=== PATIENT | female | born 1975 | race Two or more races ===

== ENCOUNTER 2022-10-28 11:44 | Emergency (ER) | payer MEDICARE, MEDICAID ==
[~2022-10-28] VITALS: Ht 172.7 cm; Wt 127.0 kg
[2022-10-28 14:43] VITALS: BP 119/90; PULSE 99; RESP 18; TEMP 98.4; O2SAT 99
== END 2022-10-28 14:45 | disposition home or self-care (01) ==
LOC: ER 11:44 → EDBD 11:44 → ER 14:45
DX: S00.03XA Contusion of scalp, initial encounter (principal); I12.0 Hypertensive chronic kidney disease with stage 5 chronic kidney disease or end stage renal disease; E11.22 Type 2 diabetes mellitus with diabetic chronic kidney disease; N18.6 End stage renal disease; Z99.2 Dependence on renal dialysis; Z88.5 Allergy status to narcotic agent; Y04.2XXA Assault by strike against or bumped into by another person, initial encounter; Y93.89 Activity, other specified; Y92.89 Other specified places as the place of occurrence of the external cause; Y99.8 Other external cause status
CPT/HCPCS: 70450; 70486; 72125

== ENCOUNTER 2022-12-12 09:47 | Inpatient (IN) | payer MEDICARE, MEDICAID ==
[~2022-12-12] VITALS: Ht 172.7 cm; Wt 138.7 kg
[2022-12-12 10:26] LABS: Basophils # (auto) 0.1 10 ^3/uL (0-0.2); Basophils % (auto) 1.3 % (0.0-2.0); Eosinophils # (auto) 0.3 10 ^3/uL (0-0.8); Eosinophils % (auto) 4.8 % (0.0-7.0); Hematocrit 33.8 % (36.0-46.0); Hemoglobin 11.3 g/dL (12.2-16.2); Lymphocytes # (auto) 1.6 10 ^3/uL (0.4-5.4); Lymphocytes % (auto) 22.6 % (10.0-50.0); Mean Corpuscular Hemoglobin 31.5 pg (28.0-32.0); Mean Corpuscular Hgb Conc. 33.4 g/dL (32.0-36.0); Mean Corpuscular Volume 94.4 fL (80.0-100.0); Monocytes # (auto) 0.4 10 ^3/uL (0-1.3); Monocytes % (auto) 6.4 % (0.0-12.0); Neutrophils # (auto) 4.6 10 ^3/uL (1.6-8.6); Neutrophils % (auto) 64.9 % (37.0-80.0); Nucleated Red Blood Cells % 0.1 %; Red Blood Cells 3.58 10^6/uL (4.0-5.20); Red Cell Distribution Width 14.6 % (11.8-14.3); White Blood Cell 7.1 10^3/uL (4.4-10.8)
[2022-12-12] MEDS ORDERED: MORPHINE SULFATE 4 MG/ML SYR/VIAL IV ONE (10:45)
[2022-12-12] MEDS ORDERED: PANTOPRAZOLE 40 MG/10 ML VIAL INJ IV ONE (10:45)
[2022-12-12] MEDS ORDERED: SODIUM CHLORIDE 0.9% 1,000 ML IVB ONE (10:45)
[2022-12-12] MEDS ORDERED: PROCHLORPERAZINE EDISYLATE 5 MG/ML 2ML VIAL IV ONE (10:45)
[2022-12-12 11:16] LABS: Magnesium 2.3 mg/dL (1.6-2.6)
[2022-12-12 11:47] LABS: Alanine Aminotransferase 21 U/L (7-40); Albumin 4.3 g/dL (3.2-4.8); Alkaline Phosphatase 74 U/L (46-116); Anion Gap 8 (5-15); Aspartate Aminotransferase < 8 U/L (13-40); BUN/Creatinine Ratio 5.4 (10.0-20.0); Bilirubin, Total 0.3 mg/dL (0.2-1.0); Blood Urea Nitrogen 39 mg/dL (9-23); Calcium 9.5 mg/dL (8.5-10.1); Carbon Dioxide 33 mmol/L (20-30); Chloride 98 mmol/L (98-107); Glucose 179 mg/dL (74-106); Potassium 4.3 mmol/L (3.5-5.1); Sodium 139 mmol/L (136-145); Total Protein 7.7 g/dL (5.7-8.2)
[2022-12-12 12:38] VITALS: PULSE 66; RESP 16; O2SAT 94
[2022-12-12] MEDS ORDERED: ACETAMINOPHEN 325 MG TAB PO PRN (13:30)
[2022-12-12] MEDS ORDERED: DEXTROSE (50%) 50ML SYRG IV PRN (13:30)
[2022-12-12] MEDS ORDERED: DOCUSATE SOD 100 MG CAP PO PRN (13:30)
[2022-12-12] MEDS ORDERED: CALC667C PO (14:16)
[2022-12-12] MEDS ORDERED: FERR1TAB17 PO (14:16)
[2022-12-12] MEDS ORDERED: FURO40TA4 PO (14:16)
[2022-12-12] MEDS ORDERED: METO-159 PO (14:16)
[2022-12-12] MEDS ORDERED: GABA-1250 PO (14:16)
[2022-12-12] MEDS: SODIUM CHLORIDE 0.9% 1,000 ML IV SCH (14:25)
[2022-12-12] MEDS: InsuLIN REG 1unit/0.01ml Soln (100units/ml) SC SCH ×2 (17:00→23:19)
[2022-12-12] MEDS: ACCU-CHEK COMFORT CURVE STRIP VI SCH ×2 (17:06→23:10)
[2022-12-12] MEDS: hydrALAZINE HCL 20 MG/ML VL IV PRN (17:13)
[2022-12-12 20:25] VITALS: PULSE 69; RESP 20; O2SAT 99
[2022-12-12 22:00] VITALS: BP 196/105; PULSE 67; RESP 19; TEMP 97.8; O2SAT 100
[2022-12-12] MEDS: FERRIC CITRATE PO SCH (22:00)
[2022-12-12 22:56] VITALS: PULSE 61; RESP 19
[2022-12-12] MEDS: METOPROLOL TARTRATE 50 MG TAB PO SCH (23:08)
[2022-12-12] MEDS: CALCIUM ACETATE 667 MG CAP PO SCH (23:08)
[2022-12-12] MEDS: GABAPENTIN 300 MG CAP PO SCH (23:08)
[2022-12-12] MEDS ORDERED: LEVO150T10 PO (23:12)
[2022-12-12] MEDS ORDERED: CLON0.1T PO (23:12)
[2022-12-12] MEDS: MORPHINE SULFATE INJ 2 MG/ml SYRG IV PRN (23:53)
[2022-12-13 00:30] VITALS: BP 158/59; PULSE 58; RESP 17; O2SAT 99
[2022-12-13] MEDS: SODIUM CHLORIDE 0.9% 1,000 ML IV SCH (03:35)
[2022-12-13 05:00] VITALS: BP 141/64; PULSE 59; RESP 17; TEMP 97.6; O2SAT 94
[2022-12-13] MEDS: FERRIC CITRATE PO SCH ×3 (06:00→22:00)
[2022-12-13] MEDS: CALCIUM ACETATE 667 MG CAP PO SCH ×3 (06:25→22:28)
[2022-12-13] MEDS: InsuLIN REG 1unit/0.01ml Soln (100units/ml) SC SCH ×4 (06:30→22:30)
[2022-12-13] MEDS: ACCU-CHEK COMFORT CURVE STRIP VI SCH ×4 (06:31→22:28)
[2022-12-13] MEDS ORDERED: SODIUM CHL 0.9% 1000 ML BAG XX ONE (07:00)
[2022-12-13 07:09] LABS: Alanine Aminotransferase 13 U/L (7-40); Albumin 3.7 g/dL (3.2-4.8); Alkaline Phosphatase 73 U/L (46-116); Anion Gap 10 (5-15); Aspartate Aminotransferase 16 U/L (13-40); BUN/Creatinine Ratio 3.3 (10.0-20.0); Calcium 9.1 mg/dL (8.7-10.4); Carbon Dioxide 25 mmol/L (20-30); Chloride 99 mmol/L (98-107); Glucose 142 mg/dL (74-106); Potassium 4.8 mmol/L (3.5-5.1)
[2022-12-13 07:10] LABS: Bilirubin, Total 0.3 mg/dL (0.2-1.0); Blood Urea Nitrogen 28 mg/dL (9-23); Sodium 134 mmol/L (136-145); Total Protein 6.7 g/dL (5.7-8.2)
[2022-12-13 07:12] LABS: Basophils # (auto) 0.1 10 ^3/uL (0-0.2); Basophils % (auto) 1.5 % (0.0-2.0); Eosinophils # (auto) 0.5 10 ^3/uL (0-0.8); Eosinophils % (auto) 6.8 % (0.0-7.0); Hematocrit 35.7 % (36.0-46.0); Hemoglobin 11.5 g/dL (12.2-16.2); Lymphocytes # (auto) 1.6 10 ^3/uL (0.4-5.4); Lymphocytes % (auto) 23.1 % (10.0-50.0); Mean Corpuscular Hemoglobin 31.1 pg (28.0-32.0); Mean Corpuscular Hgb Conc. 32.1 g/dL (32.0-36.0); Mean Corpuscular Volume 96.9 fL (80.0-100.0); Monocytes # (auto) 0.6 10 ^3/uL (0-1.3); Monocytes % (auto) 8.7 % (0.0-12.0); Neutrophils # (auto) 4.1 10 ^3/uL (1.6-8.6); Neutrophils % (auto) 59.9 % (37.0-80.0); Red Blood Cells 3.68 10^6/uL (4.0-5.20); Red Cell Distribution Width 14.6 % (11.8-14.3); White Blood Cell 6.9 10^3/uL (4.4-10.8)
[2022-12-13 08:00] VITALS: RESP 18; O2SAT 99
[2022-12-13 09:00] VITALS: BP 160/54; PULSE 60; RESP 20; TEMP 98.4; O2SAT 99
[2022-12-13] MEDS: GABAPENTIN 300 MG CAP PO SCH ×2 (10:43→22:28)
[2022-12-13] MEDS: METOPROLOL TARTRATE 50 MG TAB PO SCH (10:43)
[2022-12-13] MEDS: FUROSEMIDE 40 MG TAB PO SCH (10:43)
[2022-12-13] MEDS: HYDROcodone-ACET 5/325MG TAB PO PRN (11:42)
[2022-12-13 15:03] LABS: INR 1.04 (0.9-1.15); Partial Thromboplastin Time 25.9 SEC (24.5-34.5); Prothrombin Time 10.9 sec (9.3-11.8)
[2022-12-13] MEDS: LACTULOSE 20Gm/30ML SOLN PO SCH ×2 (15:27→22:28)
[2022-12-13 16:59] VITALS: BP 209/79; PULSE 60; RESP 18; TEMP 98; O2SAT 96
[2022-12-13] MEDS: amLODIPine BESYLATE 5 MG TAB PO SCH (17:37)
[2022-12-13 22:00] VITALS: BP 174/78; PULSE 65; RESP 22; TEMP 98.1; O2SAT 100
[2022-12-13] MEDS: DOCUSATE SOD 100 MG CAP PO SCH (22:28)
[2022-12-13] MEDS: CARVEDILOL 12.5 MG TAB PO SCH (22:31)
[2022-12-13] MEDS: MORPHINE SULFATE INJ 2 MG/ml SYRG IV PRN (22:37)
[2022-12-14] MEDS: LACTULOSE 20Gm/30ML SOLN PO SCH ×3 (06:00→21:34)
[2022-12-14] MEDS: FERRIC CITRATE PO SCH ×2 (06:00→17:38)
[2022-12-14] MEDS: CALCIUM ACETATE 667 MG CAP PO SCH ×3 (06:00→21:16)
[2022-12-14] MEDS ORDERED: LIDOCAINE 2%HCL (LOCAL ANESTH.) INJ 10ml MDV ONE (06:47)
[2022-12-14] MEDS: ACCU-CHEK COMFORT CURVE STRIP VI SCH ×4 (07:00→21:15)
[2022-12-14] MEDS: InsuLIN REG 1unit/0.01ml Soln (100units/ml) SC SCH ×4 (07:00→21:18)
[2022-12-14 09:00] VITALS: BP 139/68; PULSE 80; RESP 20; TEMP 98; O2SAT 91
[2022-12-14] MEDS: CARVEDILOL 12.5 MG TAB PO SCH ×2 (10:00→13:06)
[2022-12-14] MEDS: amLODIPine BESYLATE 5 MG TAB PO SCH (10:00)
[2022-12-14] MEDS: FUROSEMIDE 40 MG TAB PO SCH (10:00)
[2022-12-14] MEDS: GABAPENTIN 300 MG CAP PO SCH ×3 (10:00→21:15)
[2022-12-14] MEDS: DOCUSATE SOD 100 MG CAP PO SCH ×2 (10:00→21:34)
[2022-12-14 13:00] VITALS: BP 133/65; PULSE 77; RESP 20; TEMP 97.8; O2SAT 90
[2022-12-14] MEDS: MORPHINE SULFATE INJ 2 MG/ml SYRG IV PRN ×2 (13:04→13:06)
[2022-12-14 17:00] VITALS: BP 141/63; PULSE 69; RESP 20; TEMP 98.1; O2SAT 92
[2022-12-14 20:00] VITALS: PULSE 84; RESP 22; O2SAT 97
[2022-12-14] MEDS: hydrALAZINE HCL 20 MG/ML VL IV PRN (21:42)
[2022-12-14 22:00] VITALS: BP 194/98; PULSE 84; RESP 22; TEMP 98.3; O2SAT 97
[2022-12-14 22:45] VITALS: BP 149/53
[2022-12-15] VITALS (8 sets, daily range): BP systolic 148–201; BP diastolic 53–91; PULSE 72–86; RESP 14–22; TEMP 97.7–98.9; O2SAT 89–99
[2022-12-15] MEDS: LACTULOSE 20Gm/30ML SOLN PO SCH ×3 (06:00→22:00)
[2022-12-15] MEDS: CALCIUM ACETATE 667 MG CAP PO SCH ×3 (06:00→17:37)
[2022-12-15 06:27] LABS: Basophils # (auto) 0.1 10 ^3/uL (0-0.2); Basophils % (auto) 1.2 % (0.0-2.0); Eosinophils # (auto) 0.4 10 ^3/uL (0-0.8); Eosinophils % (auto) 6.3 % (0.0-7.0); Hematocrit 31.4 % (36.0-46.0); Hemoglobin 10.3 g/dL (12.2-16.2); Lymphocytes # (auto) 1.6 10 ^3/uL (0.4-5.4); Lymphocytes % (auto) 24.9 % (10.0-50.0); Mean Corpuscular Hemoglobin 31.6 pg (28.0-32.0); Mean Corpuscular Hgb Conc. 32.7 g/dL (32.0-36.0); Mean Corpuscular Volume 96.4 fL (80.0-100.0); Monocytes # (auto) 0.6 10 ^3/uL (0-1.3); Monocytes % (auto) 9.1 % (0.0-12.0); Neutrophils # (auto) 3.6 10 ^3/uL (1.6-8.6); Neutrophils % (auto) 58.5 % (37.0-80.0); Nucleated Red Blood Cells % 0.1 %; Red Blood Cells 3.26 10^6/uL (4.0-5.20); Red Cell Distribution Width 14.7 % (11.8-14.3); White Blood Cell 6.2 10^3/uL (4.4-10.8)
[2022-12-15 06:39] LABS: Alanine Aminotransferase 13 U/L (7-40); Albumin 3.7 g/dL (3.2-4.8); Alkaline Phosphatase 67 U/L (46-116); Anion Gap 8 (5-15); Aspartate Aminotransferase < 8 U/L (13-40); BUN/Creatinine Ratio 4.2 (10.0-20.0); Bilirubin, Total 0.4 mg/dL (0.2-1.0); Blood Urea Nitrogen 35 mg/dL (9-23); Calcium 9.1 mg/dL (8.5-10.1); Carbon Dioxide 27 mmol/L (20-30); Chloride 103 mmol/L (98-107); Glucose 102 mg/dL (74-106); Potassium 5.2 mmol/L (3.5-5.1); Sodium 138 mmol/L (136-145); Total Protein 6.6 g/dL (5.7-8.2)
[2022-12-15 06:41] LABS: INR 1.01 (0.9-1.15); Partial Thromboplastin Time 26.4 SEC (24.5-34.5); Prothrombin Time 10.6 sec (9.3-11.8)
[2022-12-15] MEDS: InsuLIN REG 1unit/0.01ml Soln (100units/ml) SC SCH ×4 (06:41→22:39)
[2022-12-15] MEDS: ACCU-CHEK COMFORT CURVE STRIP VI SCH ×4 (06:41→22:35)
[2022-12-15] MEDS: hydrALAZINE HCL 20 MG/ML VL IV PRN ×2 (06:44→22:38)
[2022-12-15] MEDS ORDERED: SODIUM CHL 0.9% 1000 ML BAG XX ONE (07:00)
[2022-12-15] MEDS: FERRIC CITRATE PO SCH ×3 (08:00→17:38)
[2022-12-15] MEDS: FUROSEMIDE 40 MG TAB PO SCH (09:42)
[2022-12-15] MEDS: DOCUSATE SOD 100 MG CAP PO SCH ×2 (09:42→22:00)
[2022-12-15] MEDS: CARVEDILOL 12.5 MG TAB PO SCH ×2 (09:42→22:37)
[2022-12-15] MEDS: GABAPENTIN 300 MG CAP PO SCH ×2 (09:42→22:35)
[2022-12-15] MEDS: amLODIPine BESYLATE 5 MG TAB PO SCH (09:42)
[2022-12-15] MEDS ORDERED: METOPROLOL TARTRATE 50 MG TAB PO SCH (10:00)
[2022-12-15] MEDS ORDERED: ceFAZolin 1GM/50ML 0 ML IV ONE (10:49)
[2022-12-15] MEDS: HYDROcodone-ACET 5/325MG TAB PO PRN ×2 (14:02→22:50)
[2022-12-15] MEDS ORDERED: ceFAZolin 1GM/50ML 100 ML IV ONE (14:18)
[2022-12-16] VITALS (7 sets, daily range): BP systolic 103–177; BP diastolic 75–91; PULSE 78–82; RESP 14–22; TEMP 97.8–98.9; O2SAT 93–99
[2022-12-16] MEDS: InsuLIN REG 1unit/0.01ml Soln (100units/ml) SC SCH ×4 (05:35→21:31)
[2022-12-16] MEDS: LACTULOSE 20Gm/30ML SOLN PO SCH ×3 (05:35→21:20)
[2022-12-16] MEDS: ACCU-CHEK COMFORT CURVE STRIP VI SCH ×4 (05:35→21:31)
[2022-12-16 07:20] LABS: Basophils # (auto) 0.1 10 ^3/uL (0-0.2); Basophils % (auto) 1.7 % (0.0-2.0); Eosinophils # (auto) 0.3 10 ^3/uL (0-0.8); Eosinophils % (auto) 6.8 % (0.0-7.0); Hematocrit 32.3 % (36.0-46.0); Hemoglobin 10.6 g/dL (12.2-16.2); Lymphocytes # (auto) 1.5 10 ^3/uL (0.4-5.4); Lymphocytes % (auto) 30.6 % (10.0-50.0); Mean Corpuscular Hemoglobin 31.3 pg (28.0-32.0); Mean Corpuscular Hgb Conc. 32.8 g/dL (32.0-36.0); Mean Corpuscular Volume 95.4 fL (80.0-100.0); Monocytes # (auto) 0.5 10 ^3/uL (0-1.3); Monocytes % (auto) 10.2 % (0.0-12.0); Neutrophils # (auto) 2.5 10 ^3/uL (1.6-8.6); Neutrophils % (auto) 50.7 % (37.0-80.0); Red Blood Cells 3.38 10^6/uL (4.0-5.20); Red Cell Distribution Width 14.6 % (11.8-14.3); White Blood Cell 4.9 10^3/uL (4.4-10.8)
[2022-12-16 07:27] LABS: Chloride 104 mmol/L (98-107); Potassium 4.7 mmol/L (3.5-5.1); Sodium 139 mmol/L (136-145)
[2022-12-16 07:28] LABS: Anion Gap 8 (5-15); Carbon Dioxide 27 mmol/L (20-30)
[2022-12-16 07:29] LABS: Calcium 9.2 mg/dL (8.7-10.4)
[2022-12-16 07:33] LABS: BUN/Creatinine Ratio 3.9 (10.0-20.0); Blood Urea Nitrogen 27 mg/dL (9-23); Glucose 104 mg/dL (74-106)
[2022-12-16] MEDS: CALCIUM ACETATE 667 MG CAP PO SCH ×3 (08:29→17:32)
[2022-12-16] MEDS: FERRIC CITRATE PO SCH ×3 (08:30→17:32)
[2022-12-16] MEDS: DOCUSATE SOD 100 MG CAP PO SCH ×2 (09:43→21:21)
[2022-12-16] MEDS: amLODIPine BESYLATE 5 MG TAB PO SCH (09:45)
[2022-12-16] MEDS: FUROSEMIDE 40 MG TAB PO SCH (09:45)
[2022-12-16] MEDS: GABAPENTIN 300 MG CAP PO SCH ×2 (09:45→21:21)
[2022-12-16] MEDS: CARVEDILOL 12.5 MG TAB PO SCH ×2 (09:46→21:21)
[2022-12-16] MEDS: hydrALAZINE HCL 20 MG/ML VL IV PRN ×2 (17:17→21:19)
[2022-12-17] VITALS (7 sets, daily range): BP systolic 101–164; BP diastolic 61–76; PULSE 79–88; RESP 14–20; TEMP 98.2–98.6; O2SAT 95–99
[2022-12-17] MEDS: LACTULOSE 20Gm/30ML SOLN PO SCH ×3 (04:33→21:32)
[2022-12-17] MEDS: hydrALAZINE HCL 20 MG/ML VL IV PRN (04:34)
[2022-12-17] MEDS: HYDROcodone-ACET 5/325MG TAB PO PRN ×2 (04:35→22:05)
[2022-12-17] MEDS: ACCU-CHEK COMFORT CURVE STRIP VI SCH ×4 (05:51→21:22)
[2022-12-17] MEDS: InsuLIN REG 1unit/0.01ml Soln (100units/ml) SC SCH ×4 (05:54→21:28)
[2022-12-17 06:14] LABS: Basophils # (auto) 0.1 10 ^3/uL (0-0.2); Basophils % (auto) 1.6 % (0.0-2.0); Eosinophils # (auto) 0.4 10 ^3/uL (0-0.8); Eosinophils % (auto) 6.8 % (0.0-7.0); Hematocrit 32.4 % (36.0-46.0); Hemoglobin 10.7 g/dL (12.2-16.2); Lymphocytes # (auto) 1.7 10 ^3/uL (0.4-5.4); Mean Corpuscular Hemoglobin 31.7 pg (28.0-32.0); Mean Corpuscular Hgb Conc. 33.1 g/dL (32.0-36.0); Mean Corpuscular Volume 95.6 fL (80.0-100.0); Monocytes # (auto) 0.5 10 ^3/uL (0-1.3); Neutrophils # (auto) 3.7 10 ^3/uL (1.6-8.6); Neutrophils % (auto) 56.6 % (37.0-80.0); Red Blood Cells 3.39 10^6/uL (4.0-5.20); Red Cell Distribution Width 14.8 % (11.8-14.3); White Blood Cell 6.5 10^3/uL (4.4-10.8)
[2022-12-17] MEDS ORDERED: SODIUM CHL 0.9% 1000 ML BAG XX ONE (07:00)
[2022-12-17] MEDS: FERRIC CITRATE PO SCH ×3 (07:56→17:38)
[2022-12-17] MEDS: CALCIUM ACETATE 667 MG CAP PO SCH ×3 (07:56→17:37)
[2022-12-17] MEDS: GABAPENTIN 300 MG CAP PO SCH ×3 (09:36→21:28)
[2022-12-17] MEDS: FUROSEMIDE 40 MG TAB PO SCH (09:36)
[2022-12-17] MEDS: DOCUSATE SOD 100 MG CAP PO SCH ×2 (09:36→21:26)
[2022-12-17] MEDS: amLODIPine BESYLATE 5 MG TAB PO SCH (09:36)
[2022-12-17] MEDS: CARVEDILOL 12.5 MG TAB PO SCH ×2 (09:36→21:27)
[2022-12-18] VITALS (7 sets, daily range): BP systolic 151–176; BP diastolic 62–90; PULSE 70–82; RESP 12–22; TEMP 97.7–98.3; O2SAT 96–99
[2022-12-18] MEDS: hydrALAZINE HCL 20 MG/ML VL IV PRN ×2 (04:23→12:15)
[2022-12-18] MEDS: LACTULOSE 20Gm/30ML SOLN PO SCH ×3 (06:00→22:35)
[2022-12-18] MEDS: ACCU-CHEK COMFORT CURVE STRIP VI SCH ×4 (06:01→22:36)
[2022-12-18] MEDS: InsuLIN REG 1unit/0.01ml Soln (100units/ml) SC SCH ×4 (06:01→22:36)
[2022-12-18] MEDS ORDERED: LIDOCAINE 1%-Mpf/Epinephrine 1:200,000 30ml VIAL ONE (06:52)
[2022-12-18] MEDS ORDERED: BUPIVACAINE HCL 50 ML ONE (06:53)
[2022-12-18] MEDS ORDERED: SUCCINYLCHOLINE CHLORIDE 20 MG/ML 10ML VIAL IV ONE ×2 (06:53→07:09)
[2022-12-18 07:02] LABS: Anion Gap 7 (5-15); Carbon Dioxide 29 mmol/L (20-30); Chloride 101 mmol/L (98-107); Sodium 137 mmol/L (136-145)
[2022-12-18 07:03] LABS: Calcium 9.3 mg/dL (8.7-10.4)
[2022-12-18 07:08] LABS: BUN/Creatinine Ratio 4.6 (10.0-20.0); Blood Urea Nitrogen 35 mg/dL (9-23); Glucose 118 mg/dL (74-106)
[2022-12-18] MEDS ORDERED: SUGAMMADEX 200mg/2ml Vial (100MG/ML) IV ONE (07:09)
[2022-12-18] MEDS ORDERED: KETOROLAC TROMETH 30 MG/ML 1ML VIAL IV ONE (07:15)
[2022-12-18] MEDS ORDERED: ONDANSETRON HCL 4 MG/2 ML VIAL IV PRN (07:15)
[2022-12-18] MEDS ORDERED: fentaNYL CITRATE 100 MCG/2 ML VL ONE ×2 (07:16→08:28)
[2022-12-18] MEDS ORDERED: PROPOFOL 10 MG/ML 20 ML IV ONE (07:16)
[2022-12-18] MEDS ORDERED: ceFAZolin 1GM/50ML 100 ML IV ONE (07:24)
[2022-12-18] MEDS ORDERED: ROCURONIUM 10MG/ML 10ML VIAL IV ONE (07:37)
[2022-12-18] MEDS ORDERED: ONDANSETRON HCL 4 MG/2 ML VIAL ONE (07:38)
[2022-12-18] MEDS ORDERED: ePHEDrine SULFATE 50 MG/ML AMP ONE (07:45)
[2022-12-18] MEDS ORDERED: PHENYLEPHRINE HCL 10 MG/ML VL ONE (07:49)
[2022-12-18] MEDS: CALCIUM ACETATE 667 MG CAP PO SCH ×3 (07:56→17:43)
[2022-12-18] MEDS: FERRIC CITRATE PO SCH ×3 (07:56→17:43)
[2022-12-18] MEDS: HYDROmorphone HCL 2 MG/ML VL/or syr IV PRN ×3 (08:44→09:12)
[2022-12-18] MEDS: CARVEDILOL 12.5 MG TAB PO SCH ×2 (10:00→22:34)
[2022-12-18] MEDS: FUROSEMIDE 40 MG TAB PO SCH (10:00)
[2022-12-18] MEDS: DOCUSATE SOD 100 MG CAP PO SCH ×2 (10:00→22:35)
[2022-12-18] MEDS: GABAPENTIN 300 MG CAP PO SCH ×2 (10:00→22:35)
[2022-12-18] MEDS: amLODIPine BESYLATE 5 MG TAB PO SCH (10:00)
[2022-12-18 10:16] LABS: Hepatitis B Surface Antibody Negative (Negative)
[2022-12-18 10:29] LABS: Hepatitis B Surface Antigen Negative (Negative)
[2022-12-18] MEDS: ONDANSETRON HCL 4 MG/2 ML VIAL IV PRN ×2 (12:14→19:44)
[2022-12-18] MEDS: metroNIDAZOLE 500MG/100ML 100 ML IV SCH ×2 (13:27→22:35)
[2022-12-18] MEDS: ceFAZolin 1GM/50ML 50 ML IV SCH (13:27)
[2022-12-18] MEDS: MORPHINE SULFATE INJ 2 MG/ml SYRG IV PRN ×2 (15:02→19:39)
[2022-12-18] MEDS: HYDROcodone-ACET 5/325MG TAB PO PRN (22:35)
[2022-12-19] VITALS (7 sets, daily range): BP systolic 120–184; BP diastolic 46–82; PULSE 64–91; RESP 18–19; TEMP 98.1–98.7; O2SAT 94–99
[2022-12-19] MEDS: ceFAZolin 1GM/50ML 50 ML IV SCH ×2 (01:15→14:55)
[2022-12-19] MEDS: MORPHINE SULFATE INJ 2 MG/ml SYRG IV PRN ×4 (01:25→20:54)
[2022-12-19] MEDS: metroNIDAZOLE 500MG/100ML 100 ML IV SCH ×3 (05:45→21:08)
[2022-12-19] MEDS: ONDANSETRON HCL 4 MG/2 ML VIAL IV PRN ×2 (05:45→12:22)
[2022-12-19] MEDS: LACTULOSE 20Gm/30ML SOLN PO SCH ×3 (05:45→21:08)
[2022-12-19] MEDS: InsuLIN REG 1unit/0.01ml Soln (100units/ml) SC SCH ×4 (05:47→22:00)
[2022-12-19] MEDS: ACCU-CHEK COMFORT CURVE STRIP VI SCH ×4 (05:47→22:00)
[2022-12-19] MEDS ORDERED: SODIUM CHL 0.9% 1000 ML BAG XX ONE (07:00)
[2022-12-19 07:07] LABS: Chloride 104 mmol/L (98-107); Sodium 137 mmol/L (136-145)
[2022-12-19 07:08] LABS: Anion Gap 6 (5-15); Calcium 9.1 mg/dL (8.7-10.4); Carbon Dioxide 27 mmol/L (20-30)
[2022-12-19 07:09] LABS: Basophils # (auto) 0.1 10 ^3/uL (0-0.2); Basophils % (auto) 1.6 % (0.0-2.0); Eosinophils # (auto) 0.4 10 ^3/uL (0-0.8); Eosinophils % (auto) 5.5 % (0.0-7.0); Hematocrit 30.6 % (36.0-46.0); Hemoglobin 9.8 g/dL (12.2-16.2); Lymphocytes # (auto) 1.8 10 ^3/uL (0.4-5.4); Mean Corpuscular Hemoglobin 31.9 pg (28.0-32.0); Mean Corpuscular Hgb Conc. 32.1 g/dL (32.0-36.0); Mean Corpuscular Volume 99.5 fL (80.0-100.0); Monocytes # (auto) 0.6 10 ^3/uL (0-1.3); Monocytes % (auto) 9.6 % (0.0-12.0); Neutrophils # (auto) 3.5 10 ^3/uL (1.6-8.6); Neutrophils % (auto) 55.3 % (37.0-80.0); Red Blood Cells 3.07 10^6/uL (4.0-5.20); White Blood Cell 6.4 10^3/uL (4.4-10.8)
[2022-12-19 07:13] LABS: BUN/Creatinine Ratio 3.9 (10.0-20.0); Blood Urea Nitrogen 36 mg/dL (9-23); Glucose 104 mg/dL (74-106)
[2022-12-19 07:16] LABS: Bilirubin, Total 0.2 mg/dL (0.2-1.0)
[2022-12-19 07:19] LABS: Potassium 5.9 mmol/L (3.5-5.1)
[2022-12-19] MEDS: CALCIUM ACETATE 667 MG CAP PO SCH ×3 (08:16→17:43)
[2022-12-19] MEDS: FERRIC CITRATE PO SCH ×3 (08:18→17:43)
[2022-12-19] MEDS ORDERED: SODIUM ZIRCONIUM CYCL 10 GM PAK PO ONE (09:30)
[2022-12-19] MEDS: GABAPENTIN 300 MG CAP PO SCH ×2 (09:50→21:09)
[2022-12-19] MEDS: DOCUSATE SOD 100 MG CAP PO SCH ×2 (09:51→21:09)
[2022-12-19] MEDS: FUROSEMIDE 40 MG TAB PO SCH (10:00)
[2022-12-19] MEDS: CARVEDILOL 12.5 MG TAB PO SCH ×2 (10:00→21:09)
[2022-12-19] MEDS: amLODIPine BESYLATE 5 MG TAB PO SCH (10:00)
[2022-12-19] MEDS ORDERED: EPOETIN ALFA-EPBX 4,000 UNIT/ML VIAL SC ONE (21:00)
[2022-12-19] MEDS: hydrALAZINE HCL 20 MG/ML VL IV PRN (21:21)
[2022-12-20] VITALS (8 sets, daily range): BP systolic 125–162; BP diastolic 49–77; PULSE 78–93; RESP 18–20; TEMP 98.2–98.8; O2SAT 94–98
[2022-12-20] MEDS: ceFAZolin 1GM/50ML 50 ML IV SCH ×2 (02:00→16:29)
[2022-12-20] MEDS: LACTULOSE 20Gm/30ML SOLN PO SCH ×2 (06:00→16:28)
[2022-12-20] MEDS: metroNIDAZOLE 500MG/100ML 100 ML IV SCH ×2 (06:00→16:29)
[2022-12-20] MEDS: hydrALAZINE HCL 20 MG/ML VL IV PRN (06:04)
[2022-12-20] MEDS: ONDANSETRON HCL 4 MG/2 ML VIAL IV PRN ×2 (06:04→10:54)
[2022-12-20] MEDS: MORPHINE SULFATE INJ 2 MG/ml SYRG IV PRN ×3 (06:05→16:39)
[2022-12-20] MEDS: InsuLIN REG 1unit/0.01ml Soln (100units/ml) SC SCH ×3 (06:10→17:32)
[2022-12-20 06:57] LABS: Basophils # (auto) 0.1 10 ^3/uL (0-0.2); Basophils % (auto) 1.3 % (0.0-2.0); Eosinophils # (auto) 0.4 10 ^3/uL (0-0.8); Eosinophils % (auto) 5.8 % (0.0-7.0); Hematocrit 29.8 % (36.0-46.0); Hemoglobin 9.8 g/dL (12.2-16.2); Lymphocytes # (auto) 1.3 10 ^3/uL (0.4-5.4); Lymphocytes % (auto) 17.9 % (10.0-50.0); Mean Corpuscular Hemoglobin 31.3 pg (28.0-32.0); Mean Corpuscular Hgb Conc. 32.9 g/dL (32.0-36.0); Mean Corpuscular Volume 95.4 fL (80.0-100.0); Monocytes # (auto) 0.7 10 ^3/uL (0-1.3); Monocytes % (auto) 9.6 % (0.0-12.0); Neutrophils # (auto) 4.8 10 ^3/uL (1.6-8.6); Neutrophils % (auto) 65.4 % (37.0-80.0); Red Blood Cells 3.12 10^6/uL (4.0-5.20); Red Cell Distribution Width 14.2 % (11.8-14.3); White Blood Cell 7.3 10^3/uL (4.4-10.8)
[2022-12-20] MEDS ORDERED: SODIUM CHL 0.9% 1000 ML BAG XX ONE (07:00)
[2022-12-20 07:09] LABS: Anion Gap 7 (5-15); Carbon Dioxide 29 mmol/L (20-30); Chloride 98 mmol/L (98-107); Potassium 5.1 mmol/L (3.5-5.1); Sodium 134 mmol/L (136-145)
[2022-12-20 07:10] LABS: Calcium 9.1 mg/dL (8.5-10.1)
[2022-12-20 07:15] LABS: BUN/Creatinine Ratio 4.5 (10.0-20.0); Blood Urea Nitrogen 34 mg/dL (9-23); Glucose 137 mg/dL (74-106)
[2022-12-20] MEDS: ACCU-CHEK COMFORT CURVE STRIP VI SCH ×3 (07:21→17:30)
[2022-12-20] MEDS: GABAPENTIN 300 MG CAP PO SCH (10:48)
[2022-12-20] MEDS: FUROSEMIDE 40 MG TAB PO SCH (10:49)
[2022-12-20] MEDS: CALCIUM ACETATE 667 MG CAP PO SCH ×2 (10:50→16:39)
[2022-12-20] MEDS: DOCUSATE SOD 100 MG CAP PO SCH (10:53)
[2022-12-20] MEDS: CARVEDILOL 12.5 MG TAB PO SCH (10:53)
[2022-12-20] MEDS: amLODIPine BESYLATE 5 MG TAB PO SCH (10:53)
[2022-12-20] MEDS: FERRIC CITRATE PO SCH ×2 (10:57→16:39)
[2022-12-20] MEDS ORDERED: MET500T PO (11:49)
[2022-12-20] MEDS ORDERED: HYDR-4902 PO (11:49)
[2022-12-20] MEDS ORDERED: EPOETIN ALFA-EPBX 10,000 UNIT/1ML VIAL SC ONE (21:00)
== END 2022-12-20 18:55 | disposition home or self-care (01) | DRG 417 ==
LOC: ER 09:47 → OVERFLOW 13:30 → WEST WING 21:47
PROVIDERS: ADMIT Nurse Practitioner Family; ATTEND Nurse Practitioner Acute Care
PROC: 5A1D70Z Performance of Urinary Filtration, Intermittent, Less than 6 Hours Per Day (ICD-10-PCS; 2022-12-13)
PROC: 5A1D70Z Performance of Urinary Filtration, Intermittent, Less than 6 Hours Per Day (ICD-10-PCS; 2022-12-15)
PROC: 5A1D70Z Performance of Urinary Filtration, Intermittent, Less than 6 Hours Per Day (ICD-10-PCS; 2022-12-17)
PROC: 0FT44ZZ Resection of Gallbladder, Percutaneous Endoscopic Approach (ICD-10-PCS; principal; 2022-12-18 07:27)
PROC: 5A1D70Z Performance of Urinary Filtration, Intermittent, Less than 6 Hours Per Day (ICD-10-PCS; 2022-12-19)
PROC: 5A1D70Z Performance of Urinary Filtration, Intermittent, Less than 6 Hours Per Day (ICD-10-PCS; 2022-12-20)
DX: K80.64 Calculus of gallbladder and bile duct with chronic cholecystitis without obstruction (principal); N18.6 End stage renal disease; I12.0 Hypertensive chronic kidney disease with stage 5 chronic kidney disease or end stage renal disease; N17.9 Acute kidney failure, unspecified; Z68.42 Body mass index [BMI] 45.0-49.9, adult; K52.9 Noninfective gastroenteritis and colitis, unspecified; E66.01 Morbid (severe) obesity due to excess calories; E83.39 Other disorders of phosphorus metabolism; E78.5 Hyperlipidemia, unspecified; D63.1 Anemia in chronic kidney disease; K59.00 Constipation, unspecified; E11.22 Type 2 diabetes mellitus with diabetic chronic kidney disease; E87.5 Hyperkalemia; R16.0 Hepatomegaly, not elsewhere classified; Z99.2 Dependence on renal dialysis; Z88.5 Allergy status to narcotic agent; Z88.8 Allergy status to other drugs, medicaments and biological substances; Z79.899 Other long term (current) drug therapy
CPT/HCPCS: 36415; 71045; 74176; 76705; 80048; 80053; 82247; 82962; 83690; 83735; 84702; 85025; 85610; 85730; 86706; 86850; 86900; 86901; 87045; 87177; 87340; 87427; 90935; 96361; 96374; 96375; C9113; G0378; J0330; J0690; J1815; J2001; J2405; J2704; J3490

== ENCOUNTER 2023-01-15 23:06 | Inpatient (IN) | payer MEDICARE, MEDICAID ==
[~2023-01-15] VITALS: Ht 172.7 cm; Wt 136.6 kg
[~2023-01-15 23:06] MED LIST: CALC667C PO; CLON0.1T PO; FERR1TAB17 PO; FURO40TA4 PO; GABA-1250 PO; HYDR-4902 PO; LEVO150T10 PO; METO-159 PO; PANT40TA2 PO
[2023-01-15 23:27] LABS: Basophils # (auto) 0.1 10 ^3/uL (0-0.2); Basophils % (auto) 0.9 % (0.0-2.0); Eosinophils # (auto) 0.5 10 ^3/uL (0-0.8); Eosinophils % (auto) 4.8 % (0.0-7.0); Hematocrit 28.7 % (36.0-46.0); Hemoglobin 9.3 g/dL (12.2-16.2); Lymphocytes # (auto) 1.7 10 ^3/uL (0.4-5.4); Lymphocytes % (auto) 17.7 % (10.0-50.0); Mean Corpuscular Hemoglobin 31.6 pg (28.0-32.0); Mean Corpuscular Hgb Conc. 32.4 g/dL (32.0-36.0); Mean Corpuscular Volume 97.7 fL (80.0-100.0); Monocytes # (auto) 0.6 10 ^3/uL (0-1.3); Monocytes % (auto) 6.3 % (0.0-12.0); Neutrophils # (auto) 6.9 10 ^3/uL (1.6-8.6); Neutrophils % (auto) 70.3 % (37.0-80.0); Red Blood Cells 2.94 10^6/uL (4.0-5.20); Red Cell Distribution Width 15.3 % (11.8-14.3); White Blood Cell 9.8 10^3/uL (4.4-10.8)
[2023-01-15 23:40] VITALS: PULSE 59; RESP 15; O2SAT 97
[2023-01-15 23:44] LABS: Alanine Aminotransferase 26 U/L (7-40); Alkaline Phosphatase 81 U/L (46-116); Anion Gap 10 (5-15); Aspartate Aminotransferase 20 U/L (13-40); BUN/Creatinine Ratio 7.7 (10.0-20.0); Bilirubin, Total 0.2 mg/dL (0.2-1.0); Calcium 9.1 mg/dL (8.7-10.4); Carbon Dioxide 23 mmol/L (20-30); Chloride 106 mmol/L (98-107); Glucose 203 mg/dL (74-106); Magnesium 2.8 mg/dL (1.6-2.6); Potassium 5.5 mmol/L (3.5-5.1); Sodium 139 mmol/L (136-145); Total Protein 6.8 g/dL (5.7-8.2)
[2023-01-15 23:47] LABS: Blood Urea Nitrogen 82 mg/dL (9-23)
[2023-01-15 23:51] LABS: INR 1.04 (0.9-1.15); Prothrombin Time 10.9 sec (9.3-11.8)
[2023-01-16] VITALS (10 sets, daily range): BP systolic 101–173; BP diastolic 31–93; PULSE 65–80; RESP 12–20; TEMP 97.4–98.5; O2SAT 92–100
[2023-01-16] MEDS ORDERED: HYDROcodone-ACET 10/325MG TAB PO ONE (00:45)
[2023-01-16] MEDS ORDERED: ALBUTEROL MEDNEB 2.5 mg/3ml NEB NEB ONE (00:45)
[2023-01-16] MEDS ORDERED: IPRATROPIUM BROM 0.5 MG/2.5ML INH SOL NEB ONE (00:45)
[2023-01-16] MEDS ORDERED: CALCIUM GLUC 1,000mg/50ml-NS 50 ML IV ONE (02:30)
[2023-01-16] MEDS ORDERED: DEXTROSE (50%) 50ML SYRG IV ONE ×2 (02:30→03:45)
[2023-01-16] MEDS ORDERED: InsuLIN REG 1unit/0.01ml Soln (100units/ml) IV ONE (02:30)
[2023-01-16] MEDS ORDERED: diphenhdrAMINE HCL 50 MG/1 ML VL IV ONE (03:30)
[2023-01-16] MEDS ORDERED: DEXTROSE 10% 1,000 ML IV ONE (03:45)
[2023-01-16] MEDS ORDERED: cefTRIAXone 1GM/50ML D5W 50 ML IV ONE (03:45)
[2023-01-16] MEDS ORDERED: DEXTROSE (50%) 50ML SYRG IV PRN (06:15)
[2023-01-16] MEDS ORDERED: MORPHINE SULFATE INJ 2 MG/ml SYRG IV PRN (06:15)
[2023-01-16] MEDS ORDERED: ONDANSETRON HCL 4 MG/2 ML VIAL IV PRN (06:15)
[2023-01-16] MEDS ORDERED: ACETAMINOPHEN 325 MG TAB PO PRN (06:15)
[2023-01-16] MEDS ORDERED: NITROGLYCERIN 0.4 MG SL TAB SL PRN (06:15)
[2023-01-16] MEDS ORDERED: ALBUTEROL MEDNEB 2.5 mg/3ml NEB NEB PRN (06:15)
[2023-01-16] MEDS: LEVOTHYROXINE SODIUM 50 MCG TAB PO SCH (07:07)
[2023-01-16] MEDS: CALCIUM ACETATE 667 MG CAP PO SCH ×3 (08:42→17:17)
[2023-01-16] MEDS: ACCU-CHEK COMFORT CURVE STRIP VI SCH ×3 (12:30→22:08)
[2023-01-16] MEDS: InsuLIN REG 1unit/0.01ml Soln (100units/ml) SC SCH ×3 (12:40→22:28)
[2023-01-16] MEDS: GABAPENTIN 300 MG CAP PO SCH ×2 (14:19→22:03)
[2023-01-16] MEDS: cloNIDine HCL 0.1 MG TAB PO PRN (14:21)
[2023-01-16] MEDS: ASPirin 81 mg TAB PO SCH (18:07)
[2023-01-16] MEDS: ATORVASTATIN 20 MG TAB PO SCH (22:03)
[2023-01-17] VITALS (9 sets, daily range): BP systolic 127–180; BP diastolic 56–92; PULSE 63–79; RESP 17–20; TEMP 97.8–100.9; O2SAT 93–98
[2023-01-17] MEDS: InsuLIN REG 1unit/0.01ml Soln (100units/ml) SC SCH ×4 (06:00→22:02)
[2023-01-17] MEDS: GABAPENTIN 300 MG CAP PO SCH ×3 (06:15→21:27)
[2023-01-17] MEDS: LEVOTHYROXINE SODIUM 50 MCG TAB PO SCH (06:15)
[2023-01-17] MEDS: ACCU-CHEK COMFORT CURVE STRIP VI SCH ×4 (06:18→21:27)
[2023-01-17 06:44] LABS: Eosinophils # (auto) 0.4 10 ^3/uL (0-0.8); Lymphocytes # (auto) 0.7 10 ^3/uL (0.4-5.4); Monocytes # (auto) 0.5 10 ^3/uL (0-1.3); Neutrophils # (auto) 5.3 10 ^3/uL (1.6-8.6); White Blood Cell 7.1 10^3/uL (4.4-10.8)
[2023-01-17 06:48] LABS: Basophils # (auto) 0 10 ^3/uL (0-0.2); Basophils % (auto) 0.7 % (0.0-2.0); Eosinophils % (auto) 6.2 % (0.0-7.0); Hematocrit 24.3 % (36.0-46.0); Lymphocytes % (auto) 10.2 % (10.0-50.0); Mean Corpuscular Hemoglobin 32.5 pg (28.0-32.0); Mean Corpuscular Hgb Conc. 33.1 g/dL (32.0-36.0); Mean Corpuscular Volume 98.3 fL (80.0-100.0); Monocytes % (auto) 7.5 % (0.0-12.0); Neutrophils % (auto) 75.4 % (37.0-80.0); Red Blood Cells 2.47 10^6/uL (4.0-5.20); Red Cell Distribution Width 14.5 % (11.8-14.3)
[2023-01-17 06:53] LABS: Alanine Aminotransferase 19 U/L (7-40); Alkaline Phosphatase 70 U/L (46-116); Anion Gap 11 (5-15); BUN/Creatinine Ratio 9.1 (10.0-20.0); Calcium 8.7 mg/dL (8.5-10.1); Carbon Dioxide 22 mmol/L (20-30); Chloride 103 mmol/L (98-107); Glucose 121 mg/dL (74-106); Sodium 136 mmol/L (136-145)
[2023-01-17 06:54] LABS: Albumin 3.7 g/dL (3.2-4.8); Aspartate Aminotransferase 10 U/L (13-40); Bilirubin, Total 0.2 mg/dL (0.2-1.0); Total Protein 6.3 g/dL (5.7-8.2)
[2023-01-17] MEDS ORDERED: SODIUM CHL 0.9% 1000 ML BAG XX ONE (07:00)
[2023-01-17 07:07] LABS: Blood Urea Nitrogen 105 mg/dL (9-23); Potassium 6.4 mmol/L (3.5-5.1)
[2023-01-17] MEDS: CALCIUM ACETATE 667 MG CAP PO SCH ×3 (08:00→18:50)
[2023-01-17] MEDS: ASPirin 81 mg TAB PO SCH (11:37)
[2023-01-17] MEDS: diphenhdrAMINE HCL 50 MG/1 ML VL IV PRN (15:59)
[2023-01-17] MEDS ORDERED: EPOETIN ALFA-EPBX 10,000 UNIT/1ML VIAL SC ONE (21:00)
[2023-01-17] MEDS: ATORVASTATIN 20 MG TAB PO SCH (21:27)
[2023-01-18] MEDS: diphenhdrAMINE HCL 50 MG/1 ML VL IV PRN (01:08)
[2023-01-18 05:00] VITALS: BP 156/81; PULSE 69; RESP 18; TEMP 97.9; O2SAT 95
[2023-01-18] MEDS: GABAPENTIN 300 MG CAP PO SCH (05:44)
[2023-01-18] MEDS: LEVOTHYROXINE SODIUM 50 MCG TAB PO SCH (05:45)
[2023-01-18 06:31] VITALS: O2SAT 95
[2023-01-18] MEDS: ACCU-CHEK COMFORT CURVE STRIP VI SCH ×2 (06:40→12:13)
[2023-01-18] MEDS: InsuLIN REG 1unit/0.01ml Soln (100units/ml) SC SCH ×2 (06:40→12:16)
[2023-01-18 08:00] VITALS: BP 175/83; PULSE 66; RESP 19; TEMP 98.1; O2SAT 96
[2023-01-18] MEDS ORDERED: ASPI-463 PO (08:28)
[2023-01-18] MEDS: ASPirin 81 mg TAB PO SCH (08:37)
[2023-01-18] MEDS: CALCIUM ACETATE 667 MG CAP PO SCH ×2 (08:37→12:13)
[2023-01-18 09:00] VITALS: BP 175/83; PULSE 66; RESP 19; TEMP 98.1; O2SAT 96
[2023-01-18 10:22] VITALS: BP 175/83; PULSE 66; RESP 19; TEMP 98.1; O2SAT 96
[2023-01-18] MEDS: cloNIDine HCL 0.1 MG TAB PO PRN (10:33)
== END 2023-01-18 13:00 | disposition home or self-care (01) | DRG 640 ==
LOC: ER 23:06 → TELE 01-16 06:14 → TELE-CENTR 01-16 12:54
PROVIDERS: ADMIT Nurse Practitioner; ATTEND Family Medicine
PROC: 5A1D70Z Performance of Urinary Filtration, Intermittent, Less than 6 Hours Per Day (ICD-10-PCS; principal; 2023-01-17)
DX: E87.5 Hyperkalemia (principal); N18.6 End stage renal disease; I13.2 Hypertensive heart and chronic kidney disease with heart failure and with stage 5 chronic kidney disease, or end stage renal disease; E44.0 Moderate protein-calorie malnutrition; Z68.42 Body mass index [BMI] 45.0-49.9, adult; E87.70 Fluid overload, unspecified; D63.8 Anemia in other chronic diseases classified elsewhere; E03.9 Hypothyroidism, unspecified; E11.22 Type 2 diabetes mellitus with diabetic chronic kidney disease; E11.65 Type 2 diabetes mellitus with hyperglycemia; E66.01 Morbid (severe) obesity due to excess calories; E78.00 Pure hypercholesterolemia, unspecified; E83.41 Hypermagnesemia; I50.9 Heart failure, unspecified; I27.20 Pulmonary hypertension, unspecified; Z99.2 Dependence on renal dialysis; Z88.5 Allergy status to narcotic agent; Z82.3 Family history of stroke; Z82.49 Family history of ischemic heart disease and other diseases of the circulatory system; Z83.3 Family history of diabetes mellitus; Z91.199 Patient's noncompliance with other medical treatment and regimen due to unspecified reason; Z98.84 Bariatric surgery status
CPT/HCPCS: 36415; 71045; 80053; 82962; 83036; 83735; 83880; 84484; 85025; 85610; 85730; 87081; 90935; 93005; 93306; 94640; G0378; J1815

== ENCOUNTER 2023-04-04 14:46 | Emergency (ER) | payer MEDICARE, MEDICAID ==
[~2023-04-04] VITALS: Ht 172.7 cm; Wt 134.8 kg
[~2023-04-04 14:46] MED LIST changes: +ASPI-463 PO
[2023-04-04] MEDS ORDERED: METOCLOPRAMIDE HCL 5MG/ml INJ 2ml VIAL IM ONE (16:30)
[2023-04-04] MEDS ORDERED: KETOROLAC TROMETH 60MG/2ML VIAL IM ONE (16:30)
[2023-04-04] MEDS ORDERED: diphenhdrAMINE HCL 50 MG/1 ML VL IM ONE (16:30)
[2023-04-04 16:51] VITALS: BP 150/78; PULSE 68; RESP 17; TEMP 97.3; O2SAT 98
== END 2023-04-04 19:09 | disposition left against medical advice (07) ==
LOC: ER 14:46
DX: G43.909 Migraine, unspecified, not intractable, without status migrainosus (principal); E11.22 Type 2 diabetes mellitus with diabetic chronic kidney disease; I12.0 Hypertensive chronic kidney disease with stage 5 chronic kidney disease or end stage renal disease; N18.6 End stage renal disease; E78.5 Hyperlipidemia, unspecified; Z98.51 Tubal ligation status
CPT/HCPCS: 96372; 99284; J1200; J1885; J2765

== ENCOUNTER 2023-04-07 17:07 | Emergency (ER) | payer MEDICARE, MEDICAID ==
[~2023-04-07] VITALS: Ht 172.7 cm; Wt 133.0 kg
[2023-04-07 18:30] VITALS: BP 162/70; PULSE 86; RESP 18; TEMP 98.1; O2SAT 99
[2023-04-07] MEDS ORDERED: diphenhdrAMINE HCL 50 MG/1 ML VL IM ONE (19:00)
[2023-04-07] MEDS ORDERED: METOCLOPRAMIDE HCL 5MG/ml INJ 2ml VIAL IM ONE (19:00)
[2023-04-07] MEDS ORDERED: KETOROLAC TROMETH 60MG/2ML VIAL IM ONE (19:00)
[2023-04-07] MEDS ORDERED: IBUP-1455 PO (20:07)
== END 2023-04-07 20:08 | disposition home or self-care (01) ==
LOC: ER 17:07
DX: G43.909 Migraine, unspecified, not intractable, without status migrainosus (principal); E11.22 Type 2 diabetes mellitus with diabetic chronic kidney disease; E11.65 Type 2 diabetes mellitus with hyperglycemia; I12.0 Hypertensive chronic kidney disease with stage 5 chronic kidney disease or end stage renal disease; N18.6 End stage renal disease; E78.5 Hyperlipidemia, unspecified; Z98.51 Tubal ligation status
CPT/HCPCS: 70450; 96372; 99285; J1200; J1885; J2765

== ENCOUNTER 2023-09-06 14:34 | Emergency (ER) | payer MEDICARE, MEDICAID ==
[~2023-09-06] VITALS: Ht 172.7 cm; Wt 130.7 kg
[~2023-09-06 14:34] MED LIST changes: +IBUP-1455 PO
[2023-09-06 15:06] LABS: Basophils # (auto) 0.1 10 ^3/uL (0-0.2); Basophils % (auto) 1.3 % (0.0-2.0); Eosinophils # (auto) 0.3 10 ^3/uL (0-0.8); Eosinophils % (auto) 4.5 % (0.0-7.0); Hematocrit 36.3 % (36.0-46.0); Lymphocytes # (auto) 1.8 10 ^3/uL (0.4-5.4); Lymphocytes % (auto) 26.8 % (10.0-50.0); Mean Corpuscular Hemoglobin 31.9 pg (28.0-32.0); Mean Corpuscular Hgb Conc. 32.9 g/dL (32.0-36.0); Monocytes # (auto) 0.5 10 ^3/uL (0-1.3); Monocytes % (auto) 7.1 % (0.0-12.0); Neutrophils # (auto) 4.1 10 ^3/uL (1.6-8.6); Neutrophils % (auto) 60.3 % (37.0-80.0); Nucleated Red Blood Cells % 0.1 %; Red Blood Cells 3.75 10^6/uL (4.0-5.20); Red Cell Distribution Width 15.2 % (11.8-14.3); White Blood Cell 6.8 10^3/uL (4.4-10.8)
[2023-09-06 16:35] LABS: Alanine Aminotransferase 32 U/L (7-40); Albumin 4.1 g/dL (3.2-4.8); Alkaline Phosphatase 81 U/L (46-116); Anion Gap 8 (5-15); Aspartate Aminotransferase 21 U/L (13-40); BUN/Creatinine Ratio 4.1 (10.0-20.0); Bilirubin, Total 0.2 mg/dL (0.2-1.0); Blood Urea Nitrogen 27 mg/dL (9-23); Carbon Dioxide 29 mmol/L (20-30); Chloride 101 mmol/L (98-107); Glucose 164 mg/dL (74-106); Potassium 4.3 mmol/L (3.5-5.1); Sodium 138 mmol/L (136-145)
[2023-09-06] MEDS ORDERED: SODIUM CHLORIDE 0.9% 1,000 ML IV ONE (17:00)
[2023-09-06 17:03] VITALS: BP 104/68; TEMP 98.2
[2023-09-06 17:07] VITALS: PULSE 65; RESP 18; O2SAT 99
== END 2023-09-06 17:36 | disposition home or self-care (01) ==
LOC: ER 14:34
DX: I12.0 Hypertensive chronic kidney disease with stage 5 chronic kidney disease or end stage renal disease (principal); E11.22 Type 2 diabetes mellitus with diabetic chronic kidney disease; N18.6 End stage renal disease; E78.5 Hyperlipidemia, unspecified; E66.01 Morbid (severe) obesity due to excess calories; Z68.41 Body mass index [BMI] 40.0-44.9, adult; Z98.890 Other specified postprocedural states; Z88.5 Allergy status to narcotic agent; Z79.899 Other long term (current) drug therapy
CPT/HCPCS: 36415; 80053; 82962; 84484; 85025; 93005

== ENCOUNTER 2023-10-13 18:54 | Emergency (ER) | payer MEDICARE, MEDICAID ==
[~2023-10-13] VITALS: Ht 172.7 cm; Wt 130.0 kg
[2023-10-13 20:37] LABS: Alanine Aminotransferase 25 U/L (7-40); Albumin 4.3 g/dL (3.2-4.8); Alkaline Phosphatase 97 U/L (46-116); Anion Gap 7 (5-15); Aspartate Aminotransferase 19 U/L (13-40); BUN/Creatinine Ratio 2.8 (10.0-20.0); Bilirubin, Total 0.3 mg/dL (0.2-1.0); Blood Urea Nitrogen 20 mg/dL (9-23); Carbon Dioxide 29 mmol/L (20-30); Chloride 99 mmol/L (98-107); Glucose 118 mg/dL (74-106); Potassium 3.7 mmol/L (3.5-5.1); Sodium 135 mmol/L (136-145); Total Protein 7.5 g/dL (5.7-8.2)
[2023-10-13] MEDS ORDERED: MORPHINE SULFATE 4 MG/ML SYR/VIAL IV ONE (20:45)
[2023-10-13] MEDS ORDERED: ONDANSETRON HCL 4 MG/2 ML VIAL IV ONE (20:45)
[2023-10-13 20:47] LABS: Lipase 57 U/L (12-53)
[2023-10-13 21:14] LABS: Basophils # (auto) 0.1 10 ^3/uL (0-0.2); Basophils % (auto) 0.8 % (0.0-2.0); Eosinophils # (auto) 0.2 10 ^3/uL (0-0.8); Eosinophils % (auto) 2.4 % (0.0-7.0); Hematocrit 37.7 % (36.0-46.0); Hemoglobin 12.8 g/dL (12.2-16.2); Lymphocytes # (auto) 1.9 10 ^3/uL (0.4-5.4); Lymphocytes % (auto) 28.2 % (10.0-50.0); Mean Corpuscular Hemoglobin 33.2 pg (28.0-32.0); Mean Corpuscular Volume 97.7 fL (80.0-100.0); Monocytes # (auto) 0.6 10 ^3/uL (0-1.3); Monocytes % (auto) 9.4 % (0.0-12.0); Neutrophils # (auto) 4.1 10 ^3/uL (1.6-8.6); Neutrophils % (auto) 59.2 % (37.0-80.0); Nucleated Red Blood Cells % 0.3 %; Red Blood Cells 3.85 10^6/uL (4.0-5.20); Red Cell Distribution Width 16.1 % (11.8-14.3); White Blood Cell 6.9 10^3/uL (4.4-10.8)
[2023-10-13] MEDS: SODIUM CHLORIDE 0.9% 1,000 ML IV ONE (23:31)
[2023-10-14 00:15] VITALS: PULSE 81; RESP 18; TEMP 98.3; O2SAT 100
[2023-10-14] MEDS: MORPHINE SULFATE INJ 2 MG/ml SYRG IM ONE (00:18)
[2023-10-14] MEDS: ONDANSETRON HCL 4 MG/2 ML VIAL IM ONE (00:23)
[2023-10-14 00:50] VITALS: BP 121/75; PULSE 76; RESP 17; O2SAT 100
[2023-10-14] MEDS ORDERED: ZOFR4T PO (01:08)
[2023-10-14] MEDS ORDERED: HYDR-4798 PO (01:08)
== END 2023-10-14 01:25 | disposition home or self-care (01) ==
LOC: ER 18:54
DX: R10.9 Unspecified abdominal pain (principal); I12.0 Hypertensive chronic kidney disease with stage 5 chronic kidney disease or end stage renal disease; E11.22 Type 2 diabetes mellitus with diabetic chronic kidney disease; N18.6 End stage renal disease; E78.5 Hyperlipidemia, unspecified; Z98.890 Other specified postprocedural states; Z88.8 Allergy status to other drugs, medicaments and biological substances; Z79.899 Other long term (current) drug therapy
CPT/HCPCS: 36415; 74176; 80053; 82962; 83690; 84484; 85025; 96372; 99285; J2270; J2405

== ENCOUNTER 2024-01-26 19:04 | Emergency (ER) | payer MEDICARE, MEDICAID ==
[~2024-01-26] VITALS: Ht 165.1 cm; Wt 125.0 kg
[~2024-01-26 19:04] MED LIST changes: +HYDR-4798 PO; +ZOFR4T PO
--- NOTE | 2024-01-26 19:11 | ECG ---
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
[2024-01-26] MEDS ORDERED: ONDANSETRON HCL 4 MG/2 ML VIAL IV ONE (19:30)
[2024-01-26] MEDS ORDERED: MORPHINE SULFATE 4 MG/ML SYR/VIAL IV ONE (19:30)
--- NOTE | 2024-01-26 19:30 | ED.PDOC ---
GI ASSESSMENT HPI Comments 48-year-old female who came to ER via EMS for abdominal pain. Does have history of hypertension, diabetes, end-stage renal disease on dialysis every Sunday and Sunday. Patient states for the past 5 days she has been having intermittent episodes of aching, cramping, epigastric abdominal pain. States pain gets worse that she is unable to go to her scheduled dialysis sessions. Does have history of cholecystectomy and C-sections Chief Complaint: Abdominal pain Time Seen by MD: 19:29 Primary Care Provider: MADAI Arreguin Notes: Nurses Notes Allergies: Coded Allergies: Codeine (Unverified Allergy, Unknown, 10/03/14) Home Meds Active Scripts Azithromycin (Azithromycin) 500 Mg Tab, 1 TAB PO DAILY, #5 TAB Prov:PEDRO ASHER MD 01/26/24 Ondansetron Odt 4MG Tab (ZOFRAN PO) 4 Mg Tb, 4 MG PO Q6HPRN PRN, #20 TAB ODT TAB-DISSOLVE IN MOUTH, THEN SWALLOW Prov:LUIS LEMUS 10/14/23 Hydrocodone-Acetaminophen (Hydrocodone Bitartrate/AC 10-325 mg) 1 Tab Tab, 1 TAB PO Q6HPRN PRN, #10 TAB Prov:LUIS LEMUS 10/14/23 Ibuprofen Micronized (Ibuprofen) 800 Mg Tab, 800 MG PO Q8HPRN PRN, #30 TAB Prov:LUIS LEMUS [facility] 04/07/23 Aspirin (ASPIRIN/ENTERIC) 81 Mg Tab, 81 MG PO DAILY, #90 TAB Prov:PRANAY DUQUE MD 01/18/23 Pantoprazole Sodium Sesquihydr (Protonix) 40 Mg Tab, 40 MG PO DAILY for 30 Days, #30 TAB Prov:SUSI DAVEY NP 01/01/23 Hydrocodone-Acetaminophen (Hydrocodone Bitartrate/AC 5-325 mg) 1 Tab Tab, 1 TAB PO Q8HR for 5 Days, #15 TAB Prov:SUSI DAVEY NP 12/20/22 Reported Medications Gabapentin (Gabapentin) 300 Mg Cap, CAP PO TID 12/30/22 Clonidine Hydrochloride (Clonidine Hcl) 0.1 Mg Tab, 1 TAB PO QPM, #30 TAB 2 Refills 12/12/22 Levothyroxine Sodium (Levothyroxine Sodium) 150 Mcg Tab, 150 MCG PO, TAB 12/12/22 Furosemide (Furosemide) 40 Mg Tab, TAB PO 12/12/22 Metoprolol Tartrate (Metoprolol Tartrate) 100 Mg Tab, 1 TAB PO BID 12/12/22 Calcium Acetate (Phosphate Bin (Calcium Acetate) 667 Mg Cap, 2 CAP PO TID 12/12/22 Ferric Citrate (Auryxia) 210 Mg Tab, 3 TAB PO TID 12/12/22 Information Source: Patient Mode of Arrival: EMS Timing: Days Duration: Intermittent Prehospital treatment: None Quality: Aching, Cramping Vomitus: None Stool: Normal Severity: Moderate Recent: None Recent Hx of: Abdominal Surgery Pain Location: Epigastric Modifying Factors: Nothing Associated sign and symptoms: Abdominal Pain Past Medical History PAST MEDICAL HISTORY: CKF, DM, ESRD, High Lipids, HTN, Thyroid Surgical History: BTL, Cholecystectomy, 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: No Pertinent 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 Family History Family History: Family hx of DM, Family hx of heart leticia, Family hx of HTN Social History Smoker: Non-Smoker Alcohol: Denies ETOH Use Drugs: Denies Drug Use Lives In: Home Constitutional: reports: chills; denies: diaphoresis, fatigue, fever, malaise, sweats, weakness, others EENTM: denies: blurred vision, double vision, ear bleeding, ear discharge, ear drainage, ear pain, ear ringing, eye pain, eye redness, hearing loss, mouth pain, mouth swelling, nasal discharge, nose bleeding, nose congestion, nose pain, photophobia, tearing, throat pain, throat swelling, voice changes, others Respiratory: denies: cough, hemoptysis, orthopnea, SOB at rest, shortness of breath, SOB with excertion, stridor, wheezing, others Cardiovascular: denies: chest pain, dizzy spells, diaphoresis, Dyspnea on exertion, edema, irregular heart beat, left arm pain, lightheadedness, palpitations, PND, syncope, others Gastrointestinal: reports: abdominal pain; denies: abdomen distended, blood streaked bowels, constipated, diarrhea, dysphagia, difficulty swallowing, hematemesis, melena, nausea, poor appetite, poor fluid intake, rectal bleeding, rectal pain, vomiting, others Genitourinary: denies: abnormal vagina bleeding, burning, dyspareunia, dysuria, flank pain, frequency, hematuria, incontinence, pain, , vagina discharge, urgency, others Neurological: denies: dizziness, fainting, headache, left sided numbness, left sided weakness, numbness, paresthesia, pre-existing deficit, right sided numbness, right sided weakness, seizure, speech problems, tingling, tremors, weakness, others Musculoskeletal: denies: back pain, gout, joint pain, joint swelling, muscle pain, muscle stiffness, neck pain, others Integumetry: denies: bruises, change in color, change in hair/nails, dryness, laceration, lesions, lumps, rash, wounds, others Allergic/Immunocompromised: denies: Difficulty Healing, Frequent Infections, Hives, Itching, others Hematologic/Lymphatic: denies: anemia, blood clots, easy bleeding, easy bruising, swollen glands, others Endocrine: denies: excessive hunger, excessive sweating, excessive thirst, excessive urination, flushing, intolerance to cold, intolerance to heat, unexplained weight gain, unexplained weight loss, others Psychiatric: denies: anxiety, bipolar disorder, depression, hopeless, panic disorder, schizophrenia, sleepless, suicidal, others Physical Exam General Appearance: No Apparent Distress, Normal HEENT: Normal ENT Inspection, Pharynx Normal, TMs Normal Neck: Full Range of Motion, Non-Tender, Normal, Normal Inspection Respiratory: Chest Non-Tender, Lungs Clear, No Accessory Muscle Use, No Respiratory Distress, Normal Breath Sounds Cardiovascular: No Edema, No JVD, No Murmur, No Gallop, Normal Peripheral Pulses, Regular Rate/Rhythm Breast Exam: Deferred Gastrointestinal: No Organomegaly, Non Tender, No Pulsatile Mass, Normal Bowel Sounds, Soft Genitalia: Deferred Pelvic: Deferred Rectal: Deferred Extremities: No calf tenderness, Normal capillary refill, Normal inspection, Normal range of motion, Non-tender, No pedal edema Musculoskeletal : Apperance: Normal Neurologic: Alert, fire safety inspector II-XII nml as Tested, No Motor Deficits, Normal Affect, Normal Mood, No Sensory Deficits Cerebellar Function: Normal Reflexes: Normal Skin: Dry, Normal Color, Warm Lymphatic: No Adenopathy Was a procedure done? Was a procedure done?: No GI differential Dx Differential Diagnosis: Constipation, Diverticular disease, Gastritis/PUD, Gastroenteritis, Pancreatitis, UTI, Urolithiasis, Electrolyte Imbalance X-Ray, Labs, Meds, VS Vital Signs Date Time Temp Pulse Resp B/P (MAP) Pulse Ox O2 Delivery O2 Flow Rate FiO2 01/26/24 21:36 78 16 153/71 01/26/24 21:16 78 01/26/24 20:49 97.9 78 16 153/71 (98) 94 97.9 01/26/24 20:49 78 16 94 Room Air* 0 21 01/26/24 19:12 97.7 79 18 158/72 (100) 98 Lab Test 01/26/24 19:33 Range/Units White Blood Count 6.3 4.4-10.8 10^3/uL Red Blood Count 4.00 4.0-5.20 10^6/uL Hemoglobin 12.5 12.2-16.2 g/dL Hematocrit 37.3 36.0-46.0 % Mean Corpuscular Volume 93.2 80.0-100.0 fL Mean Corpuscular Hemoglobin 31.3 28.0-32.0 pg Mean Corpuscular Hemoglobin Concent 33.6 32.0-36.0 g/dL Red Cell Distribution Width 15.2 H 11.8-14.3 % Platelet Count 182 140-450 10^3/uL Mean Platelet Volume 8.4 6.9-10.8 fL Neutrophils (%) (Auto) 54.7 37.0-80.0 % Lymphocytes (%) (Auto) 30.5 10.0-50.0 % Monocytes (%) (Auto) 8.7 0.0-12.0 % Eosinophils (%) (Auto) 4.6 0.0-7.0 % Basophils (%) (Auto) 1.5 0.0-2.0 % Neutrophils # (Auto) 3.4 1.6-8.6 10 ^3/uL Lymphocytes # (Auto) 1.9 0.4-5.4 10 ^3/uL Monocytes # (Auto) 0.5 0-1.3 10 ^3/uL Eosinophils # (Auto) 0.3 0-0.8 10 ^3/uL Basophils # (Auto) 0.1 0-0.2 10 ^3/uL Nucleated Red Blood Cells 0.2 % Sodium Level 136 136-145 mmol/L Potassium Level 3.5 3.5-5.1 mmol/L Chloride Level 95 L 98-107 mmol/L Carbon Dioxide Level 32 H 20-31 mmol/L Anion Gap 9 5-15 Blood Urea Nitrogen 27 H 9-23 mg/dL Creatinine 6.76 H 0.550-1.02 mg/dL Glomerular Filtration Rate Calc 7 >90 mL/min BUN/Creatinine Ratio 4.0 L 10.0-20.0 Serum Glucose 93 74-106 mg/dL Calcium Level 9.8 8.7-10.4 mg/dL Total Bilirubin 0.4 0.2-1.0 mg/dL Aspartate Amino Transferase (AST) 20 13-40 U/L Alanine Aminotransferase (ALT) 32 7-40 U/L Alkaline Phosphatase 119 H 46-116 U/L Total Protein 7.2 5.7-8.2 g/dL Albumin 4.4 3.2-4.8 g/dL Lipase 100 H 12-53 U/L Current Medications Medications (Trade) Dose Ordered Sig/Kasia Route Start Time Stop Time Status Last Admin Ondansetron HCl (Zofran Po) 4 mg ONCE ONCE PO 01/26/24 21:30 01/26/24 21:31 DC 01/26/24 21:37 Morphine Sulfate 2 mg ONCE ONCE IM 01/26/24 21:30 01/26/24 21:31 DC 01/26/24 21:36 Time of 1ST Reevaluation: 19:26 Reevaluation 1ST: Unchanged Patient Education/Counseling: Diagnosis, Treatment Family Education/Counseling: No Family Present Departure 1 Departure Time of Disposition: 21:00 Impression: Primary Impression: Abdominal pain Additional Impression: Pulmonary infiltrate in left lung on CXR Disposition: HOME / SELF CARE / HOMELESS Condition: Stable e-Prescriptions Azithromycin (Azithromycin) 500 Mg Tab 1 TAB PO DAILY, #5 TAB Prov: PEDRO ASHER MD 01/26/24 Discharged With: Self Critical Care Note Critical Care Time?: No Stability Stability form required: No Heart Score Heart Score: Heart Score Response (Comments) Value History N/A 0 EKG N/A 0 Age N/A 0 Risk Factors N/A 0 Troponin N/A 0 Total 0 I personally scribed for PEDRO ASHER MD ([email or web address]) on 01/26/24 at 19:30. Electronically submitted by Miguelangel Barroso ([email or web address]). PEDRO ASHER MD Jan 26, 2024 19:30
[2024-01-26 19:48] LABS: Basophils # (auto) 0.1 10 ^3/uL (0-0.2); Basophils % (auto) 1.5 % (0.0-2.0); Eosinophils # (auto) 0.3 10 ^3/uL (0-0.8); Eosinophils % (auto) 4.6 % (0.0-7.0); Hematocrit 37.3 % (36.0-46.0); Hemoglobin 12.5 g/dL (12.2-16.2); Lymphocytes # (auto) 1.9 10 ^3/uL (0.4-5.4); Lymphocytes % (auto) 30.5 % (10.0-50.0); Mean Corpuscular Hemoglobin 31.3 pg (28.0-32.0); Mean Corpuscular Hgb Conc. 33.6 g/dL (32.0-36.0); Mean Corpuscular Volume 93.2 fL (80.0-100.0); Monocytes # (auto) 0.5 10 ^3/uL (0-1.3); Monocytes % (auto) 8.7 % (0.0-12.0); Neutrophils # (auto) 3.4 10 ^3/uL (1.6-8.6); Neutrophils % (auto) 54.7 % (37.0-80.0); Nucleated Red Blood Cells % 0.2 %; Platelet Count (auto) 182 10^3/uL (140-450); Red Cell Distribution Width 15.2 % (11.8-14.3); White Blood Cell 6.3 10^3/uL (4.4-10.8)
[2024-01-26 20:05] LABS: Alanine Aminotransferase 32 U/L (7-40); Albumin 4.4 g/dL (3.2-4.8); Alkaline Phosphatase 119 U/L (46-116); Anion Gap 9 (5-15); Aspartate Aminotransferase 20 U/L (13-40); Bilirubin, Total 0.4 mg/dL (0.2-1.0); Blood Urea Nitrogen 27 mg/dL (9-23); Calcium 9.8 mg/dL (8.7-10.4); Carbon Dioxide 32 mmol/L (20-31); Chloride 95 mmol/L (98-107); Glucose 93 mg/dL (74-106); Lipase 100 U/L (12-53); Potassium 3.5 mmol/L (3.5-5.1); Sodium 136 mmol/L (136-145); Total Protein 7.2 g/dL (5.7-8.2)
[2024-01-26 20:49] VITALS: PULSE 78; RESP 16; TEMP 97.9; O2SAT 94
--- NOTE | 2024-01-26 20:53 | DVH ---
Exam: CT CT AB PEL WO CON-NO ORAL OR IV History: upper abd pain, ESRD on dialysis Comparison Study: CT CT AB PEL WO CON-NO ORAL OR IV on DOS: 10/13/23, CT CT AB PEL WO CON-NO ORAL OR IV on DOS: 12/29/22, CT CT AB PEL WO CON-NO ORAL OR IV on DOS: 12/12/22 Technique: Multidetector spiral CT of the abdomen was performed from lung bases to pubic symphysis. Imaging was performed without IV contrast. Axial, coronal and sagittal multiplanar reformats were ob tained from the axial data set by the technologist. Radiation Dose : 1. Abdomen/Pelvis: CTDIvol 27 mGy, DLP 1585 mGy*cm. Findings: Evaluation of solid organs is limited due to lack of intravenous contrast use. Lung Bases: Ground-glass densities in the left lower lobe may reflect mild pneumonia. Liver: The liver is normal in size. No focal lesions. Gallbladder and Biliary Tree: Gallbladder is surgically absent. Spleen: Unremarkable Pancreas: The pancreas is grossly normal in appearance. Adrenal Glands: Unremarkable Kidneys: Atrophic bilateral kidneys. No hydronephrosis. Renal artery calcifications bilaterally. Bladder: Grossly unremarkable for degree of distention. Bowel: The stomach is grossly normal in appearance. Small bowel and colon are normal in caliber and d istribution. Normal appendix is visualized in the right lower quadrant without findings of appendici tis. Ascites: Absent Lymphadenopathy: No mesenteric, retroperitoneal or periportal lymphadenopathy. Abdominal Wall and Mesentery: Unremarkable. Vasculature: The visualized abdominal aorta is normal in size and caliber. Evaluation of abdominal a nd pelvic vessels is limited due to lack of intravenous contrast. Pelvic Organs: Unremarkable Musculoskeletal: No aggressive focal bony lesions, acute fractures or dislocation. IMPRESSION: 1. Ground-glass densities in the left lower lobe may reflect mild pneumonia. 2. Otherwise no acute findings identified. Radiation optimization: All CT scans at this facility use at least one of these dose optimization deepthi hniques: automated exposure control mA and/or kV adjustment per patient size (includes targeted exam s where dose is matched to clinical indication) or iterative reconstruction.
[2024-01-26] MEDS ORDERED: AZIT500T66 PO (21:33)
[2024-01-26 21:36] VITALS: BP 153/71; PULSE 78; RESP 16
[2024-01-26] MEDS: MORPHINE SULFATE INJ 2 MG/ml SYRG IM ONE (21:36)
[2024-01-26] MEDS: ONDANSETRON ODT 4 MG TAB PO ONE (21:37)
--- NOTE | 2024-01-27 00:22 | ECG ---
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
== END 2024-01-26 22:10 | disposition home or self-care (01) ==
LOC: EDBD 19:04 → ER 19:04
DX: R10.13 Epigastric pain (principal); R91.8 Other nonspecific abnormal finding of lung field; I12.0 Hypertensive chronic kidney disease with stage 5 chronic kidney disease or end stage renal disease; N18.6 End stage renal disease; E11.22 Type 2 diabetes mellitus with diabetic chronic kidney disease; E78.5 Hyperlipidemia, unspecified; Z90.49 Acquired absence of other specified parts of digestive tract; Z99.2 Dependence on renal dialysis; Z79.82 Long term (current) use of aspirin; Z79.899 Other long term (current) drug therapy; Z88.5 Allergy status to narcotic agent
CPT/HCPCS: 36415; 74176; 80053; 83690; 85025; 93005; 96372; 99285; J2270; Q0162

== ENCOUNTER 2024-03-19 04:29 | Inpatient (IN) | payer MEDICARE, MEDICAID ==
[~2024-03-19] VITALS: Ht 172.7 cm; Wt 129.0 kg
[~2024-03-19 04:29] MED LIST changes: +AZIT500T66 PO
[2024-03-19 05:02] VITALS: PULSE 42; RESP 19; O2SAT 98
[2024-03-19] MEDS: SODIUM CHLORIDE 0.9% 1,000 ML IV ONE (05:08)
[2024-03-19] MEDS: ATROPINE SULF 1 MG/10ml SYR IV ONE (05:09)
--- NOTE | 2024-03-19 05:35 | ED.PDOC ---
History of Present Illness HPI Comments 48 y/o F, with a history of DM, ESRD w/HD on M/W/, thyroid disease, and HTN, is BIBA for c/o shortness of breath, lightheadedness, dizziness, and generalized weakness, today. Per EMS report, patient endorses on her brother calling on her behalf after she began having difficulty breathing when she laid in her bed, this morning, with other aforementioned symptoms ensuing soon afterwards. She was noted to have been found on scene with a heart rate of 45 and a blood pressure of 90/54, with all remaining vitals within normal limits. En route, patient was given 1mg Atropine, with temporary improvement. At time of assessment, patient admits to use of her son's breathing treatment at home to no relief or improvement of breathing symptoms then in addition to missing her dialysis appointments for the past week, duet o being sick with the flu. She further comments on her heart rate being within the 70's range and taking Metoprolol for her blood pressure. She refutes any recent sick contact, travel, or additional relevant or pertinent information. She denies having any chest pain, cough, nausea, vomiting, fever, chills, or other associated symptoms or modifiers at this time. Chief Complaint: General Weakness Time Seen by MD: 04:40 Primary Care Provider: MADAI Arreguin Notes: Nurses Notes, Carburizer Notes, Medications, Allergies Allergies: Coded Allergies: Codeine (Unverified Allergy, Unknown, 10/03/14) Home Meds Active Scripts Azithromycin (Azithromycin) 500 Mg Tab, 1 TAB PO DAILY, #5 TAB Prov:PEDRO ASHER MD 01/26/24 Ondansetron Odt 4MG Tab (ZOFRAN PO) 4 Mg Tb, 4 MG PO Q6HPRN PRN, #20 TAB ODT TAB-DISSOLVE IN MOUTH, THEN SWALLOW Prov:LUIS LEMUS 10/14/23 Hydrocodone-Acetaminophen (Hydrocodone Bitartrate/AC 10-325 mg) 1 Tab Tab, 1 TAB PO Q6HPRN PRN, #10 TAB Prov:LUIS LEMUS 10/14/23 Ibuprofen Micronized (Ibuprofen) 800 Mg Tab, 800 MG PO Q8HPRN PRN, #30 TAB Prov:LUIS LEMUS 04/07/23 Aspirin (ASPIRIN/ENTERIC) 81 Mg Tab, 81 MG PO DAILY, #90 TAB Prov:PRANAY DUQUE MD 01/18/23 Pantoprazole Sodium Sesquihydr (Protonix) 40 Mg Tab, 40 MG PO DAILY for 30 Days, #30 TAB Prov:SUSI DAVEY NP 01/01/23 Hydrocodone-Acetaminophen (Hydrocodone Bitartrate/AC 5-325 mg) 1 Tab Tab, 1 TAB PO Q8HR for 5 Days, #15 TAB Prov:SUSI DAVEY NP 12/20/22 Reported Medications Gabapentin (Gabapentin) 300 Mg Cap, CAP PO TID 12/30/22 Clonidine Hydrochloride (Clonidine Hcl) 0.1 Mg Tab, 1 TAB PO QPM, #30 TAB 2 Refills 12/12/22 Levothyroxine Sodium (Levothyroxine Sodium) 150 Mcg Tab, 150 MCG PO, TAB 12/12/22 Furosemide (Furosemide) 40 Mg Tab, TAB PO 12/12/22 Metoprolol Tartrate (Metoprolol Tartrate) 100 Mg Tab, 1 TAB PO BID 12/12/22 Calcium Acetate (Phosphate Bin (Calcium Acetate) 667 Mg Cap, 2 CAP PO TID 12/12/22 Ferric Citrate (Auryxia) 210 Mg Tab, 3 TAB PO TID 12/12/22 Information Source: Patient, Emergency Med Personnel Mode of Arrival: EMS Severity: Moderate Timing: Hours Duration: Since onset Prehospital treatment: 12 Lead EKG, Mica Splitter, Other (1mg Atropine ) Review of Systems: REVIEW OF SYSTEMS: No fever, no chills, HEENT: No neck pain, no blurred vision Cardiac: Lightheadedness. No chest pain. No palpitations. Lungs: Shortness of breath GI: No abdominal pain, no vomiting Musculoskeletal: No joint pain , no back pain Skin: No rash, no wound Neuro: Dizziness, weakness. No headache, no syncope Vital Signs Vital Signs Date Time Temp Pulse Resp B/P (MAP) Pulse Ox O2 Delivery O2 Flow Rate FiO2 03/19/24 05:35 57 03/19/24 05:02 97.7 19 116/36 (62) 98 97.7 03/19/24 05:02 Nasal Cannula* 2 28 Physical Exam General: Awake, alert and oriented. No acute distress. Skin: Skin in warm, dry and intact without rashes or lesions. HEENT: The head is normocephalic and atraumatic. Conjunctivae are clear without exudates or hemorrhage. Sclera is non-icteric. Neck: Normal range of motion. No JVD. Cardiac: Bradycardic at a rate of 40. Respiratory: No signs of respiratory distress. No Stridor. Extremities: Upper and lower extremities are atraumatic in appearance without tenderness or deformity. Neurological: The patient is awake, alert and oriented to person, place, and time with normal speech. Speech is clear. There is no facial asymmetry. Psychiatric: Appropriate mood and affect. Good judgement and insight. No visual or auditory hallucinations. No suicidal or homicidal ideation. Past Medical History PAST MEDICAL HISTORY: CKF, DM, ESRD (w/HD M/W/F), High Lipids, HTN, Thyroid Surgical History: BTL, Cholecystectomy, STUDENT SUCCESS COUNSELOR History: No Pertinent STUDENT SUCCESS COUNSELOR History Family History Family History: Family hx of DM, Family hx of heart leticia, Family hx of HTN Social History Smoker: Non-Smoker Alcohol: Denies ETOH Use Drugs: Denies Drug Use Lives In: Home Was a procedure done? Was a procedure done?: No EKG EKG #1: Pulse Rate (adult): 42 [place]: Normal Cardiac Rhythm: SB Block: None Hypertrophy: None ST: Normal EKG #2: Pulse Rate (adult): 57 [place]: Normal Cardiac Rhythm: SB, PVC's Block: None Hypertrophy: None ST: Normal Differential Dx Considerations may include: bradycardia, arrhythmia, URI, viral syndrome, pleural effusions, vertigo, dehydration, electrolyte imbalance X-Ray, Labs, Meds, VS Vital Signs Date Time Temp Pulse Resp B/P (MAP) Pulse Ox O2 Delivery O2 Flow Rate FiO2 03/19/24 05:35 57 03/19/24 05:30 57 03/19/24 05:02 97.7 42 19 116/36 (62) 98 97.7 03/19/24 05:02 42 19 98 Nasal Cannula* 2 28 03/19/24 04:37 98.2 65 20 135/60 (85) 97 03/19/24 04:32 42 Current Medications Medications (Trade) Dose Ordered Sig/Kasia Route Start Time Stop Time Status Last Admin Sodium Chloride 1,000 ml @ 250 mls/hr Q4H ONCE IV 03/19/24 04:45 03/19/24 05:23 DC 03/19/24 05:08 Atropine Sulfate (Atropine Sulfate) 1 mg ONCE ONCE IV 03/19/24 04:45 03/19/24 04:46 DC 03/19/24 05:09 Time of 1ST Reevaluation: 05:10 Reevaluation 1ST: Unchanged Patient Education/Counseling: Diagnosis, Treatment Family Education/Counseling: No Family Present Departure 1 Departure Time of Disposition: 05:57 Impression: Primary Impression: Bradycardia Additional Impressions: End stage renal disease on dialysis Chest pain Shortness of breath Disposition: 30 STILL A PATIENT Condition: Stable Comments 48-year-old female with history of end-stage renal disease, missed dialysis for the past week. Patient presents with bradycardia, initially hypotensive however pressure improved after atropine. Sent to oncoming provider pending lab, imaging results and admission for further treatment. Critical Care Note Critical Care Time?: No Stability Stability form required: No Heart Score Heart Score: Heart Score Response (Comments) Value History N/A 0 EKG N/A 0 Age N/A 0 Risk Factors N/A 0 Troponin N/A 0 Total 0 I personally scribed for WILLIAM RAO MD ([email or web address]) on 03/19/24 at 05:35. Electronically submitted by Vahid Souza ([email or web address]). WILLIAM RAO MD Mar 19, 2024 05:35
--- NOTE | 2024-03-19 05:45 | ECG ---
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
--- NOTE | 2024-03-19 05:45 | ECG ---
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
--- NOTE | 2024-03-19 06:21 | DVH ---
CHEST RADIOGRAPH Indication: Chest pain, shortness of breath Technique: Single frontal view of the chest was obtained Comparison: XY CHEST PORTABLE on DOS: 01/15/23 FINDINGS: Lines and Tubes: None Lungs: Pulmonary vascular congestion. No focal consolidation. Pleura: No effusion. No pneumothorax. Cardiomediastinal contours: Cardiomegaly. Bones: No acute osseous abnormality. IMPRESSION: 1. Pulmonary vascular congestion. 2. Cardiomegaly.
[2024-03-19] MEDS: CALCIUM GLUC 1,000mg/50ml-NS 50 ML IV ONE ×2 (07:04→09:50)
--- NOTE | 2024-03-19 07:30 | ECG ---
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
[2024-03-19 07:50] VITALS: PULSE 100; RESP 12; O2SAT 99
[2024-03-19 08:56] LABS: Basophils # (auto) 0 10 ^3/uL (0-0.2); Basophils % (auto) 0.5 % (0.0-2.0); Eosinophils # (auto) 0.1 10 ^3/uL (0-0.8); Hemoglobin 10.6 g/dL (12.2-16.2); Lymphocytes # (auto) 2.1 10 ^3/uL (0.4-5.4); Lymphocytes % (auto) 25.3 % (10.0-50.0); Mean Corpuscular Hemoglobin 31.6 pg (28.0-32.0); Mean Corpuscular Volume 98.7 fL (80.0-100.0); Monocytes # (auto) 0.5 10 ^3/uL (0-1.3); Monocytes % (auto) 5.3 % (0.0-12.0); Neutrophils # (auto) 5.8 10 ^3/uL (1.6-8.6); Neutrophils % (auto) 67.9 % (37.0-80.0); Nucleated Red Blood Cells % 0.2 %; Platelet Count (auto) 213 10^3/uL (140-450); Red Blood Cells 3.35 10^6/uL (4.0-5.20); Red Cell Distribution Width 15.9 % (11.8-14.3); White Blood Cell 8.5 10^3/uL (4.4-10.8)
[2024-03-19 09:09] LABS: Albumin 4.3 g/dL (3.2-4.8); Alkaline Phosphatase 95 U/L (46-116); Anion Gap 14 (5-15); BUN/Creatinine Ratio 6.6 (10.0-20.0); Carbon Dioxide 21 mmol/L (20-31); Chloride 100 mmol/L (98-107)
[2024-03-19 09:10] LABS: Total Protein 7.5 g/dL (5.7-8.2)
[2024-03-19 09:23] LABS: Sodium 135 mmol/L (136-145)
[2024-03-19 09:24] LABS: Alanine Aminotransferase 90 U/L (7-40); Aspartate Aminotransferase 114 U/L (13-40); Bilirubin, Total 0.2 mg/dL (0.2-1.0); Blood Alcohol < 3.0 mg/dL (<10); Glucose 130 mg/dL (74-106); Magnesium 3.1 mg/dL (1.6-2.6)
[2024-03-19 09:29] LABS: Blood Urea Nitrogen 101 mg/dL (9-23); Potassium 7.8 mmol/L (3.5-5.1)
[2024-03-19] MEDS: ALBUTEROL SULF 2.5 MG/0.5ML(0.5%) NEB SOLN NEB ONE (09:45)
[2024-03-19] MEDS: DEXTROSE (50%) 50ML SYRG IV ONE (09:55)
[2024-03-19] MEDS: SODIUM ZIRCONIUM CYCL 10 GM PAK PO ONE (09:55)
[2024-03-19] MEDS: FUROSEMIDE 20 MG/2 ML VIAL IV ONE (09:55)
[2024-03-19] MEDS: SODIUM BICARB 8.4% 50Meq/50ml SYR INJ IV ONE (09:55)
[2024-03-19] MEDS: InsuLIN REG 1unit/0.01ml Soln (100units/ml) IV ONE (09:57)
[2024-03-19] MEDS ORDERED: cefTRIAXone 1GM/50ML D5W 50 ML IV ONE (11:00)
--- NOTE | 2024-03-19 11:23 | DVHHP2 ---
History of Present Illness Reason for Visit: General weakness, SOB, lightheadedness, dizziness & low HR History of Present Illness Carina Peter is a 48-year-old female with past medical history of hypertension, diabetes, CKD, CHF, thyroid disease, obesity, and end-stage renal disease on HD (M/W/F) who presents to the ED with general weakness, shortness of breath, low heart rate, lightheadedness, and dizziness x1 day. Patient reports that she was at home and felt the symptoms which prompted her to come to the ED. patient also reports that she was sick recently with the flu/cold. She also reports that she missed her dialysis because she was feeling ill. Patient reports that she is compliant with her medications also that she was taking metoprolol even with a low heart rate and when asked she stated that her doctor told her to do so. Patient denies any chest pain, abdominal pain, nausea, vomiting, diarrhea, fever, chills, and headaches. Cardiovascular: CHF, HTN Renal/: Chronic renal failure Endocrine: Diabetes, Hypothyroidism Past Surgical History: Cholecystectomy, , Other, Tubal Ligation Past Surgical History D&C in 2009 Family History: DM, Hypertension, Other (Both parents with diabetes, heart disease, and hypertension) Smoke: No (Patient reports that she vapes but not smoke cigarettes) Drugs: Marijuana, Other (Methamphetamine) Lives: with Family Domestic Violence: Neg Review of Systems Constitutional: Yes: Weakness; No: Fever, Chills, Sweats, Malaise, Other Eyes: No: Pain, Vision change, Conjunctivae inflammation, Eyelid inflammation, Other, Redness ENT: No: Ear pain, Ear discharge, Nose pain, Nose discharge, Nose congestion, Mouth pain, Mouth swelling, Throat pain, Throat swelling, Other Respiratory: Shortness of breath; No: Cough, Dry, SOB with excertion, Wheezing, Hemoptysis, Pleuritic Pain, Sputum, Wheezing, Other Cardiovascular: Lt Headedness; No: Chest Pain, Palpitations, Orthopnea, Paroxysmal Noc. Dyspnea, Edema, Other Gastrointestinal: No: Nausea, Vomiting, Abdominal Pain, Diarrhea, Constipation, Melena, Hematochezia, Other Genitourinary: No Dysuria, No Frequency, No Incontinence, No Hematuria, No Retention, No Other Musculoskeletal: No: other, neck pain, shoulder pain, arm pain, back pain, hand pain, leg pain, foot pain Skin: No: Rash, Lesions, Jaundice, Bruising, Other Neurological: No: Weakness, Numbness, Incoordination, Change in speech, Con fusion, Seizures, Other Other Dizziness Allergies: Coded Allergies: Codeine (Unverified Allergy, Unknown, 10/03/14) Medications Current Medications Medications Dose Ordered Sig/Kasia Route Start Time Stop Time Status Last Admin Dose Admin Diagnostic Test (Pha) 1 strip Q6HR 03/19/24 12:00 UNV Insulin Human Regular Q6HR SC 03/19/24 12:00 UNV Dextrose 50 ml UD PRN IV 03/19/24 11:00 UNV Furosemide 40 mg DAILY IV 03/20/24 10:00 UNV Ceftriaxone Sodium 50 ml @ 100 mls/hr DAILY@09 IV 03/20/24 09:00 UNV Patient Own Medication 3 tab TID PO 03/19/24 14:00 UNV Exam Vital Signs Vital Signs Date Time Temp Pulse Resp B/P (MAP) Pulse Ox O2 Delivery O2 Flow Rate FiO2 03/19/24 11:00 47 10 138/55 (82) 97 03/19/24 09:45 Nasal Cannula* 3 32 03/19/24 07:50 97.5 97.5 General Appearance: Alert, Oriented X3, Cooperative, No acute distress HEENT: Atraumatic, PERRLA, EOMI, Mucous membr. moist/pink Respiratory: Normal air movement Cardiovascular: Normal S1, Normal S2, No murmurs Abdominal: Normal bowel sounds, Soft, No tenderness, No hepatospenomegaly, No masses Extremities: No clubbing, No cyanosis, No edema, Normal pulses, No tendernes s/swelling Skin: No rashes, No breakdown, No significant lesion Neuro: Normal gait, Normal speech, Strength at 5/5 X4 ext, Normal tone, Sensation intact Psych/Mental Status: Mental status NL, Mood NL Labs/Xrays Labs Test 03/19/24 10:57 03/19/24 08:30 Range/Units White Blood Count 8.5 4.4-10.8 10^3/uL Red Blood Count 3.35 L 4.0-5.20 10^6/uL Hemoglobin 10.6 L 12.2-16.2 g/dL Hematocrit 33.0 L 36.0-46.0 % Mean Corpuscular Volume 98.7 80.0-100.0 fL Mean Corpuscular Hemoglobin 31.6 28.0-32.0 pg Mean Corpuscular Hemoglobin Concent 32.0 32.0-36.0 g/dL Red Cell Distribution Width 15.9 H 11.8-14.3 % Platelet Count 213 140-450 10^3/uL Mean Platelet Volume 8.9 6.9-10.8 fL Neutrophils (%) (Auto) 67.9 37.0-80.0 % Lymphocytes (%) (Auto) 25.3 10.0-50.0 % Monocytes (%) (Auto) 5.3 0.0-12.0 % Eosinophils (%) (Auto) 1.0 0.0-7.0 % Basophils (%) (Auto) 0.5 0.0-2.0 % Neutrophils # (Auto) 5.8 1.6-8.6 10 ^3/uL Lymphocytes # (Auto) 2.1 0.4-5.4 10 ^3/uL Monocytes # (Auto) 0.5 0-1.3 10 ^3/uL Eosinophils # (Auto) 0.1 0-0.8 10 ^3/uL Basophils # (Auto) 0 0-0.2 10 ^3/uL Nucleated Red Blood Cells 0.2 % Sodium Level 135 L 136-145 mmol/L Potassium Level 7.8 *H 3.5-5.1 mmol/L Chloride Level 100 98-107 mmol/L Carbon Dioxide Level 21 20-31 mmol/L Anion Gap 14 5-15 Blood Urea Nitrogen 101 *H 9-23 mg/dL Creatinine 15.29 *H 0.550-1.02 mg/dL Glomerular Filtration Rate Calc 3 >90 mL/min BUN/Creatinine Ratio 6.6 L 10.0-20.0 Serum Glucose 130 H 74-106 mg/dL Calcium Level 10.0 8.7-10.4 mg/dL Magnesium Level 3.1 H 1.6-2.6 mg/dL Total Bilirubin 0.2 0.2-1.0 mg/dL Aspartate Amino Transferase (AST) 114 H 13-40 U/L Alanine Aminotransferase (ALT) 90 H 7-40 U/L Alkaline Phosphatase 95 46-116 U/L Total Protein 7.5 5.7-8.2 g/dL Albumin 4.3 3.2-4.8 g/dL Thyroid Stimulating Hormone (TSH) 11.00 H 0.55-4.78 uIU/mL Plasma/Serum Blood Alcohol < 3.0 <10 mg/dL CHEST RADIOGRAPH Indication: Chest pain, shortness of breath Technique: Single frontal view of the chest was obtained Comparison: XY CHEST PORTABLE on DOS: 01/15/23 FINDINGS: Lines and Tubes: None Lungs: Pulmonary vascular congestion. No focal consolidation. Pleura: No effusion. No pneumothorax. Cardiomediastinal contours: Cardiomegaly. Bones: No acute osseous abnormality. IMPRESSION: 1. Pulmonary vascular congestion. 2. Cardiomegaly. Assessment/Plan Assessment/Plan Assessment/Plan: Bradycardia Anemia ESRD on HD (M/W/F) Hyperkalemia Elevated BUN Elevated creatinine Hypomagnesemia Elevated AST and ALT Labs A.m. labs Troponin TSH Blood alcohol Chest x-ray EKG noted Mag level Drug screen Hyperkalemia protocol in ED Atropine NS 1 L given in ED BNP Echo ordered Last echo done on 01/16/2023 EF 55% Cardiology consult Nephrology consult Chronic hypertension Continue home medication History of diabetes Hemoglobin A1c ISS and Accu-Cheks History of hypothyroidism Continue home medications History of CHF Continue home medications Obesity Counseled patient on lifestyle modifications, diet, and exercise FEN/PPX NPO Hep-Lock DVT ppx - not indicated patient ambulating PUD prophylaxis not indicated patient no history of GI bleed or GERD Discussed plan of care with patient and nurse Home medications reconciled Admit to ICU Plan discussed with: Patient My Orders Orders - JARROD THOMAS MAINTENANCE COORDINATOR Procedure Category Date Status Time * Cardiology Consult CONS 03/19/24 Transmitted 09:55 Admit ADMIT 03/19/24 Transmitted 10:47 Allergies JAKI 03/19/24 In Process 10:47 Code Status CODE 03/19/24 Transmitted 10:47 Complete Blood Count LAB 03/20/24 Verified 04:00 Comprehensive LAB 03/20/24 Verified Metabolic Panel 04:00 Npo (Nothing By DIET 03/19/24 Transmitted Mouth) Diet Lunch Echo 2d Mode Cardiac US 03/19/24 Logged DOP 10:47 B-Type Natriuretic LAB 03/19/24 In Process Peptide 10:47 Hemoglobin A1c LAB 03/19/24 Logged 10:58 Glucose Blood PHA 03/19/24 Logged (Accu-Chek Comfort 12:00 Insulin R (Human) PHA 03/19/24 Logged (Insulin R) 12:00 Dextrose 50% Syringe PHA 03/19/24 Logged 11:00 Furosemide Injection PHA 03/20/24 Logged (Lasix Injection) 10:00 Ceftriaxone 1gm/50ml PHA 03/20/24 Logged D5w (Rocephin) 09:00 Ceftriaxone 1gm/50ml PHA 03/19/24 Logged D5w (Rocephin) 11:00 (Nf) Ferric Citrate PHA 03/19/24 Logged (Auryxia) 14:00 Hemoglobin A1c LAB 03/19/24 Transmitted 11:13 Furosemide Injection PHA 03/20/24 Transmitted (Lasix Injection) 10:00 Ceftriaxone Ivpb PHA 03/19/24 Transmitted Rocephin 11:15 Ceftriaxone Ivpb PHA 03/20/24 Transmitted Rocephin 09:00 Date of Service: Mar 19, 2024 Billing Provider: JARROD THOMAS Common Visit Codes: 76150-[id number] INP/OBS CARE (HIGH) JARROD THOMAS Mar 19, 2024 11:23
[2024-03-19] MEDS: cefTRIAXone 1GM/50ML D5W 50 ML IV ONE (11:26)
[2024-03-19] MEDS: ACCU-CHEK COMFORT CURVE STRIP VI SCH ×2 (11:58→17:08)
[2024-03-19] MEDS: InsuLIN REG 1unit/0.01ml Soln (100units/ml) SC SCH ×2 (11:58→17:00)
[2024-03-19] MEDS: DEXTROSE (50%) 50ML SYRG IV PRN (11:59)
[2024-03-19 12:07] LABS: Free T4 (Free Thyroxine) 0.82 ng/dL (0.89-1.76)
[2024-03-19 12:08] LABS: Free T3 2.37 pg/mL (2.3-4.2)
[2024-03-19] MEDS: Ferric Citrate (Auryxia) PO SCH (14:00)
--- NOTE | 2024-03-19 14:16 | DVHINCON2 ---
Date Seen: Mar 19, 2024 Referring Physician JAIRO Jordan Reason for Consultation Bradycardia History of Present Illness This is a 48-year-old female patient who presents to the emergency room with chief complaint of shortness of breath since 3:00 a.m. The patient admits that she has not gone to dialysis for one week. She states that she was recently ill at home with flu-like symptoms and has not been able to get up to follow up with her dialysis sessions. Other symptoms reported include dizziness and generalized weakness. EMS was called and the patient was brought to the emergency room for further evaluation. Patient was found to be bradycardic upon EMS arrival and was provided with 1mg of Atropine. Upon emergency room arrival, a twelve lead electrocardiogram revealed a junctional rhythm with peaked T-waves and rate at 42 beats per minute. At the time of assessment, the patient remains in a junctional rhythm with heart rates in high 30s, low 40s. The patient also mentions that she takes metoprolol at home with last dose taken at approximately 1:00 a.m. this morning prior to arrival. Significant past medical history includes hypertension, type 2 diabetes mellitus, end-stage renal disease on hemodialysis, thyroid disease, and obesity. The patient also admits to recent methamphetamine use. Of note, the patient's potassium level is 7.8 on admission. Hyperkalemia protocol was initiated in the emergency room by attending provider. Past Medical History Past medical history reviewed. No other significant than mentioned above. Past Surgical History x3 Gastric sleeve in 2021 Family History: FH: HTN (hypertension) G8 MOTHER, G8 FATHER FH: diabetes mellitus G8 MOTHER, G8 FATHER FH: heart failure G8 MOTHER, Family History Family history reviewed. Social History Patient admits to recent methamphetamine use, less than one week ago Patient vapes daily Patient denies any alcohol use Allergies: Coded Allergies: Codeine (Unverified Allergy, Unknown, 10/03/14) Home Meds Active Scripts Azithromycin (Azithromycin) 500 Mg Tab, 1 TAB PO DAILY, #5 TAB Prov:PEDRO ASHER MD 01/26/24 Ondansetron Odt 4MG Tab (ZOFRAN PO) 4 Mg Tb, 4 MG PO Q6HPRN PRN, #20 TAB ODT TAB-DISSOLVE IN MOUTH, THEN SWALLOW Prov:LUIS LEMUS 10/14/23 Hydrocodone-Acetaminophen (Hydrocodone Bitartrate/AC 10-325 mg) 1 Tab Tab, 1 TAB PO Q6HPRN PRN, #10 TAB Prov:LUIS LEMUS PAC 10/14/23 Ibuprofen Micronized (Ibuprofen) 800 Mg Tab, 800 MG PO Q8HPRN PRN, #30 TAB Prov:LUIS LEMUS PAC 04/07/23 Aspirin (ASPIRIN/ENTERIC) 81 Mg Tab, 81 MG PO DAILY, #90 TAB Prov:PRANAY DUQUE MD 01/18/23 Pantoprazole Sodium Sesquihydr (Protonix) 40 Mg Tab, 40 MG PO DAILY for 30 Days, #30 TAB Prov:SUSI DAVEY [employer]KE OV[employer] PATCHER 01/01/23 Hydrocodone-Acetaminophen (Hydrocodone Bitartrate/AC 5-325 mg) 1 Tab Tab, 1 TAB PO Q8HR for 5 Days, #15 TAB Prov:SUSI DAVEY [employer] P[employer] 12/20/22 Reported Medications Gabapentin (Gabapentin) 300 Mg Cap, CAP PO TID 12/30/22 Clonidine Hydrochloride (Clonidine Hcl) 0.1 Mg Tab, 1 TAB PO QPM, #30 TAB 2 Refills 12/12/22 Levothyroxine Sodium (Levothyroxine Sodium) 150 Mcg Tab, 150 MCG PO, TAB 12/12/22 Furosemide (Furosemide) 40 Mg Tab, TAB PO 12/12/22 Metoprolol Tartrate (Metoprolol Tartrate) 100 Mg Tab, 1 TAB PO BID 12/12/22 Calcium Acetate (Phosphate Bin (Calcium Acetate) 667 Mg Cap, 2 CAP PO TID 12/12/22 Ferric Citrate (Auryxia) 210 Mg Tab, 3 TAB PO TID 12/12/22 Home Meds Home medications reviewed. Current Medications Current Medications Medications (Trade) Dose Ordered Sig/Kasia Route PRN Reason Start Time Stop Time Status Last Admin Diagnostic Test (Pha) (Accu-Chek Comfort Curve T) 1 strip Q6HR 03/19/24 12:00 03/19/24 11:58 Insulin Human Regular (InsuLIN R) Q6HR SC 03/19/24 12:00 Dextrose 50 ml UD PRN IV Blood Sugar LESS THAN 60 03/19/24 11:00 03/19/24 11:59 Furosemide (Lasix Injection) 40 mg DAILY IV 03/20/24 10:00 Ceftriaxone Sodium 50 ml @ 100 mls/hr DAILY@09 IV 03/20/24 09:00 UNV Patient Own Medication 3 tab TID PO 03/19/24 14:00 Furosemide (Lasix Injection) 40 mg DAILY IV 03/20/24 10:00 Ceftriaxone Sodium 50 ml @ 100 mls/hr DAILY@09 IV 03/20/24 09:00 Review of Systems Constitutional: Generalized weakness Ears, Nose, & Throat: No symptom reported Eyes: No symptom reported Neurological: Dizziness Pulmonary/Respiratory: Shortness of breath Cardiovascular: No symptom reported Gastrointestinal: No symptom reported Genitourinary: No symptom reported Musculoskeletal: No symptom reported Skin: No symptom reported Psychiatric: No symptom reported Endocrine: No symptom reported Hematologic/Lymphatic: No symptom reported Vital Signs Vital Signs Date Time Temp Pulse Resp B/P (MAP) Pulse Ox O2 Delivery O2 Flow Rate FiO2 03/19/24 13:08 49 15 140/41 (74) 99 03/19/24 12:01 98.1 98.1 03/19/24 09:45 Nasal Cannula* 3 32 Physical Exam General Appearance: Cooperative. Obese Pulmonary/Respiratory: Clear, bilateral breaths sounds. Cardiovascular/Chest: Regular rate and rhythm. Peripheral Pulses: 2+ Radial (R). 2+ Radial (L). 2+ Pedal (R). 2+ Pedal (L) Abdominal Exam: Normal bowel sounds. Ankle Exam: Negative ankle edema Lower extremities: Negative lower extremity edema Neuro/Mental Status: A/OX4, coherent. Thoughts/Psych: Normal thought pattern. Appropriate mood and affect. Good judgment and insight. Appearance: No acute distress. Skin Exam: Normal inspection. Normal color. Warm and dry. Labs/Diagnostic Data Labs Test 03/19/24 11:56 03/19/24 10:57 03/19/24 08:30 Range/Units POC Glucose 59 L 70-106 mg/dl Troponin I High Sensitivity 21 </=34 ng/L Free Thyroxine (T4) Calculated 0.82 L 0.89-1.76 ng/dL Free Triiodothyronine (T3) pg/mL 2.37 2.3-4.2 pg/mL White Blood Count 8.5 4.4-10.8 10^3/uL Red Blood Count 3.35 L 4.0-5.20 10^6/uL Hemoglobin 10.6 L 12.2-16.2 g/dL Hematocrit 33.0 L 36.0-46.0 % Mean Corpuscular Volume 98.7 80.0-100.0 fL Mean Corpuscular Hemoglobin 31.6 28.0-32.0 pg Mean Corpuscular Hemoglobin Concent 32.0 32.0-36.0 g/dL Red Cell Distribution Width 15.9 H 11.8-14.3 % Platelet Count 213 140-450 10^3/uL Mean Platelet Volume 8.9 6.9-10.8 fL Neutrophils (%) (Auto) 67.9 37.0-80.0 % Lymphocytes (%) (Auto) 25.3 10.0-50.0 % Monocytes (%) (Auto) 5.3 0.0-12.0 % Eosinophils (%) (Auto) 1.0 0.0-7.0 % Basophils (%) (Auto) 0.5 0.0-2.0 % Neutrophils # (Auto) 5.8 1.6-8.6 10 ^3/uL Lymphocytes # (Auto) 2.1 0.4-5.4 10 ^3/uL Monocytes # (Auto) 0.5 0-1.3 10 ^3/uL Eosinophils # (Auto) 0.1 0-0.8 10 ^3/uL Basophils # (Auto) 0 0-0.2 10 ^3/uL Nucleated Red Blood Cells 0.2 % Sodium Level 135 L 136-145 mmol/L Potassium Level 7.8 *H 3.5-5.1 mmol/L Chloride Level 100 98-107 mmol/L Carbon Dioxide Level 21 20-31 mmol/L Anion Gap 14 5-15 Blood Urea Nitrogen 101 *H 9-23 mg/dL Creatinine 15.29 *H 0.550-1.02 mg/dL Glomerular Filtration Rate Calc 3 >90 mL/min BUN/Creatinine Ratio 6.6 L 10.0-20.0 Serum Glucose 130 H 74-106 mg/dL Hemoglobin A1c 5.6 <5.7 % A1C Calcium Level 10.0 8.7-10.4 mg/dL Magnesium Level 3.1 H 1.6-2.6 mg/dL Total Bilirubin 0.2 0.2-1.0 mg/dL Aspartate Amino Transferase (AST) 114 H 13-40 U/L Alanine Aminotransferase (ALT) 90 H 7-40 U/L Alkaline Phosphatase 95 46-116 U/L B-Type Natriuretic Peptide 779.42 0-100 pg/mL Total Protein 7.5 5.7-8.2 g/dL Albumin 4.3 3.2-4.8 g/dL Thyroid Stimulating Hormone (TSH) 11.00 H 0.55-4.78 uIU/mL Plasma/Serum Blood Alcohol < 3.0 <10 mg/dL Assessment Junctional bradycardia likely secondary to hyperkalemia ?Beta-jean paul induced bradycardia Hypertension Rule out structural heart disease Type 2 diabetes mellitus End-stage renal disease on hemodialysis Thyroid disease Amphetamine use Medical noncompliance Obesity Plan/Recommendation We will continue with the following plan/recommendations (Dr. Barroso): * Transthoracic echocardiogram to evaluate cardiac function * Avoid all AV miriam blocking agents * Cardiac surveillance: Notify of any ECG changes * Nephrology consult STAT for dialysis Patient seen and examined at bedside with . Bradycardia likely secondary to elevated potassium level. Patient was pending emergency dialysis session. During this time, continue with close Cardiac surveillance and avoidance of all AV miriam blocking agents. Thank you for allowing us to care for this patient. Please call with any questions or concerns. Critical care time spent: 44 minutes This medical document was created using an electronic medical record system with voice recognition software and computerized dictation system. Although this document has been carefully reviewed, there might still be some phonetic and typographical errors. Occasional wrong-word or ``sound-alike substitutions may have occurred due to the inherent limitations of voice recognition software. These areas are purely typographical due to imperfections of the software programs and do not reflect any compromise in the patient's medical care. Please read the chart carefully and recognize, using context, where these subst itutions have occurred. Plan discussed with: Patient NYHA Physical activity limitations: NA Date of Service: Mar 19, 2024 Billing Provider: ANNABEL BARROSO MD Cardiology Common Codes: 21910-[id number] INP/OBS CARE (High) Cardiology Consultation Codes: 73745-BILOPOPET CONSULT <45MIN BRIGETTE REAL Mar 19, 2024 14:16
[2024-03-19] MEDS: SODIUM CHL 0.9% 1000 ML BAG XX ONE (15:36)
--- NOTE | 2024-03-19 16:04 | DVHINCON2 ---
Date of service: Mar 19, 2024 Referring Physician Sherin GILL Reason for Consultation End-stage renal disease management History of Present Illness 48-year-old patient with significant history of end-stage renal disease on hemodialysis Sunday with last dialysis about a week ago, she missed three sessions of dialysis, hypertension, diabetes type 2, obesity, CHF who presents to the hospital with worsening symptoms of generalized weakness associated with generalized aches and pains and shortness of breath, dizziness for one day. Patient states she could not go to the dialysis unit because she was feeling sick with the flu and called associated with generalized malaise and myalgias. The patient was found to be hyperkalemic with a potassium of 7.8 treated medically associated with acidemia. Past Medical History End-stage renal disease, diabetes type 2, hypertension, obesity, hypothyroidism. Past Surgical History Cholecystectomy Dialysis access creation. Allergies: Coded Allergies: Codeine (Unverified Allergy, Unknown, 10/03/14) Home Meds Active Scripts Azithromycin (Azithromycin) 500 Mg Tab, 1 TAB PO DAILY, #5 TAB Prov:PEDRO ASHER MD 01/26/24 Ondansetron Odt 4MG Tab (ZOFRAN PO) 4 Mg Tb, 4 MG PO Q6HPRN PRN, #20 TAB ODT TAB-DISSOLVE IN MOUTH, THEN SWALLOW Prov:LUIS LEMUS 10/14/23 Hydrocodone-Acetaminophen (Hydrocodone Bitartrate/AC 10-325 mg) 1 Tab Tab, 1 TAB PO Q6HPRN PRN, #10 TAB Prov:LUIS LEMUS 10/14/23 Ibuprofen Micronized (Ibuprofen) 800 Mg Tab, 800 MG PO Q8HPRN PRN, #30 TAB Prov:LUIS LEMUS 04/07/23 Aspirin (ASPIRIN/ENTERIC) 81 Mg Tab, 81 MG PO DAILY, #90 TAB Prov:PRANAY DUQUE MD 01/18/23 Pantoprazole Sodium Sesquihydr (Protonix) 40 Mg Tab, 40 MG PO DAILY for 30 Days, #30 TAB Prov:SUSI DAVEY NP 01/01/23 Hydrocodone-Acetaminophen (Hydrocodone Bitartrate/AC 5-325 mg) 1 Tab Tab, 1 TAB PO Q8HR for 5 Days, #15 TAB Prov:SUSI DAVEY NP 12/20/22 Reported Medications Gabapentin (Gabapentin) 300 Mg Cap, CAP PO TID 12/30/22 Clonidine Hydrochloride (Clonidine Hcl) 0.1 Mg Tab, 1 TAB PO QPM, #30 TAB 2 Refills 12/12/22 Levothyroxine Sodium (Levothyroxine Sodium) 150 Mcg Tab, 150 MCG PO, TAB 12/12/22 Furosemide (Furosemide) 40 Mg Tab, TAB PO 12/12/22 Metoprolol Tartrate (Metoprolol Tartrate) 100 Mg Tab, 1 TAB PO BID 12/12/22 Calcium Acetate (Phosphate Bin (Calcium Acetate) 667 Mg Cap, 2 CAP PO TID 12/12/22 Ferric Citrate (Auryxia) 210 Mg Tab, 3 TAB PO TID 12/12/22 Current Medications Current Medications Medications (Trade) Dose Ordered Sig/Kasia Route PRN Reason Start Time Stop Time Status Last Admin Diagnostic Test (Pha) (Accu-Chek Comfort Curve T) 1 strip Q6HR 03/19/24 12:00 03/19/24 11:58 Insulin Human Regular (InsuLIN R) Q6HR SC 03/19/24 12:00 Dextrose 50 ml UD PRN IV Blood Sugar LESS THAN 60 03/19/24 11:00 03/19/24 11:59 Furosemide (Lasix Injection) 40 mg DAILY IV 03/20/24 10:00 Ceftriaxone Sodium 50 ml @ 100 mls/hr DAILY@09 IV 03/20/24 09:00 UNV Patient Own Medication 3 tab TID PO 03/19/24 14:00 Furosemide (Lasix Injection) 40 mg DAILY IV 03/20/24 10:00 Ceftriaxone Sodium 50 ml @ 100 mls/hr DAILY@09 IV 03/20/24 09:00 Family History: FH: HTN (hypertension) G8 MOTHER, G8 FATHER FH: diabetes mellitus G8 MOTHER, G8 FATHER FH: heart failure G8 MOTHER, Social History Denies smoking alcohol or drug abuse Review of Systems HEENT: Oral mucosa dry Neck no JVD Cardiovascular: Denies for chest pain denies orthopnea or PND Respiratory: Positive for shortness of breath and cough Gastrointestinal: Denies for nausea vomiting Musculoskeletal: Positive for myalgias Neurological: Denies focal weakness Dermatological: Denies any rash Positive generalized fatigue and malaise The rest of the review of systems were reviewed pertinent positives and pertinent negatives are as per HPI up to 12 points review of systems H&P Exam Vital Signs/I&O Vital Sign Date Time Temp Pulse Resp B/P (MAP) Pulse Ox O2 Delivery O2 Flow Rate FiO2 03/19/24 15:00 76 19 117/97 (104) 97 03/19/24 12:01 98.1 98.1 03/19/24 09:45 Nasal Cannula* 3 32 Intake and Output 03/18/24 03/19/24 19:00 07:00 Intake Total 175 ml Balance 175 ml Intake IV Total 175 ml Physical Exam HEENT: Dry oral mucosa Pulmonary: Cracked on auscultation bilaterally Cardiovascular S1-S2, no S3 or S4 Abdomen: Bowel sounds positive, soft no rebound tenderness Skin: No rash Neurological: Alert, oriented, no focal weakness Inches Labs/Diagnostic Data Labs/Diagnostic Data Laboratory Tests Test 03/19/24 14:06 03/19/24 14:00 03/19/24 11:56 03/19/24 11:55 Range/Units POC Glucose 87 59 L 54 L 70-106 mg/dl Potassium Level 5.2 #H 3.5-5.1 mmol/L Troponin I High Sensitivity 21 </=34 ng/L Test 03/19/24 10:57 03/19/24 08:30 Range/Units Troponin I High Sensitivity 21 25 </=34 ng/L Free Thyroxine (T4) Calculated 0.82 L 0.89-1.76 ng/dL Free Triiodothyronine (T3) pg/mL 2.37 2.3-4.2 pg/mL White Blood Count 8.5 4.4-10.8 10^3/uL Red Blood Count 3.35 L 4.0-5.20 10^6/uL Hemoglobin 10.6 L 12.2-16.2 g/dL Hematocrit 33.0 L 36.0-46.0 % Mean Corpuscular Volume 98.7 80.0-100.0 fL Mean Corpuscular Hemoglobin 31.6 28.0-32.0 pg Mean Corpuscular Hemoglobin Concent 32.0 32.0-36.0 g/dL Red Cell Distribution Width 15.9 H 11.8-14.3 % Platelet Count 213 140-450 10^3/uL Mean Platelet Volume 8.9 6.9-10.8 fL Neutrophils (%) (Auto) 67.9 37.0-80.0 % Lymphocytes (%) (Auto) 25.3 10.0-50.0 % Monocytes (%) (Auto) 5.3 0.0-12.0 % Eosinophils (%) (Auto) 1.0 0.0-7.0 % Basophils (%) (Auto) 0.5 0.0-2.0 % Neutrophils # (Auto) 5.8 1.6-8.6 10 ^3/uL Lymphocytes # (Auto) 2.1 0.4-5.4 10 ^3/uL Monocytes # (Auto) 0.5 0-1.3 10 ^3/uL Eosinophils # (Auto) 0.1 0-0.8 10 ^3/uL Basophils # (Auto) 0 0-0.2 10 ^3/uL Nucleated Red Blood Cells 0.2 % Sodium Level 135 L 136-145 mmol/L Potassium Level 7.8 *H 3.5-5.1 mmol/L Chloride Level 100 98-107 mmol/L Carbon Dioxide Level 21 20-31 mmol/L Anion Gap 14 5-15 Blood Urea Nitrogen 101 *H 9-23 mg/dL Creatinine 15.29 *H 0.550-1.02 mg/dL Glomerular Filtration Rate Calc 3 >90 mL/min BUN/Creatinine Ratio 6.6 L 10.0-20.0 Serum Glucose 130 H 74-106 mg/dL Hemoglobin A1c 5.6 <5.7 % A1C Calcium Level 10.0 8.7-10.4 mg/dL Magnesium Level 3.1 H 1.6-2.6 mg/dL Total Bilirubin 0.2 0.2-1.0 mg/dL Aspartate Amino Transferase (AST) 114 H 13-40 U/L Alanine Aminotransferase (ALT) 90 H 7-40 U/L Alkaline Phosphatase 95 46-116 U/L B-Type Natriuretic Peptide 779.42 0-100 pg/mL Total Protein 7.5 5.7-8.2 g/dL Albumin 4.3 3.2-4.8 g/dL Thyroid Stimulating Hormone (TSH) 11.00 H 0.55-4.78 uIU/mL Plasma/Serum Blood Alcohol < 3.0 <10 mg/dL Chest x-ray with increased interstitial marking Assessment Assessment: End-stage renal disease on hemodialysis Sunday Hyperkalemia Fluid overload Uremia Hypertension Anemia Noncompliance with dialysis treatment Plan: Stat dialysis was called to the, 1K bath. Repeat dialysis tomorrow Fluid restriction Less than 1 L per day Antibiotics as per primary Renal diet Leonard for goal hemoglobin 10-11 g/dl Thank you very much for allowing us to participate in the care of this patient Plan discussed with: Patient ALEXIS ESPINOZA MD Mar 19, 2024 16:04
[2024-03-19 18:26] VITALS: BP 153/74; PULSE 82; RESP 20; TEMP 98.4; O2SAT 95
[2024-03-19 18:30] VITALS: PULSE 70
[2024-03-19 20:00] VITALS: PULSE 71; PULSE 79; RESP 94; O2SAT 94
[2024-03-19 21:00] VITALS: BP 151/68; PULSE 71; RESP 20; TEMP 98.4; O2SAT 94
[2024-03-19] MEDS: HYDROcodone-ACET 5/325MG TAB ONE (23:59)
[2024-03-20] VITALS (8 sets, daily range): BP systolic 142–176; BP diastolic 58–88; PULSE 67–83; RESP 16–20; TEMP 97.7–98.2; O2SAT 93–96
[2024-03-20] MEDS: HYDROcodone-ACET 5/325MG TAB PO PRN
[2024-03-20 06:46] LABS: Basophils # (auto) 0 10 ^3/uL (0-0.2); Basophils % (auto) 0.7 % (0.0-2.0); Eosinophils # (auto) 0.1 10 ^3/uL (0-0.8); Hematocrit 25.4 % (36.0-46.0); Hemoglobin 8.8 g/dL (12.2-16.2); Lymphocytes # (auto) 1.6 10 ^3/uL (0.4-5.4); Lymphocytes % (auto) 33.5 % (10.0-50.0); Mean Corpuscular Hemoglobin 33.3 pg (28.0-32.0); Mean Corpuscular Hgb Conc. 34.5 g/dL (32.0-36.0); Mean Corpuscular Volume 96.6 fL (80.0-100.0); Monocytes # (auto) 0.4 10 ^3/uL (0-1.3); Monocytes % (auto) 7.6 % (0.0-12.0); Neutrophils # (auto) 2.7 10 ^3/uL (1.6-8.6); Neutrophils % (auto) 55.2 % (37.0-80.0); Platelet Count (auto) 179 10^3/uL (140-450); Red Blood Cells 2.63 10^6/uL (4.0-5.20); Red Cell Distribution Width 15.7 % (11.8-14.3); White Blood Cell 4.9 10^3/uL (4.4-10.8)
[2024-03-20] MEDS ORDERED: SODIUM CHL 0.9% 1000 ML BAG XX ONE (07:00)
[2024-03-20 07:03] LABS: Albumin 3.6 g/dL (3.2-4.8); Alkaline Phosphatase 81 U/L (46-116); Anion Gap 11 (5-15); BUN/Creatinine Ratio 6.1 (10.0-20.0); Calcium 9.6 mg/dL (8.7-10.4); Carbon Dioxide 30 mmol/L (20-31); Chloride 99 mmol/L (98-107); Potassium 4.9 mmol/L (3.5-5.1); Sodium 140 mmol/L (136-145); Total Protein 6.2 g/dL (5.7-8.2)
[2024-03-20 07:04] LABS: Alanine Aminotransferase 127 U/L (7-40); Aspartate Aminotransferase 110 U/L (13-40); Bilirubin, Total 0.2 mg/dL (0.2-1.0); Blood Urea Nitrogen 73 mg/dL (9-23); Glucose 151 mg/dL (74-106)
[2024-03-20] MEDS ORDERED: cefTRIAXone 1GM/50ML D5W 50 ML IV SCH (09:00)
[2024-03-20] MEDS: FUROSEMIDE 40 MG/4 ML VIAL IV SCH (09:44)
[2024-03-20] MEDS: cefTRIAXone 1GM/50ML D5W 50 ML IV SCH (09:45)
[2024-03-20 09:49] LABS: Hepatitis A Ab IgM Negative; Hepatitis B Core IgM Negative (Negative); Hepatitis B Surface Antigen Negative (Negative); Hepatitis C Antibody Negative (Negative)
--- NOTE | 2024-03-20 09:49 | DVHSR ---
APPROVED REPORT EXAM: LIMITED Two-dimensional and M-mode echocardiogram with Doppler and color Doppler. Blood Pressure: 104/82 mmHg INDICATION SOB RISK FACTORS Obesity: Height: 5' 8", Weight: 260 DIMENSIONS LVDd5.1 (3.8-5.7cm)LA (2D)4.6 (1.9-4.0cm)Aortic Root3.1 (2.0-3.7cm) LVDs3.5 (2.5-4.0cm)LA (MM) (1.9-4.0cm)Aortic Cusp Exc2.0 (1.5-2.0cm) EF (%) 58.0 (55-70%)Rt. Atrium (1.9-4.0cm)Asc. Aorta cm IVSd1.4 (0.7-1.1cm)RV (D) (1.8-2.4cm) PWd1.5 (0.7-1.1cm) Mitral Valve MitralMitral Stenosis E wave1.40m/sMV Mean GR.mmHg A wave1.60m/sMV Peak GR.mmHg E/A ratio0.92D MVAcm2 Aortic Valve Aortic ValveAortic Stenosis V11.00m/Jacki Mean GR.7mmHg V21.70m/Jacki Peak GR.12mmHg LVOT Diameter2.4 (1.8-2.4cm)Doppler AVA2.66cm2 Pulmonic Valve V20.80m/s LEFT VENTRICLE The left ventricle is of normal size. Wall thickness is moderately increased. Ejection fraction is normal and is estimated at 60%. There is no regional wall motion abnormalities. There is grade II d iastolic dysfunction with evidence of elevated left-sided filling pressure. RIGHT VENTRICLE Not well visualized. Likely of normal size and systolic function. ATRIA The left atrium is moderately dilated in size. The right atrium is not well visualized. Not well visualized. MITRAL VALVE Normal structure and function. No significant mitral regurgitation. PULMONIC VALVE Not well visualized. TRICUSPID VALVE Not well visualized. AORTIC VALVE Normal structure and function. GREAT VESSELS The aortic root is of normal size. PERICARDIAL EFFUSION There is small pericardial effusion that is circumferential. PA systolic pressure isn't adequately e stimated. Other Information Quality : Technically LimitedRhythm : Technically limited study due to body habitus. Conclusion The study is technically limited. Normal left ventricular size and systolic function. Ejection fraction is estimated at 60%. Moderate concentric left ventricular hypertrophy. Grade 2 diastolic dysfunction with evidence of elevated left-sided filling pressure. Moderately dilated left atrial chamber size. The right ventricle is likely of normal size and systolic function. No hemodynamically significant valvular disease. Small circumferential pericardial effusion. PA systolic pressure isn't adequately estimated.
[2024-03-20] MEDS ORDERED: FUROSEMIDE 40 MG/4 ML VIAL IV SCH (10:00)
--- NOTE | 2024-03-20 12:07 | DVHPN2 ---
Reviewed: Care Plan Changes from previous H/P or p: No Changes Eyes: No Pain, No Vision change, No Conjunctivae inflammation, No Eyelid inflammation, No Other, No Redness ENT: No Ear pain, No Ear discharge, No Nose pain, No Nose discharge, No Nose congestion, No Mouth pain, No Mouth swelling, No Throat pain, No Throat swelling, No Other Cardiovascular: No Chest Pain, No Palpitations, No Orthopnea, No Paroxysmal Noc. Dyspnea, No Edema; Lt Headedness; No Other Respiratory: No Cough, No Dry; Shortness of breath; No SOB with excertion, No Wheezing, No Hemoptysis, No Pleuritic Pain, No Sputum, No Other Gastrointestinal: No Nausea, No Vomiting, No Abdominal Pain, No Diarrhea, No Constipation, No Melena, No Hematochezia, No Other Genitourinary: No Dysuria, No Frequency, No Incontinence, No Hematuria, No Retention, No Other Musculoskeletal: No other, No neck pain, No shoulder pain, No arm pain, No back pain, No hand pain, No leg pain, No foot pain Skin: No Rash, No Lesions, No Jaundice, No Bruising, No Other Objective Vitals Vital Signs Date Time Temp Pulse Resp B/P (MAP) Pulse Ox O2 Delivery O2 Flow Rate FiO2 03/20/24 11:55 97.8 81 16 148/83 (104) 96 97.8 03/19/24 20:00 Room Air* 0 21 Intake/Output Intake and Output 03/20/24 07:00 Intake Total 418 ml Balance 418 ml Intake Oral 318 ml IV Total 100 ml Medications Current Medications Medications Dose Ordered Sig/Kasia Route Start Time Stop Time Status Last Admin Dose Admin Dextrose 50 ml UD PRN IV 03/19/24 11:00 03/19/24 11:59 50 ML Furosemide 40 mg DAILY IV 03/20/24 10:00 03/20/24 09:44 40 MG Ceftriaxone Sodium 50 ml @ 100 mls/hr DAILY@ IV 03/20/24 09:00 UNV Patient Own Medication 3 tab TID PO 03/19/24 14:00 Ceftriaxone Sodium 50 ml @ 100 mls/hr DAILY@09 IV 03/20/24 09:00 03/20/24 09:45 100 MLS/HR Diagnostic Test (Pha) 1 strip ACHS 03/19/24 17:00 03/20/24 06:24 1 STRIP Insulin Human Regular ACHS SC 03/19/24 17:00 03/20/24 06:23 2 UNITS Acetaminophen/ Hydrocodone Bitart 1 tab Q6HPRN PRN PO 03/20/24 01:00 03/20/24 00:00 1 TAB Laboratory Results Laboratory Tests 03/20/24 05:15 Chemistry Test 03/20/24 05:15 Albumin 3.6 g/dL (3.2-4.8) Calcium Level 9.6 mg/dL (8.7-10.4) Total Protein 6.2 g/dL (5.7-8.2) LFT Test 03/20/24 05:15 Alanine Aminotransferase (ALT) 127 U/L (7-40) H Alkaline Phosphatase 81 U/L (46-116) Aspartate Amino Transferase (AST) 110 U/L (13-40) H Total Bilirubin 0.2 mg/dL (0.2-1.0) Labs and/or images reviewed: Labs reviewed by me, Image(s) reviewed by me Assessment/Plan Assessment/Plan Acute generalized weakness Acute hyperkalemia potassium 7.8: Treatment per potassium protocol Bradycardia with heart rate of 40 secondary to acute hyperkalemia: Cardiology consult appreciated ESRD on hemodialysis: Stat dialysis ordered by Dr. Lashell fry Diabetes: Insulin sliding scale Hypertension Hypothyroidism Obesity Chronic current meth abuse: Counseling Anemia of chronic disease History of gastric sleeve surgery 2021 Noncompliance Patient missed dialysis 3 times Time spent 65 minutes Advanced care planning time 20 minutes Patient is full code Flu test and Liz test ordered Plan discussed with: Patient My Orders Orders - PRANAY DUQUE MD Procedure Category Date Status Time Rapid Influenza A&B LAB 03/20/24 Transmitted 12:02 Covid19 Antigen [facility] 03/20/24 Transmitted Date of Service: Mar 20, 2024 Billing Provider: PRANAY DUQUE MD Common Visit Codes: [id number] CARE 30-74 MIN PRANAY DUQUE MD Mar 20, 2024 12:07
[2024-03-20 15:45] LABS: COVID19 ANTIGEN SOFIA FIA NEGATIVE (NEGATIVE); Rapid Influenza A Negative (Negative); Rapid Influenza B Negative (Negative)
--- NOTE | 2024-03-20 17:52 | DVHPN2 ---
Consult Progress Note Date Seen: Mar 20, 2024 Subjective Review of Systems: CVS:Normal, RESPIRATORY:Normal, NEURO:Normal Objective vital signs Vital Sign Date Time Temp Pulse Resp B/P (MAP) Pulse Ox O2 Delivery O2 Flow Rate FiO2 03/20/24 16:44 97.9 78 18 176/88 (117) 93 97.9 03/20/24 08:00 Room Air* 0 21 Total Intake and Output 03/19/24 03/19/24 03/20/24 15:00 23:00 07:00 Intake Total 100 ml 318 ml Balance 100 ml 318 ml medications Current Medications Medications Dose Ordered Sig/Kasia Route Start Time Stop Time Status Last Admin Dose Admin Dextrose 50 ml UD PRN IV 03/19/24 11:00 03/19/24 11:59 50 ML Furosemide 40 mg DAILY IV 03/20/24 10:00 03/20/24 09:44 40 MG Ceftriaxone Sodium 50 ml @ 100 mls/hr DAILY@09 IV 03/20/24 09:00 UNV Patient Own Medication 3 tab TID PO 03/19/24 14:00 Ceftriaxone Sodium 50 ml @ 100 mls/hr DAILY@ IV 03/20/24 09:00 03/20/24 09:45 100 MLS/HR Diagnostic Test (Pha) 1 strip ACHS 03/19/24 17:00 03/20/24 11:30 1 STRIP Insulin Human Regular ACHS SC 03/19/24 17:00 03/20/24 06:23 2 UNITS Acetaminophen/ Hydrocodone Bitart 1 tab Q6HPRN PRN PO 03/20/24 01:00 03/20/24 14:36 1 TAB Hydralazine HCl 10 mg Q6HP PRN IV 03/20/24 14:15 Examination: LUNGS:Normal, CVS:Normal, NEURO:Normal laboratory and microbiology Laboratory Tests 03/20/24 05:15 Test 03/20/24 05:15 Range/Units Serum Glucose 151 H 74-106 mg/dL Problem List/Assessment/Plan Problem List/Assessment/Plan Junctional bradycardia secondary to hyperkalemia Hypertension Rule out structural heart disease Type 2 diabetes mellitus End-stage renal disease on hemodialysis Thyroid disease Amphetamine use Medical noncompliance Obesity Plan/Recommendation (Dr. Barroso) * Transthoracic echocardiogram revealed EF 60%. There is grade 2 diastolic dysfunction * Okay to resume beta-jean paul. Strongly advised to continue HD sessions as scheduled * Nephrology recommendations There is no further cardiac workup indicated at this time. Kindly call if you need to continue follow-up. Thank you for allowing us to participate in this patient's care. Please call if you have any questions or concerns. This medical document was created using an electronic medical record system with voice recognition software and computerized dictation system. Although this document has been carefully reviewed, there might still be some phonetic and typographical errors. Occasional wrong-word or ``sound-alike substitutions may have occurred due to the inherent limitations of voice recognition software. These areas are purely typographical due to imperfections of the software programs and do not reflect any compromise in the patient's medical care. Please read the chart carefully and recognize, using context, where these substitutions have occurred. Plan discussed with: Patient, Other Date of Service: Mar 20, 2024 Billing Provider: ANNABEL BARROSO MD Cardiology Common Codes: [id number] INP/OBS CARE(Mod) BABATUNDE REEVES [facility] Mar 20, 2024 17:52
[2024-03-20] MEDS: diphenhdrAMINE HCL 50 MG/1 ML VL IV ONE (19:07)
[2024-03-20] MEDS: EPOETIN ALFA-EPBX 4,000 UNIT/ML VIAL SC ONE (21:59)
[2024-03-21] VITALS (7 sets, daily range): BP systolic 138–185; BP diastolic 59–82; PULSE 68–85; RESP 20–22; TEMP 97.6–98.5; O2SAT 91–98
--- NOTE | 2024-03-21 09:05 | DVHPN2 ---
Reviewed: Care Plan Changes from previous H/P or p: No Changes Eyes: No Pain, No Vision change, No Conjunctivae inflammation, No Eyelid inflammation, No Other, No Redness ENT: No Ear pain, No Ear discharge, No Nose pain, No Nose discharge, No Nose congestion, No Mouth pain, No Mouth swelling, No Throat pain, No Throat swelling, No Other Cardiovascular: No Chest Pain, No Palpitations, No Orthopnea, No Paroxysmal Noc. Dyspnea, No Edema; Lt Headedness; No Other Respiratory: No Cough, No Dry; Shortness of breath; No SOB with excertion, No Wheezing, No Hemoptysis, No Pleuritic Pain, No Sputum, No Other Gastrointestinal: No Nausea, No Vomiting, No Abdominal Pain, No Diarrhea, No Constipation, No Melena, No Hematochezia, No Other Genitourinary: No Dysuria, No Frequency, No Incontinence, No Hematuria, No Retention, No Other Musculoskeletal: No other, No neck pain, No shoulder pain, No arm pain, No back pain, No hand pain, No leg pain, No foot pain Skin: No Rash, No Lesions, No Jaundice, No Bruising, No Other Objective Vitals Vital Signs Date Time Temp Pulse Resp B/P (MAP) Pulse Ox O2 Delivery O2 Flow Rate FiO2 03/21/24 08:00 Room Air* 0 21 03/21/24 05:00 97.9 70 20 151/59 (89) 91 97.9 Intake/Output Intake and Output 03/21/24 07:00 Intake Total 950 ml Output Total 200 ml Balance 750 ml Intake Oral 900 ml IV Total 50 ml Output Urine Total 200 ml # Voids 1 # Bowel Movements 1 Medications Current Medications Medications Dose Ordered Sig/Kasia Route Start Time Stop Time Status Last Admin Dose Admin Dextrose 50 ml UD PRN IV 03/19/24 11:00 03/19/24 11:59 50 ML Furosemide 40 mg DAILY IV 03/20/24 10:00 03/20/24 09:44 40 MG Ceftriaxone Sodium 50 ml @ 100 mls/hr DAILY@ IV 03/20/24 09:00 UNV Patient Own Medication 3 tab TID PO 03/19/24 14:00 03/20/24 21:59 3 TAB Ceftriaxone Sodium 50 ml @ 100 mls/hr DAILY@ IV 03/20/24 09:00 03/20/24 09:45 100 MLS/HR Diagnostic Test (Pha) 1 strip ACHS 03/19/24 17:00 03/21/24 06:48 1 STRIP Insulin Human Regular ACHS SC 03/19/24 17:00 03/20/24 22:29 2 UNITS Acetaminophen/ Hydrocodone Bitart 1 tab Q6HPRN PRN PO 03/20/24 01:00 03/21/24 05:22 1 TAB Hydralazine HCl 10 mg Q6HP PRN IV 03/20/24 14:15 Laboratory Results Laboratory Tests 03/20/24 05:15 Labs and/or images reviewed: Labs reviewed by me, Image(s) reviewed by me Assessment/Plan Assessment/Plan Acute generalized weakness Acute hyperkalemia potassium 7.8: Treatment per potassium protocol Bradycardia with heart rate of 40 secondary to acute hyperkalemia: Cardiology consult appreciated, ejection fraction 60 percent, no further cardiac workup ESRD on hemodialysis: Stat dialysis ordered by Dr. Lashell fry Diabetes: Insulin sliding scale Hypertension Hypothyroidism Obesity Chronic current meth abuse: Counseling Anemia of chronic disease History of gastric sleeve surgery 2021 Noncompliance Patient missed dialysis 3 times History of flu treated in the ER [facility] three weeks ago, per patient she missed dialysis because of flu Time spent 65 minutes Advanced care planning time 20 minutes Patient is full code Flu test negative Liz test negative Brother Maty [phone] Morley Plan discussed with: Patient My Orders Orders - PRANAY DUQUE MD Procedure Category Date Status Time Hydralazine Injection PHA 03/20/24 In Process (Apresoline Inject 14:15 Drug Screen LAB 03/20/24 Logged 14:10 Date of Service: Mar 21, 2024 Billing Provider: PRANAY DUQUE MD Common Visit Codes: [id number] CARE 30-74 MIN PRANAY DUQUE MD Mar 21, 2024 09:05
--- NOTE | 2024-03-21 14:08 | DVHPN2 ---
Progress Note - Dictate Date Seen: Mar 20, 2024 Medical Necessity Reason Pt with a Central, PICC or Fol: Yes Subjective Feeling much better from the breathing perspective vital signs Vital Sign Date Time Temp Pulse Resp B/P (MAP) Pulse Ox O2 Delivery O2 Flow Rate FiO2 03/21/24 13:00 97.6 71 20 176/80 (112) 91 97.6 03/21/24 08:00 Room Air* 0 21 Total Intake and Output 03/20/24 03/20/24 03/21/24 15:00 23:00 07:00 Intake Total 50 ml 600 ml 300 ml Output Total 200 ml Balance 50 ml 400 ml 300 ml medications Current Medications Medications Dose Ordered Sig/Kasia Route Start Time Stop Time Status Last Admin Dose Admin Dextrose 50 ml UD PRN IV 03/19/24 11:00 03/19/24 11:59 50 ML Furosemide 40 mg DAILY IV 03/20/24 10:00 03/21/24 10:08 40 MG Ceftriaxone Sodium 50 ml @ 100 mls/hr DAILY@09 IV 03/20/24 09:00 UNV Patient Own Medication 3 tab TID PO 03/19/24 14:00 03/20/24 21:59 3 TAB Ceftriaxone Sodium 50 ml @ 100 mls/hr DAILY@09 IV 03/20/24 09:00 03/21/24 10:08 100 MLS/HR Diagnostic Test (Pha) 1 strip ACHS 03/19/24 17:00 03/21/24 11:32 1 STRIP Insulin Human Regular ACHS SC 03/19/24 17:00 03/21/24 11:44 2 UNITS Acetaminophen/ Hydrocodone Bitart 1 tab Q6HPRN PRN PO 03/20/24 01:00 03/21/24 11:43 1 TAB Hydralazine HCl 10 mg Q6HP PRN IV 03/20/24 14:15 objective HEENT: No evidence of JVD, no oral ulcers. Pulmonary: Lungs are clear on auscultation bilaterally Cardiovascular S1-S2, no S3 or S4 Abdomen: Bowel sounds positive, soft no rebound tenderness Skin: No rash Neurological: Alert, oriented, no focal weakness Extremities: Trace edema bilaterally laboratory and microbiology Laboratory Tests 03/20/24 05:15 Test 03/20/24 05:15 Range/Units Serum Glucose 151 H 74-106 mg/dL Assessment/Plan Assessment: End-stage renal disease on hemodialysis Sunday Hyperkalemia Fluid overload Uremia Hypertension Anemia Noncompliance with dialysis treatment Plan: Dialysis today then tomorrow is her regular day Fluid restriction Less than 1 L per day Antibiotics as per primary Renal diet Leonard for goal hemoglobin 10-11 g/dl Patient can be discharged home after dialysis today This is a late entry for date of service March 20, 2024 Thank you very much for allowing us to participate in the care of this patient Plan discussed with: Patient ALEXIS ESPINOZA MD Mar 21, 2024 14:08
--- NOTE | 2024-03-21 14:09 | DVHPN2 ---
Progress Note - Dictate Date Seen: Mar 21, 2024 Medical Necessity Reason Pt with a Central, PICC or Fol: Yes Subjective The patient wants to go home she feels well now vital signs Vital Sign Date Time Temp Pulse Resp B/P (MAP) Pulse Ox O2 Delivery O2 Flow Rate FiO2 03/21/24 13:00 97.6 71 20 176/80 (112) 91 97.6 03/21/24 08:00 Room Air* 0 21 Total Intake and Output 03/20/24 03/20/24 03/21/24 15:00 23:00 07:00 Intake Total 50 ml 600 ml 300 ml Output Total 200 ml Balance 50 ml 400 ml 300 ml medications Current Medications Medications Dose Ordered Sig/Kasia Route Start Time Stop Time Status Last Admin Dose Admin Dextrose 50 ml UD PRN IV 03/19/24 11:00 03/19/24 11:59 50 ML Furosemide 40 mg DAILY IV 03/20/24 10:00 03/21/24 10:08 40 MG Ceftriaxone Sodium 50 ml @ 100 mls/hr DAILY@09 IV 03/20/24 09:00 UNV Patient Own Medication 3 tab TID PO 03/19/24 14:00 03/20/24 21:59 3 TAB Ceftriaxone Sodium 50 ml @ 100 mls/hr DAILY@09 IV 03/20/24 09:00 03/21/24 10:08 100 MLS/HR Diagnostic Test (Pha) 1 strip ACHS 03/19/24 17:00 03/21/24 11:32 1 STRIP Insulin Human Regular ACHS SC 03/19/24 17:00 03/21/24 11:44 2 UNITS Acetaminophen/ Hydrocodone Bitart 1 tab Q6HPRN PRN PO 03/20/24 01:00 03/21/24 11:43 1 TAB Hydralazine HCl 10 mg Q6HP PRN IV 03/20/24 14:15 objective HEENT: No evidence of JVD, no oral ulcers. Pulmonary: Lungs are clear on auscultation bilaterally Cardiovascular S1-S2, no S3 or S4 Abdomen: Bowel sounds positive, soft no rebound tenderness Skin: No rash Neurological: Alert, oriented, no focal weakness Extremities: No edema of the lower extremities laboratory and microbiology Laboratory Tests 03/20/24 05:15 Test 03/20/24 05:15 Range/Units Serum Glucose 151 H 74-106 mg/dL Assessment/Plan Assessment: End-stage renal disease on hemodialysis Sunday Hyperkalemia Fluid overload Uremia Hypertension Anemia Noncompliance with dialysis treatment Plan: Continue dialysis Sunday. Fluid restriction Less than 1 L per day Antibiotics as per primary Renal diet Leonard for goal hemoglobin 10-11 g/dl Patient can be discharged home from Nephrology perspective post HD today Thank you very much for allowing us to participate in the care of this patient Plan discussed with: Patient ALEXIS ESPINOZA MD Mar 21, 2024 14:09
[2024-03-21] MEDS ORDERED: SODIUM CHL 0.9% 1000 ML BAG XX ONE (14:15)
[2024-03-21] MEDS ORDERED: ERGO1CAP23 PO (14:50)
[2024-03-21] MEDS ORDERED: B-CO-5 PO (14:50)
[2024-03-21] MEDS ORDERED: ATOR20TA PO (14:50)
[2024-03-21 16:56] LABS: Amphetamine Screen, Urine Neg (NEGATIVE)
[2024-03-21 16:57] LABS: Opiate Scree,Urine Neg (NEGATIVE); Phencyclidine Screen, Urine Neg (NEGATIVE)
[2024-03-21 17:00] LABS: Barbiturate Scree,Urine Neg (NEGATIVE); Benzodiazephine Screen, Urine Neg (NEGATIVE); Cannabinoid Screen, Urine Neg (NEGATIVE); Cocaine Screen, Urine Neg (NEGATIVE)
[2024-03-21] MEDS: EPOETIN ALFA-EPBX 10,000 UNIT/1ML VIAL SC ONE (21:30)
[2024-03-21] MEDS: hydrALAZINE HCL 20 MG/ML VL IV PRN (22:20)
[2024-03-21] MEDS: diphenhdrAMINE HCL 50 MG/1 ML VL IV ONE (23:47)
[2024-03-22 05:22] VITALS: BP 159/81; PULSE 90; RESP 20; TEMP 98.2; O2SAT 94
[2024-03-22 08:00] VITALS: PULSE 77
--- NOTE | 2024-03-22 08:27 | DVHPN2 ---
Reviewed: Care Plan Changes from previous H/P or p: No Changes Eyes: No Pain, No Vision change, No Conjunctivae inflammation, No Eyelid inflammation, No Other, No Redness ENT: No Ear pain, No Ear discharge, No Nose pain, No Nose discharge, No Nose congestion, No Mouth pain, No Mouth swelling, No Throat pain, No Throat swelling, No Other Cardiovascular: No Chest Pain, No Palpitations, No Orthopnea, No Paroxysmal Noc. Dyspnea, No Edema; Lt Headedness; No Other Respiratory: No Cough, No Dry; Shortness of breath; No SOB with excertion, No Wheezing, No Hemoptysis, No Pleuritic Pain, No Sputum, No Other Gastrointestinal: No Nausea, No Vomiting, No Abdominal Pain, No Diarrhea, No Constipation, No Melena, No Hematochezia, No Other Genitourinary: No Dysuria, No Frequency, No Incontinence, No Hematuria, No Retention, No Other Musculoskeletal: No other, No neck pain, No shoulder pain, No arm pain, No back pain, No hand pain, No leg pain, No foot pain Skin: No Rash, No Lesions, No Jaundice, No Bruising, No Other Objective Vitals Vital Signs Date Time Temp Pulse Resp B/P (MAP) Pulse Ox O2 Delivery O2 Flow Rate FiO2 03/22/24 05:22 98.2 90 20 159/81 (107) 94 98.2 03/21/24 20:00 Room Air* 0 21 Intake/Output Intake and Output 03/22/24 07:00 Intake Total 50 ml Balance 50 ml IV Total 50 ml Medications Current Medications Medications Dose Ordered Sig/Kasia Route Start Time Stop Time Status Last Admin Dose Admin Dextrose 50 ml UD PRN IV 03/19/24 11:00 03/19/24 11:59 50 ML Furosemide 40 mg DAILY IV 03/20/24 10:00 03/21/24 10:08 40 MG Ceftriaxone Sodium 50 ml @ 100 mls/hr DAILY@ IV 03/20/24 09:00 UNV Patient Own Medication 3 tab TID PO 03/19/24 14:00 03/20/24 21:59 3 TAB Ceftriaxone Sodium 50 ml @ 100 mls/hr DAILY@ IV 03/20/24 09:00 03/21/24 10:08 100 MLS/HR Diagnostic Test (Pha) 1 strip ACHS 03/19/24 17:00 03/22/24 06:43 1 STRIP Insulin Human Regular ACHS SC 03/19/24 17:00 03/21/24 22:18 3 UNITS Acetaminophen/ Hydrocodone Bitart 1 tab Q6HPRN PRN PO 03/20/24 01:00 03/21/24 19:58 1 TAB Hydralazine HCl 10 mg Q6HP PRN IV 03/20/24 14:15 03/21/24 22:20 10 MG Laboratory Results Laboratory Tests 03/20/24 05:15 Labs and/or images reviewed: Labs reviewed by me, Image(s) reviewed by me Assessment/Plan Assessment/Plan Acute generalized weakness Acute hyperkalemia potassium 7.8: Treatment per potassium protocol Bradycardia with heart rate of 40 secondary to acute hyperkalemia: Cardiology consult appreciated, ejection fraction 60 percent, no further cardiac workup ESRD on hemodialysis: Stat dialysis ordered by Dr. Lashell fry Diabetes: Insulin sliding scale Hypertension Hypothyroidism Possible community-acquired pneumonia: Rocephin Obesity Chronic current meth abuse: Counseling Anemia of chronic disease History of gastric sleeve surgery 2021 Noncompliance Patient missed dialysis 3 times History of flu treated in the ER [facility] three weeks ago, per patient she missed dialysis because of flu Time spent 65 minutes Advanced care planning time 20 minutes Patient is full code Flu test negative Liz test negative Brother Maty [phone] Peyman Biggs discussed with: Patient Date of Service: Mar 22, 2024 Billing Provider: PRANAY DUQUE MD Common Visit Codes: [id number] INP/OBS CARE(HIGH) PRANAY DUQUE MD Mar 22, 2024 08:27
[2024-03-22] MEDS ORDERED: AZIT500T66 PO (08:28)
--- NOTE | 2024-03-22 08:32 | DVHDS2 ---
Discharge Summary Date of Admission Mar 19, 2024 at 10:47 Date of Discharge: Mar 22, 2024 Admitting Diagnosis Generalized weakness Wounds: None Labs/Diagnostic Data: Laboratory Results Test 03/22/24 06:25 03/21/24 16:25 03/20/24 14:15 03/20/24 05:15 POC Glucose 108 mg/dl (70-106) Urine Opiates Screen Neg (NEGATIVE) Urine Fentanyl Screen Neg (NEGATIVE) Urine Barbiturates Screen Neg (NEGATIVE) Urine Phencyclidine Screen Neg (NEGATIVE) Urine Amphetamines Screen Neg (NEGATIVE) Urine Benzodiazepines Screen Neg (NEGATIVE) Urine Cocaine Screen Neg (NEGATIVE) Urine Cannabinoids Screen Neg (NEGATIVE) Influenza Type A Antigen Negative (Negative) Influenza Type B Antigen Negative (Negative) SARS-CoV-2 Antigen (Rapid) Negative (NEGATIVE) White Blood Count 4.9 10^3/uL (4.4-10.8) Red Blood Count 2.63 10^6/uL (4.0-5.20) Hemoglobin 8.8 g/dL (12.2-16.2) Hematocrit 25.4 % (36.0-46.0) Mean Corpuscular Volume 96.6 fL (80.0-100.0) Mean Corpuscular Hemoglobin 33.3 pg (28.0-32.0) Mean Corpuscular Hemoglobin Concent 34.5 g/dL (32.0-36.0) Red Cell Distribution Width 15.7 % (11.8-14.3) Platelet Count 179 10^3/uL (140-450) Mean Platelet Volume 8.8 fL (6.9-10.8) Neutrophils (%) (Auto) 55.2 % (37.0-80.0) Lymphocytes (%) (Auto) 33.5 % (10.0-50.0) Monocytes (%) (Auto) 7.6 % (0.0-12.0) Eosinophils (%) (Auto) 3.0 % (0.0-7.0) Basophils (%) (Auto) 0.7 % (0.0-2.0) Neutrophils # (Auto) 2.7 10 ^3/uL (1.6-8.6) Lymphocytes # (Auto) 1.6 10 ^3/uL (0.4-5.4) Monocytes # (Auto) 0.4 10 ^3/uL (0-1.3) Eosinophils # (Auto) 0.1 10 ^3/uL (0-0.8) Basophils # (Auto) 0 10 ^3/uL (0-0.2) Nucleated Red Blood Cells 0.0 % Sodium Level 140 mmol/L (136-145) Potassium Level 4.9 mmol/L (3.5-5.1) Chloride Level 99 mmol/L (98-107) Carbon Dioxide Level 30 mmol/L (20-31) Anion Gap 11 (5-15) Blood Urea Nitrogen 73 mg/dL (9-23) Creatinine 11.95 mg/dL (0.550-1.02) Glomerular Filtration Rate Calc 4 mL/min (>90) BUN/Creatinine Ratio 6.1 (10.0-20.0) Serum Glucose 151 mg/dL (74-106) Calcium Level 9.6 mg/dL (8.7-10.4) Total Bilirubin 0.2 mg/dL (0.2-1.0) Aspartate Amino Transferase (AST) 110 U/L (13-40) Alanine Aminotransferase (ALT) 127 U/L (7-40) Alkaline Phosphatase 81 U/L (46-116) Total Protein 6.2 g/dL (5.7-8.2) Albumin 3.6 g/dL (3.2-4.8) Test 03/19/24 14:00 03/19/24 10:57 03/19/24 08:30 Troponin I High Sensitivity 21 ng/L (</=34) Hepatitis A IgM Antibody Negative Hepatitis B Surface Antigen Negative (Negative) Hepatitis B Core IgM Antibody Negative (Negative) Hepatitis C Antibody Negative (Negative) Free Thyroxine (T4) Calculated 0.82 ng/dL (0.89-1.76) Free Triiodothyronine (T3) pg/mL 2.37 pg/mL (2.3-4.2) Hemoglobin A1c 5.6 % A1C (<5.7) Magnesium Level 3.1 mg/dL (1.6-2.6) B-Type Natriuretic Peptide 779.42 pg/mL (0-100) Thyroid Stimulating Hormone (TSH) 11.00 uIU/mL (0.55-4.78) Plasma/Serum Blood Alcohol < 3.0 mg/dL (<10) Other Laboratory Tests 03/20/24 05:15 Brief Hx & Hospital Course: 48-year-old female with multiple medical problems including hypertension diabetes hypothyroidism chronic current meth abuse anemia of chronic disease history of gastric sleeve surgery 2021 ESRD on hemodialysis had flu and went to [facility] three weeks ago and subsequently could not have dialysis for more than a week and was brought to the ER [facility] for generalized weakness potassium was 7.8 treated per hyperkalemia protocol received hemodialysis by Dr. Lashell fry and improved. Possible community- acquired pneumonia treated with Rocephin. At the time of discharge potassium is normal patient is alert awake stable vital signs. Flu test during this visit is negative Liz test is also negative. Patient being discharged home in stable but generally poor condition Prescription for azithromycin transmitted to the pharmacy Consults/Reason for consult Cardiology Nephrology Operations or Procedures Hemodialysis Condition at Discharge: Fair Final Diagnosis/Problems List Acute generalized weakness Acute hyperkalemia potassium 7.8: Treatment per potassium protocol Bradycardia with heart rate of 40 secondary to acute hyperkalemia: Cardiology consult appreciated, ejection fraction 60 percent, no further cardiac workup ESRD on hemodialysis: Stat dialysis ordered by Dr. Lashell fry Diabetes: Insulin sliding scale Hypertension Hypothyroidism Possible community-acquired pneumonia: Rocephin Obesity Chronic current meth abuse: Counseling Anemia of chronic disease History of gastric sleeve surgery 2021 Noncompliance Patient missed dialysis 3 times History of flu treated in the ER [facility] three weeks ago, per patient she missed dialysis because of flu Time spent 65 minutes Advanced care planning time 20 minutes Patient is full code Flu test negative Liz test negative Discharge Disposition: Home Discharge Instruct/Medications Diet: Renal Activity: Light activity Follow Up/Referral: Continue all previous home medications 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 Patient was counseled about treatment plan, medications, possible side effects, patientverbalized understanding. All questions were answered to the best of my ability. This discharge took greater then 30 minutes in planning, reviewing documentation, counseling the patient, and discussing with other team members." ASSESSMENT ASSESSMENT Hospital Course Improved Assessment Acute generalized weakness Acute hyperkalemia potassium 7.8: Treatment per potassium protocol Bradycardia with heart rate of 40 secondary to acute hyperkalemia: Cardiology consult appreciated, ejection fraction 60 percent, no further cardiac workup ESRD on hemodialysis: Stat dialysis ordered by Dr. Lashell fry Diabetes: Insulin sliding scale Hypertension Hypothyroidism Possible community-acquired pneumonia: Rocephin Obesity Chronic current meth abuse: Counseling Anemia of chronic disease History of gastric sleeve surgery 2021 Noncompliance Patient missed dialysis 3 times History of flu treated in the ER [facility] three weeks ago, per patient she missed dialysis because of flu Time spent 65 minutes Advanced care planning time 20 minutes Patient is full code Flu test negative Liz test negative Date of Service: Mar 22, 2024 Billing Provider: PRANAY DUQUE MD Common Visit Codes: [id number]/[id number] DISCH DAY >30min PRANAY DUQUE MD Mar 22, 2024 08:32
[2024-03-22 09:00] VITALS: BP 154/85; PULSE 77; RESP 18; TEMP 98.5; O2SAT 96
[2024-03-22 10:59] VITALS: BP 185/82; TEMP 36.9
== END 2024-03-22 12:10 | disposition home or self-care (01) | DRG 177 ==
LOC: EDBD 04:29 → ER 04:29 → OVERFLOW 10:47 → TELE-CENTR 18:19
PROVIDERS: ADMIT Family Medicine; ATTEND Family Medicine
PROC: 5A1D70Z Performance of Urinary Filtration, Intermittent, Less than 6 Hours Per Day (ICD-10-PCS; principal; 2024-03-19)
PROC: 5A1D70Z Performance of Urinary Filtration, Intermittent, Less than 6 Hours Per Day (ICD-10-PCS; 2024-03-21)
PROC: 5A1D70Z Performance of Urinary Filtration, Intermittent, Less than 6 Hours Per Day (ICD-10-PCS; 2024-03-21)
DX: J15.69 Pneumonia due to other Gram-negative bacteria (principal); N18.6 End stage renal disease; I13.2 Hypertensive heart and chronic kidney disease with heart failure and with stage 5 chronic kidney disease, or end stage renal disease; Z68.41 Body mass index [BMI] 40.0-44.9, adult; E87.20 Acidosis, unspecified; E87.5 Hyperkalemia; J18.9 Pneumonia, unspecified organism; J15.9 Unspecified bacterial pneumonia; Z20.822 Contact with and (suspected) exposure to COVID-19; E03.9 Hypothyroidism, unspecified; E11.22 Type 2 diabetes mellitus with diabetic chronic kidney disease; E66.9 Obesity, unspecified; D63.8 Anemia in other chronic diseases classified elsewhere; E83.42 Hypomagnesemia; F15.10 Other stimulant abuse, uncomplicated; I50.9 Heart failure, unspecified; Z98.84 Bariatric surgery status; Z99.2 Dependence on renal dialysis; Z90.49 Acquired absence of other specified parts of digestive tract; Z83.3 Family history of diabetes mellitus; Z82.49 Family history of ischemic heart disease and other diseases of the circulatory system; Z91.199 Patient's noncompliance with other medical treatment and regimen due to unspecified reason; Z91.158 Patient's noncompliance with renal dialysis for other reason; Z79.4 Long term (current) use of insulin; Z79.82 Long term (current) use of aspirin; Z79.899 Other long term (current) drug therapy; E87.70 Fluid overload, unspecified
CPT/HCPCS: 36415; 71045; 80053; 80074; 80307; 80320; 82962; 83036; 83735; 83880; 84132; 84439; 84443; 84481; 84484; 85025; 87426; 87804; 90935; 93005; 93306; 94640; 96365; 96375; G0378; J1642; J1815

== ENCOUNTER 2024-10-31 02:42 | Emergency (ER) | payer MEDICARE, MEDICAID ==
[~2024-10-31 02:42] MED LIST changes: +ATOR20TA PO; +B-CO-5 PO; -CALC667C PO; +ERGO1CAP23 PO; -FURO40TA4 PO; -GABA-1250 PO; -HYDR-4798 PO; -HYDR-4902 PO; -IBUP-1455 PO; -LEVO150T10 PO; -PANT40TA2 PO
--- NOTE | 2024-10-31 03:34 | ED.PDOC ---
History of Present Illness HPI Comments 49-year-old female who came to ER for back pains. Patient does have history of hypertension, diabetes, end-stage renal disease dialysis every Sunday and Sunday. States she has been having right upper to mid back pains for the past 3 days, worsens with movements and deep breathing. Denies any nausea or vomiting. Denies any fever. Chief Complaint: Back Pain Time Seen by MD: 03:34 Primary Care Provider: MADAI Arreguin Notes: Nurses Notes Allergies: Coded Allergies: Codeine (Unverified Allergy, Unknown, 10/03/14) Home Meds Active Scripts Gabapentin (Once-Daily) (Gabapentin) 300 Mg Tab, 300 MG PO Q6HP PRN, #30 TAB Prov:PEDRO ASHER MD 10/31/24 Azithromycin (Azithromycin) 500 Mg Tab, 1 TAB PO DAILY, #7 TAB Prov:PRANAY DUQUE MD 03/22/24 Ondansetron Odt 4MG Tab (ZOFRAN PO) 4 Mg Tb, 4 MG PO Q6HPRN PRN, #20 TAB ODT TAB-DISSOLVE IN MOUTH, THEN SWALLOW Prov:LUIS LEMUS PAC 10/14/23 Aspirin (ASPIRIN/ENTERIC) 81 Mg Tab, 81 MG PO DAILY, #90 TAB Prov:PRANAY DUQUE MD 01/18/23 Reported Medications Ergocalciferol (VITAMIN D 02094 UNIT) 50,000 [place], [address] UNIT PO QWEEKLY, CAP 03/21/24 B-Complex W/ C & Folic Acid (Damari-Sarbjit) Tab, 1 TAB PO DAILY, TAB 03/21/24 Atorvastatin Calcium (Lipitor) 20 Mg Tab, 20 MG PO DAILY, TAB 03/21/24 Clonidine Hydrochloride (Clonidine Hcl) 0.1 Mg Tab, 1 TAB PO BID, #30 TAB 2 Refills 12/12/22 Metoprolol Tartrate (Metoprolol Tartrate) 100 Mg Tab, 1 TAB PO BID 12/12/22 Ferric Citrate (Auryxia) 210 Mg Tab, 3 TAB PO TID 12/12/22 Information Source: Patient Mode of Arrival: Ambulatory Severity: Moderate Timing: Days Duration: Intermittent Past Medical History PAST MEDICAL HISTORY: DM, ESRD, High Lipids, HTN, Thyroid Surgical History: BTL, Cholecystectomy, Surgical History (Other): Dialysis Sunday BIOLOGY INTERN History: No Pertinent BIOLOGY INTERN History Family History Family History: Family hx of DM, Family hx of heart leticia, Family hx of HTN Social History Smoker: Non-Smoker Alcohol: Denies ETOH Use Drugs: Denies Drug Use Lives In: Home Constitutional: denies: chills, diaphoresis, fatigue, fever, malaise, sweats, weakness, others EENTM: denies: blurred vision, double vision, ear bleeding, ear discharge, ear drainage, ear pain, ear ringing, eye pain, eye redness, hearing loss, mouth pain, mouth swelling, nasal discharge, nose bleeding, nose congestion, nose pain, photophobia, tearing, throat pain, throat swelling, voice changes, others Respiratory: denies: cough, hemoptysis, orthopnea, SOB at rest, shortness of breath, SOB with excertion, stridor, wheezing, others Cardiovascular: denies: chest pain, dizzy spells, diaphoresis, Dyspnea on exertion, edema, irregular heart beat, left arm pain, lightheadedness, palpitations, PND, syncope, others Gastrointestinal: denies: abdomen distended, abdominal pain, blood streaked bowels, constipated, diarrhea, dysphagia, difficulty swallowing, hematemesis, melena, nausea, poor appetite, poor fluid intake, rectal bleeding, rectal pain, vomiting, others Genitourinary: denies: abnormal vagina bleeding, burning, dyspareunia, dysuria, flank pain, frequency, hematuria, incontinence, pain, , vagina discharge, urgency, others Neurological: denies: dizziness, fainting, headache, left sided numbness, left sided weakness, numbness, paresthesia, pre-existing deficit, right sided numbness, right sided weakness, seizure, speech problems, tingling, tremors, weakness, others Musculoskeletal: reports: back pain; denies: gout, joint pain, joint swelling, muscle pain, muscle stiffness, neck pain, others Integumetry: denies: bruises, change in color, change in hair/nails, dryness, laceration, lesions, lumps, rash, wounds, others Allergic/Immunocompromised: denies: Difficulty Healing, Frequent Infections, Hives, Itching, others Hematologic/Lymphatic: denies: anemia, blood clots, easy bleeding, easy bruising, swollen glands, others Endocrine: denies: excessive hunger, excessive sweating, excessive thirst, excessive urination, flushing, intolerance to cold, intolerance to heat, unexplained weight gain, unexplained weight loss, others Psychiatric: denies: anxiety, bipolar disorder, depression, hopeless, panic disorder, schizophrenia, sleepless, suicidal, others Physical Exam General Appearance: No Apparent Distress, Normal HEENT: Normal ENT Inspection, Pharynx Normal, TMs Normal Neck: Full Range of Motion, Non-Tender, Normal, Normal Inspection Respiratory: Chest Non-Tender, Lungs Clear, No Accessory Muscle Use, No Respiratory Distress, Normal Breath Sounds Cardiovascular: No Edema, No JVD, No Murmur, No Gallop, Normal Peripheral Pulses, Regular Rate/Rhythm Breast Exam: Deferred Gastrointestinal: No Organomegaly, Non Tender, No Pulsatile Mass, Normal Bowel Sounds, Soft Genitalia: Deferred Pelvic: Deferred Rectal: Deferred Extremities: No calf tenderness, Normal capillary refill, Normal inspection, Normal range of motion, Non-tender, No pedal edema Musculoskeletal : Apperance: Normal Neurologic: Alert, web site developer II-XII nml as Tested, No Motor Deficits, Normal Affect, Normal Mood, No Sensory Deficits Cerebellar Function: Normal Reflexes: Normal Skin: Dry, Normal Color, Warm Lymphatic: No Adenopathy Was a procedure done? Was a procedure done?: No Differential Dx Considerations may include: Anemia, electrolyte imbalance, musculoskeletal pain, end stage renal disease X-Ray, Labs, Meds, VS Vital Signs Date Time Temp Pulse Resp B/P (MAP) Pulse Ox O2 Delivery O2 Flow Rate FiO2 10/31/24 02:44 98.1 82 16 157/81 97 98.1 Lab Test 10/31/24 03:39 Range/Units White Blood Count 6.6 4.4-10.8 10^3/uL Red Blood Count 3.69 L 4.0-5.20 10^6/uL Hemoglobin 12.1 L 12.2-16.2 g/dL Hematocrit 36.3 36.0-46.0 % Mean Corpuscular Volume 98.6 80.0-100.0 fL Mean Corpuscular Hemoglobin 32.9 H 28.0-32.0 pg Mean Corpuscular Hemoglobin Concent 33.4 32.0-36.0 g/dL Red Cell Distribution Width 15.5 H 11.8-14.3 % Platelet Count 188 140-450 10^3/uL Mean Platelet Volume 8.7 6.9-10.8 fL Neutrophils (%) (Auto) 57.5 37.0-80.0 % Lymphocytes (%) (Auto) 27.7 10.0-50.0 % Monocytes (%) (Auto) 7.9 0.0-12.0 % Eosinophils (%) (Auto) 5.7 0.0-7.0 % Basophils (%) (Auto) 1.2 0.0-2.0 % Neutrophils # (Auto) 3.8 1.6-8.6 10 ^3/uL Lymphocytes # (Auto) 1.8 0.4-5.4 10 ^3/uL Monocytes # (Auto) 0.5 0-1.3 10 ^3/uL Eosinophils # (Auto) 0.4 0-0.8 10 ^3/uL Basophils # (Auto) 0.1 0-0.2 10 ^3/uL Nucleated Red Blood Cells 0.1 % Sodium Level 139 136-145 mmol/L Potassium Level 4.1 3.5-5.1 mmol/L Chloride Level 99 98-107 mmol/L Carbon Dioxide Level 27 20-31 mmol/L Anion Gap 13 5-15 Blood Urea Nitrogen 38 H 9-23 mg/dL Creatinine 11.34 *H 0.550-1.02 mg/dL Glomerular Filtration Rate Calc 4 >90 mL/min BUN/Creatinine Ratio 3.4 L 10.0-20.0 Serum Glucose 92 74-106 mg/dL Calcium Level 10.4 8.7-10.4 mg/dL Total Bilirubin 0.2 0.2-1.0 mg/dL Aspartate Amino Transferase (AST) 23 13-40 U/L Alanine Aminotransferase (ALT) 27 7-40 U/L Alkaline Phosphatase 84 46-116 U/L Total Protein 7.9 5.7-8.2 g/dL Albumin 4.5 3.2-4.8 g/dL Lipase 91 H 12-53 U/L Current Medications Medications (Trade) Dose Ordered Sig/Kasia Route Start Time Stop Time Status Last Admin Acetaminophen/ Hydrocodone Bitart ([place] 10/325MG Tab) 1 tab ONCE ONCE PO 10/31/24 03:30 10/31/24 03:31 DC 10/31/24 04:00 Exam: CT CT AB PEL WO CON-NO ORAL OR IV History: right flank pain Comparison Study: CT CT AB PEL WO CON-NO ORAL OR IV on DOS: 01/26/24, CT CT AB PEL WO CON-NO ORAL OR IV on DOS: 10/13/23, CT CT AB PEL WO CON-NO ORAL OR IV on DOS: 12/29/22, CT CT AB PEL WO CON-NO ORAL OR IV on DOS: 12/12/22 Technique: Multidetector spiral CT of the abdomen was performed from lung bases to pubic symphysis. Imaging was performed without IV contrast. Axial, coronal and sagittal multiplanar reformats were obtained from the axial data set by the technologist. Radiation Dose : 1. Abdomen/Pelvis: CTDIvol 9.12 mGy, DLP 3.92 mGy*cm. Findings: Evaluation of solid organs is limited due to lack of intravenous contrast use. Lower Chest: No acute findings. Liver: Unremarkable. Gallbladder and Biliary Tree: Cholecystectomy changes. Pancreas: Mild atrophy. Spleen: Unremarkable. Adrenal Glands: Unremarkable. Kidneys/Ureters: No urinary stone or obstruction. Symmetric renal atrophy and perinephric stranding. Bladder: Grossly unremarkable for degree of distention. Pelvic Organs: Unremarkable Bowel: No wall thickening or obstruction. Tico-en-Y gastric bypass postsurgical change. Normal appendix. Vasculature: Diffuse atherosclerosis. Lymphadenopathy: No obvious adenopathy. Peritoneum: No ascites, free air, or fluid collection. Abdominal Wall: No significant hernia. Musculoskeletal: No acute findings. Degenerative change of the spine and pelvis. IMPRESSION: 1. No acute abdominopelvic abnormality, evidence of urinary stone or obstruction. 2. Chronic and incidental findings above. Radiation optimization: All CT scans at this facility use at least one of these dose optimization techniques: automated exposure control mA and/or kV adjustment per patient size (includes targeted exams where dose is matched to clinical indication) or iterative reconstruction. Time of 1ST Reevaluation: 03:32 Reevaluation 1ST: Unchanged Patient Education/Counseling: Diagnosis, Treatment Family Education/Counseling: No Family Present SEPSIS Sepsis Screen Date sepsis recognized/suspect: Oct 31, 2024 Time Sepsis recognized/suspect: 025 Recent Procedure: No On Antibiotic Therapy: No Respiratory Rate >20: No Heart Rate >90: No Temp<36 C (96.8 F) or >38.3 C: No SBP <90 or MAP <65 mmHG: No New Acute Mental Status Change: No Is the patient on CPAP, BIPAP,: No Physician Orders Ct Ab Pel Wo Con-No Oral Or Iv (10/31/24 03:15) Vital Signs Date Time Temp Pulse Resp B/P (MAP) Pulse Ox O2 Delivery O2 Flow Rate FiO2 10/31/24 02:44 98.1 82 16 157/81 97 98.1 Laboratory Tests Test 10/31/24 03:39 White Blood Count 6.6 10^3/uL (4.4-10.8) Medications Medications Dose Ordered Sig/Kasia Route Start Time Stop Time Status Last Admin Dose Admin Acetaminophen/ Hydrocodone Bitart 1 tab ONCE ONCE PO 10/31/24 03:30 10/31/24 03:31 DC 10/31/24 04:00 Departure 1 Departure Time of Disposition: 05:00 Impression: Primary Impression: End stage renal disease on dialysis Additional Impression: Right flank pain Disposition: HOME / SELF CARE / HOMELESS Condition: Stable e-Prescriptions Gabapentin (Once-Daily) (Gabapentin) 300 Mg Tab 300 MG PO Q6HP PRN, #30 TAB Prov: PEDRO ASHER MD 10/31/24 Discharged With: Self Critical Care Note Critical Care Time?: No Stability Stability form required: No Heart Score Heart Score: Heart Score Response (Comments) Value History N/A 0 EKG N/A 0 Age N/A 0 Risk Factors N/A 0 Troponin N/A 0 Total 0 I personally scribed for PEDRO ASHER MD ([email or web address]) on 10/31/24 at 03:34. Electronically submitted by Miguelangel Barroso ([email or web address]). I personally scribed for PEDRO ASHER MD ([email or web address]) on 10/31/24 at 04:17. Electronically submitted by Miguelangel Barroso ([email or web address]). PEDRO ASHER MD Oct 31, 2024 03:34
--- NOTE | 2024-10-31 03:55 | DVH ---
Exam: CT CT AB PEL WO CON-NO ORAL OR IV History: right flank pain Comparison Study: CT CT AB PEL WO CON-NO ORAL OR IV on DOS: 01/26/24, CT CT AB PEL WO CON-NO ORAL OR IV on DOS: 10/13/23, CT CT AB PEL WO CON-NO ORAL OR IV on DOS: 12/29/22, CT CT AB PEL WO CON-NO ORAL O R IV on DOS: 12/12/22 Technique: Multidetector spiral CT of the abdomen was performed from lung bases to pubic symphysis. I maging was performed without IV contrast. Axial, coronal and sagittal multiplanar reformats were obta ined from the axial data set by the technologist. Radiation Dose : 1. Abdomen/Pelvis: CTDIvol 9.12 mGy, DLP 3.92 mGy*cm. Findings: Evaluation of solid organs is limited due to lack of intravenous contrast use. Lower Chest: No acute findings. Liver: Unremarkable. Gallbladder and Biliary Tree: Cholecystectomy changes. Pancreas: Mild atrophy. Spleen: Unremarkable. Adrenal Glands: Unremarkable. Kidneys/Ureters: No urinary stone or obstruction. Symmetric renal atrophy and perinephric stranding. Bladder: Grossly unremarkable for degree of distention. Pelvic Organs: Unremarkable Bowel: No wall thickening or obstruction. Tico-en-Y gastric bypass postsurgical change. Normal appe ndix. Vasculature: Diffuse atherosclerosis. Lymphadenopathy: No obvious adenopathy. Peritoneum: No ascites, free air, or fluid collection. Abdominal Wall: No significant hernia. Musculoskeletal: No acute findings. Degenerative change of the spine and pelvis. IMPRESSION: 1. No acute abdominopelvic abnormality, evidence of urinary stone or obstruction. 2. Chronic and incidental findings above. Radiation optimization: All CT scans at this facility use at least one of these dose optimization deepthi hniques: automated exposure control mA and/or kV adjustment per patient size (includes targeted exam s where dose is matched to clinical indication) or iterative reconstruction.
[2024-10-31] MEDS: HYDROcodone-ACET 10/325MG TAB PO ONE (04:00)
[2024-10-31 04:13] LABS: Hematocrit 36.3 % (36.0-46.0); Hemoglobin 12.1 g/dL (12.2-16.2); Mean Corpuscular Hemoglobin 32.9 pg (28.0-32.0); Mean Corpuscular Volume 98.6 fL (80.0-100.0); Nucleated Red Blood Cells % 0.1 %
[2024-10-31 04:27] LABS: Alanine Aminotransferase 27 U/L (7-40); Albumin 4.5 g/dL (3.2-4.8); Alkaline Phosphatase 84 U/L (46-116); Anion Gap 13 (5-15); BUN/Creatinine Ratio 3.4 (10.0-20.0); Carbon Dioxide 27 mmol/L (20-31); Chloride 99 mmol/L (98-107); Glucose 92 mg/dL (74-106); Potassium 4.1 mmol/L (3.5-5.1); Sodium 139 mmol/L (136-145); Total Protein 7.9 g/dL (5.7-8.2)
[2024-10-31 04:30] LABS: Bilirubin, Total 0.2 mg/dL (0.2-1.0); Blood Urea Nitrogen 38 mg/dL (9-23); Calcium 10.4 mg/dL (8.7-10.4); Lipase 91 U/L (12-53)
[2024-10-31] MEDS ORDERED: GABA300T4 PO (04:45)
[2024-10-31 05:49] VITALS: BP 116/57; TEMP 97.9
[2024-10-31 05:50] VITALS: PULSE 74; RESP 18; O2SAT 95
[2024-10-31] MEDS ORDERED: HYDR-4902 PO (06:04)
== END 2024-10-31 06:14 | disposition home or self-care (01) ==
LOC: ER 02:48
DX: I12.0 Hypertensive chronic kidney disease with stage 5 chronic kidney disease or end stage renal disease (principal); E11.22 Type 2 diabetes mellitus with diabetic chronic kidney disease; N18.6 End stage renal disease; E06.9 Thyroiditis, unspecified; E78.5 Hyperlipidemia, unspecified; Z79.82 Long term (current) use of aspirin; Z79.899 Other long term (current) drug therapy; Z90.49 Acquired absence of other specified parts of digestive tract; Z98.51 Tubal ligation status; Z98.890 Other specified postprocedural states; Z99.2 Dependence on renal dialysis; Z88.5 Allergy status to narcotic agent
CPT/HCPCS: 36415; 74176; 80053; 83690; 85025

== ENCOUNTER 2024-11-20 17:44 | Inpatient (IN) | payer MEDICARE, MEDICAID ==
[~2024-11-20] VITALS: Ht 172.7 cm; Wt 135.0 kg
[~2024-11-20 17:44] MED LIST changes: +GABA300T4 PO; +HYDR-4902 PO
--- NOTE | 2024-11-20 18:31 | ED.PDOC ---
History of Present Illness HPI Comments 49-year-old female who came to ER for wound check. Patient has a history of hypertension and end-stage renal disease. On dialysis every Sunday. Last dialysis session was Sunday. He was about to get his dialysis session yesterday, however noted that dialysis port on her left upper arm appea red to be red and swollen. Dialysis was never done yesterday. Currently complaining of chills and dizziness. REVIEW OF SYSTEMS: General: No fever, (+) chills, or fatigue HEENT: No sore throat, no earache, no congestion, no neck pain. Cardiac: No chest pain. No palpitations. Lungs: No shortness of breath, no cough. GI: No nausea, no vomiting, no diarrhea, no constipation, no abdominal pain : No dysuria, frequency, or urgency. No hematuria. Musculoskeletal: No joint pain , no joint swelling, no extremity edema. Skin: No rash, no itching. (+) swelling redness left upper arm Neuro: No headache, no dizziness, no weakness EXAM: General: Awake, alert and oriented. No acute distress. Skin: Skin in warm, dry and intact. Appropriate color for ethnicity. HEENT: The head is normocephalic and atraumatic. Conjunctivae are clear without exudates or hemorrhage. Sclera is non-icteric. EOM are intact. No signs of nystagmus. Eyelids are normal in appearance without swelling or lesions. Oral mucosa is pink and moist Neck: The neck is supple with normal range of motion. No JVD. Cardiac: Heart rate and rhythm are normal. No murmurs, gallops, or rubs are auscultated. Respiratory: No signs of respiratory distress. Lung sounds are clear in all lobes bilaterally without rales, rhonchi, or wheezes. Abdominal: Abdomen is soft, non-tender without distention. Bowel sounds are present and normoactive in all four quadrants. Extremities: Graft in left upper extremity with area of erythema with purulent center, positive bruit Neurological: The patient is awake, alert and oriented to person, place, and time with normal speech. Speech is clear. There is no facial asymmetry. Psychiatric: Appropriate mood and affect. Good judgement and insight Chief Complaint: Wound Check Time Seen by MD: 18:28 Primary Care Provider: MADAI Reviewed Notes: Nurses Notes Allergies: Coded Allergies: Codeine (Unverified Allergy, Unknown, 10/03/14) Home Meds Active Scripts Hydrocodone-Acetaminophen (Hydrocodone Bitartrate/AC 5-325 mg) 1 Tab Tab, 1 TAB PO Q6HP PRN, #20 TAB Prov:PEDRO ASHER MD 10/31/24 Gabapentin (Once-Daily) (Gabapentin) 300 Mg Tab, 300 MG PO Q6HP PRN, #30 TAB Prov:PEDRO ASHER MD 10/31/24 Azithromycin (Azithromycin) 500 Mg Tab, 1 TAB PO DAILY, #7 TAB Prov:PRANAY DUQUE MD 03/22/24 Ondansetron Odt 4MG Tab (ZOFRAN PO) 4 Mg Tb, 4 MG PO Q6HPRN PRN, #20 TAB ODT TAB-DISSOLVE IN MOUTH, THEN SWALLOW Prov:LUIS LEMUS PAC 10/14/23 Aspirin (ASPIRIN/ENTERIC) 81 Mg Tab, 81 MG PO DAILY, #90 TAB Prov:PRANAY DUQUE MD 01/18/23 Reported Medications Ergocalciferol (VITAMIN D 84272 UNIT) 50,000 [place], [address] UNIT PO QWEEKLY, CAP 03/21/24 B-Complex W/ C & Folic Acid (Damari-Sarbjit) Tab, 1 TAB PO DAILY, TAB 03/21/24 Atorvastatin Calcium (Lipitor) 20 Mg Tab, 20 MG PO DAILY, TAB 03/21/24 Clonidine Hydrochloride (Clonidine Hcl) 0.1 Mg Tab, 1 TAB PO BID, #30 TAB 2 Refills 12/12/22 Metoprolol Tartrate (Metoprolol Tartrate) 100 Mg Tab, 1 TAB PO BID 12/12/22 Ferric Citrate (Auryxia) 210 Mg Tab, 3 TAB PO TID 12/12/22 Information Source: Patient Mode of Arrival: Ambulatory Past Medical History PAST MEDICAL HISTORY: ESRD, High Lipids, HTN, Thyroid Surgical History: BTL, Cholecystectomy, Surgical History (Other): Dialysis every Sunday RECORDIST History: No Pertinent RECORDIST History Family History Family History: Family hx of DM, Family hx of heart leticia, Family hx of HTN Social History Smoker: Non-Smoker Alcohol: Denies ETOH Use Drugs: Denies Drug Use Lives In: Home Was a procedure done? Was a procedure done?: No Differential Dx Considerations may include: Cellulitis, abscess, malfunctioning dialysis graft, infected dialysis graft, sepsis, bacteremia, end-stage renal disease, other X-Ray, Labs, Meds, VS Vital Signs Date Time Temp Pulse Resp B/P (MAP) Pulse Ox O2 Delivery O2 Flow Rate FiO2 11/20/24 17:46 97.8 82 18 175/67 98 97.8 Lab Test 11/20/24 18:47 Range/Units White Blood Count 7.6 4.4-10.8 10^3/uL Red Blood Count 3.11 L 4.0-5.20 10^6/uL Hemoglobin 9.8 L 12.2-16.2 g/dL Hematocrit 29.9 L 36.0-46.0 % Mean Corpuscular Volume 96.0 80.0-100.0 fL Mean Corpuscular Hemoglobin 31.6 28.0-32.0 pg Mean Corpuscular Hemoglobin Concent 32.9 32.0-36.0 g/dL Red Cell Distribution Width 14.6 H 11.8-14.3 % Platelet Count 192 140-450 10^3/uL Mean Platelet Volume 9.1 6.9-10.8 fL Neutrophils (%) (Auto) 60.3 37.0-80.0 % Lymphocytes (%) (Auto) 23.7 10.0-50.0 % Monocytes (%) (Auto) 8.4 0.0-12.0 % Eosinophils (%) (Auto) 6.5 0.0-7.0 % Basophils (%) (Auto) 1.1 0.0-2.0 % Neutrophils # (Auto) 4.6 1.6-8.6 10 ^3/uL Lymphocytes # (Auto) 1.8 0.4-5.4 10 ^3/uL Monocytes # (Auto) 0.6 0-1.3 10 ^3/uL Eosinophils # (Auto) 0.5 0-0.8 10 ^3/uL Basophils # (Auto) 0.1 0-0.2 10 ^3/uL Nucleated Red Blood Cells 0.1 % Sodium Level 140 136-145 mmol/L Potassium Level 5.7 *H 3.5-5.1 mmol/L Chloride Level 100 98-107 mmol/L Carbon Dioxide Level 26 20-31 mmol/L Anion Gap 14 5-15 Blood Urea Nitrogen 71 H 9-23 mg/dL Creatinine 10.79 *H 0.550-1.02 mg/dL Glomerular Filtration Rate Calc 4 >90 mL/min BUN/Creatinine Ratio 6.6 L 10.0-20.0 Serum Glucose 134 H 74-106 mg/dL Lactic Acid Level 1.1 0.4-2.0 mmol/L Calcium Level 9.2 8.7-10.4 mg/dL Time of 1ST Reevaluation: 18:27 Reevaluation 1ST: Unchanged Patient Education/Counseling: Need For Follow Up Family Education/Counseling: No Family Present SEPSIS Sepsis Screen Date sepsis recognized/suspect: Nov 20, 2024 Time Sepsis recognized/suspect: 1748 Recent Procedure: No On Antibiotic Therapy: No Respiratory Rate >20: No Heart Rate >90: No Temp<36 C (96.8 F) or >38.3 C: No SBP <90 or MAP <65 mmHG: No New Acute Mental Status Change: No Is the patient on CPAP, BIPAP,: No Physician Orders Blood Culture (11/20/24 18:32) Saline Lock (11/20/24 18:32) Upper Extremity Wo Contrast (11/20/24 19:36) Vital Signs Date Time Temp Pulse Resp B/P (MAP) Pulse Ox O2 Delivery O2 Flow Rate FiO2 11/20/24 17:46 97.8 82 18 175/67 98 97.8 Laboratory Tests Test 11/20/24 18:47 Lactic Acid Level 1.1 mmol/L (0.4-2.0) White Blood Count 7.6 10^3/uL (4.4-10.8) Departure 1 Departure Time of Disposition: 21:43 Impression: Primary Impression: Infection of AV graft for dialysis Disposition: ADMITTED INPATIENT Condition: Stable Comments Antibiotics initiated in the ED Patient admitted to hospitalist service for further treatment, evaluation and monitoring. Extensive evaluation was performed in attempt to identify or rule out: (See differential diagnosis section) The following tests were ordered, and results were reviewed by me and discussed with patient: (See diagnostic results section) Addressed]an acute or chronic illness that poses a threat to life or bodily function: Infected dialysis graft Decision regarding hospitalization or escalation of hospital level of care: Risk and benefits of admission for further treatment of patient's condition was considered. Due to patient's current clinical condition, high risk of decline and poor outcome if discharged and need for further inpatient management and monitoring, patient will be admitted to the hospital. Discussed with patient. Critical Care Note Critical Care Time?: No Stability Stability form required: No I personally scribed for WILLIAM RAO MD ([email or web address]) on 11/20/24 at 18:31. Electronically submitted by Miguelangel Barroso ([employer]). I personally scribed for WILLIAM RAO MD ([email or web address]) on 11/20/24 at 19:57. Electronically submitted by Miguelangel Barroso ([employer]). WILLIAM RAO MD Nov 20, 2024 18:31
[2024-11-20 19:00] LABS: Hematocrit 29.9 % (36.0-46.0); Hemoglobin 9.8 g/dL (12.2-16.2); Mean Corpuscular Hemoglobin 31.6 pg (28.0-32.0); Mean Corpuscular Volume 96.0 fL (80.0-100.0); Nucleated Red Blood Cells % 0.1 %
[2024-11-20 19:10] LABS: Chloride 100 mmol/L (98-107); Sodium 140 mmol/L (136-145)
[2024-11-20 19:11] LABS: Anion Gap 14 (5-15); Carbon Dioxide 26 mmol/L (20-31)
[2024-11-20 19:12] LABS: Calcium 9.2 mg/dL (8.7-10.4)
[2024-11-20 19:16] LABS: BUN/Creatinine Ratio 6.6 (10.0-20.0)
[2024-11-20 19:23] LABS: Blood Urea Nitrogen 71 mg/dL (9-23); Glucose 134 mg/dL (74-106)
[2024-11-20 19:24] LABS: Potassium 5.7 mmol/L (3.5-5.1)
--- NOTE | 2024-11-20 21:10 | DVH ---
EXAM: CT UPPER EXTREMITY WO CONTRAST INDICATION: CT left upper extremity, graft infection, r/o abscess EXAM DATE: 11/20/2024 08:17 PM COMPARISON: None TECHNIQUE: Multiple axial CT images of the proximal left upper extremity were obtained using bone alg orithm. Axial and coronal reformatting was done. Bone and soft tissue windows were reviewed. Radiation Dose Information: CT Dose: CTDI volume is 31.81 mGy. Dose-length product is 2845.74 mGy*cm Findings/Impression: There is no evidence of an acute fracture, dislocation, blastic, or lytic lesions. No radiopaque foreign bodies. Left upper extremity AV graft with focal dilation at the level of the mid to distal humerus (axial im age 231). No adjacent fluid collections or subcutaneous emphysema. Cannot exclude an infectious proce ss given noncontrast. Consider ultrasound or a nuclear medicine WBC scan for further evaluation as c linically indicated Postsurgical changes of the stomach and bowel. Left renal atrophy.
[2024-11-20] MEDS: VANCOMYCIN 1GM/250ML KIT 250 ML IV ONE (21:45)
[2024-11-20] MEDS: ALBUTEROL SULF 2.5 MG/0.5ML(0.5%) NEB SOLN NEB ONE (23:12)
[2024-11-20] MEDS ORDERED: VANCOMYCIN PER PHARMACY 0 MG IV SCH (23:15)
[2024-11-20] MEDS ORDERED: DEXTROSE (50%) 50ML SYRG IV PRN (23:15)
[2024-11-20] MEDS: ALBUTEROL SULF 2.5 MG/0.5ML(0.5%) NEB SOLN ONE (23:17)
[2024-11-20] MEDS: SODIUM ZIRCONIUM CYCL 10 GM PAK PO ONE (23:27)
--- NOTE | 2024-11-20 23:32 | DVHHPRES ---
History of Present Illness Resident Creating Document: HELADIO CHOW RESIDENT History of Present Illness Carina Peter is a 49 year old female with Past medical history of Hypertension, hyperlipidemia, Diabetes mellitus, ESRD on HD, Hypothyroidism, came to the ED with Chief complaints of AV graft Infection and missed Dialysis on Sunday. Patient states that her last dialysis was on Sunday, she usaly gets dialysis on Sunday, Sunday, Sunday. She follows [facility]. Patient states that on Sunday morning there is pain and swelling of the AV fistula which is warm to touch. she also states the pain is 10/10 in intensity, burning sensation and is radiating to the surrounding area, she has chills, dizziness, generalized itching, slight headache. Patients makes minimal urine, also complains of chronic lower back pain for witch she takes [place]. Patient is admitted for further management. Past medical history : Hypertension, hyperlipidemia, Diabetes mellitus, ESRD on HD, Hypothyroidism, Surgical history: Gastric sleeve surgery, D&C, C-sections Family history: Reviewed, noncontributory Personal History: ex- Meth User, but denies smoking, drinking, drug use Lives with: Family PCP: Dr. Morley Review of Systems Constitutional: Yes: Chills, Weakness; No: Fever, Sweats, Malaise, Other Eyes: No: Pain, Vision change, Conjunctivae inflammation, Eyelid inflammation, Other, Redness ENT: No: Ear pain, Ear discharge, Nose pain, Nose discharge, Nose congestion, Mouth pain, Mouth swelling, Throat pain, Throat swelling, Other Respiratory: Shortness of breath; No: Cough, Dry, SOB with excertion, Wheezing, Hemoptysis, Pleuritic Pain, Sputum, Wheezing, Other Cardiovascular: No: Chest Pain, Palpitations, Orthopnea, Paroxysmal Noc. Dyspnea, Edema, Lt Headedness, Other Gastrointestinal: No: Nausea, Vomiting, Abdominal Pain, Diarrhea, Constipation, Melena, Hematochezia, Other Genitourinary: No Dysuria, No Frequency, No Incontinence, No Hematuria, No Retention, No Other Musculoskeletal: arm pain; No: other, neck pain, shoulder pain, back pain, hand pain, leg pain, foot pain Skin: No: Rash, Lesions, Jaundice, Bruising, Other Neurological: No: Weakness, Numbness, Incoordination, Change in speech, Confusion, Seizures, Other Allergies: Coded Allergies: Codeine (Unverified Allergy, Unknown, 10/03/14) Medications Current Medications Medications Dose Ordered Sig/Kasia Route Start Time Stop Time Status Last Admin Dose Admin Metoprolol Tartrate 100 mg BID PO 11/21/24 10:00 Nifedipine 30 mg DAILY PO 11/21/24 10:00 Zirconium Oxide 10 gm TID PO 11/21/24 06:00 11/22/24 22:01 Atorvastatin Calcium 20 mg DAILY PO 11/21/24 10:00 Ergocalciferol 50,000 unit QWEEKLY PO 11/20/24 23:00 UNV Acetaminophen/ Hydrocodone Bitart 1 tab Q6HP PRN PO 11/20/24 23:00 Multivit/Ca Carb/ B Cmplx/FA/Prenat 1 tab DAILY PO 11/21/24 10:00 Patient Own Medication 3 tab TID PO 11/21/24 06:00 UNV Patient Own Medication 300 mg Q6HP PRN PO 11/20/24 23:00 UNV Diagnostic Test (Pha) 1 strip Q6HR 11/21/24 00:00 Insulin Human Regular Q6HR SC 11/21/24 00:00 Dextrose 50 ml UD PRN IV 11/20/24 23:15 Vancomycin HCl 0 ml @ 0 mls/hr UD IV 11/20/24 23:15 UNV Piperacillin Sod/ Tazobactam Sod 50 ml @ 12.5 mls/hr Q12HR IV 11/21/24 10:00 Heparin Sodium (Porcine) 5,000 units Q12HR SC 11/21/24 10:00 Exam Vital Signs Vital Signs Date Time Temp Pulse Resp B/P (MAP) Pulse Ox O2 Delivery O2 Flow Rate FiO2 11/20/24 22:40 97.8 76 16 206/80 (122) 99 97.8 Exam General Appearance: Alert, Oriented X3, Cooperative, No acute distress HEENT: Atraumatic, PERRLA, EOMI, Mucous membrane moist/pink Respiratory: Crackles heard on auscultation Cardiovascular: Regular rate, Normal S1, Normal S2, No murmurs, no chest wall tenderness Abdominal: Normal bowel sounds, Soft, No tenderness, No hepatospenomegaly, No masses Extremities: Mild B/l Pitting edema, left upper arm showed pus containing Furuncle Skin: No rashes, No breakdown, No significant lesion Neuro: Normal gait, Normal speech, Strength at 5/5 X4 ext, Normal tone, Sensation intact, Cranial nerves 3-12 NL, Reflexes 2+ Psych/Mental Status: Mental status NL, Mood NL Labs/Xrays Labs Test 11/20/24 18:47 Range/Units White Blood Count 7.6 4.4-10.8 10^3/uL Red Blood Count 3.11 L 4.0-5.20 10^6/uL Hemoglobin 9.8 L 12.2-16.2 g/dL Hematocrit 29.9 L 36.0-46.0 % Mean Corpuscular Volume 96.0 80.0-100.0 fL Mean Corpuscular Hemoglobin 31.6 28.0-32.0 pg Mean Corpuscular Hemoglobin Concent 32.9 32.0-36.0 g/dL Red Cell Distribution Width 14.6 H 11.8-14.3 % Platelet Count 192 140-450 10^3/uL Mean Platelet Volume 9.1 6.9-10.8 fL Neutrophils (%) (Auto) 60.3 37.0-80.0 % Lymphocytes (%) (Auto) 23.7 10.0-50.0 % Monocytes (%) (Auto) 8.4 0.0-12.0 % Eosinophils (%) (Auto) 6.5 0.0-7.0 % Basophils (%) (Auto) 1.1 0.0-2.0 % Neutrophils # (Auto) 4.6 1.6-8.6 10 ^3/uL Lymphocytes # (Auto) 1.8 0.4-5.4 10 ^3/uL Monocytes # (Auto) 0.6 0-1.3 10 ^3/uL Eosinophils # (Auto) 0.5 0-0.8 10 ^3/uL Basophils # (Auto) 0.1 0-0.2 10 ^3/uL Nucleated Red Blood Cells 0.1 % Sodium Level 140 136-145 mmol/L Potassium Level 5.7 *H 3.5-5.1 mmol/L Chloride Level 100 98-107 mmol/L Carbon Dioxide Level 26 20-31 mmol/L Anion Gap 14 5-15 Blood Urea Nitrogen 71 H 9-23 mg/dL Creatinine 10.79 *H 0.550-1.02 mg/dL Glomerular Filtration Rate Calc 4 >90 mL/min BUN/Creatinine Ratio 6.6 L 10.0-20.0 Serum Glucose 134 H 74-106 mg/dL Lactic Acid Level 1.1 0.4-2.0 mmol/L Calcium Level 9.2 8.7-10.4 mg/dL SEPSIS Sepsis Screen Date sepsis recognized/suspect: Nov 20, 2024 Time Sepsis recognized/suspect: 1748 Recent Procedure: No On Antibiotic Therapy: No Respiratory Rate >20: No Heart Rate >90: No Temp<36 C (96.8 F) or >38.3 C: No SBP <90 or MAP <65 mmHG: No New Acute Mental Status Change: No Is the patient on CPAP, BIPAP,: No Physician Orders Blood Culture (11/20/24 18:32) Saline Lock (11/20/24 18:32) Upper Extremity Wo Contrast (11/20/24 19:36) Allergies (11/20/24:41) Code Status (11/20/24 22:41) Complete Blood Count (11/21/24 04:00) Comprehensive Metabolic Panel (11/21/24 04:00) Condition: Serious (11/20/24 22:41) Bedrest With Bathroom Privileg (11/20/24 22:41) Admit (11/20/24 22:41) Oxygen By Nasal Cannula (11/20/24 22:41) Stat Ekg For Chest Pain (11/20/24 22:41) Notify Md Of Changes From Base (11/20/24 22:41) Micro Paleontologist For 24 Hours (11/20/24 22:41) Emergency Dysrhythmia Protocol (11/20/24 22:41) Rhythm Strips Once Every Shift (11/20/24 22:41) Metoprolol Tartrate Tablet (Lopressor Ta (11/21/24 10:00) Nifedipine Er (Procardia Xl (Time-Releas (11/21/24 10:00) Potassium (11/21/24 02:58) Sodium Zirconium Cyclosilicate (Lokelma) (11/20/24 23:00) Sodium Zirconium Cyclosilicate (Lokelma) (11/21/24 06:00) *Dr. Lashell Barger -[facility] (11/20/24 22:58) Atorvastatin (Lipitor) (11/21/24 10:00) Ergocalciferol (Vitamin D 50,000 Unit) (11/20/24 23:00) Hydrocodone-Acet 5/325mg Tab ([place] 32 (11/20/24 23:00) B-Complex W/ C & Folic Tablet (Nephro-Vi (11/21/24 10:00) (Nf) Ferric Citrate (Auryxia) (11/21/24 06:00) (Nf) Gabapentin (Once-Daily) (Gabapentin (11/20/24 23:00) Npo (Nothing By Mouth) Diet (11/21/24 Breakfast) Glucose Blood (Accu-Chek Comfort Curve T (11/21/24 00:00) Insulin R (Human) (Insulin R) (11/21/24 00:00) Dextrose 50% Syringe (11/20/24 23:15) Drug Screen (11/20/24 23:01) Thyroid Stimulating Hormone (11/20/24 23:01) Left Upper Ext (11/20/24 23:01) Vancomycin Per Pharmacy (11/20/24 23:15) Piperacillin-Tazob 2.25gm (Zosyn 2.25gm) (11/21/24 10:00) Heparin Sodium (Porcine) (11/21/24 10:00) Urinalysis (11/20/24 23:06) * Surgical Consult (11/20/24 ) Chest Xray 1 View (11/20/24 23:26) Acetaminophen Tablet (Tylenol Tablet) (11/20/24 23:30) Electrocardigram (11/20/24 23:26) Vital Signs Date Time Temp Pulse Resp B/P (MAP) Pulse Ox O2 Delivery O2 Flow Rate FiO2 11/20/24 22:40 97.8 76 16 206/80 (122) 99 97.8 11/20/24 17:46 97.8 82 18 175/67 98 97.8 Laboratory Tests Test 11/20/24 18:47 Lactic Acid Level 1.1 mmol/L (0.4-2.0) White Blood Count 7.6 10^3/uL (4.4-10.8) Medications Medications Dose Ordered Sig/Kasia Route Start Time Stop Time Status Last Admin Dose Admin Albuterol 20 mg ONCE ONCE NEB 11/20/24 22:45 9/18/25 23:06 DC 11/20/24 23:12 20 MG Tramadol HCl 50 mg ONCE ONCE PO 11/20/24 23:00 11/20/24 23:01 DC 11/20/24 23:27 50 MG Zirconium Oxide 10 gm ONCE ONCE PO 11/20/24 23:00 11/20/24 23:06 DC 11/20/24 23:27 10 GM Assessment/Plan Assessment/Plan Assessment and Plan # AV graft Infection - CT arm showed Left upper extremity AV graft with focal dilation at the level of the mid to distal humerus (axial image 231). No adjacent fluid collections or subcutaneous emphysema. - IV Zosyn - IV Vancomycin - Upper arm US, pending - Consulted Vascular Surgery # Hyperkalemia - hyperkalemia protocol #ESRD on HD - Consulted Nephrology #Anemia of Chronic Disease - monitor labs #Diabetes Mellitus - Mild Insulin sliding scale # Hypertension - Metoprolol - nifedipine # Hypothyroidism - continue home meds # dyslipidemia - Continue home meds #Vit. D deficiency - continue home meds #? Meth user # History of gastric sleeve surgery 2021 # Noncompliance NPO Goals of care discussed with Patient for 31 minutes : Full code Case discussed with Dr. Cantu, Nurse Plan discussed with: Patient My Orders Orders - HELADIO CHOW RESIDENT Procedure Category Date Status Time Allergies [facility] 11/20/24 In Process 22:41 Code Status CODE 11/20/24 Transmitted 22:41 Complete Blood Count LAB 11/21/24 Verified 04:00 Comprehensive LAB 11/21/24 Verified Metabolic Panel 04:00 Condition: Serious JAKI 11/20/24 In Process 22:41 Bedrest With Bathroom JAKI 11/20/24 In Process Privileg 22:41 Admit ADMIT 11/20/24 Transmitted 22:41 Oxygen By Nasal RT 11/20/24 Transmitted Cannula 22:41 Stat Ekg For Chest JAKI 11/20/24 In Process Pain 22:41 Notify Of Changes [facility] 11/20/24 In Process From Base 22:41 Micro Paleontologist For [facility] 11/20/24 In Process 24 Hours 22:41 Emergency Dysrhythmia JAKI 11/20/24 In Process Protocol 22:41 Rhythm Strips Once JAKI 11/20/24 In Process Every Shift 22:41 Metoprolol Tartrate PHA 9/19/25 In Process Tablet (Lopressor Ta 10:00 Nifedipine Er PHA 11/21/24 In Process (Procardia Xl 10:00 Potassium LAB 11/21/24 Verified 02:58 Sodium Zirconium PHA 11/20/24 In Process Cyclosilicate 23:00 Sodium Zirconium PHA 11/21/24 In Process Cyclosilicate 06:00 *Dr. Lashell Brown CONS 11/20/24 Transmitted Tara 22:58 Atorvastatin (Lipitor) PHA 11/21/24 In Process 10:00 Ergocalciferol PHA 11/20/24 Pending (Vitamin D 50,000 23:00 Hydrocodone-Acet PHA 11/20/24 In Process 5/325mg Tab ([place] 23:00 B-Complex W/ C & PHA 11/21/24 In Process Folic Tablet 10:00 (Nf) Ferric Citrate PHA 11/21/24 Pending (Auryxia) 06:00 (Nf) Gabapentin PHA 11/20/24 Pending (Once-Daily) 23:00 Npo (Nothing By DIET 11/21/24 Transmitted Mouth) Diet Breakfast Glucose Blood PHA 11/21/24 In Process (Accu-Chek Comfort 00:00 Insulin R (Human) PHA 11/21/24 In Process (Insulin R) 00:00 Dextrose 50% Syringe PHA 11/20/24 In Process 23:15 Drug Screen LAB 11/20/24 Logged 23:01 Thyroid Stimulating LAB 11/20/24 In Process Hormone 23:01 Left Upper Ext US 11/20/24 Logged 23:01 Vancomycin Per PHA 11/20/24 Pending Pharmacy 23:15 Piperacillin-Tazob PHA 11/21/24 In Process 2.25gm (Zosyn 2.25gm) 10:00 Heparin Sodium PHA 11/21/24 In Process (Porcine) 10:00 Urinalysis LAB 11/20/24 Logged 23:06 * Surgical Consult CONS 11/20/24 Transmitted Chest Xray 1 View XY 11/20/24 Logged 23:26 Acetaminophen Tablet PHA 11/20/24 Transmitted (Tylenol Tablet) 23:30 Electrocardigram EKG 11/20/24 Logged 23:26 Date of Service: Nov 20, 2024 Billing Provider: KAREN CANTU MD Common Visit Codes: 46092-[id number] INP/OBS CARE (HIGH) Secondary Visit Codes: 91354-[id number] CARE PLAN 30 MINUTES HELADIO CHOW RESIDENT Nov 20, 2024 23:32
[2024-11-20] MEDS: LABETALOL HCL 20 MG/4 ML VL IV ONE (23:55)
[2024-11-20] MEDS: DEXTROSE (50%) 50ML SYRG IV ONE (23:56)
[2024-11-20] MEDS: SODIUM BICARB 8.4% 50Meq/50ml SYR INJ IV ONE (23:56)
[2024-11-20] MEDS: InsuLIN REG 1unit/0.01ml Soln (100units/ml) IV ONE (23:57)
[2024-11-21] VITALS (11 sets, daily range): BP systolic 119–179; BP diastolic 61–89; PULSE 70–91; RESP 14–18; TEMP 97.2–98.3; O2SAT 90–98
[2024-11-21] MEDS: InsuLIN REG 1unit/0.01ml Soln (100units/ml) SC SCH
--- NOTE | 2024-11-21 00:03 | DVH ---
CHEST RADIOGRAPH Indication: sob Technique: 1 view Comparison: XY CHEST XRAY 1 VIEW on DOS: 03/19/24, XY CHEST PORTABLE on DOS: 01/15/23, XY CHEST PORTAB LE on DOS: 01/01/23, XY CHEST PORTABLE on DOS: 12/15/22 FINDINGS: Lines and Tubes: External leads. Lungs/Pleura: Perihilar interstitial opacities. No focal consolidation or pleural abnormality. Cardiomediastinum: Mildly enlarged heart size. Central pulmonary vascular enlargement. Other: No acute osseous abnormality. IMPRESSION: 1. Heart failure pattern, similar or mildly improved from 03/19/2024.
[2024-11-21] MEDS: ACCU-CHEK COMFORT CURVE STRIP VI SCH (00:05)
[2024-11-21] MEDS: FUROSEMIDE 40 MG/4 ML VIAL IV ONE (00:08)
[2024-11-21] MEDS: PIPERACILLIN-TAZOB 3.375GM 100 ML IV ONE (00:08)
[2024-11-21] MEDS: HYDROcodone-ACET 5/325MG TAB PO PRN (01:46)
[2024-11-21] MEDS: VANCOMYCIN 1GM/250ML KIT 250 ML IV ONE (02:20)
[2024-11-21 04:45] LABS: Alanine Aminotransferase 24 U/L (7-40); Alkaline Phosphatase 58 U/L (46-116); Anion Gap 14 (5-15); BUN/Creatinine Ratio 6.1 (10.0-20.0); Calcium 9.0 mg/dL (8.7-10.4); Carbon Dioxide 28 mmol/L (20-31); Chloride 99 mmol/L (98-107); Nucleated Red Blood Cells % 0.0 %; Potassium 4.6 mmol/L (3.5-5.1); Sodium 141 mmol/L (136-145); Triglycerides 86 mg/dL (< 150)
[2024-11-21 04:46] LABS: Albumin 3.7 g/dL (3.2-4.8); Cholesterol 112 mg/dL (< 200); HDL Cholesterol 54 mg/dL (40-59)
[2024-11-21 04:48] LABS: Hematocrit 24.8 % (36.0-46.0); Hemoglobin 8.3 g/dL (12.2-16.2); Mean Corpuscular Hemoglobin 31.8 pg (28.0-32.0); Mean Corpuscular Volume 94.6 fL (80.0-100.0)
[2024-11-21 04:55] LABS: Blood Urea Nitrogen 70 mg/dL (9-23); Glucose 200 mg/dL (74-106)
[2024-11-21 04:56] LABS: Bilirubin, Direct < 0.1 mg/dL (<0.3); Bilirubin, Total < 0.2 mg/dL (0.2-1.0)
[2024-11-21 05:10] LABS: Total Protein 6.4 g/dL (5.7-8.2)
[2024-11-21 05:12] LABS: INR 0.98 (0.9-1.15); Partial Thromboplastin Time 25.9 SEC (24.5-34.5); Prothrombin Time 10.4 sec (9.3-11.8)
[2024-11-21] MEDS: SODIUM ZIRCONIUM CYCL 10 GM PAK PO SCH (05:50)
[2024-11-21] MEDS: FERRIC CITRATE PO SCH (06:00)
[2024-11-21] MEDS: GABAPENTIN 300 MG CAP PO ONE (09:00)
--- NOTE | 2024-11-21 10:35 | DVH ---
Left Upper Extremity Arterial Duplex Clinical History: AV FISTULA,SWELLING Comparison: None Technique: Duplex Doppler evaluation including color Doppler and spectral/pulsed waveform analysis of the upper extremity arteries was performed. Findings: LEFT: Peak systolic velocities are as follows: Subclavian 178 cm/s Axillary 279 cm/s Brachial 332 cm/s Radial 46 cm/s Ulnar 46 cm/s Av graft is present in the left upper extremity with proximal graft velocity of 421 cm/sec. Distal an astomosis velocity, 1018 cm/sec. The waveforms are multiphasic. IMPRESSION: Patent left upper extremity AV fistula with suggestion of elevated velocities and possible narrowing at the distal anastomosis. This could be further evaluated with nonemergent fistulogram if clinically indicated. REFERENCE VALUES, [facility]) vascular Imaging Lab Criteria: Peak systolic velocity rang es (in cm/sec) are as follows: <150 cm/s - <20 % stenosis 150-200 cm/s - 20-49% stenosis 200-300 cm/s - 50-75% stenosis >300 cm/s -> 75% stenosis
[2024-11-21] MEDS: PIPERACILLIN-TAZOB 2.25GM 50 ML IV SCH (11:09)
[2024-11-21] MEDS: ATORVASTATIN 20 MG TAB PO SCH (11:09)
[2024-11-21] MEDS: METOPROLOL TARTRATE 50 MG TAB PO SCH (11:10)
[2024-11-21] MEDS: B-COMPLEX W/ C & FOLIC ACID(NEPHROVITE TAB) PO SCH (11:10)
[2024-11-21] MEDS: HEPARIN SODIUM (PORCINE) 5000 UNITS/ML 1ML VIAL SC SCH (11:12)
--- NOTE | 2024-11-21 11:59 | DVHPN2 ---
Subjective Patient is seen and examined at bedside. Complain of arm pain. Reviewed: Care Plan, H&P, Labs, Medications, Previous Orders, Radiology Changes from previous H/P or p: No Changes Eyes: No Pain, No Vision change, No Conjunctivae inflammation, No Eyelid inflammation, No Other, No Redness ENT: No Ear pain, No Ear discharge, No Nose pain, No Nose discharge, No Nose congestion, No Mouth pain, No Mouth swelling, No Throat pain, No Throat swelling, No Other Cardiovascular: No Chest Pain, No Palpitations, No Orthopnea, No Paroxysmal Noc. Dyspnea, No Edema, No Lt Headedness, No Other Respiratory: No Cough, No Dry; Shortness of breath; No SOB with excertion, No Wheezing, No Hemoptysis, No Pleuritic Pain, No Sputum, No Other Gastrointestinal: No Nausea, No Vomiting, No Abdominal Pain, No Diarrhea, No Constipation, No Melena, No Hematochezia, No Other Genitourinary: No Dysuria, No Frequency, No Incontinence, No Hematuria, No Retention, No Other Musculoskeletal: No other, No neck pain, No shoulder pain; arm pain; No back pain, No hand pain, No leg pain, No foot pain Skin: No Rash, No Lesions, No Jaundice, No Bruising, No Other Objective Vitals Vital Signs Date Time Temp Pulse Resp B/P (MAP) Pulse Ox O2 Delivery O2 Flow Rate FiO2 11/21/24 11:10 76 149/61 11/21/24 09:33 97.9 15 98 97.9 11/20/24 23:40 Room Air* 0 21 Intake/Output Intake and Output 11/21/24 07:00 Intake Total 250 ml Balance 250 ml Intake IV Total 250 ml General Appearance: Alert, Cooperative, No acute distress HEENT: Atraumatic, PERRLA, EOMI, Mucous membr. moist/pink Neck: Supple Lungs: Clear to auscultation, Normal air movement Cardiovascular: Regular rate, Normal S1, Normal S2, No murmurs, Gallops, Rubs Abdomen: Normal bowel sounds, Soft, No tenderness Neuro: Cranial nerves 3-12 NL Psych/Mental Status: Mental status NL Medications Current Medications Medications Dose Ordered Sig/Kasia Route Start Time Stop Time Status Last Admin Dose Admin Metoprolol Tartrate 100 mg BID PO 11/21/24 10:00 11/21/24 11:10 100 MG Nifedipine 30 mg DAILY PO 11/21/24 10:00 Zirconium Oxide 10 gm TID PO 11/21/24 06:00 11/22/24 22:01 Atorvastatin Calcium 20 mg DAILY PO 11/21/24 10:00 11/21/24 11:09 20 MG Ergocalciferol 50,000 unit QWEEKLY PO 11/23/24 23:00 Acetaminophen/ Hydrocodone Bitart 1 tab Q6HP PRN PO 11/20/24 23:00 11/21/24 08:27 1 TAB Multivit/Ca Carb/ B Cmplx/FA/Prenat 1 tab DAILY PO 11/21/24 10:00 11/21/24 11:10 1 TAB Patient Own Medication 3 tab TID PO 11/21/24 06:00 Diagnostic Test (Pha) 1 strip Q6HR 11/21/24 00:00 11/21/24 05:50 1 STRIP Insulin Human Regular Q6HR SC 11/21/24 00:00 Dextrose 50 ml UD PRN IV 11/20/24 23:15 Vancomycin HCl 0 ml @ 0 mls/hr UD IV 11/20/24 23:15 Piperacillin Sod/ Tazobactam Sod 50 ml @ 12.5 mls/hr Q12HR IV 11/21/24 10:00 11/21/24 11:09 12.5 MLS/HR Heparin Sodium (Porcine) 5,000 units Q12HR SC 11/21/24 10:00 11/21/24 11:12 5,000 UNITS Acetaminophen 650 mg Q4HP PRN PO 11/20/24 23:30 Laboratory Results Laboratory Tests 11/21/24 03:44 Chemistry Test 11/20/24 18:47 11/21/24 03:44 Calcium Level 9.2 mg/dL (8.7-10.4) 9.0 mg/dL (8.7-10.4) Albumin 3.7 g/dL (3.2-4.8) Total Protein 6.4 g/dL (5.7-8.2) Coagulation Test 11/21/24 03:44 Prothrombin Time 10.4 sec (9.3-11.8) Prothrombin Time INR 0.98 (0.9-1.15) Activated Partial Thromboplast Time 25.9 SEC (24.5-34.5) Lipid panel Test 11/21/24 03:44 Cholesterol Level 112 mg/dL (< 200) HDL Cholesterol 54 mg/dL (40-59) Triglycerides Level 86 mg/dL (< 150) LFT Test 11/21/24 03:44 Alanine Aminotransferase (ALT) 24 U/L (7-40) Alkaline Phosphatase 58 U/L (46-116) Aspartate Amino Transferase (AST) 16 U/L (13-40) Direct Bilirubin < 0.1 mg/dL (<0.3) Total Bilirubin < 0.2 mg/dL (0.2-1.0) L HgA1c, TSH Test 11/20/24 18:47 11/21/24 03:44 Thyroid Stimulating Hormone (TSH) 1.36 uIU/mL (0.55-4.78) Hemoglobin A1c 5.4 % A1C (<5.7) Labs and/or images reviewed: Labs reviewed by me Assessment/Plan Assessment/Plan # AV graft Infection - CT arm showed Left upper extremity AV graft with focal dilation at the level of the mid to distal humerus (axial image 231). No adjacent fluid collections or subcutaneous emphysema. - IV Zosyn - IV Vancomycin - Upper arm US, pending - Consulted Vascular Surgery # Hyperkalemia - hyperkalemia protocol #ESRD on HD - Consulted Nephrology #Anemia of Chronic Disease - monitor labs #Diabetes Mellitus - Mild Insulin sliding scale # Hypertension - Metoprolol - nifedipine # Hypothyroidism - continue home meds # dyslipidemia - Continue home meds #Vit. D deficiency - continue home meds #? Meth user # History of gastric sleeve surgery 2021 # Noncompliance Continuing current management. We will monitor blood culture. This medical document was created using an electronic medical record system with [employer] direct computerized dictation system. Although this document has been carefully reviewed, there may still be some phonetic and typographical errors. These areas are purely typographical due to imperfections of the software programs, and do not reflect any compromise in the patient's medical care. Plan discussed with: Patient Date of Service: Nov 21, 2024 Billing Provider: SUZANNE BARNARD MD Common Visit Codes: [id number] INP/OBS CARE(HIGH) SUZANNE BARNARD MD Nov 21, 2024 11:59
[2024-11-21] MEDS ORDERED: SODI10PA PO (14:59)
[2024-11-21] MEDS ORDERED: DULO1CAP4 PO (14:59)
[2024-11-21] MEDS ORDERED: SEMA1INJ2 (14:59)
[2024-11-21] MEDS ORDERED: FURO40TA4 PO (14:59)
[2024-11-21] MEDS ORDERED: ERGO1CAP12 PO (14:59)
[2024-11-21] MEDS ORDERED: METO1TAB9 (14:59)
[2024-11-21] MEDS ORDERED: B-CO-6 PO (14:59)
[2024-11-21] MEDS ORDERED: AMLO1TAB23 PO (15:01)
[2024-11-21] MEDS ORDERED: LEVO150T10 PO (15:01)
[2024-11-21] MEDS ORDERED: HYDR100T10 PO (15:01)
[2024-11-21] MEDS ORDERED: ATOR20TA50 PO (15:01)
[2024-11-22] VITALS (9 sets, daily range): BP systolic 125–156; BP diastolic 58–81; PULSE 72–87; RESP 12–18; TEMP 97.2–99.1; O2SAT 89–98
[2024-11-22] MEDS: ONDANSETRON HCL 4 MG/2 ML VIAL IV PRN (04:41)
[2024-11-22] MEDS: diphenhdrAMINE HCL 50 MG/1 ML VL IV PRN (04:42)
[2024-11-22] MEDS: ACETAMINOPHEN 325 MG TAB PO PRN (04:47)
[2024-11-22 07:13] LABS: Hematocrit 30.6 % (36.0-46.0); Hemoglobin 9.5 g/dL (12.2-16.2); Mean Corpuscular Hemoglobin 31.4 pg (28.0-32.0); Mean Corpuscular Volume 101.0 fL (80.0-100.0); Nucleated Red Blood Cells % 0.1 %
[2024-11-22 07:30] LABS: Chloride 100 mmol/L (98-107); Sodium 138 mmol/L (136-145)
[2024-11-22 07:31] LABS: Anion Gap 19 (5-15); Calcium 9.0 mg/dL (8.7-10.4)
[2024-11-22 07:36] LABS: BUN/Creatinine Ratio 6.8 (10.0-20.0); Glucose 104 mg/dL (74-106)
[2024-11-22 07:52] LABS: Carbon Dioxide 19 mmol/L (20-31)
[2024-11-22 08:02] LABS: Blood Urea Nitrogen 87 mg/dL (9-23); Potassium 6.7 mmol/L (3.5-5.1)
[2024-11-22] MEDS: SODIUM ZIRCONIUM CYCL 10 GM PAK PO ONE (11:30)
--- NOTE | 2024-11-22 14:51 | DVHPN2 ---
Subjective Patient is seen and examined at bedside. Complain of arm pain. Reviewed: Care Plan, H&P, Labs, Medications, Previous Orders, Radiology Changes from previous H/P or p: No Changes Eyes: No Pain, No Vision change, No Conjunctivae inflammation, No Eyelid inflammation, No Other, No Redness ENT: No Ear pain, No Ear discharge, No Nose pain, No Nose discharge, No Nose congestion, No Mouth pain, No Mouth swelling, No Throat pain, No Throat swelling, No Other Cardiovascular: No Chest Pain, No Palpitations, No Orthopnea, No Paroxysmal Noc. Dyspnea, No Edema, No Lt Headedness, No Other Respiratory: No Cough, No Dry; Shortness of breath; No SOB with excertion, No Wheezing, No Hemoptysis, No Pleuritic Pain, No Sputum, No Other Gastrointestinal: No Nausea, No Vomiting, No Abdominal Pain, No Diarrhea, No Constipation, No Melena, No Hematochezia, No Other Genitourinary: No Dysuria, No Frequency, No Incontinence, No Hematuria, No Retention, No Other Musculoskeletal: No other, No neck pain, No shoulder pain; arm pain; No back pain, No hand pain, No leg pain, No foot pain Skin: No Rash, No Lesions, No Jaundice, No Bruising, No Other Objective Vitals Vital Signs Date Time Temp Pulse Resp B/P (MAP) Pulse Ox O2 Delivery O2 Flow Rate FiO2 11/22/24 12:34 98.7 73 18 125/67 (86) 92 98.7 11/22/24 08:00 Oxymizer 10 N/A Intake/Output Intake and Output 11/22/24 07:00 Intake Total 450 ml Balance 450 ml Intake Oral 450 ml General Appearance: Alert, Cooperative, No acute distress HEENT: Atraumatic, PERRLA, EOMI, Mucous membr. moist/pink Neck: Supple Lungs: Clear to auscultation, Normal air movement Cardiovascular: Regular rate, Normal S1, Normal S2, No murmurs, Gallops, Rubs Abdomen: Normal bowel sounds, Soft, No tenderness Neuro: Cranial nerves 3-12 NL Psych/Mental Status: Mental status NL Medications Current Medications Medications Dose Ordered Sig/Kasia Route Start Time Stop Time Status Last Admin Dose Admin Metoprolol Tartrate 100 mg BID PO 11/21/24 10:00 11/22/24 10:06 100 MG Nifedipine 30 mg DAILY PO 11/21/24 10:00 11/22/24 10:07 30 MG Zirconium Oxide 10 gm TID PO 11/21/24 06:00 11/22/24 22:01 11/22/24 13:38 10 GM Atorvastatin Calcium 20 mg DAILY PO 11/21/24 10:00 11/22/24 10:06 20 MG Ergocalciferol 50,000 unit QWEEKLY PO 11/23/24 23:00 Acetaminophen/ Hydrocodone Bitart 1 tab Q6HP PRN PO 11/20/24 23:00 11/22/24 10:08 1 TAB Multivit/Ca Carb/ B Cmplx/FA/Prenat 1 tab DAILY PO 11/21/24 10:00 11/22/24 10:05 1 TAB Patient Own Medication 3 tab TID PO 11/21/24 06:00 Diagnostic Test (Pha) 1 strip Q6HR 11/21/24 00:00 11/22/24 12:17 1 STRIP Insulin Human Regular Q6HR SC 11/21/24 00:00 11/22/24 12:23 2 UNITS Dextrose 50 ml UD PRN IV 11/20/24 23:15 Vancomycin HCl 0 ml @ 0 mls/hr UD IV 11/20/24 23:15 Piperacillin Sod/ Tazobactam Sod 50 ml @ 12.5 mls/hr Q12HR IV 11/21/24 10:00 11/22/24 10:04 12.5 MLS/HR Heparin Sodium (Porcine) 5,000 units Q12HR SC 11/21/24 10:00 11/22/24 10:09 5,000 UNITS Acetaminophen 650 mg Q4HP PRN PO 11/20/24 23:30 11/22/24 04:47 650 MG Hydralazine HCl 50 mg Q8HR PO 11/21/24 14:00 11/22/24 06:10 50 MG Hydralazine HCl 10 mg Q6HP PRN IV 11/21/24 20:45 Diphenhydramine HCl 25 mg Q4HP PRN IV 11/22/24 04:30 11/22/24 10:09 25 MG Ondansetron HCl 4 mg Q4HPRN PRN IV 11/22/24 04:30 11/22/24 04:41 4 MG Laboratory Results Laboratory Tests 11/22/24 06:10 Chemistry Test 11/22/24 06:10 Calcium Level 9.0 mg/dL (8.7-10.4) Microbiology Microbiology Date/Time Source Procedure Growth Status 11/22/24 04:28 Nose MRSA Screen - Final Complete 11/20/24 18:47 Blood Blood Culture - Preliminary NO GROWTH AFTER 24 HOURS OF INCUBATION. Resulted Labs and/or images reviewed: Labs reviewed by me Assessment/Plan Assessment/Plan # AV graft Infection - CT arm showed Left upper extremity AV graft with focal dilation at the level of the mid to distal humerus (axial image 231). No adjacent fluid collections or subcutaneous emphysema. - IV Zosyn - IV Vancomycin - Upper arm US, pending - Consulted Vascular Surgery # Hyperkalemia - hyperkalemia protocol #ESRD on HD - Consulted Nephrology #Anemia of Chronic Disease - monitor labs #Diabetes Mellitus - Mild Insulin sliding scale # Hypertension - Metoprolol - nifedipine # Hypothyroidism - continue home meds # dyslipidemia - Continue home meds #Vit. D deficiency - continue home meds #? Meth user # History of gastric sleeve surgery 2021 # Noncompliance Continuing current management. We will monitor blood culture. Consulted Dr. Lacy for Davonte cath placed. HD when davonte inplace. This medical document was created using an electronic medical record system with [employer] computerized dictation system. Although this document has been carefully reviewed, there may still be some phonetic and typographical errors. These areas are purely typographical due to imperfections of the software programs, and do not reflect any compromise in the patient's medical care. Plan discussed with: Patient, Other (RN) My Orders Orders - SUZANNE BARNARD MD Procedure Category Date Status Time Complete Blood Count LAB 11/23/24 Verified 05:00 Complete Blood Count LAB 11/24/24 Verified 05:00 Complete Blood Count LAB 11/25/24 Verified 05:00 Complete Blood Count LAB 11/26/24 Verified 05:00 Basic Metabolic Panel LAB 11/23/24 Verified 05:00 Basic Metabolic Panel LAB 11/24/24 Verified 05:00 Basic Metabolic Panel LAB 11/25/24 Verified 05:00 Basic Metabolic Panel LAB 11/26/24 Verified 05:00 Date of Service: Nov 22, 2024 Billing Provider: SUZANNE BARNARD MD Common Visit Codes: [id number] INP/OBS CARE(HIGH) SUZANNE BARNARD MD Nov 22, 2024 14:51
--- NOTE | 2024-11-22 19:33 | DVHNC2 ---
Procedure - ULTRASOUND-GUIDED LEFT SUBCLAVIAN CENTRAL VENOUS CANNULATION for Pj (Large Bore) Catheter placement CPT Codes: 40667 (ultrasound guidance) 91682 (insertion of non-tunneled centrally inserted central venous catheter) 40608 (CXR interpretation) DATE: November 22, 2024 Time: 1844 Library Specialist: Allegra Flannery RN [facility] [place] PHYSICIAN: Raj Lacy PREOPERATIVE DIAGNOSIS: Acute renal failure, requiring hemodialysis POSTOPERATIVE DIAGNOSIS: Acute renal failure, requiring hemodialysis PROCEDURE PERFORMED: Limited Ultrasound-guided LEFT SUBCLAVIAN large-bore central line (Pj) placement. ANESTHESIA: 2 mL of 1% lidocaine plain. ESTIMATED BLOOD LOSS: less than 5 mL. SPECIMENS: None. COMPLICATIONS: None. INDICATIONS FOR PROCEDURE: The patient is in need of large bore IV access for hemodialysis due to acute renal failure DESCRIPTION OF PROCEDURE IN DETAIL: The patient was lying in the Trendelenburg position with head turned 30 degrees away from the insertion site. The skin was thoroughly sponged with chlorhexidine and allowed to dry. All persons involved were shielded with hair nets, face masks and sterile gowns. With sterile-gloved hands the LEFT CHEST area above and below the clavicle were draped with the large disposable sterile field provided in the pre-manufactured kit. The skin and subcutaneous tissues superficial to the LEFT SUBCLAVIAN vein were anesthetized with 2 mL of 1% lidocaine. The LEFT SUBCLAVIAN Vein was identified on ultrasound from the angle of the mandible down into the supraclavicular fossa using the linear ultrasound probe in the transverse orientation. The carotid artery was identified and avoided utilizing color-flow. The SUBCLAVIAN vein was then placed in the center of the ultrasound field and compressed for patency. A movement artifact was identified as the needle was advanced through the skin and advanced toward the vessel. A real time hyperechoic signal revealed visualization of vascular needle entry into the lumen as blood was noted to flashback in the syringe. The needle was then held in place while the guide wire was advanced. The needle was then removed. Direct visualization of guide wire location within the vein was noted on ultrasound indicating proper placement and was documented in the electronic medical record chart. A skin dilator was advanced over the guidewire and removed. A larger bore skin dilator was advanced over the guidewire and removed. The double-lumen Pj catheter was then advanced over the guide wire into proper position. The guide wire was removed and discarded. The ports were aspirated which showed good blood return and then carefully flushed with normal saline. Heparin 1.2 mL were placed into each port. The catheter was stabilized and sutured to the skin with 2-0 Prolene at 2 anchor points. A sterile bio-patch and dressing was placed over the catheter, including the insertion site. The patient tolerated the procedure well. A chest x-ray was ordered for position confirmation. I reviewed the image immediately after it was taken at bedside. Post-procedure chest x-ray demonstrates the Pj catheter line in the superior vena and no evidence of any pneumothorax. An image print out of the guidewire within the lumen of the LEFT SUBCLAVIAN vein accompanies the chart. RAJ LACY MD Nov 22, 2024 19:33
--- NOTE | 2024-11-22 19:41 | DVHINCON2 ---
Date Seen: Nov 22, [address] Barnard Reason for Consultation Acute hypoxic respiratory failure, central line access for hemodialysis History of Present Illness 49-year-old woman history of hypertension, hyperlipidemia, diabetes mellitus type 2, end-stage renal disease on hemodialysis, hypothyroidism who presented with a chief complaint of AV graft infection and a missed dialysis session on Sunday. Her last dialysis session was on Sunday. She is in need of hemodialysis access. She is currently requiring supplemental oxygen. Pulmonary consultation is called due to acute hypoxic respiratory failure and central venous access. Review of systems: 14 point review of systems is negative unless otherwise noted above. Past medical history: Hypertension, hyperlipidemia, diabetes mellitus type 2, end-stage renal disease on hemodialysis, hypothyroidism, morbid obesity Past surgical history: Gastric sleeve surgery, dilatation and curettage, C- section Medications: Reviewed Allergies: Codeine Family history: No family history of premature CAD. No family history of lung disease Social history: Ex-smoker user, denies smoking, alcohol or illicit drug use currently. Family History: FH: HTN (hypertension) G8 MOTHER, G8 FATHER FH: diabetes mellitus G8 MOTHER, G8 FATHER FH: heart failure G8 MOTHER, Allergies: Coded Allergies: Codeine (Unverified Allergy, Unknown, 10/03/14) Home Meds Active Scripts Hydrocodone-Acetaminophen (Hydrocodone Bitartrate/AC 5-325 mg) 1 Tab Tab, 1 TAB PO Q6HP PRN, #20 TAB Prov:PEDRO ASHER MD 10/31/24 Gabapentin (Once-Daily) (Gabapentin) 300 Mg Tab, 300 MG PO Q6HP PRN, #30 TAB Prov:PEDRO ASHER MD 10/31/24 Azithromycin (Azithromycin) 500 Mg Tab, 1 TAB PO DAILY, #7 TAB Prov:PRANAY DUQUE MD 03/22/24 Aspirin (ASPIRIN/ENTERIC) 81 Mg Tab, 81 MG PO DAILY, #90 TAB Prov:PRANAY DUQUE MD 01/18/23 Reported Medications Atorvastatin Calcium (ATORVASTATIN CALCIUM) 20 Mg Tab, 1 TAB PO DAILY 11/21/24 Levothyroxine Sodium (Levothyroxine Sodium) 150 Mcg Tab, 1 TAB PO DAILY 11/21/24 Hydralazine Hcl (Hydralazine Hcl) 100 Mg Tab, 1 TAB PO TID 11/21/24 Amlodipine Besylate (Amlodipine Besylate) 10 Mg Tab, 1 TAB PO DAILY 11/21/24 Sodium Zirconium Cyclosilicate (Lokelma) 10 Gm Quintin, PO 11/21/24 B-Complex W/ C & Folic Acid (Damari-Sarbjit Rx) Tab, 1 TAB PO DAILY 11/21/24 Duloxetine HCl (Duloxetine HCl) 20 Mg Cap, 1 CAP PO DAILY 11/21/24 Furosemide (Furosemide) 40 Mg Tab, 1 TAB PO BID 11/21/24 Metoprolol Succinate (Metoprolol Succinate Er) 100 Mg Tab 11/21/24 Ergocalciferol (Vitamin D) 50,000 Unit Cap, PO 11/21/24 Semaglutide (Ozempic) 8 Mg/3 Ml Inj 11/21/24 Ergocalciferol (VITAMIN D 29381 UNIT) 50,000 [place], [address] UNIT PO QWEEKLY, CAP 03/21/24 B-Complex W/ C & Folic Acid (Damari-Sarbjit) Tab, 1 TAB PO DAILY, TAB 03/21/24 Atorvastatin Calcium (Lipitor) 20 Mg Tab, 20 MG PO DAILY, TAB 03/21/24 Clonidine Hydrochloride (Clonidine Hcl) 0.1 Mg Tab, 1 TAB PO BID, #30 TAB 2 Refills 12/12/22 Ferric Citrate (Auryxia) 210 Mg Tab, 3 TAB PO TID 12/12/22 Current Medications Current Medications Medications (Trade) Dose Ordered Sig/Kasia Route PRN Reason Start Time Stop Time Status Last Admin Ergocalciferol (Vitamin D 50,000 Unit) 50,000 unit QWEEKLY PO 11/23/24 23:00 Hydralazine HCl (Apresoline Injection) 10 mg Q6HP PRN IV SBP>150 11/21/24 20:45 Diphenhydramine HCl (Benadryl Injection) 25 mg Q4HP PRN IV FOR ITCHING 11/22/24 04:30 11/22/24 10:09 Ondansetron HCl (Zofran) 4 mg Q4HPRN PRN IV NAUSEA / VOMITING 11/22/24 04:30 11/22/24 04:41 Vital Signs Vital Signs Date Time Temp Pulse Resp B/P (MAP) Pulse Ox O2 Delivery O2 Flow Rate FiO2 11/22/24 16:43 99.1 77 12 153/81 (105) 89 99.1 11/22/24 08:00 Oxymizer 10 N/A Physical Exam Gen.: Patient lying in bed in no apparent distress. On supplemental oxygen. Head: Normocephalic, atraumatic Eyes: EOMI/PERRLA. Ears: Normal hearing. Normal anatomy. Neck/trachea: Trachea midline, supple. Nose: Normal external anatomy. Mouth: Moist mucous membranes. Chest: Decreased air entry bilaterally. No wheezing or rhonchi. Cardio vascular: Positive S1, positive S2. Regular rate and rhythm. Abdomen: Positive bowel sounds in all 4 quadrants. Soft, non-tender, non- distended. : Deferred. Rectal: Deferred Skin: Warm, dry. Extremities: 2+ radial pulses bilaterally. No lower extremity edema. Neuro: Awake, alert, oriented x3. No gross motor or sensory deficits. Cranial nerves II through XII intact. Gait not assessed. Labs/Diagnostic Data Labs Test 11/22/24 12:16 11/22/24 06:10 11/21/24 03:44 11/20/24 18:47 Range/Units POC Glucose 153 H 70-106 mg/dl White Blood Count 10.1 # 4.4-10.8 10^3/uL Red Blood Count 3.03 L 4.0-5.20 10^6/uL Hemoglobin 9.5 L 12.2-16.2 g/dL Hematocrit 30.6 #L 36.0-46.0 % Mean Corpuscular Volume 101.0 #H 80.0-100.0 fL Mean Corpuscular Hemoglobin 31.4 28.0-32.0 pg Mean Corpuscular Hemoglobin Concent 31.0 L 32.0-36.0 g/dL Red Cell Distribution Width 15.0 H 11.8-14.3 % Platelet Count 196 140-450 10^3/uL Mean Platelet Volume 8.9 6.9-10.8 fL Neutrophils (%) (Auto) 79.9 37.0-80.0 % Lymphocytes (%) (Auto) 8.4 L 10.0-50.0 % Monocytes (%) (Auto) 6.1 0.0-12.0 % Eosinophils (%) (Auto) 4.7 0.0-7.0 % Basophils (%) (Auto) 0.9 0.0-2.0 % Neutrophils # (Auto) 8.1 1.6-8.6 10 ^3/uL Lymphocytes # (Auto) 0.9 0.4-5.4 10 ^3/uL Monocytes # (Auto) 0.6 0-1.3 10 ^3/uL Eosinophils # (Auto) 0.5 0-0.8 10 ^3/uL Basophils # (Auto) 0.1 0-0.2 10 ^3/uL Nucleated Red Blood Cells 0.1 % Sodium Level 138 136-145 mmol/L Potassium Level 6.7 #*H 3.5-5.1 mmol/L Chloride Level 100 98-107 mmol/L Carbon Dioxide Level 19 L 20-31 mmol/L Anion Gap 19 H 5-15 Blood Urea Nitrogen 87 #*H 9-23 mg/dL Creatinine 12.80 *H 0.550-1.02 mg/dL Glomerular Filtration Rate Calc 3 >90 mL/min BUN/Creatinine Ratio 6.8 L 10.0-20.0 Serum Glucose 104 74-106 mg/dL Calcium Level 9.0 8.7-10.4 mg/dL Random Vancomycin Level 11.0 H 5-10 ug/mL Prothrombin Time 10.4 9.3-11.8 sec Prothrombin Time INR 0.98 0.9-1.15 Activated Partial Thromboplast Time 25.9 24.5-34.5 SEC Hemoglobin A1c 5.4 <5.7 % A1C Total Bilirubin < 0.2 L 0.2-1.0 mg/dL Direct Bilirubin < 0.1 <0.3 mg/dL Aspartate Amino Transferase (AST) 16 13-40 U/L Alanine Aminotransferase (ALT) 24 7-40 U/L Alkaline Phosphatase 58 46-116 U/L Total Protein 6.4 5.7-8.2 g/dL Albumin 3.7 3.2-4.8 g/dL Triglycerides Level 86 < 150 mg/dL Cholesterol Level 112 < 200 mg/dL LDL Cholesterol 42 < 100 mg/dL HDL Cholesterol 54 40-59 mg/dL Lactic Acid Level 1.1 0.4-2.0 mmol/L Thyroid Stimulating Hormone (TSH) 1.36 0.55-4.78 uIU/mL Microbiology Date/Time Source Procedure Growth Status 11/22/24 04:28 Nose MRSA Screen - Final Complete 9/18/25 18:47 Blood Blood Culture - Preliminary NO GROWTH AFTER 48 HOURS OF INCUBATION. Resulted Assessment Impression: Acute hypoxic respiratory failure AV graft infection Hyperkalemia End-stage renal disease on hemodialysis Anemia of chronic disease Diabetes mellitus type 2 Hypertension Hypothyroidism Dyslipidemia Vitamin-D deficiency Methamphetamine abuse history Gastric sleeve surgery status post 2021 Nonadherence Obesity with a BMI of 30.5 Snoring, rule out obstructive sleep apnea as outpatient Anemia , macrocytic Plan: Chest x-ray imaging report reviewed. Perihilar interstitial opacities. Ca rdiomegaly. Supplemental oxygen On 10 L/min via via Oxymizer Keep O2 saturation above 92% Continue antibiotics Blood cultures no growth after 48 hours. Monitor hemoglobin Currently 9.5 grams/deciliter RN supplementation Obesity complicates all care Diet and lifestyle modifications for weight reduction given morbid obesity Accu-Cheks, insulin sliding scale Hemodialysis per nephrology Left subclavian Pj catheter placed for hemodialysis access. See separate procedure note for full details. DVT prophylaxis Prognosis: Poor given multiple comorbidities. Rest of plan per hospitalist and other consultants. Thank you Dr. BARNARD for allowing me to participate in this patient's care. Further recommendations will depend on patient's clinical course. Please do not hesitate to contact me if you have any questions or concerns. This medical document was created using an electronic medical record system with [employer] dictation system. Although this document has been carefully reviewed, there may still be some phonetic and typographical errors. These areas are purely typographical due to imperfections of the software programs, and do not reflect any compromise in the patient's medical care. Plan discussed with: Patient, Other (DEBORA Dinh MD) Date of Service: Nov 22, 2024 Billing Provider: RAJ MERIDA MD Common Visit Codes: [id number] INP/OBS CARE (HIGH) Procedure Codes: [id number] NON-TUNNEL CV CATH (56966 US Add On) RAJ MERIDA MD Nov 22, 2024 19:41
[2024-11-22] MEDS: VANCOMYCIN 500mg/100mL 100 ML IV ONE (20:11)
--- NOTE | 2024-11-22 20:17 | DVH ---
CHEST RADIOGRAPH Indication: LARGE BORE CENTRAL LINE PLACEMENT CONFIRMATION Technique: Single frontal view of the chest was obtained COMPARISON: XY CHEST XRAY 1 VIEW on DOS: 11/20/24, XY CHEST XRAY 1 VIEW on DOS: 03/19/24, XY CHEST PORT ABLE on DOS: 01/15/23, XY CHEST PORTABLE on DOS: 01/01/23, XY CHEST PORTABLE on DOS: 12/15/22 FINDINGS: Cardiac silhouette is enlarged. Diffuse prominence of the pulmonary vasculature and interstitium. Mix ed interstitial and ground glass opacity throughout both lungs. No large pleural effusion or significant pneumothorax. IMPRESSION: Grossly stable pulmonary edema.
[2024-11-23] VITALS (8 sets, daily range): BP systolic 133–188; BP diastolic 66–83; PULSE 60–92; RESP 16–18; TEMP 97.5–101; O2SAT 85–93
[2024-11-23] MEDS ORDERED: InsuLIN REG 1unit/0.01ml Soln (100units/ml) SC ONE (05:30)
[2024-11-23 06:11] LABS: Hemoglobin 7.7 g/dL (12.2-16.2); Nucleated Red Blood Cells % 0.1 %
[2024-11-23 06:13] LABS: Hematocrit 22.8 % (36.0-46.0); Mean Corpuscular Hemoglobin 32.1 pg (28.0-32.0); Mean Corpuscular Volume 95.1 fL (80.0-100.0)
[2024-11-23 06:19] LABS: Sodium 137 mmol/L (136-145)
[2024-11-23 06:20] LABS: Anion Gap 17 (5-15); Calcium 8.8 mg/dL (8.7-10.4); Carbon Dioxide 23 mmol/L (20-31)
[2024-11-23 06:25] LABS: BUN/Creatinine Ratio 7.2 (10.0-20.0); Glucose 103 mg/dL (74-106)
[2024-11-23 06:30] LABS: Chloride 97 mmol/L (98-107)
[2024-11-23 06:32] LABS: Blood Urea Nitrogen 102 mg/dL (9-23); Potassium 6.5 mmol/L (3.5-5.1)
[2024-11-23] MEDS: CALCIUM GLUC 1,000mg/50ml-NS 50 ML IV ONE (06:40)
[2024-11-23] MEDS: DEXTROSE (50%) 50ML SYRG IV ONE ×3 (06:40→10:30)
[2024-11-23] MEDS: InsuLIN REG 1unit/0.01ml Soln (100units/ml) IV ONE (07:38)
[2024-11-23] MEDS ORDERED: DEXTROSE (50%) 50ML SYRG IV PRN (10:30)
--- NOTE | 2024-11-23 12:25 | DVHPN2 ---
Subjective Patient is seen and examined at bedside. Complain of arm pain. Fever 100.4- 100.5 today. Reviewed: Care Plan, H&P, Labs, Medications, Previous Orders, Radiology Changes from previous H/P or p: No Changes Eyes: No Pain, No Vision change, No Conjunctivae inflammation, No Eyelid inflammation, No Other, No Redness ENT: No Ear pain, No Ear discharge, No Nose pain, No Nose discharge, No Nose congestion, No Mouth pain, No Mouth swelling, No Throat pain, No Throat swelling, No Other Cardiovascular: No Chest Pain, No Palpitations, No Orthopnea, No Paroxysmal Noc. Dyspnea, No Edema, No Lt Headedness, No Other Respiratory: No Cough, No Dry; Shortness of breath; No SOB with excertion, No Wheezing, No Hemoptysis, No Pleuritic Pain, No Sputum, No Other Gastrointestinal: No Nausea, No Vomiting, No Abdominal Pain, No Diarrhea, No Constipation, No Melena, No Hematochezia, No Other Genitourinary: No Dysuria, No Frequency, No Incontinence, No Hematuria, No Retention, No Other Musculoskeletal: No other, No neck pain, No shoulder pain; arm pain; No back pain, No hand pain, No leg pain, No foot pain Skin: No Rash, No Lesions, No Jaundice, No Bruising, No Other Objective Vitals Vital Signs Date Time Temp Pulse Resp B/P (MAP) Pulse Ox O2 Delivery O2 Flow Rate FiO2 11/23/24 09:00 98.8 77 16 148/66 (93) 91 98.8 11/23/24 08:00 Oxymizer 6 N/A Intake/Output Intake and Output 11/23/24 07:00 Intake Total 1480 ml Balance 1480 ml Intake Oral 1280 ml IV Total 200 ml General Appearance: Alert, Cooperative, No acute distress HEENT: Atraumatic, PERRLA, EOMI, Mucous membr. moist/pink Neck: Supple Lungs: Clear to auscultation, Normal air movement Cardiovascular: Regular rate, Normal S1, Normal S2, No murmurs, Gallops, Rubs Abdomen: Normal bowel sounds, Soft, No tenderness Neuro: Cranial nerves 3-12 NL Psych/Mental Status: Mental status NL Medications Current Medications Medications Dose Ordered Sig/Kasia Route Start Time Stop Time Status Last Admin Dose Admin Metoprolol Tartrate 100 mg BID PO 11/21/24 10:00 11/22/24 21:52 100 MG Nifedipine 30 mg DAILY PO 11/21/24 10:00 11/22/24 10:07 30 MG Atorvastatin Calcium 20 mg DAILY PO 11/21/24 10:00 11/23/24 09:33 20 MG Ergocalciferol 50,000 unit QWEEKLY PO 11/23/24 23:00 Acetaminophen/ Hydrocodone Bitart 1 tab Q6HP PRN PO 11/20/24 23:00 11/23/24 11:37 1 TAB Multivit/Ca Carb/ B Cmplx/FA/Prenat 1 tab DAILY PO 11/21/24 10:00 11/23/24 09:33 1 TAB Patient Own Medication 3 tab TID PO 11/21/24 06:00 Diagnostic Test (Pha) 1 strip Q6HR 11/21/24 00:00 11/23/24 11:36 1 STRIP Insulin Human Regular Q6HR SC 11/21/24 00:00 11/22/24 12:23 2 UNITS Vancomycin HCl 0 ml @ 0 mls/hr UD IV 11/20/24 23:15 Piperacillin Sod/ Tazobactam Sod 50 ml @ 12.5 mls/hr Q12HR IV 11/21/24 10:00 11/22/24 21:50 12.5 MLS/HR Heparin Sodium (Porcine) 5,000 units Q12HR SC 11/21/24 10:00 11/23/24 09:33 5,000 UNITS Acetaminophen 650 mg Q4HP PRN PO 11/20/24 23:30 11/22/24 04:47 650 MG Hydralazine HCl 50 mg Q8HR PO 11/21/24 14:00 11/23/24 05:38 50 MG Hydralazine HCl 10 mg Q6HP PRN IV 11/21/24 20:45 Diphenhydramine HCl 25 mg Q4HP PRN IV 11/22/24 04:30 11/22/24 10:09 25 MG Ondansetron HCl 4 mg Q4HPRN PRN IV 11/22/24 04:30 11/22/24 04:41 4 MG Dextrose 50 ml UD PRN IV 11/23/24 10:30 Laboratory Results Laboratory Tests 11/23/24 05:10 Chemistry Test 11/23/24 05:10 Calcium Level 8.8 mg/dL (8.7-10.4) Microbiology Microbiology Date/Time Source Procedure Growth Status 11/22/24 04:28 Nose MRSA Screen - Final Complete 11/20/24 18:47 Blood Blood Culture - Preliminary NO GROWTH AFTER 48 HOURS OF INCUBATION. Resulted Labs and/or images reviewed: Labs reviewed by me Assessment/Plan Assessment/Plan # AV graft Infection - CT arm showed Left upper extremity AV graft with focal dilation at the level of the mid to distal humerus (axial image 231). No adjacent fluid collections or subcutaneous emphysema. - IV Zosyn - IV Vancomycin - Upper arm US, pending - Consulted Vascular Surgery # Hyperkalemia - hyperkalemia protocol #ESRD on HD - Consulted Nephrology #Anemia of Chronic Disease - monitor labs #Diabetes Mellitus - Mild Insulin sliding scale # Hypertension - Metoprolol - nifedipine # Hypothyroidism - continue home meds # dyslipidemia - Continue home meds #Vit. D deficiency - continue home meds #? Meth user # History of gastric sleeve surgery 2021 # Noncompliance Continuing current management. We will monitor blood culture. Consulted Dr. Lacy for Davonte cath placed. HD when davonte inplace. 11/23: status post HD today. Fever 100.4-100.5 today. Will order BC . Will give tylenol 650mg PO q6hPRN for fever > 100.5. This medical document was created using an electronic medical record system with [employer] direct computerized dictation system. Although this document has been carefully reviewed, there may still be some phonetic and typographical errors. These areas are purely typographical due to imperfections of the software programs, and do not reflect any compromise in the patient's medical care. Plan discussed with: Patient, Other (RN) Date of Service: Nov 23, 2024 Billing Provider: SUZANNE BARNARD MD Common Visit Codes: [id number] INP/OBS CARE(HIGH) SUZANNE BARNARD MD Nov 23, 2024 12:25
--- NOTE | 2024-11-23 14:19 | DVHINCON2 ---
Date of service: Nov 23, [address] Le. Reason for Consultation End-stage renal disease, hyperkalemia management History of Present Illness 49-year-old patient with significant history of end-stage renal disease with hemodialysis Sunday last dialysis was last week on the, hypertension, diabetes type 2, history of gastric sleeve, hypothyroidism who presented with left upper arm pain, increased temperature and swelling associated underlying infection. The pain was 10/10 best described as a burning sensation radiated to the surrounding area denies fever but had chills. Nephrology was called overnight for severe hyperkalemia and stat dialysis was recommended which he has completed today. She still has dyspnea than feelings of generalized weakness. Initial labs revealed potassium of 6.5 Past Medical History Diabetes type 2, end-stage renal disease, hypertension, status post gastric sleeve, neuropathy Past Surgical History Gastric sleeve Allergies: Coded Allergies: Codeine (Unverified Allergy, Unknown, 10/03/14) Home Meds Active Scripts Hydrocodone-Acetaminophen (Hydrocodone Bitartrate/AC 5-325 mg) 1 Tab Tab, 1 TAB PO Q6HP PRN, #20 TAB Prov:PEDRO ASHER MD 10/31/24 Gabapentin (Once-Daily) (Gabapentin) 300 Mg Tab, 300 MG PO Q6HP PRN, #30 TAB Prov:PEDRO ASHER MD 10/31/24 Azithromycin (Azithromycin) 500 Mg Tab, 1 TAB PO DAILY, #7 TAB Prov:PRANAY DUQUE MD 03/22/24 Aspirin (ASPIRIN/ENTERIC) 81 Mg Tab, 81 MG PO DAILY, #90 TAB Prov:PRANAY DUQUE MD 01/18/23 Reported Medications Atorvastatin Calcium (ATORVASTATIN CALCIUM) 20 Mg Tab, 1 TAB PO DAILY 11/21/24 Levothyroxine Sodium (Levothyroxine Sodium) 150 Mcg Tab, 1 TAB PO DAILY 11/21/24 Hydralazine Hcl (Hydralazine Hcl) 100 Mg Tab, 1 TAB PO TID 11/21/24 Amlodipine Besylate (Amlodipine Besylate) 10 Mg Tab, 1 TAB PO DAILY 11/21/24 Sodium Zirconium Cyclosilicate (Lokelma) 10 Gm Quintin, PO 11/21/24 B-Complex W/ C & Folic Acid (Damari-Sarbjit Rx) Tab, 1 TAB PO DAILY 11/21/24 Duloxetine HCl (Duloxetine HCl) 20 Mg Cap, 1 CAP PO DAILY 11/21/24 Furosemide (Furosemide) 40 Mg Tab, 1 TAB PO BID 11/21/24 Metoprolol Succinate (Metoprolol Succinate Er) 100 Mg Tab 11/21/24 Ergocalciferol (Vitamin D) 50,000 Unit Cap, PO 11/21/24 Semaglutide (Ozempic) 8 Mg/3 Ml Inj 11/21/24 Ergocalciferol (VITAMIN D 54917 UNIT) 50,000 [place], [address] UNIT PO QWEEKLY, CAP 03/21/24 B-Complex W/ C & Folic Acid (Damari-Sarbjit) Tab, 1 TAB PO DAILY, TAB 03/21/24 Atorvastatin Calcium (Lipitor) 20 Mg Tab, 20 MG PO DAILY, TAB 03/21/24 Clonidine Hydrochloride (Clonidine Hcl) 0.1 Mg Tab, 1 TAB PO BID, #30 TAB 2 Refills 12/12/22 Ferric Citrate (Auryxia) 210 Mg Tab, 3 TAB PO TID 12/12/22 Current Medications Current Medications Medications (Trade) Dose Ordered Sig/Kasia Route PRN Reason Start Time Stop Time Status Last Admin Ergocalciferol (Vitamin D 50,000 Unit) 50,000 unit QWEEKLY PO 11/23/24 23:00 Dextrose 50 ml UD PRN IV Blood Sugar LESS THAN 60 11/23/24 10:30 Family History: FH: HTN (hypertension) G8 MOTHER, G8 FATHER FH: diabetes mellitus G8 MOTHER, G8 FATHER FH: heart failure G8 MOTHER, Family History Diabetes and hypertension in the family Social History Denies smoking alcohol or drug abuse Review of Systems HEENT: Oral mucosa dry Neck no JVD Cardiovascular: Denies for chest pain denies orthopnea or PND Respiratory: Denies cough or shortness of breath Gastrointestinal: Denies for nausea vomiting Musculoskeletal: Denies myalgias Neurological: Denies focal weakness Dermatological: Denies any rash Access left upper arm pain and tenderness The rest of the review of systems were reviewed pertinent positives and pertinent negatives are as per HPI up to 12 points review of systems H&P Exam Vital Signs/I&O Vital Sign Date Time Temp Pulse Resp B/P (MAP) Pulse Ox O2 Delivery O2 Flow Rate FiO2 11/23/24 13:59 179/55 11/23/24 13:59 100.4 11/23/24 12:55 88 16 86 11/23/24 08:00 Oxymizer 6 N/A Intake and Output 11/22/24 11/23/24 19:00 07:00 Intake Total 530 ml 950 ml Balance 530 ml 950 ml Intake Oral 480 ml 800 ml IV Total 50 ml 150 ml Physical Exam HEENT: No evidence of JVD, no oral ulcers. Pulmonary: Lungs are clear on auscultation bilaterally Cardiovascular S1-S2, no S3 or S4 Abdomen: Bowel sounds positive, soft no rebound tenderness Skin: No rash Neurological: Alert, oriented, no focal weakness Left upper arm AV graft positive bruit and thrill, with tenderness to touch with eschar over the AV graft skin , increased temperature near the mild erythema Labs/Diagnostic Data Labs/Diagnostic Data Laboratory Tests Test 11/23/24 10:23 11/23/24 06:47 11/23/24 05:10 11/23/24 05:07 Range/Units POC Glucose 130 H 175 H 102 70-106 mg/dl White Blood Count 8.6 4.4-10.8 10^3/uL Red Blood Count 2.39 L 4.0-5.20 10^6/uL Hemoglobin 7.7 #L 12.2-16.2 g/dL Hematocrit 22.8 #L 36.0-46.0 % Mean Corpuscular Volume 95.1 # 80.0-100.0 fL Mean Corpuscular Hemoglobin 32.1 H 28.0-32.0 pg Mean Corpuscular Hemoglobin Concent 33.8 32.0-36.0 g/dL Red Cell Distribution Width 14.3 11.8-14.3 % Platelet Count 178 140-450 10^3/uL Mean Platelet Volume 9.3 6.9-10.8 fL Neutrophils (%) (Auto) 71.9 37.0-80.0 % Lymphocytes (%) (Auto) 17.3 10.0-50.0 % Monocytes (%) (Auto) 6.9 0.0-12.0 % Eosinophils (%) (Auto) 2.9 0.0-7.0 % Basophils (%) (Auto) 1.0 0.0-2.0 % Neutrophils # (Auto) 6.2 1.6-8.6 10 ^3/uL Lymphocytes # (Auto) 1.5 0.4-5.4 10 ^3/uL Monocytes # (Auto) 0.6 0-1.3 10 ^3/uL Eosinophils # (Auto) 0.3 0-0.8 10 ^3/uL Basophils # (Auto) 0.1 0-0.2 10 ^3/uL Nucleated Red Blood Cells 0.1 % Sodium Level 137 136-145 mmol/L Potassium Level 6.5 *H 3.5-5.1 mmol/L Chloride Level 97 L 98-107 mmol/L Carbon Dioxide Level 23 20-31 mmol/L Anion Gap 17 H 5-15 Blood Urea Nitrogen 102 #*H 9-23 mg/dL Creatinine 14.19 *H 0.550-1.02 mg/dL Glomerular Filtration Rate Calc 3 >90 mL/min BUN/Creatinine Ratio 7.2 L 10.0-20.0 Serum Glucose 103 74-106 mg/dL Calcium Level 8.8 8.7-10.4 mg/dL Random Vancomycin Level 15.6 H 5-10 ug/mL Test 11/22/24 23:20 11/22/24 17:32 11/22/24 12:16 11/22/24 06:10 Range/Units POC Glucose 99 121 H 153 H 70-106 mg/dl White Blood Count 10.1 # 4.4-10.8 10^3/uL Red Blood Count 3.03 L 4.0-5.20 10^6/uL Hemoglobin 9.5 L 12.2-16.2 g/dL Hematocrit 30.6 #L 36.0-46.0 % Mean Corpuscular Volume 101.0 #H 80.0-100.0 fL Mean Corpuscular Hemoglobin 31.4 28.0-32.0 pg Mean Corpuscular Hemoglobin Concent 31.0 L 32.0-36.0 g/dL Red Cell Distribution Width 15.0 H 11.8-14.3 % Platelet Count 196 140-450 10^3/uL Mean Platelet Volume 8.9 6.9-10.8 fL Neutrophils (%) (Auto) 79.9 37.0-80.0 % Lymphocytes (%) (Auto) 8.4 L 10.0-50.0 % Monocytes (%) (Auto) 6.1 0.0-12.0 % Eosinophils (%) (Auto) 4.7 0.0-7.0 % Basophils (%) (Auto) 0.9 0.0-2.0 % Neutrophils # (Auto) 8.1 1.6-8.6 10 ^3/uL Lymphocytes # (Auto) 0.9 0.4-5.4 10 ^3/uL Monocytes # (Auto) 0.6 0-1.3 10 ^3/uL Eosinophils # (Auto) 0.5 0-0.8 10 ^3/uL Basophils # (Auto) 0.1 0-0.2 10 ^3/uL Nucleated Red Blood Cells 0.1 % Sodium Level 138 136-145 mmol/L Potassium Level 6.7 #*H 3.5-5.1 mmol/L Chloride Level 100 98-107 mmol/L Carbon Dioxide Level 19 L 20-31 mmol/L Anion Gap 19 H 5-15 Blood Urea Nitrogen 87 #*H 9-23 mg/dL Creatinine 12.80 *H 0.550-1.02 mg/dL Glomerular Filtration Rate Calc 3 >90 mL/min BUN/Creatinine Ratio 6.8 L 10.0-20.0 Serum Glucose 104 74-106 mg/dL Calcium Level 9.0 8.7-10.4 mg/dL Random Vancomycin Level 11.0 H 5-10 ug/mL Test 11/22/24 05:48 11/21/24 23:04 11/21/24 20:45 11/21/24 17:44 Range/Units POC Glucose 108 H 152 H 167 H 78 70-106 mg/dl Test 11/21/24 12:43 11/21/24 05:47 11/21/24 03:44 11/20/24 23:27 Range/Units POC Glucose 78 114 H 96 70-106 mg/dl White Blood Count 8.0 4.4-10.8 10^3/uL Red Blood Count 2.63 L 4.0-5.20 10^6/uL Hemoglobin 8.3 #L 12.2-16.2 g/dL Hematocrit 24.8 #L 36.0-46.0 % Mean Corpuscular Volume 94.6 80.0-100.0 fL Mean Corpuscular Hemoglobin 31.8 28.0-32.0 pg Mean Corpuscular Hemoglobin Concent 33.6 32.0-36.0 g/dL Red Cell Distribution Width 14.5 H 11.8-14.3 % Platelet Count 175 140-450 10^3/uL Mean Platelet Volume 9.2 6.9-10.8 fL Neutrophils (%) (Auto) 76.4 37.0-80.0 % Lymphocytes (%) (Auto) 10.5 10.0-50.0 % Monocytes (%) (Auto) 8.4 0.0-12.0 % Eosinophils (%) (Auto) 3.6 0.0-7.0 % Basophils (%) (Auto) 1.1 0.0-2.0 % Neutrophils # (Auto) 6.1 1.6-8.6 10 ^3/uL Lymphocytes # (Auto) 0.8 0.4-5.4 10 ^3/uL Monocytes # (Auto) 0.7 0-1.3 10 ^3/uL Eosinophils # (Auto) 0.3 0-0.8 10 ^3/uL Basophils # (Auto) 0.1 0-0.2 10 ^3/uL Nucleated Red Blood Cells 0.0 % Prothrombin Time 10.4 9.3-11.8 sec Prothrombin Time INR 0.98 0.9-1.15 Activated Partial Thromboplast Time 25.9 24.5-34.5 SEC Sodium Level 141 136-145 mmol/L Potassium Level 4.6 3.5-5.1 mmol/L Chloride Level 99 98-107 mmol/L Carbon Dioxide Level 28 20-31 mmol/L Anion Gap 14 5-15 Blood Urea Nitrogen 70 H 9-23 mg/dL Creatinine 11.43 *H 0.550-1.02 mg/dL Glomerular Filtration Rate Calc 4 >90 mL/min BUN/Creatinine Ratio 6.1 L 10.0-20.0 Serum Glucose 200 H 74-106 mg/dL Hemoglobin A1c 5.4 <5.7 % A1C Calcium Level 9.0 8.7-10.4 mg/dL Total Bilirubin < 0.2 L 0.2-1.0 mg/dL Direct Bilirubin < 0.1 <0.3 mg/dL Aspartate Amino Transferase (AST) 16 13-40 U/L Alanine Aminotransferase (ALT) 24 7-40 U/L Alkaline Phosphatase 58 46-116 U/L Total Protein 6.4 5.7-8.2 g/dL Albumin 3.7 3.2-4.8 g/dL Triglycerides Level 86 < 150 mg/dL Cholesterol Level 112 < 200 mg/dL LDL Cholesterol 42 < 100 mg/dL HDL Cholesterol 54 40-59 mg/dL Test 11/20/24 18:47 Range/Units White Blood Count 7.6 4.4-10.8 10^3/uL Red Blood Count 3.11 L 4.0-5.20 10^6/uL Hemoglobin 9.8 L 12.2-16.2 g/dL Hematocrit 29.9 L 36.0-46.0 % Mean Corpuscular Volume 96.0 80.0-100.0 fL Mean Corpuscular Hemoglobin 31.6 28.0-32.0 pg Mean Corpuscular Hemoglobin Concent 32.9 32.0-36.0 g/dL Red Cell Distribution Width 14.6 H 11.8-14.3 % Platelet Count 192 140-450 10^3/uL Mean Platelet Volume 9.1 6.9-10.8 fL Neutrophils (%) (Auto) 60.3 37.0-80.0 % Lymphocytes (%) (Auto) 23.7 10.0-50.0 % Monocytes (%) (Auto) 8.4 0.0-12.0 % Eosinophils (%) (Auto) 6.5 0.0-7.0 % Basophils (%) (Auto) 1.1 0.0-2.0 % Neutrophils # (Auto) 4.6 1.6-8.6 10 ^3/uL Lymphocytes # (Auto) 1.8 0.4-5.4 10 ^3/uL Monocytes # (Auto) 0.6 0-1.3 10 ^3/uL Eosinophils # (Auto) 0.5 0-0.8 10 ^3/uL Basophils # (Auto) 0.1 0-0.2 10 ^3/uL Nucleated Red Blood Cells 0.1 % Sodium Level 140 136-145 mmol/L Potassium Level 5.7 *H 3.5-5.1 mmol/L Chloride Level 100 98-107 mmol/L Carbon Dioxide Level 26 20-31 mmol/L Anion Gap 14 5-15 Blood Urea Nitrogen 71 H 9-23 mg/dL Creatinine 10.79 *H 0.550-1.02 mg/dL Glomerular Filtration Rate Calc 4 >90 mL/min BUN/Creatinine Ratio 6.6 L 10.0-20.0 Serum Glucose 134 H 74-106 mg/dL Lactic Acid Level 1.1 0.4-2.0 mmol/L Calcium Level 9.2 8.7-10.4 mg/dL Thyroid Stimulating Hormone (TSH) 1.36 0.55-4.78 uIU/mL Microbiology Date/Time Source Procedure Growth Status 11/22/24 04:28 Nose MRSA Screen - Final Complete Ultrasound Doppler of the vein graft Patent left upper extremity AV fistula with suggestion of elevated velocities and possible narrowing at the distal anastomosis. This could be further evaluated with nonemergent fistulogram if clinically indicated. Chest x-ray shows pulmonary edema Assessment Assessment: 1. End-stage renal disease on hemodialysis Sunday 2. Hyperkalemia 3. Uremia 4. Fluid overload 5. Malfunction of the left upper arm AV graft secondary to infection 6. Infected left upper arm AV graft 7. Diabetes type 2 8. Hyperlipidemia Plan: Stat dialysis was completed today, 1K bath via left subclavian Pj catheter. Await vascular surgery evaluation treatment We will plan for HD tomorrow Fluid restriction less than 1 L per day IV antibiotic Continue metoprolol, nifedipine, hydralazine Thank you very much Plan discussed with: Patient ALEXIS ESPINOZA MD Nov 23, 2024 14:19
[2024-11-23] MEDS: LORazepam 2MG/ML-1ML VIAL IV PRN (16:24)
[2024-11-23] MEDS ORDERED: ERGOCALCIFEROL 50,000 UNIT(1.25MG) CAP PO SCH (23:00)
[2024-11-24] VITALS (9 sets, daily range): BP systolic 147–169; BP diastolic 67–86; PULSE 68–85; RESP 12–19; TEMP 93.8–98.4; O2SAT 82–98
[2024-11-24 07:09] LABS: Hematocrit 22.1 % (36.0-46.0); Hemoglobin 7.6 g/dL (12.2-16.2); Mean Corpuscular Hemoglobin 32.6 pg (28.0-32.0); Mean Corpuscular Volume 94.3 fL (80.0-100.0); Nucleated Red Blood Cells % 0.0 %
[2024-11-24 07:37] LABS: Chloride 99 mmol/L (98-107); Potassium 4.7 mmol/L (3.5-5.1); Sodium 139 mmol/L (136-145)
[2024-11-24 07:38] LABS: Anion Gap 13 (5-15); Carbon Dioxide 27 mmol/L (20-31)
[2024-11-24 07:39] LABS: Calcium 8.8 mg/dL (8.7-10.4)
[2024-11-24 07:44] LABS: BUN/Creatinine Ratio 5.7 (10.0-20.0); Glucose 101 mg/dL (74-106)
[2024-11-24 07:54] LABS: Blood Urea Nitrogen 61 mg/dL (9-23)
--- NOTE | 2024-11-24 08:18 | DVHPN2 ---
[facility] DOS: 11/23/2024 Patient seen and examined at bedside. Remains on supplemental oxygen Overnight events reviewed. Reviewed: Care Plan, H&P, Labs, Medications, Previous Orders, Radiology Changes from previous H/P or p: No Changes Eyes: No Pain, No Vision change, No Conjunctivae inflammation, No Eyelid inflammation, No Other, No Redness ENT: No Ear pain, No Ear discharge, No Nose pain, No Nose discharge, No Nose congestion, No Mouth pain, No Mouth swelling, No Throat pain, No Throat swelling, No Other Cardiovascular: No Chest Pain, No Palpitations, No Orthopnea, No Paroxysmal Noc. Dyspnea, No Edema, No Lt Headedness, No Other Respiratory: No Cough, No Dry; Shortness of breath; No SOB with excertion, No Wheezing, No Hemoptysis, No Pleuritic Pain, No Sputum, No Other Gastrointestinal: No Nausea, No Vomiting, No Abdominal Pain, No Diarrhea, No Constipation, No Melena, No Hematochezia, No Other Genitourinary: No Dysuria, No Frequency, No Incontinence, No Hematuria, No Retention, No Other Musculoskeletal: No other, No neck pain, No shoulder pain; arm pain; No back pain, No hand pain, No leg pain, No foot pain Skin: No Rash, No Lesions, No Jaundice, No Bruising, No Other Objective Vitals Vital Signs Date Time Temp Pulse Resp B/P (MAP) Pulse Ox O2 Delivery O2 Flow Rate FiO2 11/24/24 07:58 18 Oxymizer 6 N/A 11/24/24 06:00 151/74 11/24/24 05:00 97.1 68 98 97.1 Intake/Output Intake and Output 11/24/24 07:00 Intake Total 340 ml Balance 340 ml Intake Oral 340 ml # Voids 1 General Appearance: Alert, Cooperative, No acute distress HEENT: Atraumatic, PERRLA, EOMI, Mucous membr. moist/pink Neck: Supple Lungs: Clear to auscultation, Other (Decreased air entry bilaterally) Cardiovascular: Regular rate, Normal S1, Normal S2, No murmurs, Gallops, Rubs Abdomen: Normal bowel sounds, Soft, No tenderness Neuro: Cranial nerves 3-12 NL Psych/Mental Status: Mental status NL Medications Current Medications Medications Dose Ordered Sig/Kasia Route Start Time Stop Time Status Last Admin Dose Admin Metoprolol Tartrate 100 mg BID PO 11/21/24 10:00 11/23/24 21:54 100 MG Nifedipine 30 mg DAILY PO 11/21/24 10:00 11/22/24 10:07 30 MG Atorvastatin Calcium 20 mg DAILY PO 11/21/24 10:00 11/23/24 09:33 20 MG Ergocalciferol 50,000 unit QWEEKLY PO 11/23/24 23:00 Acetaminophen/ Hydrocodone Bitart 1 tab Q6HP PRN PO 11/20/24 23:00 11/24/24 05:00 1 TAB Multivit/Ca Carb/ B Cmplx/FA/Prenat 1 tab DAILY PO 11/21/24 10:00 11/23/24 09:33 1 TAB Patient Own Medication 3 tab TID PO 11/21/24 06:00 11/24/24 06:00 3 TAB Diagnostic Test (Pha) 1 strip Q6HR 11/21/24 00:00 11/24/24 06:00 1 STRIP Insulin Human Regular Q6HR SC 11/21/24 00:00 11/22/24 12:23 2 UNITS Vancomycin HCl 0 ml @ 0 mls/hr UD IV 11/20/24 23:15 Piperacillin Sod/ Tazobactam Sod 50 ml @ 12.5 mls/hr Q12HR IV 11/21/24 10:00 11/23/24 22:01 12.5 MLS/HR Heparin Sodium (Porcine) 5,000 units Q12HR SC 11/21/24 10:00 11/23/24 21:56 5,000 UNITS Acetaminophen 650 mg Q4HP PRN PO 11/20/24 23:30 11/23/24 13:59 650 MG Hydralazine HCl 50 mg Q8HR PO 11/21/24 14:00 11/24/24 06:00 50 MG Hydralazine HCl 10 mg Q6HP PRN IV 11/21/24 20:45 Diphenhydramine HCl 25 mg Q4HP PRN IV 11/22/24 04:30 11/23/24 20:17 25 MG Ondansetron HCl 4 mg Q4HPRN PRN IV 11/22/24 04:30 11/22/24 04:41 4 MG Dextrose 50 ml UD PRN IV 11/23/24 10:30 Lorazepam 0.5 mg Q6HP PRN IV 11/23/24 15:45 11/23/24 16:24 0.5 MG Laboratory Results Laboratory Tests 11/24/24 06:33 Chemistry Test 11/24/24 06:33 Calcium Level 8.8 mg/dL (8.7-10.4) Microbiology Microbiology Date/Time Source Procedure Growth Status 11/22/24 04:28 Nose MRSA Screen - Final Complete 11/20/24 18:47 Blood Blood Culture - Preliminary NO GROWTH AFTER 72 HOURS OF INCUBATION. Resulted Assessment/Plan Assessment/Plan Impression: Acute hypoxic respiratory failure AV graft infection Hyperkalemia End-stage renal disease on hemodialysis Anemia of chronic disease Diabetes mellitus type 2 Hypertension Hypothyroidism Dyslipidemia Vitamin-D deficiency Methamphetamine abuse history Gastric sleeve surgery status post 2021 Nonadherence Obesity with a BMI of 30.5 Snoring, rule out obstructive sleep apnea as outpatient Anemia, macrocytic Events: Remains on supplemental oxygen On 10 L/min via via Oxymizer Taper O2 as tolerated Continue bronchodilators Continue antibiotics Incentive spirometry Blood pressure control Anxiolytic PRN. Monitor hemoglobin - trended down to 7.7 grams/deciliter Continue iron supplementation Transfuse if less than 7.0 g/dL. Accu-Cheks, ISS Hemodialysis per nephrology Monitor renal function Monitor electrolytes. Supplement as necessary. Monitor ins and outs. Recommend outpatient followup for evaluation of LIBERTY. Labs and imaging reviewed. Rest of plan as noted below Plan: Chest x-ray imaging report reviewed. Perihilar interstitial opacities. Cardiomegaly. Supplemental oxygen Keep O2 saturation above 92% Continue antibiotics Blood cultures no growth after 72 hours. Monitor hemoglobin Transfuse if less than 7.0 g/dL. Iron supplementation Obesity complicates all care Diet and lifestyle modifications for weight reduction given morbid obesity Accu-Cheks, insulin sliding scale Hemodialysis per nephrology Left subclavian Pj catheter placed for hemodialysis access. See separate procedure note for full details. Wound care. DVT prophylaxis Prognosis: Poor given multiple comorbidities. Rest of plan per hospitalist and other consultants. Thank you Dr. BARNARD for allowing me to participate in this patient's care. Further recommendations will depend on patient's clinical course. Please do not hesitate to contact me if you have any questions or concerns. This medical document was created using an electronic medical record system with [employer] system. Although this document has been carefully reviewed, there may still be some phonetic and typographical errors. These areas are purely typographical due to imperfections of the software programs, and do not reflect any compromise in the patient's medical care. Plan discussed with: Patient, Other (RN) Date of Service: Nov 23, 2024 Billing Provider: RAJ MERIDA MD Common Visit Codes: [id number] INP/OBS CARE(HIGH) RAJ MERIDA MD Nov 24, 2024 08:18
[2024-11-24 08:38] LABS: Iron 56.0 ug/dL (50-170)
[2024-11-24 08:41] LABS: Total Iron Binding Capacity 180.0 ug/dL (250-425)
--- NOTE | 2024-11-24 12:18 | ECG ---
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
--- NOTE | 2024-11-24 13:12 | DVHPN2 ---
Progress Note - Dictate Date Seen: Nov 24, 2024 Medical Necessity Reason Pt with a Central, PICC or Fol: Yes Subjective Breathing is improving vital signs Vital Sign Date Time Temp Pulse Resp B/P (MAP) Pulse Ox O2 Delivery O2 Flow Rate FiO2 11/24/24 12:32 98.0 77 18 160/86 (110) 94 98.0 11/24/24 07:58 Oxymizer 6 N/A Total Intake and Output 11/23/24 11/23/24 11/24/24 15:00 23:00 07:00 Intake Total 240 ml 100 ml Balance 240 ml 100 ml medications Current Medications Medications Dose Ordered Sig/Kasia Route Start Time Stop Time Status Last Admin Dose Admin Metoprolol Tartrate 100 mg BID PO 11/21/24 10:00 11/23/24 21:54 100 MG Nifedipine 30 mg DAILY PO 11/21/24 10:00 11/22/24 10:07 30 MG Atorvastatin Calcium 20 mg DAILY PO 11/21/24 10:00 11/24/24 08:51 20 MG Ergocalciferol 50,000 unit QWEEKLY PO 11/23/24 23:00 Acetaminophen/ Hydrocodone Bitart 1 tab Q6HP PRN PO 11/20/24 23:00 11/24/24 05:00 1 TAB Multivit/Ca Carb/ B Cmplx/FA/Prenat 1 tab DAILY PO 11/21/24 10:00 11/24/24 08:51 1 TAB Patient Own Medication 3 tab TID PO 11/21/24 06:00 11/24/24 06:00 3 TAB Diagnostic Test (Pha) 1 strip Q6HR 11/21/24 00:00 11/24/24 11:54 1 STRIP Insulin Human Regular Q6HR SC 11/21/24 00:00 11/22/24 12:23 2 UNITS Vancomycin HCl 0 ml @ 0 mls/hr UD IV 11/20/24 23:15 Piperacillin Sod/ Tazobactam Sod 50 ml @ 12.5 mls/hr Q12HR IV 11/21/24 10:00 11/23/24 22:01 12.5 MLS/HR Heparin Sodium (Porcine) 5,000 units Q12HR SC 11/21/24 10:00 11/24/24 08:52 5,000 UNITS Acetaminophen 650 mg Q4HP PRN PO 11/20/24 23:30 11/23/24 13:59 650 MG Hydralazine HCl 50 mg Q8HR PO 11/21/24 14:00 11/24/24 06:00 50 MG Hydralazine HCl 10 mg Q6HP PRN IV 11/21/24 20:45 Diphenhydramine HCl 25 mg Q4HP PRN IV 11/22/24 04:30 11/23/24 20:17 25 MG Ondansetron HCl 4 mg Q4HPRN PRN IV 11/22/24 04:30 11/22/24 04:41 4 MG Dextrose 50 ml UD PRN IV 11/23/24 10:30 Lorazepam 0.5 mg Q6HP PRN IV 11/23/24 15:45 11/24/24 11:07 0.5 MG objective HEENT: No evidence of JVD, no oral ulcers. Pulmonary: Lungs are clear on auscultation bilaterally Left subclavian Pj catheter in place Cardiovascular S1-S2, no S3 or S4 Abdomen: Bowel sounds positive, soft no rebound tenderness Skin: No rash Neurological: Alert, oriented, no focal weakness Left upper arm AV graft with skin erosion no active bleeding or purulent discharge laboratory and microbiology Laboratory Tests 11/24/24 06:33 Test 11/24/24 06:33 Range/Units Serum Glucose 101 74-106 mg/dL Assessment/Plan Assessment: 1. End-stage renal disease on hemodialysis Sunday 2. Hyperkalemia, improve with dialysis 3. Uremia, improving with dialysis 4. Fluid overload, improving with dialysis 5. Malfunction of the left upper arm AV graft secondary to infection 6. Infected left upper arm AV graft 7. Diabetes type 2 8. Hyperlipidemia Plan: Dialysis today and Sunday Awaiting vascular surgery consultation to determine permanent access placement and next steps. Low-potassium diet Fluid restriction less than 1 L per day IV antibiotic Continue metoprolol, nifedipine, hydralazine Thank you very much Dietary Evaluation Review Recommendations by RD: Dietary education by RD Comments: 1) Add cardiac renal restriction to 60g CCHO diet 2) Encourage optimal PO intake 3) Refer to outpatient RD/CDCES for weight management 4) Follow-up with cardiology and nephrology 5) Continue to monitor I&O, labs, and skin integrity Expected Outcomes/Goals: 1) appetite and labs to improve 2) gradual wt loss 3) f/u in 3-5 days Plan discussed with: Patient ALEXIS ESPINOZA MD Nov 24, 2024 13:12
[2024-11-24] MEDS: SODIUM CHL 0.9% 1000 ML BAG XX ONE (14:25)
--- NOTE | 2024-11-24 14:28 | DVHPN2 ---
Subjective Patient is seen at bedside today, doing well. Reviewed: Care Plan, H&P, Labs, Medications, Previous Orders, Radiology Changes from previous H/P or p: No Changes General: Per HPI Eyes: No Pain, No Vision change, No Conjunctivae inflammation, No Eyelid inflammation, No Other, No Redness ENT: No Ear pain, No Ear discharge, No Nose pain, No Nose discharge, No Nose congestion, No Mouth pain, No Mouth swelling, No Throat pain, No Throat swelling, No Other Cardiovascular: No Chest Pain, No Palpitations, No Orthopnea, No Paroxysmal Noc. Dyspnea, No Edema, No Lt Headedness, No Other Respiratory: No Cough, No Dry; Shortness of breath; No SOB with excertion, No Wheezing, No Hemoptysis, No Pleuritic Pain, No Sputum, No Other Gastrointestinal: No Nausea, No Vomiting, No Abdominal Pain, No Diarrhea, No Constipation, No Melena, No Hematochezia, No Other Genitourinary: No Dysuria, No Frequency, No Incontinence, No Hematuria, No Retention, No Other Musculoskeletal: No other, No neck pain, No shoulder pain; arm pain; No back pain, No hand pain, No leg pain, No foot pain Skin: No Rash, No Lesions, No Jaundice, No Bruising, No Other Objective Vitals Vital Signs Date Time Temp Pulse Resp B/P (MAP) Pulse Ox O2 Delivery O2 Flow Rate FiO2 11/24/24 12:32 98.0 77 18 160/86 (110) 94 98.0 11/24/24 07:58 Oxymizer 6 N/A Intake/Output Intake and Output 11/24/24 07:00 Intake Total 340 ml Balance 340 ml Intake Oral 340 ml # Voids 1 Exam General Appearance: Alert, Oriented X3, Cooperative, No acute distress HEENT: Atraumatic, PERRLA, EOMI, Mucous membrane moist/pink Respiratory: Crackles heard on auscultation Cardiovascular: Regular rate, Normal S1, Normal S2, No murmurs, no chest wall tenderness Abdominal: Normal bowel sounds, Soft, No tenderness, No hepatospenomegaly, No masses Extremities: Mild B/l Pitting edema, left upper arm showed pus containing Furuncle Skin: No rashes, No breakdown, No significant lesion Neuro: Normal gait, Normal speech, Strength at 5/5 X4 ext, Normal tone, Sensation intact, Cranial nerves 3-12 NL, Reflexes 2+ Psych/Mental Status: Mental status NL, Mood NL General Appearance: Alert, Cooperative, No acute distress HEENT: Atraumatic, PERRLA, EOMI, Mucous membr. moist/pink Neck: Supple Lungs: Clear to auscultation, Normal air movement Cardiovascular: Regular rate, Normal S1, Normal S2, No murmurs, Gallops, Rubs Abdomen: Normal bowel sounds, Soft, No tenderness Neuro: Cranial nerves 3-12 NL Psych/Mental Status: Mental status NL Medications Current Medications Medications Dose Ordered Sig/Kasia Route Start Time Stop Time Status Last Admin Dose Admin Metoprolol Tartrate 100 mg BID PO 11/21/24 10:00 11/23/24 21:54 100 MG Nifedipine 30 mg DAILY PO 11/21/24 10:00 11/22/24 10:07 30 MG Atorvastatin Calcium 20 mg DAILY PO 11/21/24 10:00 11/24/24 08:51 20 MG Ergocalciferol 50,000 unit QWEEKLY PO 11/23/24 23:00 Acetaminophen/ Hydrocodone Bitart 1 tab Q6HP PRN PO 11/20/24 23:00 11/24/24 05:00 1 TAB Multivit/Ca Carb/ B Cmplx/FA/Prenat 1 tab DAILY PO 11/21/24 10:00 11/24/24 08:51 1 TAB Patient Own Medication 3 tab TID PO 11/21/24 06:00 11/24/24 06:00 3 TAB Diagnostic Test (Pha) 1 strip Q6HR 11/21/24 00:00 11/24/24 11:54 1 STRIP Insulin Human Regular Q6HR SC 11/21/24 00:00 11/22/24 12:23 2 UNITS Vancomycin HCl 0 ml @ 0 mls/hr UD IV 11/20/24 23:15 Piperacillin Sod/ Tazobactam Sod 50 ml @ 12.5 mls/hr Q12HR IV 11/21/24 10:00 11/23/24 22:01 12.5 MLS/HR Heparin Sodium (Porcine) 5,000 units Q12HR SC 11/21/24 10:00 11/24/24 08:52 5,000 UNITS Acetaminophen 650 mg Q4HP PRN PO 11/20/24 23:30 11/23/24 13:59 650 MG Hydralazine HCl 50 mg Q8HR PO 11/21/24 14:00 11/24/24 06:00 50 MG Hydralazine HCl 10 mg Q6HP PRN IV 11/21/24 20:45 Diphenhydramine HCl 25 mg Q4HP PRN IV 11/22/24 04:30 11/23/24 20:17 25 MG Ondansetron HCl 4 mg Q4HPRN PRN IV 11/22/24 04:30 11/22/24 04:41 4 MG Dextrose 50 ml UD PRN IV 11/23/24 10:30 Lorazepam 0.5 mg Q6HP PRN IV 11/23/24 15:45 11/24/24 11:07 0.5 MG Laboratory Results Laboratory Tests 11/24/24 06:33 Chemistry Test 11/24/24 06:33 Calcium Level 8.8 mg/dL (8.7-10.4) Microbiology Microbiology Date/Time Source Procedure Growth Status 11/22/24 04:28 Nose MRSA Screen - Final Complete 11/20/24 18:47 Blood Blood Culture - Preliminary NO GROWTH AFTER 72 HOURS OF INCUBATION. Resulted Labs and/or images reviewed: Labs reviewed by me, Image(s) reviewed by me Assessment/Plan Assessment/Plan 49 year old female with Past medical history of Hypertension, hyperlipidemia, Diabetes mellitus, ESRD on HD, Hypothyroidism, came to the ED with Chief complaints of AV graft Infection and missed Dialysis on Sunday. Patient states that her last dialysis was on Sunday, she usaly gets dialysis on Sunday, Sunday, Sunday. She follows [facility]. Patient states that on Sunday morning there is pain and swelling of the AV fistula which is warm to touch. she also states the pain is 10/10 in intensity, burning sensation and is radiating to the surrounding area, she has chills, dizziness, generalized itching, slight headache. Patients makes minimal urine, also complains of chronic lower back pain for witch she takes [place]. Patient is admitted for further management. 11/24: resolved abscess possible, erythema resolving, no induration palpable, LUE fistula still with good thrill. bcx neg. no leukocytosis. L shoulder with left subclav davonte/hd cath for ongoing HD sessions. patient remains afebrile. nephrology following. vascular dr goddard consulted. continuing iv abx. vanc/zosyn - vascular has evaluated the patient and recommend continue 3 total cycles of dialysis evaluating graft, 1 more cycle of using screening cath, to remove buttocks and thereafter, thereafter use graft outpatient. Continue IV antibiotics. # AV graft fistula site, concern for infection ESRD on HD Hypokalemia Anemia chronic disease Diabetes , type 2, with renal failure Hypertension nebs 9 hypothyroid Dyslipidemia Vitamin-D deficiency History of gastric sleeve 2021 Noncompliance Plan Vascular to eval today Continuing IV antibiotics Prn analgesia Prn antiemetics Nephrology to follow up, appreciate recommendations Vascular to follow, patient recommendations Continue home medications Tele Full code Plan discussed with: Patient My Orders Orders - JOSÉ MIGUEL MCKINNON MD Procedure Category Date Status Time Consult CONS 11/24/24 Transmitted Vascular/Endovascular 11:28 Date of Service: Nov 24, 2024 Billing Provider: JOSÉ MIGUEL MCKINNON MD Common Visit Codes: [id number] INP/OBS CARE(HIGH) JOSÉ MIGUEL MCKINNON MD Nov 24, 2024 14:28
--- NOTE | 2024-11-24 17:03 | DVHCONRES ---
Date Seen: Nov 24, 2024 Resident Creating Document: MINH FERRELL Jr., MD Referring Physician er Reason for Consultation Left arm cellulitis with AV fistula present. History of Present Illness 49 year old female with Past medical history of Hypertension, hyperlipidemia, Diabetes mellitus, ESRD on HD, Hypothyroidism, came to the ED with Chief complaints of AV graft Infection and missed Dialysis on Sunday. Patient states that her last dialysis was on Sunday, patient had a left subclavian temporary catheter placed. Patient is currently on dialysis during exam. The left AV fistula she states did have some drainage several days ago and after dipika t fluid was removed there has been no further drainage. No fevers or chills. Patient is currently on IV antibiotics. Past Medical History Hypertension diabetes end-stage renal disease on dialysis via left AV graft. Bovine Past Surgical History Left AV graft upper arm bovine, multiple PermCath. Family History: FH: HTN (hypertension) G8 MOTHER, G8 FATHER FH: diabetes mellitus G8 MOTHER, G8 FATHER FH: heart failure G8 MOTHER, Social History Nonsmoker nondrinker Allergies: Coded Allergies: Codeine (Unverified Allergy, Unknown, 10/03/14) Home Meds Active Scripts Hydrocodone-Acetaminophen (Hydrocodone Bitartrate/AC 5-325 mg) 1 Tab Tab, 1 TAB PO Q6HP PRN, #20 TAB Prov:PEDRO ASHER MD 10/31/24 Gabapentin (Once-Daily) (Gabapentin) 300 Mg Tab, 300 MG PO Q6HP PRN, #30 TAB Prov:PEDRO ASHER MD 10/31/24 Azithromycin (Azithromycin) 500 Mg Tab, 1 TAB PO DAILY, #7 TAB Prov:PRANAY DUQUE MD 03/22/24 Aspirin (ASPIRIN/ENTERIC) 81 Mg Tab, 81 MG PO DAILY, #90 TAB Prov:PRANAY DUQUE MD 01/18/23 Reported Medications Atorvastatin Calcium (ATORVASTATIN CALCIUM) 20 Mg Tab, 1 TAB PO DAILY 11/21/24 Levothyroxine Sodium (Levothyroxine Sodium) 150 Mcg Tab, 1 TAB PO DAILY 11/21/24 Hydralazine Hcl (Hydralazine Hcl) 100 Mg Tab, 1 TAB PO TID 11/21/24 Amlodipine Besylate (Amlodipine Besylate) 10 Mg Tab, 1 TAB PO DAILY 11/21/24 Sodium Zirconium Cyclosilicate (Lokelma) 10 Gm Quintin, PO 11/21/24 B-Complex W/ C & Folic Acid (Damari-Sarbjit Rx) Tab, 1 TAB PO DAILY 11/21/24 Duloxetine HCl (Duloxetine HCl) 20 Mg Cap, 1 CAP PO DAILY 11/21/24 Furosemide (Furosemide) 40 Mg Tab, 1 TAB PO BID 11/21/24 Metoprolol Succinate (Metoprolol Succinate Er) 100 Mg Tab 11/21/24 Ergocalciferol (Vitamin D) 50,000 Unit Cap, PO 11/21/24 Semaglutide (Ozempic) 8 Mg/3 Ml Inj 11/21/24 Ergocalciferol (VITAMIN D 65210 UNIT) 50,000 [place], [address] UNIT PO QWEEKLY, CAP 03/21/24 B-Complex W/ C & Folic Acid (Damari-Sarbjit) Tab, 1 TAB PO DAILY, TAB 03/21/24 Atorvastatin Calcium (Lipitor) 20 Mg Tab, 20 MG PO DAILY, TAB 03/21/24 Clonidine Hydrochloride (Clonidine Hcl) 0.1 Mg Tab, 1 TAB PO BID, #30 TAB 2 Refills 12/12/22 Ferric Citrate (Auryxia) 210 Mg Tab, 3 TAB PO TID 12/12/22 Current Medications Current Medications Medications (Trade) Dose Ordered Sig/Kasia Route PRN Reason Start Time Stop Time Status Last Admin Ergocalciferol (Vitamin D 50,000 Unit) 50,000 unit QWEEKLY PO 11/23/24 23:00 Review of Systems All systems reviewed otherwise negative other than what is in HPI. Vital Signs Vital Signs Date Time Temp Pulse Resp B/P (MAP) Pulse Ox O2 Delivery O2 Flow Rate FiO2 11/24/24 12:32 98.0 77 18 160/86 (110) 94 98.0 11/24/24 07:58 Oxymizer 6 N/A Physical Exam Left arm AV graft is a bovine graft with two areas of small pseudoaneurysms. The upper aneurysm had some prior drainage which shows now dry. There is no signs of cellulitis no open wound. There is no evidence of graft exposure. The skin is intact and strong. Labs/Diagnostic Data Labs Test 11/24/24 06:33 11/21/24 03:44 11/20/24 18:47 Range/Units White Blood Count 7.3 4.4-10.8 10^3/uL Red Blood Count 2.34 L 4.0-5.20 10^6/uL Hemoglobin 7.6 L 12.2-16.2 g/dL Hematocrit 22.1 L 36.0-46.0 % Mean Corpuscular Volume 94.3 80.0-100.0 fL Mean Corpuscular Hemoglobin 32.6 H 28.0-32.0 pg Mean Corpuscular Hemoglobin Concent 34.6 32.0-36.0 g/dL Red Cell Distribution Width 14.3 11.8-14.3 % Platelet Count 166 140-450 10^3/uL Mean Platelet Volume 9.2 6.9-10.8 fL Neutrophils (%) (Auto) 69.5 37.0-80.0 % Lymphocytes (%) (Auto) 19.8 10.0-50.0 % Monocytes (%) (Auto) 6.5 0.0-12.0 % Eosinophils (%) (Auto) 3.3 0.0-7.0 % Basophils (%) (Auto) 0.9 0.0-2.0 % Neutrophils # (Auto) 5.1 1.6-8.6 10 ^3/uL Lymphocytes # (Auto) 1.5 0.4-5.4 10 ^3/uL Monocytes # (Auto) 0.5 0-1.3 10 ^3/uL Eosinophils # (Auto) 0.2 0-0.8 10 ^3/uL Basophils # (Auto) 0.1 0-0.2 10 ^3/uL Nucleated Red Blood Cells 0.0 % Sodium Level 139 136-145 mmol/L Potassium Level 4.7 3.5-5.1 mmol/L Chloride Level 99 98-107 mmol/L Carbon Dioxide Level 27 20-31 mmol/L Anion Gap 13 5-15 Blood Urea Nitrogen 61 #H 9-23 mg/dL Creatinine 10.68 *H 0.550-1.02 mg/dL Glomerular Filtration Rate Calc 4 >90 mL/min BUN/Creatinine Ratio 5.7 L 10.0-20.0 Serum Glucose 101 74-106 mg/dL POC Glucose 108 H 70-106 mg/dl Calcium Level 8.8 8.7-10.4 mg/dL Iron Level 56 50-170 ug/dL Total Iron Binding Capacity 180 L 250-425 ug/dL Percent Iron Saturation 31.1 15-50 % Ferritin 1182.2 H 10-291 ng/mL Random Vancomycin Level 11.4 H 5-10 ug/mL Prothrombin Time 10.4 9.3-11.8 sec Prothrombin Time INR 0.98 0.9-1.15 Activated Partial Thromboplast Time 25.9 24.5-34.5 SEC Hemoglobin A1c 5.4 <5.7 % A1C Total Bilirubin < 0.2 L 0.2-1.0 mg/dL Direct Bilirubin < 0.1 <0.3 mg/dL Aspartate Amino Transferase (AST) 16 13-40 U/L Alanine Aminotransferase (ALT) 24 7-40 U/L Alkaline Phosphatase 58 46-116 U/L Total Protein 6.4 5.7-8.2 g/dL Albumin 3.7 3.2-4.8 g/dL Triglycerides Level 86 < 150 mg/dL Cholesterol Level 112 < 200 mg/dL LDL Cholesterol 42 < 100 mg/dL HDL Cholesterol 54 40-59 mg/dL Lactic Acid Level 1.1 0.4-2.0 mmol/L Thyroid Stimulating Hormone (TSH) 1.36 0.55-4.78 uIU/mL Microbiology Date/Time Source Procedure Growth Status 11/23/24 16:29 Blood Blood Culture - Preliminary NO GROWTH AFTER 24 HOURS OF INCUBATION. Resulted 11/22/24 04:28 Nose MRSA Screen - Final Complete Assessment Superficial left upper arm AV graft soft tissue cellulitis resolving with antibiotics. Recommend resting left arm AV graft for several treatments using the temporary subclavian tunneled dialysis catheter. Continue IV antibiotics Discussed with patient as well as the ski technician alternative cannulation sites to prevent irritation to the area that is currently healing. Plan/Recommendation Superficial left upper arm AV graft soft tissue cellulitis resolving with antibiotics. Recommend resting left arm AV graft for several treatments using the temporary subclavian tunneled dialysis catheter. Continue IV antibiotics Discussed with patient as well as the ski technician alternative cannulation sites to prevent irritation to the area that is currently healing. Plan discussed with: Patient MINH FERRELL Jr., MD Nov 24, 2024 17:03
[2024-11-24] MEDS: VANCOMYCIN 500mg/100mL 100 ML IV ONE (17:39)
[2024-11-24] MEDS: hydrALAZINE HCL 20 MG/ML VL IV PRN (18:09)
[2024-11-24] MEDS: EPOETIN ALFA-EPBX 10,000 UNIT/1ML VIAL SC ONE (21:55)
[2024-11-25] VITALS (8 sets, daily range): BP systolic 138–164; BP diastolic 58–85; PULSE 18–79; RESP 18–19; TEMP 97.8–98.8; O2SAT 94–100
[2024-11-25 08:10] LABS: Hematocrit 23.7 % (36.0-46.0); Hemoglobin 8.0 g/dL (12.2-16.2); Mean Corpuscular Hemoglobin 31.8 pg (28.0-32.0); Mean Corpuscular Volume 94.1 fL (80.0-100.0); Nucleated Red Blood Cells % 0.1 %
[2024-11-25 09:42] LABS: Anion Gap 13 (5-15); Carbon Dioxide 28 mmol/L (20-31); Potassium 4.6 mmol/L (3.5-5.1); Sodium 138 mmol/L (136-145)
[2024-11-25 09:44] LABS: Calcium 9.3 mg/dL (8.7-10.4)
[2024-11-25 09:48] LABS: BUN/Creatinine Ratio 5.5 (10.0-20.0)
[2024-11-25 09:49] LABS: Blood Urea Nitrogen 45 mg/dL (9-23); Chloride 97 mmol/L (98-107); Glucose 106 mg/dL (74-106)
--- NOTE | 2024-11-25 12:58 | DVHPN2 ---
Progress Note - Dictate Date Seen: Nov 25, 2024 Medical Necessity Reason Pt with a Central, PICC or Fol: Yes Subjective Patient's breathing is improving And the throbbing pain in her left upper arm is disappeared vital signs Vital Sign Date Time Temp Pulse Resp B/P (MAP) Pulse Ox O2 Delivery O2 Flow Rate FiO2 11/25/24 09:30 77 139/86 11/25/24 08:41 97.8 18 99 97.8 11/25/24 08:00 Oxymizer 6 N/A Total Intake and Output 11/24/24 11/24/24 11/25/24 15:00 23:00 07:00 Intake Total 700 ml 400 ml Balance 700 ml 400 ml medications Current Medications Medications Dose Ordered Sig/Kasia Route Start Time Stop Time Status Last Admin Dose Admin Metoprolol Tartrate 100 mg BID PO 11/21/24 10:00 11/25/24 08:30 100 MG Nifedipine 30 mg DAILY PO 11/21/24 10:00 11/25/24 08:29 30 MG Atorvastatin Calcium 20 mg DAILY PO 11/21/24 10:00 11/25/24 08:30 20 MG Ergocalciferol 50,000 unit QWEEKLY PO 11/23/24 23:00 Acetaminophen/ Hydrocodone Bitart 1 tab Q6HP PRN PO 11/20/24 23:00 11/25/24 08:29 1 TAB Multivit/Ca Carb/ B Cmplx/FA/Prenat 1 tab DAILY PO 11/21/24 10:00 11/25/24 08:30 1 TAB Patient Own Medication 3 tab TID PO 11/21/24 06:00 11/25/24 06:15 3 TAB Diagnostic Test (Pha) 1 strip Q6HR 11/21/24 00:00 11/25/24 11:48 1 STRIP Insulin Human Regular Q6HR SC 11/21/24 00:00 11/22/24 12:23 2 UNITS Vancomycin HCl 0 ml @ 0 mls/hr UD IV 11/20/24 23:15 Piperacillin Sod/ Tazobactam Sod 50 ml @ 12.5 mls/hr Q12HR IV 11/21/24 10:00 11/25/24 08:30 12.5 MLS/HR Heparin Sodium (Porcine) 5,000 units Q12HR SC 11/21/24 10:00 11/25/24 08:34 5,000 UNITS Acetaminophen 650 mg Q4HP PRN PO 11/20/24 23:30 11/23/24 13:59 650 MG Hydralazine HCl 50 mg Q8HR PO 11/21/24 14:00 11/25/24 06:15 50 MG Hydralazine HCl 10 mg Q6HP PRN IV 11/21/24 20:45 11/25/24 00:52 10 MG Diphenhydramine HCl 25 mg Q4HP PRN IV 11/22/24 04:30 11/25/24 06:10 25 MG Ondansetron HCl 4 mg Q4HPRN PRN IV 11/22/24 04:30 11/22/24 04:41 4 MG Dextrose 50 ml UD PRN IV 11/23/24 10:30 Lorazepam 0.5 mg Q6HP PRN IV 11/23/24 15:45 11/24/24 20:58 0.5 MG objective HEENT: No evidence of JVD, no oral ulcers. Pulmonary: Lungs are clear on auscultation bilaterally Left subclavian Pj catheter in place Cardiovascular S1-S2, no S3 or S4 Abdomen: Bowel sounds positive, soft no rebound tenderness Skin: No rash Neurological: Alert, oriented, no focal weakness Improving Left upper arm AV graft with skin erosion no active bleeding or purulent discharge laboratory and microbiology Laboratory Tests 11/25/24 07:19 Test 11/25/24 07:19 Range/Units Serum Glucose 106 74-106 mg/dL Assessment/Plan Assessment: 1. End-stage renal disease on hemodialysis Sunday 2. Hyperkalemia, improve with dialysis 3. Uremia, improving with dialysis 4. Fluid overload, improving with dialysis 5. Cellulitis of the left upper arm over the AV graft 7. Diabetes type 2 8. Hyperlipidemia Plan: We will use AV fistula tomorrow if no issues then we will discontinue subclavian by vascular surgery and possible discharge home unless otherwise specified by vascular surgery who has input is appreciated Continue vancomycin and Zosyn plan is to continue vancomycin with HD for at least one week Dialysis today and Sunday Low-potassium diet Fluid restriction less than 1 L per day IV antibiotic Continue metoprolol, nifedipine, hydralazine Plan discussed with the patient in detail Thank you very much Dietary Evaluation Review Recommendations by RD: Dietary education by RD Comments: 1) Add cardiac renal restriction to 60g CCHO diet 2) Encourage optimal PO intake 3) Refer to outpatient RD/CDCES for weight management 4) Follow-up with cardiology and nephrology 5) Continue to monitor I&O, labs, and skin integrity Expected Outcomes/Goals: 1) appetite and labs to improve 2) gradual wt loss 3) f/u in 3-5 days Plan discussed with: Patient ALEXIS ESPINOZA MD Nov 25, 2024 12:58
[2024-11-25] MEDS ORDERED: SODIUM CHL 0.9% 1000 ML BAG XX ONE (13:00)
[2024-11-25] MEDS: diphenhdrAMINE HCL 50 MG/1 ML VL IV PRN (16:11)
--- NOTE | 2024-11-25 16:16 | DVHPN2 ---
Subjective Patient is seen at bedside today, doing well. Reviewed: Care Plan, H&P, Labs, Medications, Previous Orders, Radiology Changes from previous H/P or p: No Changes General: Per HPI Eyes: No Pain, No Vision change, No Conjunctivae inflammation, No Eyelid inflammation, No Other, No Redness ENT: No Ear pain, No Ear discharge, No Nose pain, No Nose discharge, No Nose congestion, No Mouth pain, No Mouth swelling, No Throat pain, No Throat swelling, No Other Cardiovascular: No Chest Pain, No Palpitations, No Orthopnea, No Paroxysmal Noc. Dyspnea, No Edema, No Lt Headedness, No Other Respiratory: No Cough, No Dry; Shortness of breath; No SOB with excertion, No Wheezing, No Hemoptysis, No Pleuritic Pain, No Sputum, No Other Gastrointestinal: No Nausea, No Vomiting, No Abdominal Pain, No Diarrhea, No Constipation, No Melena, No Hematochezia, No Other Genitourinary: No Dysuria, No Frequency, No Incontinence, No Hematuria, No Retention, No Other Musculoskeletal: No other, No neck pain, No shoulder pain; arm pain; No back pain, No hand pain, No leg pain, No foot pain Skin: No Rash, No Lesions, No Jaundice, No Bruising, No Other Objective Vitals Vital Signs Date Time Temp Pulse Resp B/P (MAP) Pulse Ox O2 Delivery O2 Flow Rate FiO2 11/25/24 14:33 169/82 11/25/24 09:30 77 11/25/24 08:41 97.8 18 99 97.8 11/25/24 08:00 Oxymizer 6 N/A Intake/Output Intake and Output 11/25/24 07:00 Intake Total 1100 ml Balance 1100 ml Intake Oral 1000 ml IV Total 100 ml # Voids 1 # Bowel Movements 1 Exam General Appearance: Alert, Oriented X3, Cooperative, No acute distress HEENT: Atraumatic, PERRLA, EOMI, Mucous membrane moist/pink Respiratory: Crackles heard on auscultation Cardiovascular: Regular rate, Normal S1, Normal S2, No murmurs, no chest wall tenderness Abdominal: Normal bowel sounds, Soft, No tenderness, No hepatospenomegaly, No masses Extremities: Mild B/l Pitting edema, left upper arm showed pus containing Furuncle Skin: No rashes, No breakdown, No significant lesion Neuro: Normal gait, Normal speech, Strength at 5/5 X4 ext, Normal tone, Sensation intact, Cranial nerves 3-12 NL, Reflexes 2+ Psych/Mental Status: Mental status NL, Mood NL General Appearance: Alert, Cooperative, No acute distress HEENT: Atraumatic, PERRLA, EOMI, Mucous membr. moist/pink Neck: Supple Lungs: Clear to auscultation, Other (Decreased air entry bilaterally) Cardiovascular: Regular rate, Normal S1, Normal S2, No murmurs, Gallops, Rubs Abdomen: Normal bowel sounds, Soft, No tenderness Neuro: Cranial nerves 3-12 NL Psych/Mental Status: Mental status NL Medications Current Medications Medications Dose Ordered Sig/Kasia Route Start Time Stop Time Status Last Admin Dose Admin Metoprolol Tartrate 100 mg BID PO 11/21/24 10:00 11/25/24 08:30 100 MG Nifedipine 30 mg DAILY PO 11/21/24 10:00 11/25/24 08:29 30 MG Atorvastatin Calcium 20 mg DAILY PO 11/21/24 10:00 11/25/24 08:30 20 MG Ergocalciferol 50,000 unit QWEEKLY PO 11/23/24 23:00 Acetaminophen/ Hydrocodone Bitart 1 tab Q6HP PRN PO 11/20/24 23:00 11/25/24 08:29 1 TAB Multivit/Ca Carb/ B Cmplx/FA/Prenat 1 tab DAILY PO 11/21/24 10:00 11/25/24 08:30 1 TAB Patient Own Medication 3 tab TID PO 11/21/24 06:00 11/25/24 06:15 3 TAB Diagnostic Test (Pha) 1 strip Q6HR 11/21/24 00:00 11/25/24 11:48 1 STRIP Insulin Human Regular Q6HR SC 11/21/24 00:00 11/22/24 12:23 2 UNITS Vancomycin HCl 0 ml @ 0 mls/hr UD IV 11/20/24 23:15 Piperacillin Sod/ Tazobactam Sod 50 ml @ 12.5 mls/hr Q12HR IV 11/21/24 10:00 11/25/24 08:30 12.5 MLS/HR Heparin Sodium (Porcine) 5,000 units Q12HR SC 11/21/24 10:00 11/25/24 08:34 5,000 UNITS Acetaminophen 650 mg Q4HP PRN PO 11/20/24 23:30 11/23/24 13:59 650 MG Hydralazine HCl 50 mg Q8HR PO 11/21/24 14:00 11/25/24 14:33 50 MG Hydralazine HCl 10 mg Q6HP PRN IV 11/21/24 20:45 11/25/24 00:52 10 MG Ondansetron HCl 4 mg Q4HPRN PRN IV 11/22/24 04:30 11/22/24 04:41 4 MG Dextrose 50 ml UD PRN IV 11/23/24 10:30 Lorazepam 0.5 mg Q6HP PRN IV 11/23/24 15:45 11/25/24 12:57 0.5 MG Diphenhydramine HCl 50 mg Q4HP PRN IV 11/25/24 14:45 Laboratory Results Laboratory Tests 11/25/24 07:19 Chemistry Test 11/25/24 07:19 Calcium Level 9.3 mg/dL (8.7-10.4) Microbiology Microbiology Date/Time Source Procedure Growth Status 11/23/24 16:29 Blood Blood Culture - Preliminary NO GROWTH AFTER 24 HOURS OF INCUBATION. Resulted 11/22/24 04:28 Nose MRSA Screen - Final Complete Labs and/or images reviewed: Labs reviewed by me, Image(s) reviewed by me Assessment/Plan Assessment/Plan 49 year old female with Past medical history of Hypertension, hyperlipidemia, Diabetes mellitus, ESRD on HD, Hypothyroidism, came to the ED with Chief complaints of AV graft Infection and missed Dialysis on Sunday. Patient states that her last dialysis was on Sunday, she usaly gets dialysis on Sunday, Sunday, Sunday. She follows [facility]. Patient states that on Sunday morning there is pain and swelling of the AV fistula which is warm to touch. she also states the pain is 10/10 in intensity, burning sensation and is radiating to the surrounding area, she has chills, dizziness, generalized itching, slight headache. Patients makes minimal urine, also complains of chronic lower back pain for witch she takes [place]. Patient is admitted for further management. 11/24: resolved abscess possible, erythema resolving, no induration palpable, LUE fistula still with good thrill. bcx neg. no leukocytosis. L shoulder with left subclav davonte/hd cath for ongoing HD sessions. patient remains afebrile. nephrology following. vascular dr goddard consulted. continuing iv abx. vanc/zosyn - vascular has evaluated the patient and recommend continue 3 total cycles of dialysis evaluating graft, 1 more cycle of using screening cath, to remove buttocks and thereafter, thereafter use graft outpatient. Continue IV antibiotics. 11/25: Patient wants to increase Benadryl as the nasal cannula is causing her sinusitis, we will replace nasal cannula with non-rebreather, humidify. We will try CPAP 5 cm H2O, we need 1 more day of HD cath session tomorrow, > next session on Sunday we will be through the graft AV fistula all and if tolerates that well we will remove the Davonte cath and discharge back to outpatient dialysis schedule. # AV graft fistula site, concern for infection ESRD on HD Hypokalemia Anemia chronic disease Diabetes , type 2, with renal failure Hypertension nebs 9 hypothyroid Dyslipidemia Vitamin-D deficiency History of gastric sleeve 2021 Noncompliance Plan Vascular to eval today Continuing IV antibiotics Prn analgesia Prn antiemetics Nephrology to follow up, appreciate recommendations Vascular to follow, patient recommendations Continue home medications Tele Full code Plan discussed with: Patient My Orders Orders - JOSÉ MIGUEL MCKINNON MD Procedure Category Date Status Time Diphenhdramine PHA 11/25/24 In Process Injection (Benadryl 14:45 Date of Service: Nov 25, 2024 Billing Provider: JOSÉ MIGUEL MCKINNON MD Common Visit Codes: [id number] INP/OBS CARE(HIGH) JOSÉ MIGUEL MCKINNON MD Nov 25, 2024 16:16
[2024-11-25] MEDS ORDERED: EPOETIN ALFA-EPBX 10,000 UNIT/1ML VIAL SC ONE (21:00)
--- NOTE | 2024-11-25 23:10 | DVHPN2 ---
[facility] DOS: 11/25/2024 Patient seen and examined at bedside. Remains on supplemental oxygen Overnight events reviewed. Reviewed: Care Plan, H&P, Labs, Medications, Previous Orders, Radiology Changes from previous H/P or p: No Changes General: Per HPI Eyes: No Pain, No Vision change, No Conjunctivae inflammation, No Eyelid inflammation, No Other, No Redness ENT: No Ear pain, No Ear discharge, No Nose pain, No Nose discharge, No Nose congestion, No Mouth pain, No Mouth swelling, No Throat pain, No Throat swelling, No Other Cardiovascular: No Chest Pain, No Palpitations, No Orthopnea, No Paroxysmal Noc. Dyspnea, No Edema, No Lt Headedness, No Other Respiratory: No Cough, No Dry; Shortness of breath; No SOB with excertion, No Wheezing, No Hemoptysis, No Pleuritic Pain, No Sputum, No Other Gastrointestinal: No Nausea, No Vomiting, No Abdominal Pain, No Diarrhea, No Constipation, No Melena, No Hematochezia, No Other Genitourinary: No Dysuria, No Frequency, No Incontinence, No Hematuria, No Retention, No Other Musculoskeletal: No other, No neck pain, No shoulder pain; arm pain; No back pain, No hand pain, No leg pain, No foot pain Skin: No Rash, No Lesions, No Jaundice, No Bruising, No Other Objective Vitals Vital Signs Date Time Temp Pulse Resp B/P (MAP) Pulse Ox O2 Delivery O2 Flow Rate FiO2 11/25/24 21:43 74 154/70 11/25/24 21:09 98.2 99 98.2 11/25/24 20:00 18 Oxymizer 6 N/A Intake/Output Intake and Output 11/25/24 07:00 Intake Total 1100 ml Balance 1100 ml Intake Oral 1000 ml IV Total 100 ml # Voids 1 # Bowel Movements 1 General Appearance: Alert, Cooperative, No acute distress HEENT: Atraumatic, PERRLA, EOMI, Mucous membr. moist/pink Neck: Supple Lungs: Clear to auscultation, Other (Decreased air entry bilaterally) Cardiovascular: Regular rate, Normal S1, Normal S2, No murmurs, Gallops, Rubs Abdomen: Normal bowel sounds, Soft, No tenderness Neuro: Cranial nerves 3-12 NL Psych/Mental Status: Mental status NL Medications Current Medications Medications Dose Ordered Sig/Kasia Route Start Time Stop Time Status Last Admin Dose Admin Metoprolol Tartrate 100 mg BID PO 11/21/24 10:00 11/25/24 21:43 100 MG Nifedipine 30 mg DAILY PO 11/21/24 10:00 11/25/24 08:29 30 MG Atorvastatin Calcium 20 mg DAILY PO 11/21/24 10:00 11/25/24 08:30 20 MG Ergocalciferol 50,000 unit QWEEKLY PO 11/23/24 23:00 Acetaminophen/ Hydrocodone Bitart 1 tab Q6HP PRN PO 11/20/24 23:00 11/25/24 16:17 1 TAB Multivit/Ca Carb/ B Cmplx/FA/Prenat 1 tab DAILY PO 11/21/24 10:00 11/25/24 08:30 1 TAB Patient Own Medication 3 tab TID PO 11/21/24 06:00 11/25/24 21:49 3 TAB Diagnostic Test (Pha) 1 strip Q6HR 11/21/24 00:00 11/25/24 17:23 1 STRIP Insulin Human Regular Q6HR SC 11/21/24 00:00 11/22/24 12:23 2 UNITS Vancomycin HCl 0 ml @ 0 mls/hr UD IV 11/20/24 23:15 Piperacillin Sod/ Tazobactam Sod 50 ml @ 12.5 mls/hr Q12HR IV 11/21/24 10:00 11/25/24 21:35 12.5 MLS/HR Heparin Sodium (Porcine) 5,000 units Q12HR SC 11/21/24 10:00 11/25/24 21:49 5,000 UNITS Acetaminophen 650 mg Q4HP PRN PO 11/20/24 23:30 11/23/24 13:59 650 MG Hydralazine HCl 50 mg Q8HR PO 11/21/24 14:00 11/25/24 21:42 50 MG Hydralazine HCl 10 mg Q6HP PRN IV 11/21/24 20:45 11/25/24 00:52 10 MG Ondansetron HCl 4 mg Q4HPRN PRN IV 11/22/24 04:30 11/22/24 04:41 4 MG Dextrose 50 ml UD PRN IV 11/23/24 10:30 Lorazepam 0.5 mg Q6HP PRN IV 11/23/24 15:45 11/25/24 12:57 0.5 MG Diphenhydramine HCl 50 mg Q4HP PRN IV 11/25/24 14:45 11/25/24 21:49 50 MG Laboratory Results Laboratory Tests 11/25/24 07:19 Chemistry Test 11/25/24 07:19 Calcium Level 9.3 mg/dL (8.7-10.4) Microbiology Microbiology Date/Time Source Procedure Growth Status 11/23/24 16:29 Blood Blood Culture - Preliminary NO GROWTH AFTER 48 HOURS OF INCUBATION. Resulted 11/22/24 04:28 Nose MRSA Screen - Final Complete Assessment/Plan Assessment/Plan Impression: Acute hypoxic respiratory failure AV graft infection Hyperkalemia End-stage renal disease on hemodialysis Anemia of chronic disease Diabetes mellitus type 2 Hypertension Hypothyroidism Dyslipidemia Vitamin-D deficiency Methamphetamine abuse history Gastric sleeve surgery status post 2021 Nonadherence Obesity with a BMI of 30.5 Snoring, rule out obstructive sleep apnea as outpatient Anemia, macrocytic Events: Remains on supplemental oxygen Currently on 4 LPM NC - improved O2 requirements (down from 6 L/min via Oxymizer) Continue to taper as tolerated Continue bronchodilators Continue antibiotics F/u cultures - blood cx show no growth after 48 hours Prior blood cx, no growth after 5 days. Incentive spirometry Blood pressure control Anxiolytic PRN. Monitor hemoglobin - trended up to 8.0 grams/deciliter Continue iron supplementation Transfuse if less than 7.0 g/dL. Accu-Cheks, ISS Hemodialysis per nephrology Monitor renal function Monitor electrolytes. Supplement as necessary. Monitor ins and outs. Continue heparin SC for DVT ppx Recommend outpatient followup for evaluation of [place]. Labs and imaging reviewed. Rest of plan as noted below Plan: Chest x-ray imaging report reviewed. Perihilar interstitial opacities. Cardiomegaly. Supplemental oxygen Keep O2 saturation above 92% Continue antibiotics F/u cultures Monitor hemoglobin Transfuse if less than 7.0 g/dL. Iron supplementation Accu-Cheks, insulin sliding scale Hemodialysis per nephrology Left subclavian Pj catheter placed for hemodialysis access. See separate procedure note for full details. Wound care. Obesity complicates all care Diet and lifestyle modifications for weight reduction given morbid obesity DVT prophylaxis Prognosis: Poor given multiple comorbidities. Rest of plan per hospitalist and other consultants. Thank you Dr. BARNARD for allowing me to participate in this patient's care. Further recommendations will depend on patient's clinical course. Please do not hesitate to contact me if you have any questions or concerns. This medical document was created using an electronic medical record system with [employer] dictation system. Although this document has been carefully reviewed, there may still be some phonetic and typographical errors. These areas are purely typographical due to imperfections of the software programs, and do not reflect any compromise in the patient's medical care. Plan discussed with: Patient, Other (RN Matt) Date of Service: Nov 25, 2024 Billing Provider: RAJ MERIDA MD Common Visit Codes: [id number] INP/OBS CARE(HIGH) RAJ MERIDA MD Nov 25, 2024 23:10
[2024-11-26] VITALS (9 sets, daily range): BP systolic 135–176; BP diastolic 69–89; PULSE 67–103; RESP 16–19; TEMP 97.1–98; O2SAT 93–99
[2024-11-26 06:26] LABS: Sodium 138 mmol/L (136-145)
[2024-11-26 06:27] LABS: Anion Gap 14 (5-15); Calcium 9.5 mg/dL (8.7-10.4); Carbon Dioxide 27 mmol/L (20-31); Hemoglobin 7.7 g/dL (12.2-16.2); Nucleated Red Blood Cells % 0.0 %
[2024-11-26 06:28] LABS: Chloride 97 mmol/L (98-107)
[2024-11-26 06:31] LABS: Hematocrit 22.8 % (36.0-46.0); Mean Corpuscular Hemoglobin 31.8 pg (28.0-32.0); Mean Corpuscular Volume 94.3 fL (80.0-100.0); Potassium 5.8 mmol/L (3.5-5.1)
[2024-11-26 06:32] LABS: BUN/Creatinine Ratio 5.9 (10.0-20.0); Glucose 104 mg/dL (74-106)
[2024-11-26 06:33] LABS: Blood Urea Nitrogen 59 mg/dL (9-23)
--- NOTE | 2024-11-26 12:04 | DVHPN2 ---
Subjective Patient is seen at bedside today, doing well. Reviewed: Care Plan, H&P, Labs, Medications, Previous Orders, Radiology Changes from previous H/P or p: No Changes General: Per HPI Eyes: No Pain, No Vision change, No Conjunctivae inflammation, No Eyelid inflammation, No Other, No Redness ENT: No Ear pain, No Ear discharge, No Nose pain, No Nose discharge, No Nose congestion, No Mouth pain, No Mouth swelling, No Throat pain, No Throat swelling, No Other Cardiovascular: No Chest Pain, No Palpitations, No Orthopnea, No Paroxysmal Noc. Dyspnea, No Edema, No Lt Headedness, No Other Respiratory: No Cough, No Dry; Shortness of breath; No SOB with excertion, No Wheezing, No Hemoptysis, No Pleuritic Pain, No Sputum, No Other Gastrointestinal: No Nausea, No Vomiting, No Abdominal Pain, No Diarrhea, No Constipation, No Melena, No Hematochezia, No Other Genitourinary: No Dysuria, No Frequency, No Incontinence, No Hematuria, No Retention, No Other Musculoskeletal: No other, No neck pain, No shoulder pain; arm pain; No back pain, No hand pain, No leg pain, No foot pain Skin: No Rash, No Lesions, No Jaundice, No Bruising, No Other Objective Vitals Vital Signs Date Time Temp Pulse Resp B/P (MAP) Pulse Ox O2 Delivery O2 Flow Rate FiO2 11/26/24 10:18 75 148/71 11/26/24 08:39 97.7 18 98 97.7 11/26/24 08:00 Simple Mask* 6 50 Intake/Output Intake and Output 11/26/24 07:00 Intake Total 1125 ml Balance 1125 ml Intake Oral 1075 ml IV Total 50 ml # Voids 2 Exam General Appearance: Alert, Oriented X3, Cooperative, No acute distress HEENT: Atraumatic, PERRLA, EOMI, Mucous membrane moist/pink Respiratory: Crackles heard on auscultation Cardiovascular: Regular rate, Normal S1, Normal S2, No murmurs, no chest wall tenderness Abdominal: Normal bowel sounds, Soft, No tenderness, No hepatospenomegaly, No masses Extremities: Mild B/l Pitting edema, left upper arm showed pus containing Furuncle Skin: No rashes, No breakdown, No significant lesion Neuro: Normal gait, Normal speech, Strength at 5/5 X4 ext, Normal tone, Sensation intact, Cranial nerves 3-12 NL, Reflexes 2+ Psych/Mental Status: Mental status NL, Mood NL General Appearance: Alert, Cooperative, No acute distress HEENT: Atraumatic, PERRLA, EOMI, Mucous membr. moist/pink Neck: Supple Lungs: Clear to auscultation, Other (Decreased air entry bilaterally) Cardiovascular: Regular rate, Normal S1, Normal S2, No murmurs, Gallops, Rubs Abdomen: Normal bowel sounds, Soft, No tenderness Neuro: Cranial nerves 3-12 NL Psych/Mental Status: Mental status NL Medications Current Medications Medications Dose Ordered Sig/Kasia Route Start Time Stop Time Status Last Admin Dose Admin Metoprolol Tartrate 100 mg BID PO 11/21/24 10:00 11/26/24 09:18 100 MG Nifedipine 30 mg DAILY PO 11/21/24 10:00 11/26/24 09:16 30 MG Atorvastatin Calcium 20 mg DAILY PO 11/21/24 10:00 11/26/24 09:18 20 MG Ergocalciferol 50,000 unit QWEEKLY PO 11/23/24 23:00 Acetaminophen/ Hydrocodone Bitart 1 tab Q6HP PRN PO 11/20/24 23:00 11/26/24 09:13 1 TAB Multivit/Ca Carb/ B Cmplx/FA/Prenat 1 tab DAILY PO 11/21/24 10:00 11/26/24 09:13 1 TAB Patient Own Medication 3 tab TID PO 11/21/24 06:00 11/26/24 06:14 3 TAB Diagnostic Test (Pha) 1 strip Q6HR 11/21/24 00:00 11/26/24 11:29 1 STRIP Insulin Human Regular Q6HR SC 11/21/24 00:00 11/22/24 12:23 2 UNITS Vancomycin HCl 0 ml @ 0 mls/hr UD IV 11/20/24 23:15 Piperacillin Sod/ Tazobactam Sod 50 ml @ 12.5 mls/hr Q12HR IV 11/21/24 10:00 11/26/24 09:19 12.5 MLS/HR Heparin Sodium (Porcine) 5,000 units Q12HR SC 11/21/24 10:00 11/26/24 09:29 5,000 UNITS Acetaminophen 650 mg Q4HP PRN PO 11/20/24 23:30 11/23/24 13:59 650 MG Hydralazine HCl 50 mg Q8HR PO 11/21/24 14:00 11/26/24 06:13 50 MG Hydralazine HCl 10 mg Q6HP PRN IV 11/21/24 20:45 11/26/24 00:44 10 MG Ondansetron HCl 4 mg Q4HPRN PRN IV 11/22/24 04:30 11/22/24 04:41 4 MG Dextrose 50 ml UD PRN IV 11/23/24 10:30 Lorazepam 0.5 mg Q6HP PRN IV 11/23/24 15:45 11/26/24 10:46 0.5 MG Diphenhydramine HCl 50 mg Q4HP PRN IV 11/25/24 14:45 11/26/24 06:13 50 MG Laboratory Results Laboratory Tests 11/26/24 05:50 Chemistry Test 11/26/24 05:50 Calcium Level 9.5 mg/dL (8.7-10.4) Microbiology Microbiology Date/Time Source Procedure Growth Status 11/25/24 05:00 Voided Urine Urine Culture - Preliminary Resulted 11/23/24 16:29 Blood Blood Culture - Preliminary NO GROWTH AFTER 48 HOURS OF INCUBATION. Resulted 11/22/24 04:28 Nose MRSA Screen - Final Complete Labs and/or images reviewed: Labs reviewed by me, Image(s) reviewed by me Assessment/Plan Assessment/Plan 49 year old female with Past medical history of Hypertension, hyperlipidemia, Diabetes mellitus, ESRD on HD, Hypothyroidism, came to the ED with Chief complaints of AV graft Infection and missed Dialysis on Sunday. Patient states that her last dialysis was on Sunday, she usaly gets dialysis on Sunday, Sunday, Sunday. She follows [facility]. Patient states that on Sunday morning there is pain and swelling of the AV fistula which is warm to touch. she also states the pain is 10/10 in intensity, burning sensation and is radiating to the surrounding area, she has chills, dizziness, generalized itching, slight headache. Patients makes minimal urine, also complains of chronic lower back pain for witch she takes [place]. Patient is admitted for further management. 11/24: resolved abscess possible, erythema resolving, no induration palpable, LUE fistula still with good thrill. bcx neg. no leukocytosis. L shoulder with left subclav davonte/hd cath for ongoing HD sessions. patient remains afebrile. nephrology following. vascular dr goddard consulted. continuing iv abx. vanc/zosyn - vascular has evaluated the patient and recommend continue 3 total cycles of dialysis evaluating graft, 1 more cycle of using screening cath, to remove buttocks and thereafter, thereafter use graft outpatient. Continue IV antibiotics. 11/25: Patient wants to increase Benadryl as the nasal cannula is causing her sinusitis, we will replace nasal cannula with non-rebreather, humidify. We will try CPAP 5 cm H2O, we need 1 more day of HD cath session tomorrow, > next session on Sunday we will be through the graft AV fistula all and if tolerates that well we will remove the Davonte cath and discharge back to outpatient dialysis schedule. 11/26: Dialysis by HD cath again today, next dialysis we will be by AV fistula graft, if that Sunday session goes well likely discharge on Sunday. # AV graft fistula site, concern for infection ESRD on HD Hypokalemia Anemia chronic disease Diabetes , type 2, with renal failure Hypertension nebs 9 hypothyroid Dyslipidemia Vitamin-D deficiency History of gastric sleeve 2021 Noncompliance Plan Vascular to eval today Continuing IV antibiotics Prn analgesia Prn antiemetics Nephrology to follow up, appreciate recommendations Vascular to follow, patient recommendations Continue home medications Tele Full code Plan discussed with: Patient My Orders Orders - JOSÉ MIGUEL MCKINNON MD Procedure Category Date Status Time Diphenhdramine PHA 11/25/24 In Process Injection (Benadryl 14:45 Date of Service: Nov 26, 2024 Billing Provider: JOSÉ MIGUEL MCKINNON MD Common Visit Codes: [id number] INP/OBS CARE(HIGH) JOSÉ MIGUEL MCKINNON MD Nov 26, 2024 12:04
[2024-11-26] MEDS: SODIUM ZIRCONIUM CYCL 10 GM PAK PO ONE (12:57)
[2024-11-26] MEDS: VANCOMYCIN 500mg/100mL 100 ML IV ONE (16:00)
--- NOTE | 2024-11-26 17:11 | DVHPN2 ---
Progress Note - Dictate Date Seen: Nov 26, 2024 Medical Necessity Reason Pt with a Central, PICC or Fol: Yes Subjective Breathing is improving, left upper arm AV graft area no more throbbing pain. vital signs Vital Sign Date Time Temp Pulse Resp B/P (MAP) Pulse Ox O2 Delivery O2 Flow Rate FiO2 11/26/24 16:33 97.1 73 18 176/89 (118) 94 97.1 11/26/24 08:00 Simple Mask* 6 50 Total Intake and Output 11/25/24 11/25/24 11/26/24 15:00 23:00 07:00 Intake Total 775 ml 350 ml Balance 775 ml 350 ml medications Current Medications Medications Dose Ordered Sig/Kasia Route Start Time Stop Time Status Last Admin Dose Admin Metoprolol Tartrate 100 mg BID PO 11/21/24 10:00 11/26/24 09:18 100 MG Nifedipine 30 mg DAILY PO 11/21/24 10:00 11/26/24 09:16 30 MG Atorvastatin Calcium 20 mg DAILY PO 11/21/24 10:00 11/26/24 09:18 20 MG Ergocalciferol 50,000 unit QWEEKLY PO 11/23/24 23:00 Acetaminophen/ Hydrocodone Bitart 1 tab Q6HP PRN PO 11/20/24 23:00 11/26/24 09:13 1 TAB Multivit/Ca Carb/ B Cmplx/FA/Prenat 1 tab DAILY PO 11/21/24 10:00 11/26/24 09:13 1 TAB Patient Own Medication 3 tab TID PO 11/21/24 06:00 11/26/24 06:14 3 TAB Diagnostic Test (Pha) 1 strip Q6HR 11/21/24 00:00 11/26/24 11:29 1 STRIP Insulin Human Regular Q6HR SC 11/21/24 00:00 11/22/24 12:23 2 UNITS Vancomycin HCl 0 ml @ 0 mls/hr UD IV 11/20/24 23:15 Piperacillin Sod/ Tazobactam Sod 50 ml @ 12.5 mls/hr Q12HR IV 11/21/24 10:00 11/26/24 09:19 12.5 MLS/HR Heparin Sodium (Porcine) 5,000 units Q12HR SC 11/21/24 10:00 11/26/24 09:29 5,000 UNITS Acetaminophen 650 mg Q4HP PRN PO 11/20/24 23:30 11/23/24 13:59 650 MG Hydralazine HCl 50 mg Q8HR PO 11/21/24 14:00 11/26/24 13:52 50 MG Hydralazine HCl 10 mg Q6HP PRN IV 11/21/24 20:45 11/26/24 00:44 10 MG Ondansetron HCl 4 mg Q4HPRN PRN IV 11/22/24 04:30 11/22/24 04:41 4 MG Dextrose 50 ml UD PRN IV 11/23/24 10:30 Lorazepam 0.5 mg Q6HP PRN IV 11/23/24 15:45 11/26/24 10:46 0.5 MG Diphenhydramine HCl 50 mg Q4HP PRN IV 11/25/24 14:45 11/26/24 06:13 50 MG objective HEENT: No evidence of JVD, no oral ulcers. Pulmonary: Lungs are clear on auscultation bilaterally Left subclavian Pj catheter in place Cardiovascular S1-S2, no S3 or S4 Abdomen: Bowel sounds positive, soft no rebound tenderness Skin: No rash Neurological: Alert, oriented, no focal weakness Improving Left upper arm AV graft with skin erosion no active bleeding or purulent discharge laboratory and microbiology Laboratory Tests 11/26/24 05:50 Test 11/26/24 05:50 Range/Units Serum Glucose 104 74-106 mg/dL Assessment/Plan Assessment: 1. End-stage renal disease on hemodialysis Sunday 2. Hyperkalemia, improve with dialysis 3. Uremia, improving with dialysis 4. Fluid overload, improving with dialysis 5. Cellulitis of the left upper arm over the AV graft 7. Diabetes type 2 8. Hyperlipidemia Plan: Hemodialysis today via AV graft if successful with no events remove subclavian and possible discharge tomorrow. We will continue vancomycin at the dialysis unit Infectious disease consultation pending Continue vancomycin and Zosyn plan is to continue vancomycin with HD Dialysis today and Sunday Low-potassium diet Fluid restriction less than 1 L per day Continue metoprolol, nifedipine, hydralazine Appreciate vascular surgery consultation and for removal of the subclavian line Plan discussed with the patient in detail Thank you very much Dietary Evaluation Review Recommendations by RD: Dietary education by RD Comments: 1) Add cardiac renal restriction to 60g CCHO diet 2) Encourage optimal PO intake 3) Refer to outpatient RD/CDCES for weight management 4) Follow-up with cardiology and nephrology 5) Continue to monitor I&O, labs, and skin integrity Expected Outcomes/Goals: 1) appetite and labs to improve 2) gradual wt loss 3) f/u in 3-5 days Plan discussed with: Patient ALEXIS ESPINOZA MD Nov 26, 2024 17:11
[2024-11-26] MEDS: EPOETIN ALFA-EPBX 10,000 UNIT/1ML VIAL SC ONE (21:59)
--- NOTE | 2024-11-26 23:53 | DVHPN2 ---
[place] [facility] DOS: 11/26/2024 Patient seen and examined at bedside. Remains on supplemental oxygen Overnight events reviewed. Reviewed: Care Plan, H&P, Labs, Medications, Previous Orders, Radiology Changes from previous H/P or p: No Changes General: Per HPI Eyes: No Pain, No Vision change, No Conjunctivae inflammation, No Eyelid inflammation, No Other, No Redness ENT: No Ear pain, No Ear discharge, No Nose pain, No Nose discharge, No Nose congestion, No Mouth pain, No Mouth swelling, No Throat pain, No Throat swelling, No Other Cardiovascular: No Chest Pain, No Palpitations, No Orthopnea, No Paroxysmal Noc. Dyspnea, No Edema, No Lt Headedness, No Other Respiratory: No Cough, No Dry; Shortness of breath; No SOB with excertion, No Wheezing, No Hemoptysis, No Pleuritic Pain, No Sputum, No Other Gastrointestinal: No Nausea, No Vomiting, No Abdominal Pain, No Diarrhea, No Constipation, No Melena, No Hematochezia, No Other Genitourinary: No Dysuria, No Frequency, No Incontinence, No Hematuria, No Retention, No Other Musculoskeletal: No other, No neck pain, No shoulder pain; arm pain; No back pain, No hand pain, No leg pain, No foot pain Skin: No Rash, No Lesions, No Jaundice, No Bruising, No Other Objective Vitals Vital Signs Date Time Temp Pulse Resp B/P (MAP) Pulse Ox O2 Delivery O2 Flow Rate FiO2 11/26/24 21:19 170/87 11/26/24 21:19 82 11/26/24 21:00 97.8 19 93 97.8 11/26/24 18:56 Nasal Cannula 2.0 11/26/24 08:00 50 Intake/Output Intake and Output 11/26/24 07:00 Intake Total 1125 ml Balance 1125 ml Intake Oral 1075 ml IV Total 50 ml # Voids 2 General Appearance: Alert, Cooperative, No acute distress HEENT: Atraumatic, PERRLA, EOMI, Mucous membr. moist/pink Neck: Supple Lungs: Clear to auscultation, Other (Decreased air entry bilaterally) Cardiovascular: Regular rate, Normal S1, Normal S2, No murmurs, Gallops, Rubs Abdomen: Normal bowel sounds, Soft, No tenderness Neuro: Cranial nerves 3-12 NL Psych/Mental Status: Mental status NL Medications Current Medications Medications Dose Ordered Sig/Kasia Route Start Time Stop Time Status Last Admin Dose Admin Metoprolol Tartrate 100 mg BID PO 11/21/24 10:00 11/26/24 21:19 100 MG Nifedipine 30 mg DAILY PO 11/21/24 10:00 11/26/24 09:16 30 MG Atorvastatin Calcium 20 mg DAILY PO 11/21/24 10:00 11/26/24 09:18 20 MG Ergocalciferol 50,000 unit QWEEKLY PO 11/23/24 23:00 Acetaminophen/ Hydrocodone Bitart 1 tab Q6HP PRN PO 11/20/24 23:00 11/26/24 09:13 1 TAB Multivit/Ca Carb/ B Cmplx/FA/Prenat 1 tab DAILY PO 11/21/24 10:00 11/26/24 09:13 1 TAB Patient Own Medication 3 tab TID PO 11/21/24 06:00 11/26/24 06:14 3 TAB Diagnostic Test (Pha) 1 strip Q6HR 11/21/24 00:00 11/26/24 23:15 1 STRIP Insulin Human Regular Q6HR SC 11/21/24 00:00 11/26/24 23:19 4 UNITS Vancomycin HCl 0 ml @ 0 mls/hr UD IV 11/20/24 23:15 Piperacillin Sod/ Tazobactam Sod 50 ml @ 12.5 mls/hr Q12HR IV 11/21/24 10:00 11/26/24 21:15 12.5 MLS/HR Heparin Sodium (Porcine) 5,000 units Q12HR SC 11/21/24 10:00 11/26/24 21:21 5,000 UNITS Acetaminophen 650 mg Q4HP PRN PO 11/20/24 23:30 11/23/24 13:59 650 MG Hydralazine HCl 50 mg Q8HR PO 11/21/24 14:00 11/26/24 21:19 50 MG Hydralazine HCl 10 mg Q6HP PRN IV 11/21/24 20:45 11/26/24 18:59 10 MG Ondansetron HCl 4 mg Q4HPRN PRN IV 11/22/24 04:30 11/22/24 04:41 4 MG Dextrose 50 ml UD PRN IV 11/23/24 10:30 Lorazepam 0.5 mg Q6HP PRN IV 11/23/24 15:45 11/26/24 21:23 0.5 MG Diphenhydramine HCl 50 mg Q4HP PRN IV 11/25/24 14:45 11/26/24 21:22 50 MG Laboratory Results Laboratory Tests 11/26/24 05:50 Chemistry Test 11/26/24 05:50 Calcium Level 9.5 mg/dL (8.7-10.4) Microbiology Microbiology Date/Time Source Procedure Growth Status 11/25/24 05:00 Voided Urine Urine Culture - Preliminary Resulted 11/23/24 16:29 Blood Blood Culture - Preliminary NO GROWTH AFTER 72 HOURS OF INCUBATION. Resulted 11/22/24 04:28 Nose MRSA Screen - Final Complete Assessment/Plan Assessment/Plan Impression: Acute hypoxic respiratory failure AV graft infection Hyperkalemia End-stage renal disease on hemodialysis Anemia of chronic disease Diabetes mellitus type 2 Hypertension Hypothyroidism Dyslipidemia Vitamin-D deficiency Methamphetamine abuse history Gastric sleeve surgery status post 2021 Nonadherence Obesity with a BMI of 30.5 Snoring, rule out obstructive sleep apnea as outpatient Anemia, macrocytic Events: Remains on supplemental oxygen Currently on 4 LPM NC - improved O2 requirements (down from 6 L/min via [employer]) Continue to taper as tolerated Continue bronchodilators Continue antibiotics F/u cultures - blood cx show no growth after 72 hours Prior blood cx, no growth after 5 days. Incentive spirometry Blood pressure control Anxiolytic PRN. Monitor hemoglobin - trended down to 7.7 grams/deciliter Continue iron supplementation Transfuse if less than 7.0 g/dL. Accu-Cheks, ISS Hemodialysis per nephrology Monitor renal function Monitor electrolytes. Supplement as necessary. Monitor ins and outs. Continue heparin SC for DVT ppx Recommend outpatient followup for evaluation of LIB[place]. Labs and imaging reviewed. Rest of plan as noted below Plan: Chest x-ray imaging report reviewed. Perihilar interstitial opacities. Cardiomegaly. Supplemental oxygen Keep O2 saturation above 92% Continue antibiotics F/u cultures Monitor hemoglobin Transfuse if less than 7.0 g/dL. Iron supplementation Accu-Cheks, insulin sliding scale Hemodialysis per nephrology Left subclavian Pj catheter placed for hemodialysis access. See separate procedure note for full details. Wound care. Obesity complicates all care Diet and lifestyle modifications for weight reduction given morbid obesity DVT prophylaxis Prognosis: Poor given multiple comorbidities. Rest of plan per hospitalist and other consultants. Thank you Dr. BARNARD for allowing me to participate in this patient's care. Further recommendations will depend on patient's clinical course. Please do not hesitate to contact me if you have any questions or concerns. This medical document was created using an electronic medical record system with [employer] dictation system. Although this document has been carefully reviewed, there may still be some phonetic and typographical errors. These areas are purely typographical due to imperfections of the software programs, and do not reflect any compromise in the patient's medical care. Plan discussed with: Patient, Other (DEBORA Hernandez) Date of Service: Nov 26, 2024 Billing Provider: RAJ MERIDA MD Common Visit Codes: [id number] INP/OBS CARE(HIGH) RAJ MERIDA MD Nov 26, 2024 23:53
[2024-11-27] VITALS (14 sets, daily range): BP systolic 140–165; BP diastolic 73–91; PULSE 64–79; RESP 17–20; TEMP 97.4–98.5; O2SAT 93–99
[2024-11-27 05:37] LABS: Hematocrit 22.5 % (36.0-46.0); Hemoglobin 7.6 g/dL (12.2-16.2); Mean Corpuscular Hemoglobin 31.8 pg (28.0-32.0); Mean Corpuscular Volume 94.2 fL (80.0-100.0); Nucleated Red Blood Cells % 0.0 %
[2024-11-27 05:58] LABS: Alanine Aminotransferase 30 U/L (7-40); Albumin 3.4 g/dL (3.2-4.8); Alkaline Phosphatase 63 U/L (46-116); Anion Gap 12 (5-15); BUN/Creatinine Ratio 6.6 (10.0-20.0); Calcium 8.9 mg/dL (8.7-10.4); Carbon Dioxide 28 mmol/L (20-31); Glucose 83 mg/dL (74-106); Sodium 138 mmol/L (136-145); Total Protein 6.0 g/dL (5.7-8.2)
[2024-11-27 06:00] LABS: Bilirubin, Total 0.2 mg/dL (0.2-1.0); Blood Urea Nitrogen 52 mg/dL (9-23); Chloride 98 mmol/L (98-107); Potassium 5.1 mmol/L (3.5-5.1)
[2024-11-27] MEDS: VANCOMYCIN 500mg/100mL 100 ML IV ONE (14:00)
--- NOTE | 2024-11-27 14:55 | DVH ---
Procedure: CT CHEST WITHOUT CONTRAST Reason for study/Clinical History: hypoxia, eval lung Comparison Study: XY CHEST XRAY 1 VIEW on DOS: 11/22/24, XY CHEST XRAY 1 VIEW on DOS: 11/20/24, XY CHES T XRAY 1 VIEW on DOS: 03/19/24, XY CHEST PORTABLE on DOS: 01/15/23, XY CHEST PORTABLE on DOS: 01/01/23 Exam Date: 11/27/2024 01:23 PM TECHNIQUE: Multidetector CT of the chest was performed from the lung apices to the upper abdomen with out the use of intravenous contract. Axial, coronal and sagittal multiplanar reformats were performed . Radiation Dose Information: CT Dose: CTDI volume is 18.54 mGy. Dose-length product is 730.19 mGy*cm The dose indicators for CT are the volume Computed Tomography (CT) Dose Index (CTDIvol) and the Dose Length Product (DLP), and are measured in units of mGy and mGy-cm, respectively. These indicators are not patient dose, but values generated from the CT scanner acquisition factors. The report includes radiation exposure data for exposures received during this examination. FINDINGS: Lower neck: Normal thyroid. Lungs: TREE-IN-BUD NODULAR OPACITIES SEEN THROUGHOUT THE LUNGS, WHICH COULD REPRESENT ATYPICAL VIRAL INFECTION. Heart/Vascular Structures: Normal heart size. No pericardial effusion. Lymph Nodes: No adenopathy Pleura: No pleural effusion or significant pneumothorax. Musculoskeletal: No acute osseous abnormality. Soft tissues: Normal. Upper abdomen: Limited portions of the upper abdomen are unremarkable. IMPRESSION: TREE-IN-BUD NODULAR OPACITIES SEEN THROUGHOUT THE LUNGS, WHICH COULD REPRESENT ATYPICAL VIRAL INFECTI ON. Radiation optimization: All CT scans at this facility use at least one of these dose optimization deepthi hniques: automated exposure control mA and/or kV adjustment per patient size (includes targeted exam s where dose is matched to clinical indication) or iterative reconstruction.
--- NOTE | 2024-11-27 15:24 | DVHPN2 ---
Progress Note - Dictate Date Seen: Nov 27, 2024 Medical Necessity Reason Pt with a Central, PICC or Fol: Yes Subjective Patient has being hypoxic during her sleep requiring BiPAP at night. Nasal cannula daytime but overall feeling better from the breathing perspective with dialysis vital signs Vital Sign Date Time Temp Pulse Resp B/P (MAP) Pulse Ox O2 Delivery O2 Flow Rate FiO2 11/27/24 12:57 98.2 69 19 152/85 (107) 96 98.2 11/27/24 09:10 Nasal Cannula 2.0 11/27/24 08:00 N/A Total Intake and Output 11/26/24 11/26/24 11/27/24 15:00 23:00 07:00 Intake Total 700 ml 300 ml Balance 700 ml 300 ml medications Current Medications Medications Dose Ordered Sig/Kasia Route Start Time Stop Time Status Last Admin Dose Admin Metoprolol Tartrate 100 mg BID PO 11/21/24 10:00 11/27/24 09:53 100 MG Nifedipine 30 mg DAILY PO 11/21/24 10:00 11/27/24 09:53 30 MG Atorvastatin Calcium 20 mg DAILY PO 11/21/24 10:00 11/27/24 09:54 20 MG Ergocalciferol 50,000 unit QWEEKLY PO 11/23/24 23:00 Acetaminophen/ Hydrocodone Bitart 1 tab Q6HP PRN PO 11/20/24 23:00 11/26/24 23:56 1 TAB Multivit/Ca Carb/ B Cmplx/FA/Prenat 1 tab DAILY PO 11/21/24 10:00 11/27/24 09:53 1 TAB Patient Own Medication 3 tab TID PO 11/21/24 06:00 11/26/24 06:14 3 TAB Diagnostic Test (Pha) 1 strip Q6HR 11/21/24 00:00 11/27/24 12:00 1 STRIP Insulin Human Regular Q6HR SC 11/21/24 00:00 11/26/24 23:19 4 UNITS Vancomycin HCl 0 ml @ 0 mls/hr UD IV 11/20/24 23:15 Piperacillin Sod/ Tazobactam Sod 50 ml @ 12.5 mls/hr Q12HR IV 11/21/24 10:00 11/27/24 09:54 12.5 MLS/HR Heparin Sodium (Porcine) 5,000 units Q12HR SC 11/21/24 10:00 11/26/24 21:21 5,000 UNITS Acetaminophen 650 mg Q4HP PRN PO 11/20/24 23:30 11/23/24 13:59 650 MG Hydralazine HCl 50 mg Q8HR PO 11/21/24 14:00 11/27/24 05:01 50 MG Hydralazine HCl 10 mg Q6HP PRN IV 11/21/24 20:45 11/26/24 18:59 10 MG Ondansetron HCl 4 mg Q4HPRN PRN IV 11/22/24 04:30 11/22/24 04:41 4 MG Dextrose 50 ml UD PRN IV 11/23/24 10:30 Lorazepam 0.5 mg Q6HP PRN IV 11/23/24 15:45 11/26/24 21:23 0.5 MG Diphenhydramine HCl 50 mg Q4HP PRN IV 11/25/24 14:45 11/27/24 10:04 50 MG objective HEENT: No evidence of JVD, no oral ulcers. Pulmonary: Diminished on auscultation bilaterally Left subclavian Pj catheter in place Cardiovascular S1-S2, no S3 or S4 Abdomen: Bowel sounds positive, soft no rebound tenderness Skin: No rash Neurological: Alert, oriented, no focal weakness Improving Left upper arm AV graft with skin erosion no active bleeding or purulent discharge laboratory and microbiology Laboratory Tests 11/27/24 05:20 Test 11/27/24 05:20 Range/Units Serum Glucose 83 74-106 mg/dL Assessment/Plan Assessment: 1. End-stage renal disease on hemodialysis Sunday 2. Hyperkalemia, improve with dialysis 3. Uremia, improving with dialysis Acute hypoxic respiratory failure 4. Fluid overload, improving with dialysis 5. Cellulitis of the left upper arm over the AV graft 7. Diabetes type 2 8. Hyperlipidemia Plan: We will do extra session dialysis today for extra fluid removal via subclavian temporary HD line We will continue vancomycin at the dialysis unit Continue vancomycin and Zosyn plan is to continue vancomycin with HD Low-potassium diet Fluid restriction less than 1 L per day Continue metoprolol, nifedipine, hydralazine Remove subclavian line prior to discharge Plan discussed with the patient in detail CT chest reviewed mild increase atelectasis lower lobes versus edema. Okay to discharge home today after dialysis if patient is stable. She is going to go to her usual dialysis session tomorrow. She is advised to follow with Pulmonary to evaluate sleep apnea versus COPD. Thank you very much Dietary Evaluation Review Recommendations by RD: Dietary education by RD Comments: 1) Add cardiac renal restriction to 60g CCHO diet 2) Encourage optimal PO intake 3) Refer to outpatient RD/CD[facility] for weight management 4) Follow-up with cardiology and nephrology 5) Continue to monitor I&O, labs, and skin integrity Expected Outcomes/Goals: 1) appetite and labs to improve 2) gradual wt loss 3) f/u in 3-5 days Plan discussed with: Patient ALEXIS ESPINOZA MD Nov 27, 2024 15:24
--- NOTE | 2024-11-27 17:50 | DVHPN2 ---
Subjective Patient is seen at bedside today, doing well. Reviewed: Care Plan, H&P, Labs, Medications, Previous Orders, Radiology Changes from previous H/P or p: No Changes General: Per HPI Eyes: No Pain, No Vision change, No Conjunctivae inflammation, No Eyelid inflammation, No Other, No Redness ENT: No Ear pain, No Ear discharge, No Nose pain, No Nose discharge, No Nose congestion, No Mouth pain, No Mouth swelling, No Throat pain, No Throat swelling, No Other Cardiovascular: No Chest Pain, No Palpitations, No Orthopnea, No Paroxysmal Noc. Dyspnea, No Edema, No Lt Headedness, No Other Respiratory: No Cough, No Dry; Shortness of breath; No SOB with excertion, No Wheezing, No Hemoptysis, No Pleuritic Pain, No Sputum, No Other Gastrointestinal: No Nausea, No Vomiting, No Abdominal Pain, No Diarrhea, No Constipation, No Melena, No Hematochezia, No Other Genitourinary: No Dysuria, No Frequency, No Incontinence, No Hematuria, No Retention, No Other Musculoskeletal: No other, No neck pain, No shoulder pain; arm pain; No back pain, No hand pain, No leg pain, No foot pain Skin: No Rash, No Lesions, No Jaundice, No Bruising, No Other Objective Vitals Vital Signs Date Time Temp Pulse Resp B/P (MAP) Pulse Ox O2 Delivery O2 Flow Rate FiO2 11/27/24 17:07 97.4 64 20 163/75 (104) 95 97.4 11/27/24 09:10 Nasal Cannula 2.0 11/27/24 08:00 N/A Intake/Output Intake and Output 11/27/24 07:00 Intake Total 1000 ml Balance 1000 ml Intake Oral 1000 ml # Voids 1 # Bowel Movements 1 Exam General Appearance: Alert, Oriented X3, Cooperative, No acute distress HEENT: Atraumatic, PERRLA, EOMI, Mucous membrane moist/pink Respiratory: Crackles heard on auscultation Cardiovascular: Regular rate, Normal S1, Normal S2, No murmurs, no chest wall tenderness Abdominal: Normal bowel sounds, Soft, No tenderness, No hepatospenomegaly, No masses Extremities: Mild B/l Pitting edema, left upper arm showed pus containing Furuncle Skin: No rashes, No breakdown, No significant lesion Neuro: Normal gait, Normal speech, Strength at 5/5 X4 ext, Normal tone, Sensation intact, Cranial nerves 3-12 NL, Reflexes 2+ Psych/Mental Status: Mental status NL, Mood NL General Appearance: Alert, Cooperative, No acute distress HEENT: Atraumatic, PERRLA, EOMI, Mucous membr. moist/pink Neck: Supple Lungs: Clear to auscultation, Other (Decreased air entry bilaterally) Cardiovascular: Regular rate, Normal S1, Normal S2, No murmurs, Gallops, Rubs Abdomen: Normal bowel sounds, Soft, No tenderness Neuro: Cranial nerves 3-12 NL Psych/Mental Status: Mental status NL Medications Current Medications Medications Dose Ordered Sig/Kasia Route Start Time Stop Time Status Last Admin Dose Admin Metoprolol Tartrate 100 mg BID PO 11/21/24 10:00 11/27/24 09:53 100 MG Nifedipine 30 mg DAILY PO 11/21/24 10:00 11/27/24 09:53 30 MG Atorvastatin Calcium 20 mg DAILY PO 11/21/24 10:00 11/27/24 09:54 20 MG Ergocalciferol 50,000 unit QWEEKLY PO 11/23/24 23:00 Acetaminophen/ Hydrocodone Bitart 1 tab Q6HP PRN PO 11/20/24 23:00 11/26/24 23:56 1 TAB Multivit/Ca Carb/ B Cmplx/FA/Prenat 1 tab DAILY PO 11/21/24 10:00 11/27/24 09:53 1 TAB Patient Own Medication 3 tab TID PO 11/21/24 06:00 11/26/24 06:14 3 TAB Diagnostic Test (Pha) 1 strip Q6HR 11/21/24 00:00 11/27/24 12:00 1 STRIP Insulin Human Regular Q6HR SC 11/21/24 00:00 11/26/24 23:19 4 UNITS Vancomycin HCl 0 ml @ 0 mls/hr UD IV 11/20/24 23:15 Piperacillin Sod/ Tazobactam Sod 50 ml @ 12.5 mls/hr Q12HR IV 11/21/24 10:00 11/27/24 09:54 12.5 MLS/HR Heparin Sodium (Porcine) 5,000 units Q12HR SC 11/21/24 10:00 11/26/24 21:21 5,000 UNITS Acetaminophen 650 mg Q4HP PRN PO 11/20/24 23:30 11/23/24 13:59 650 MG Hydralazine HCl 50 mg Q8HR PO 11/21/24 14:00 11/27/24 05:01 50 MG Hydralazine HCl 10 mg Q6HP PRN IV 11/21/24 20:45 11/26/24 18:59 10 MG Ondansetron HCl 4 mg Q4HPRN PRN IV 11/22/24 04:30 11/22/24 04:41 4 MG Dextrose 50 ml UD PRN IV 11/23/24 10:30 Lorazepam 0.5 mg Q6HP PRN IV 11/23/24 15:45 11/26/24 21:23 0.5 MG Diphenhydramine HCl 50 mg Q4HP PRN IV 11/25/24 14:45 11/27/24 10:04 50 MG Laboratory Results Laboratory Tests 11/27/24 05:20 Chemistry Test 11/27/24 05:20 Albumin 3.4 g/dL (3.2-4.8) Calcium Level 8.9 mg/dL (8.7-10.4) Total Protein 6.0 g/dL (5.7-8.2) LFT Test 11/27/24 05:20 Alanine Aminotransferase (ALT) 30 U/L (7-40) Alkaline Phosphatase 63 U/L (46-116) Aspartate Amino Transferase (AST) 23 U/L (13-40) Total Bilirubin 0.2 mg/dL (0.2-1.0) Microbiology Microbiology Date/Time Source Procedure Growth Status 11/25/24 05:00 Voided Urine Urine Culture - Final Complete 11/23/24 16:29 Blood Blood Culture - Preliminary NO GROWTH AFTER 72 HOURS OF INCUBATION. Resulted 11/22/24 04:28 Nose MRSA Screen - Final Complete Labs and/or images reviewed: Labs reviewed by me, Image(s) reviewed by me Assessment/Plan Assessment/Plan 49 year old female with Past medical history of Hypertension, hyperlipidemia, Diabetes mellitus, ESRD on HD, Hypothyroidism, came to the ED with Chief complaints of AV graft Infection and missed Dialysis on Sunday. Patient states that her last dialysis was on Sunday, she usaly gets dialysis on Sunday, Sunday, Sunday. She follows [facility]. Patient states that on Sunday morning there is pain and swelling of the AV fistula which is warm to touch. she also states the pain is 10/10 in intensity, burning sensation and is radiating to the surrounding area, she has chills, dizziness, generalized itching, slight headache. Patients makes minimal urine, also complains of chronic lower back pain for witch she takes Daisy. Patient is admitted for further management. 11/24: resolved abscess possible, erythema resolving, no induration palpable, LUE fistula still with good thrill. bcx neg. no leukocytosis. L shoulder with left subclav davonte/hd cath for ongoing HD sessions. patient remains afebrile. nephrology following. vascular dr goddard consulted. continuing iv abx. vanc/zosyn - vascular has evaluated the patient and recommend continue 3 total cycles of dialysis evaluating graft, 1 more cycle of using screening cath, to remove buttocks and thereafter, thereafter use graft outpatient. Continue IV antibiotics. 11/25: Patient wants to increase Benadryl as the nasal cannula is causing her sinusitis, we will replace nasal cannula with non-rebreather, humidify. We will try CPAP 5 cm H2O, we need 1 more day of HD cath session tomorrow, > next session on Sunday we will be through the graft AV fistula all and if tolerates that well we will remove the Davonte cath and discharge back to outpatient dialysis schedule. 11/26: Dialysis by HD cath again today, next dialysis we will be by AV fistula graft, if that Sunday session goes well likely discharge on Sunday. 11/27: Patient tolerated dialysis through AV fistula graft well yesterday, no fevers or chills systemic signs. Patient remains hypoxic, we will try another HD session today, we will remove HD Davonte cath, and we will assess for oxygen need tonight and likely deliver oxygen tomorrow morning prior to patient's HD appointment in clinic tomorrow. diagnosis: # AV graft fistula site, concern for infection ESRD on HD Hypokalemia Anemia chronic disease Diabetes , type 2, with renal failure Hypertension nebs 9 hypothyroid Dyslipidemia Vitamin-D deficiency History of gastric sleeve 2021 Noncompliance Plan Vascular to eval today Continuing IV antibiotics Prn analgesia Prn antiemetics Nephrology to follow up, appreciate recommendations Vascular to follow, patient recommendations Continue home medications Tele Full code Plan discussed with: Patient My Orders Orders - JOSÉ MIGUEL MCKINNON MD Procedure Category Date Status Time Bipap/Cpap For Sleep RT 11/27/24 Logged Apnea 02:[address] 11/27/24 Resulted 13:04 Date of Service: Nov 27, 2024 Billing Provider: JOSÉ MIGUEL MCKINNON MD Common Visit Codes: [id number] INP/OBS CARE(HIGH) JOSÉ MIGUEL MCKINNON MD Nov 27, 2024 17:50
[2024-11-27] MEDS: EPOETIN ALFA-EPBX 10,000 UNIT/1ML VIAL SC ONE (20:21)
[2024-11-27 20:22] LABS: Base Excess 4.0 mmol/L (-2.0-3.0)
--- NOTE | 2024-11-27 23:32 | DVHPN2 ---
[facility] DOS: 11/27/2024 Patient seen and examined at bedside. Remains on supplemental oxygen Overnight events reviewed. Reviewed: Care Plan, H&P, Labs, Medications, Previous Orders, Radiology Changes from previous H/P or p: No Changes General: Per HPI Eyes: No Pain, No Vision change, No Conjunctivae inflammation, No Eyelid inflammation, No Other, No Redness ENT: No Ear pain, No Ear discharge, No Nose pain, No Nose discharge, No Nose congestion, No Mouth pain, No Mouth swelling, No Throat pain, No Throat swelling, No Other Cardiovascular: No Chest Pain, No Palpitations, No Orthopnea, No Paroxysmal Noc. Dyspnea, No Edema, No Lt Headedness, No Other Respiratory: No Cough, No Dry; Shortness of breath; No SOB with excertion, No Wheezing, No Hemoptysis, No Pleuritic Pain, No Sputum, No Other Gastrointestinal: No Nausea, No Vomiting, No Abdominal Pain, No Diarrhea, No Constipation, No Melena, No Hematochezia, No Other Genitourinary: No Dysuria, No Frequency, No Incontinence, No Hematuria, No Retention, No Other Musculoskeletal: No other, No neck pain, No shoulder pain; arm pain; No back pain, No hand pain, No leg pain, No foot pain Skin: No Rash, No Lesions, No Jaundice, No Bruising, No Other Objective Vitals Vital Signs Date Time Temp Pulse Resp B/P (MAP) Pulse Ox O2 Delivery O2 Flow Rate FiO2 11/27/24 21:12 74 140/73 11/27/24 21:00 98.4 17 96 98.4 11/27/24 18:30 Room Air 0.0 11/27/24 08:00 N/A Intake/Output Intake and Output 11/27/24 07:00 Intake Total 1000 ml Balance 1000 ml Intake Oral 1000 ml # Voids 1 # Bowel Movements 1 General Appearance: Alert, Cooperative, No acute distress HEENT: Atraumatic, PERRLA, EOMI, Mucous membr. moist/pink Neck: Supple Lungs: Clear to auscultation, Other (Decreased air entry bilaterally) Cardiovascular: Regular rate, Normal S1, Normal S2, No murmurs, Gallops, Rubs Abdomen: Normal bowel sounds, Soft, No tenderness Neuro: Cranial nerves 3-12 NL Psych/Mental Status: Mental status NL Medications Current Medications Medications Dose Ordered Sig/Kasia Route Start Time Stop Time Status Last Admin Dose Admin Metoprolol Tartrate 100 mg BID PO 11/21/24 10:00 11/27/24 21:12 100 MG Nifedipine 30 mg DAILY PO 11/21/24 10:00 11/27/24 09:53 30 MG Atorvastatin Calcium 20 mg DAILY PO 11/21/24 10:00 11/27/24 09:54 20 MG Ergocalciferol 50,000 unit QWEEKLY PO 11/23/24 23:00 Acetaminophen/ Hydrocodone Bitart 1 tab Q6HP PRN PO 11/20/24 23:00 11/27/24 17:54 1 TAB Multivit/Ca Carb/ B Cmplx/FA/Prenat 1 tab DAILY PO 11/21/24 10:00 11/27/24 09:53 1 TAB Patient Own Medication 3 tab TID PO 11/21/24 06:00 11/26/24 06:14 3 TAB Diagnostic Test (Pha) 1 strip Q6HR 11/21/24 00:00 11/27/24 18:24 1 STRIP Insulin Human Regular Q6HR SC 11/21/24 00:00 11/26/24 23:19 4 UNITS Vancomycin HCl 0 ml @ 0 mls/hr UD IV 11/20/24 23:15 Piperacillin Sod/ Tazobactam Sod 50 ml @ 12.5 mls/hr Q12HR IV 11/21/24 10:00 11/27/24 21:10 12.5 MLS/HR Heparin Sodium (Porcine) 5,000 units Q12HR SC 11/21/24 10:00 11/27/24 21:09 5,000 UNITS Acetaminophen 650 mg Q4HP PRN PO 11/20/24 23:30 11/23/24 13:59 650 MG Hydralazine HCl 50 mg Q8HR PO 11/21/24 14:00 11/27/24 21:11 50 MG Hydralazine HCl 10 mg Q6HP PRN IV 11/21/24 20:45 11/26/24 18:59 10 MG Ondansetron HCl 4 mg Q4HPRN PRN IV 11/22/24 04:30 11/22/24 04:41 4 MG Dextrose 50 ml UD PRN IV 11/23/24 10:30 Lorazepam 0.5 mg Q6HP PRN IV 11/23/24 15:45 11/27/24 19:54 0.5 MG Diphenhydramine HCl 50 mg Q4HP PRN IV 11/25/24 14:45 11/27/24 19:53 50 MG Laboratory Results Laboratory Tests 11/27/24 05:20 Chemistry Test 11/27/24 05:20 Albumin 3.4 g/dL (3.2-4.8) Calcium Level 8.9 mg/dL (8.7-10.4) Total Protein 6.0 g/dL (5.7-8.2) LFT Test 11/27/24 05:20 Alanine Aminotransferase (ALT) 30 U/L (7-40) Alkaline Phosphatase 63 U/L (46-116) Aspartate Amino Transferase (AST) 23 U/L (13-40) Total Bilirubin 0.2 mg/dL (0.2-1.0) Blood Gas Results Test 11/27/24 18:28 Arterial Blood pH 7.466 (7.350-7.450) FiO2 % 21.0 Microbiology Microbiology Date/Time Source Procedure Growth Status 11/25/24 05:00 Voided Urine Urine Culture - Final Complete 11/23/24 16:29 Blood Blood Culture - Preliminary NO GROWTH AFTER 72 HOURS OF INCUBATION. Resulted 11/22/24 04:28 Nose MRSA Screen - Final Complete Assessment/Plan Assessment/Plan Impression: Acute hypoxic respiratory failure AV graft infection Hyperkalemia End-stage renal disease on hemodialysis Anemia of chronic disease Diabetes mellitus type 2 Hypertension Hypothyroidism Dyslipidemia Vitamin-D deficiency Methamphetamine abuse history Gastric sleeve surgery status post 2021 Nonadherence Obesity with a BMI of 30.5 Snoring, rule out obstructive sleep apnea as outpatient Anemia, macrocytic Events: Remains on supplemental oxygen Currently on 2 LPM NC - improved O2 requirements Taper as tolerated Arrange home oxygen CT chest notable for tree-in-bud opacities. Continue antibiotics - complete course Continue bronchodilators F/u cultures - blood cx show no growth after 72 hours Prior blood cx, no growth after 5 days. Incentive spirometry Blood pressure control Anxiolytic PRN. Monitor hemoglobin - trended down to 7.6 grams/deciliter Continue iron supplementation Transfuse if less than 7.0 g/dL. Hemodialysis per nephrology Monitor renal function Monitor electrolytes. Supplement as necessary. Monitor ins and outs. Continue heparin SC for DVT ppx Protonix for GI ppx Recommend outpatient followup in Pulmonary Clinic for evaluation of [place]. Disposition per hospitalist. Labs and imaging reviewed. Rest of plan as noted below Plan: Chest x-ray imaging report reviewed. Perihilar interstitial opacities. Cardiomegaly. Supplemental oxygen Keep O2 saturation above 92% Continue antibiotics F/u cultures Monitor hemoglobin Transfuse if less than 7.0 g/dL. Iron supplementation Accu-Cheks, insulin sliding scale PRN. Hemodialysis per nephrology Left subclavian Pj catheter placed for hemodialysis access. See separate procedure note for full details. Wound care. Obesity complicates all care Diet and lifestyle modifications for weight reduction given morbid obesity DVT prophylaxis Prognosis: Poor given multiple comorbidities. Rest of plan per hospitalist and other consultants. Thank you Dr. BARNARD for allowing me to participate in this patient's care. Further recommendations will depend on patient's clinical course. Please do not hesitate to contact me if you have any questions or concerns. This medical document was created using an electronic medical record system with [employer] dictation system. Although this document has been carefully reviewed, there may still be some phonetic and typographical errors. These areas are purely typographical due to imperfections of the software programs, and do not reflect any compromise in the patient's medical care. Plan discussed with: Patient, Other (RN Marcus) Date of Service: Nov 27, 2024 Billing Provider: RAJ MERIDA MD Common Visit Codes: [id number] INP/OBS CARE(HIGH) RAJ MERIDA MD Nov 27, 2024 23:31
[2024-11-28] VITALS (9 sets, daily range): BP systolic 131–182; BP diastolic 59–82; PULSE 70–78; RESP 17–20; TEMP 97.8–99.3; O2SAT 90–97
[2024-11-28] MEDS: VANCOMYCIN 500mg/100mL 100 ML IV ONE (10:42)
--- NOTE | 2024-11-28 12:21 | DVHDS2 ---
Discharge Summary Date of Admission Nov 20, 2024 at 22:41 Date of Discharge: Nov 28, 2024 Labs/Diagnostic Data: Laboratory Results Test 11/28/24 11:44 11/28/24 05:55 11/27/24 18:28 11/27/24 05:20 POC Glucose 116 mg/dl (70-106) Creatinine 7.93 mg/dL (0.550-1.02) Glomerular Filtration Rate Calc 6 mL/min (>90) Random Vancomycin Level 11.7 ug/mL (5-10) Blood Gas Specimen Type Arterial Blood Gas Sample Site Left radial Blood Gas Patient Temperature 37.0 Arterial Blood Date Drawn [id number] Arterial Blood pH 7.466 (7.350-7.450) Arterial Blood Partial Pressure CO2 39.7 mmHg (32.0-45.0) Arterial Blood Partial Pressure O2 51.4 mmHg (83.0-108.0) Arterial Blood HCO3 28.0 mmol/L (21.0-28.0) Arterial Blood Oxygen Saturation 86.2 % (94.0-98.0) Arterial Blood Base Excess 4.0 mmol/L (-2.0-3.0) Arterial Blood Oxyhemoglobin 85.5 % (94.0-98.0) Arterial Blood Carboxyhemoglobin 0.7 % (0.5-1.5) Arterial Blood Methemoglobin 0.1 % (0.0-1.5) Alirio Test Yes Blood Gas Total Hemoglobin 9.50 g/dL (12.0-16.0) Blood Gas Modality Room air FiO2 % 21.0 Blood Gas Critical Value Read Back Yes Blood Gas Notified Whom Md franco Blood Gas Notified Time [id number] Blood Gas Notified By [employer] cody jacome White Blood Count 5.1 10^3/uL (4.4-10.8) Red Blood Count 2.38 10^6/uL (4.0-5.20) Hemoglobin 7.6 g/dL (12.2-16.2) Hematocrit 22.5 % (36.0-46.0) Mean Corpuscular Volume 94.2 fL (80.0-100.0) Mean Corpuscular Hemoglobin 31.8 pg (28.0-32.0) Mean Corpuscular Hemoglobin Concent 33.7 g/dL (32.0-36.0) Red Cell Distribution Width 14.1 % (11.8-14.3) Platelet Count 207 10^3/uL (140-450) Mean Platelet Volume 8.4 fL (6.9-10.8) Neutrophils (%) (Auto) 57.7 % (37.0-80.0) Lymphocytes (%) (Auto) 21.0 % (10.0-50.0) Monocytes (%) (Auto) 10.5 % (0.0-12.0) Eosinophils (%) (Auto) 9.1 % (0.0-7.0) Basophils (%) (Auto) 1.7 % (0.0-2.0) Neutrophils # (Auto) 3.0 10 ^3/uL (1.6-8.6) Lymphocytes # (Auto) 1.1 10 ^3/uL (0.4-5.4) Monocytes # (Auto) 0.5 10 ^3/uL (0-1.3) Eosinophils # (Auto) 0.5 10 ^3/uL (0-0.8) Basophils # (Auto) 0.1 10 ^3/uL (0-0.2) Nucleated Red Blood Cells 0.0 % Sodium Level 138 mmol/L (136-145) Potassium Level 5.1 mmol/L (3.5-5.1) Chloride Level 98 mmol/L (98-107) Carbon Dioxide Level 28 mmol/L (20-31) Anion Gap 12 (5-15) Blood Urea Nitrogen 52 mg/dL (9-23) BUN/Creatinine Ratio 6.6 (10.0-20.0) Serum Glucose 83 mg/dL (74-106) Calcium Level 8.9 mg/dL (8.7-10.4) Total Bilirubin 0.2 mg/dL (0.2-1.0) Aspartate Amino Transferase (AST) 23 U/L (13-40) Alanine Aminotransferase (ALT) 30 U/L (7-40) Alkaline Phosphatase 63 U/L (46-116) Total Protein 6.0 g/dL (5.7-8.2) Albumin 3.4 g/dL (3.2-4.8) Test 11/24/24 19:44 11/24/24 06:33 11/21/24 03:44 11/20/24 18:47 Hepatitis B Surface Antigen Negative (Negative) Iron Level 56 ug/dL (50-170) Total Iron Binding Capacity 180 ug/dL (250-425) Percent Iron Saturation 31.1 % (15-50) Ferritin 1182.2 ng/mL (10-291) Prothrombin Time 10.4 sec (9.3-11.8) Prothrombin Time INR 0.98 (0.9-1.15) Activated Partial Thromboplast Time 25.9 SEC (24.5-34.5) Hemoglobin A1c 5.4 % A1C (<5.7) Direct Bilirubin < 0.1 mg/dL (<0.3) Triglycerides Level 86 mg/dL (< 150) Cholesterol Level 112 mg/dL (< 200) LDL Cholesterol 42 mg/dL (< 100) HDL Cholesterol 54 mg/dL (40-59) Lactic Acid Level 1.1 mmol/L (0.4-2.0) Thyroid Stimulating Hormone (TSH) 1.36 uIU/mL (0.55-4.78) Other Laboratory Tests 11/28/24 05:55 11/27/24 05:20 Brief Hx & Hospital Course: 49 year old female with Past medical history of Hypertension, hyperlipidemia, Diabetes mellitus, ESRD on HD, Hypothyroidism, came to the ED with Chief complaints of AV graft Infection and missed Dialysis on Sunday. Patient states that her last dialysis was on Sunday, she usaly gets dialysis on Sunday, Sunday, Sunday. She follows [facility]. Patient states that on Sunday morning there is pain and swelling of the AV fistula which is warm to touch. she also states the pain is 10/10 in intensity, burning sensation and is radiating to the surrounding area, she has chills, dizziness, generalized itching, slight headache. Patients makes minimal urine, also complains of chronic lower back pain for witch she takes [place]. Patient is admitted for further management. 11/24: resolved abscess possible, erythema resolving, no induration palpable, LUE fistula still with good thrill. bcx neg. no leukocytosis. L shoulder with left subclav pj/hd cath for ongoing HD sessions. patient remains afebrile. nephrology following. vascular dr goddard consulted. continuing iv abx. vanc/zosyn - vascular has evaluated the patient and recommend continue 3 total cycles of dialysis evaluating graft, 1 more cycle of using screening cath, to remove buttocks and thereafter, thereafter use graft outpatient. Continue IV antibiotics. 11/25: Patient wants to increase Benadryl as the nasal cannula is causing her sinusitis, we will replace nasal cannula with non-rebreather, humidify. We will try CPAP 5 cm H2O, we need 1 more day of HD cath session tomorrow, > next session on Sunday we will be through the graft AV fistula all and if tolerates that well we will remove the Pj cath and discharge back to outpatient dialysis schedule. 11/26: Dialysis by HD cath again today, next dialysis we will be by AV fistula graft, if that Sunday session goes well likely discharge on Sunday. 11/27: Patient tolerated dialysis through AV fistula graft well yesterday, no fevers or chills systemic signs. Patient remains hypoxic, we will try another HD session today, we will remove HD Pj cath, and we will assess for oxygen need tonight and likely deliver oxygen tomorrow morning prior to patient's HD appointment in clinic tomorrow. 11/28: Patient is seen at bedside today, doing well. Oxygen is not delivered with the same, patient has Mr. HD clinic appointment. Discussed with iso coordinator, we will give dialysis today, patient will be ready for discharge when dialysis session completed and home oxygen delivered. Vital signs stable, stable for discharge as per plan below. diagnosis: acute hypoxemic respiratory failure, likely due to ESRD volume overload new oxygen requirement, chronic hypoxemic respiratory failure due to above. AV graft fistula site infection ESRD on HD Hypokalemia Anemia chronic disease Diabetes , type 2, with renal failure Hypertension nebs 9 hypothyroid Dyslipidemia Vitamin-D deficiency History of gastric sleeve 2021 Noncompliance plan: - patient is to continue dialysis, nephrology plans to give antibiotics with dialysis - continue oxygen use at 2 L, taken by nasal cannula. Oxygen to be used at rest and with ambulation.. -continue other home medications -follow up with Nephrology . Continue regular HD clinic visits for scheduled dialysis - follow up with PCP to review discharge. PCP to re-evaluate for oxygen requirement and further testing and/or if pulmonology specialist referral needed. Condition at Discharge: Fair Final Diagnosis/Problems List acute hypoxemic respiratory failure, likely due to ESRD volume overload new oxygen requirement, chronic hypoxemic respiratory failure due to above. AV graft fistula site infection ESRD on HD Hypokalemia Anemia chronic disease Diabetes , type 2, with renal failure Hypertension nebs 9 hypothyroid Dyslipidemia Vitamin-D deficiency History of gastric sleeve 2021 Noncompliance Discharge Disposition: Home Discharge Instruct/Medications Scheduled Amlodipine Besylate (Amlodipine Besylate), 1 TAB PO DAILY, (Reported) Aspirin (Aspirin/Enteric), 81 MG PO DAILY Atorvastatin Calcium (Lipitor), 20 MG PO DAILY, (Reported) Atorvastatin Calcium (Atorvastatin Calcium), 1 TAB PO DAILY, (Reported) Azithromycin (Azithromycin), 1 TAB PO DAILY B-Complex W/ C & Folic Acid (Damari-Sarbjit), 1 TAB PO DAILY, (Reported) B-Complex W/ C & Folic Acid (Damari-Sarbjit Rx), 1 TAB PO DAILY, (Reported) Clonidine Hydrochloride (Clonidine Hcl), 1 TAB PO BID, (Reported) Duloxetine HCl (Duloxetine HCl), 1 CAP PO DAILY, (Reported) Ergocalciferol (Vitamin D 14539 Unit), 50,000 UNIT PO QWEEKLY, (Reported) Ferric Citrate (Auryxia), 3 TAB PO TID, (Reported) Furosemide (Furosemide), 1 TAB PO BID, (Reported) Hydralazine Hcl (Hydralazine Hcl), 1 TAB PO TID, (Reported) Levothyroxine Sodium (Levothyroxine Sodium), 1 TAB PO DAILY, (Reported) Scheduled PRN Gabapentin (Once-Daily) (Gabapentin), 300 MG PO Q6HP PRN Hydrocodone-Acetaminophen (Hydrocodone Bitartrate/AC 5-325 mg), 1 TAB PO Q6HP PRN Miscellaneous Medications Ergocalciferol (Vitamin D), PO, (Reported) Metoprolol Succinate (Metoprolol Succinate Er), (Reported) Semaglutide (Ozempic), (Reported) Sodium Zirconium Cyclosilicate (Lokelma), PO, (Reported) Discharge Statement: "Patient was advised to return to the ER or call 911 if any headaches, dizziness, shortness of breath, chest pain, abdominal pain, bleeding, fevers, or worsening of medical condition. Patient was counseled about treatment plan, medications, possible side effects, patientverbalized understanding. All questions were answered to the best of my ability. This discharge took greater then 30 minutes in planning, reviewing documentation, counseling the patient, and discussing with other team members." ASSESSMENT ASSESSMENT Assessment Date of Service: Nov 28, 2024 Billing Provider: JOSÉ MIGUEL MCKINNON MD Common Visit Codes: 53525-YOP/OBS DISCH DAY >30min JOSÉ MIGUEL MCKINNON MD Nov 28, 2024 12:21
--- NOTE | 2024-11-28 15:13 | DVHPN2 ---
Progress Note - Dictate Date Seen: Nov 28, 2024 Medical Necessity Reason Pt with a Central, PICC or Fol: Yes Subjective Patient is doing better she wants to go home vital signs Vital Sign Date Time Temp Pulse Resp B/P (MAP) Pulse Ox O2 Delivery O2 Flow Rate FiO2 11/28/24 14:38 70 11/28/24 14:00 163/64 11/28/24 12:26 98.2 18 92 98.2 11/28/24 08:00 Oxymizer 1 N/A Total Intake and Output 11/27/24 11/27/24 11/28/24 15:00 23:00 07:00 Intake Total 50 ml 1000 ml 250 ml Balance 50 ml 1000 ml 250 ml medications Current Medications Medications Dose Ordered Sig/Kasia Route Start Time Stop Time Status Last Admin Dose Admin Metoprolol Tartrate 100 mg BID PO 11/21/24 10:00 11/28/24 10:28 100 MG Nifedipine 30 mg DAILY PO 11/21/24 10:00 11/28/24 10:28 30 MG Atorvastatin Calcium 20 mg DAILY PO 11/21/24 10:00 11/28/24 10:28 20 MG Ergocalciferol 50,000 unit QWEEKLY PO 11/23/24 23:00 Acetaminophen/ Hydrocodone Bitart 1 tab Q6HP PRN PO 11/20/24 23:00 11/28/24 10:39 1 TAB Multivit/Ca Carb/ B Cmplx/FA/Prenat 1 tab DAILY PO 11/21/24 10:00 11/28/24 10:29 1 TAB Patient Own Medication 3 tab TID PO 11/21/24 06:00 11/26/24 06:14 3 TAB Diagnostic Test (Pha) 1 strip Q6HR 11/21/24 00:00 11/28/24 05:10 1 STRIP Insulin Human Regular Q6HR SC 11/21/24 00:00 11/26/24 23:19 4 UNITS Vancomycin HCl 0 ml @ 0 mls/hr UD IV 11/20/24 23:15 Piperacillin Sod/ Tazobactam Sod 50 ml @ 12.5 mls/hr Q12HR IV 11/21/24 10:00 11/28/24 11:25 12.5 MLS/HR Heparin Sodium (Porcine) 5,000 units Q12HR SC 11/21/24 10:00 11/28/24 10:32 5,000 UNITS Acetaminophen 650 mg Q4HP PRN PO 11/20/24 23:30 11/23/24 13:59 650 MG Hydralazine HCl 50 mg Q8HR PO 11/21/24 14:00 11/28/24 05:09 50 MG Hydralazine HCl 10 mg Q6HP PRN IV 11/21/24 20:45 11/26/24 18:59 10 MG Ondansetron HCl 4 mg Q4HPRN PRN IV 11/22/24 04:30 11/22/24 04:41 4 MG Dextrose 50 ml UD PRN IV 11/23/24 10:30 Lorazepam 0.5 mg Q6HP PRN IV 11/23/24 15:45 11/28/24 05:08 0.5 MG Diphenhydramine HCl 50 mg Q4HP PRN IV 11/25/24 14:45 11/28/24 05:08 50 MG objective HEENT: No evidence of JVD, no oral ulcers. Pulmonary: Diminished on auscultation bilaterally Left subclavian Pj catheter in place Cardiovascular S1-S2, no S3 or S4 Abdomen: Bowel sounds positive, soft no rebound tenderness Skin: No rash Neurological: Alert, oriented, no focal weakness Improving Left upper arm AV graft with skin erosion no active bleeding or purulent discharge laboratory and microbiology Laboratory Tests 11/28/24 05:55 11/27/24 05:20 Test 11/27/24 05:20 Range/Units Serum Glucose 83 74-106 mg/dL Assessment/Plan Assessment: 1. End-stage renal disease on hemodialysis Sunday 2. Hyperkalemia, improve with dialysis 3. Uremia, improving with dialysis Acute hypoxic respiratory failure 4. Fluid overload, improving with dialysis 5. Cellulitis of the left upper arm over the AV graft 7. Diabetes type 2 8. Hyperlipidemia Plan: Hemodialysis today Continue vancomycin and Zosyn plan is to continue vancomycin with HD Low-potassium diet Fluid restriction less than 1 L per day Continue metoprolol, nifedipine, hydralazine Remove subclavian line prior to discharge Plan discussed with the patient in detail CT chest reviewed mild increase atelectasis lower lobes versus edema. Okay to discharge home after dialysis Thank you very much Dietary Evaluation Review Recommendations by RD: Dietary education by RD Comments: 1) Add cardiac renal restriction to 60g CCHO diet 2) Encourage optimal PO intake 3) Refer to outpatient RD/CDCES for weight management 4) Follow-up with cardiology and nephrology 5) Continue to monitor I&O, labs, and skin integrity Expected Outcomes/Goals: 1) appetite and labs to improve 2) gradual wt loss 3) f/u in 3-5 days Plan discussed with: Patient ALEXIS ESPINOZA MD Nov 28, 2024 15:13
== END 2024-11-28 18:37 | disposition home or self-care (01) | DRG 314 ==
LOC: ER 17:44 → OVERFLOW 22:41 → TELE-WESTW 11-21 22:32
PROVIDERS: ADMIT Family Medicine; ATTEND Family Medicine
PROC: 05HD33Z Insertion of Infusion Device into Right Cephalic Vein, Percutaneous Approach (ICD-10-PCS; principal; 2024-11-23)
PROC: B54MZZA Ultrasonography of Right Upper Extremity Veins, Guidance (ICD-10-PCS; 2024-11-23)
PROC: 5A1D70Z Performance of Urinary Filtration, Intermittent, Less than 6 Hours Per Day (ICD-10-PCS; 2024-11-23)
PROC: 5A1D70Z Performance of Urinary Filtration, Intermittent, Less than 6 Hours Per Day (ICD-10-PCS; 2024-11-24)
PROC: 5A09357 Assistance with Respiratory Ventilation, Less than 24 Consecutive Hours, Continuous Positive Airway Pressure (ICD-10-PCS; 2024-11-26)
PROC: 5A1D70Z Performance of Urinary Filtration, Intermittent, Less than 6 Hours Per Day (ICD-10-PCS; 2024-11-26)
PROC: 5A1D70Z Performance of Urinary Filtration, Intermittent, Less than 6 Hours Per Day (ICD-10-PCS; 2024-11-27)
PROC: 5A09357 Assistance with Respiratory Ventilation, Less than 24 Consecutive Hours, Continuous Positive Airway Pressure (ICD-10-PCS; 2024-11-28)
DX: T82.7XXA Infection and inflammatory reaction due to other cardiac and vascular devices, implants and grafts, initial encounter (principal); J96.21 Acute and chronic respiratory failure with hypoxia; N18.6 End stage renal disease; I12.0 Hypertensive chronic kidney disease with stage 5 chronic kidney disease or end stage renal disease; L03.114 Cellulitis of left upper limb; E87.5 Hyperkalemia; E11.22 Type 2 diabetes mellitus with diabetic chronic kidney disease; E55.9 Vitamin D deficiency, unspecified; E03.9 Hypothyroidism, unspecified; E78.5 Hyperlipidemia, unspecified; E11.40 Type 2 diabetes mellitus with diabetic neuropathy, unspecified; Z68.38 Body mass index [BMI] 38.0-38.9, adult; D63.8 Anemia in other chronic diseases classified elsewhere; E66.01 Morbid (severe) obesity due to excess calories; E87.6 Hypokalemia; E87.70 Fluid overload, unspecified; F15.10 Other stimulant abuse, uncomplicated; Y83.2 Surgical operation with anastomosis, bypass or graft as the cause of abnormal reaction of the patient, or of later complication, without mention of misadventure at the time of the procedure; Z82.49 Family history of ischemic heart disease and other diseases of the circulatory system; Z83.3 Family history of diabetes mellitus; Z87.891 Personal history of nicotine dependence; Z91.199 Patient's noncompliance with other medical treatment and regimen due to unspecified reason; Z98.84 Bariatric surgery status; Z99.2 Dependence on renal dialysis; Z88.5 Allergy status to narcotic agent
CPT/HCPCS: 36415; 36600; 71045; 71250; 73200; 80048; 80053; 80061; 80076; 80202; 82565; 82728; 82805; 82962; 83036; 83540; 83550; 83605; 84443; 85025; 85610; 85730; 87040; 87081; 87086; 87340; 90935; 93005; 94640; 94660; 96374; 96375; G0378; J1815; J2405; J2543

== ENCOUNTER 2025-01-07 12:23 | Inpatient (IN) | payer MEDICARE, MEDICAID ==
[~2025-01-07] VITALS: Ht 172.7 cm; Wt 125.5 kg
[~2025-01-07 12:23] MED LIST changes: +AMLO1TAB23 PO; -ATOR20TA PO; +ATOR20TA50 PO; -AZIT500T66 PO; +B-CO-6 PO; +DULO1CAP4 PO; +ERGO1CAP12 PO; +FURO40TA4 PO; +HYDR100T10 PO; +LEVO150T10 PO; -METO-159 PO; +METO1TAB9; +SEMA1INJ2; +SODI10PA PO; -ZOFR4T PO
--- NOTE | 2025-01-07 12:31 | ECG ---
[facility] Test Date: 2025-01-07 Test Time: 12:23:06 Pat Name: SALENA FLORES Department: ED Room: 0272T Gender: F Shellfish Sorter: DR HOLLIS: 1975 Requested By: RUPAL SAMPSON Order Number: [id number] Reading MD: Gaurav Mills Measurements Intervals [place] Rate: 41 P: 0 ME: 0 QRS: 128 QRSD: 96 T: 45 QT: 490 QTc: 405 Interpretive Statements AV dissociation Ventricular premature complex Right axis deviation Low voltage, precordial leads Electronically Signed On 01-12-2025 10:08:40 PST by Gaurav Mills Please click the below link to view image of tracing.
--- NOTE | 2025-01-07 12:57 | ED.PDOC ---
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 EMS reports on the pt having had chest pressure last night which worsened onto this morning. The pt went to her dialysis today and was 15 minutes into the dialysis and was taken out 180cc. The dialysis center called EMS due from adrian pt's HR being in the 40's and was complaining of CP which increases w/ palpitations. The dialysis center did provide the pt O2 via NC on 2L. When EMS arrived on seen he was satting at 98% via NC on 2L. Denies any other symptoms at this time. Denies chills, fever, N/V/D. Denies any other associated symptom's, modifiers, or recent injuries or sick contact at this time. Time Seen by MD: 12:55 Primary Care Provider: MADAI Arreguin Notes: Nurses Notes, Medications, Allergies Allergies: Coded Allergies: Codeine (Unverified Allergy, Unknown, 10/03/14) Home Meds Active Scripts Hydrocodone-Acetaminophen (Hydrocodone Bitartrate/AC 5-325 mg) 1 Tab Tab, 1 TAB PO Q6HP PRN, #20 TAB Prov:PEDRO ASHER MD 10/31/24 Gabapentin (Once-Daily) (Gabapentin) 300 Mg Tab, 300 MG PO Q6HP PRN, #30 TAB Prov:PEDRO ASHER MD 10/31/24 Aspirin (ASPIRIN/ENTERIC) 81 Mg Tab, 81 MG PO DAILY, #90 TAB Prov:PRANAY DQUUE MD 01/18/23 Reported Medications Atorvastatin Calcium (ATORVASTATIN CALCIUM) 20 Mg Tab, 1 TAB PO DAILY 11/21/24 Levothyroxine Sodium (Levothyroxine Sodium) 150 Mcg Tab, 1 TAB PO DAILY 11/21/24 Hydralazine Hcl (Hydralazine Hcl) 100 Mg Tab, 1 TAB PO TID 11/21/24 Amlodipine Besylate (Amlodipine Besylate) 10 Mg Tab, 1 TAB PO DAILY 11/21/24 Sodium Zirconium Cyclosilicate (Lokelma) 10 Gm Quintin, PO 11/21/24 B-Complex W/ C & Folic Acid (Damari-Sarbjit Rx) Tab, 1 TAB PO DAILY 11/21/24 Duloxetine HCl (Duloxetine HCl) 20 Mg Cap, 1 CAP PO DAILY 11/21/24 Furosemide (Furosemide) 40 Mg Tab, 1 TAB PO BID 11/21/24 Metoprolol Succinate (Metoprolol Succinate Er) 100 Mg Tab 11/21/24 Ergocalciferol (Vitamin D) 50,000 Unit Cap, PO 11/21/24 Semaglutide (Ozempic) 8 Mg/3 Ml Inj 11/21/24 Ergocalciferol (VITAMIN D 01527 UNIT) 50,000 [place] Cp, 02692 UNIT PO QWEEKLY, CAP 03/21/24 B-Complex W/ C & Folic Acid (Damari-Sarbjit) Tab, 1 TAB PO DAILY, TAB 03/21/24 Clonidine Hydrochloride (Clonidine Hcl) 0.1 Mg Tab, 1 TAB PO BID, #30 TAB 2 Refills 12/12/22 Ferric Citrate (Auryxia) 210 Mg Tab, 3 TAB PO TID 12/12/22 Information Source: Patient, Emergency Med Personnel Mode of Arrival: EMS Severity: Moderate Timing: Hours Duration: Since onset, Hours Prehospital treatment: None Past Medical History PAST MEDICAL HISTORY: DM, ESRD (M,W,F), High Lipids, HTN, Thyroid Surgical History: BTL, Cholecystectomy, , Tubal Ligation Surgical History (Other): DNC, Fistula in left arm SMOKING PIPE MAKER History: No Pertinent SMOKING PIPE MAKER History Family History Family History: Reviewed,noncontributory to illness, Family hx of DM, Family hx of heart leticia, Family hx of HTN Social History Smoker: Quit Greater Than 1 Year Alcohol: Sober Drugs: Marijuana (last use 3 months ago) Lives In: Home Constitutional: denies: chills, diaphoresis, fatigue, fever, malaise, sweats, weakness, others EENTM: denies: blurred vision, double vision, ear bleeding, ear discharge, ear drainage, ear pain, ear ringing, eye pain, eye redness, hearing loss, mouth pain, mouth swelling, nasal discharge, nose bleeding, nose congestion, nose pain, photophobia, tearing, throat pain, throat swelling, voice changes, others Respiratory: denies: cough, hemoptysis, orthopnea, SOB at rest, shortness of breath, SOB with excertion, stridor, wheezing, others Cardiovascular: reports: chest pain, palpitations; denies: dizzy spells, diaphoresis, Dyspnea on exertion, edema, irregular heart beat, left arm pain, lightheadedness, PND, syncope, others Gastrointestinal: denies: abdomen distended, abdominal pain, blood streaked bowels, constipated, diarrhea, dysphagia, difficulty swallowing, hematemesis, melena, nausea, poor appetite, poor fluid intake, rectal bleeding, rectal pain, vomiting, others Genitourinary: denies: abnormal vagina bleeding, burning, dyspareunia, dysuria, flank pain, frequency, hematuria, incontinence, pain, , vagina discharge, urgency, others Neurological: denies: dizziness, fainting, headache, left sided numbness, left sided weakness, numbness, paresthesia, pre-existing deficit, right sided numbness, right sided weakness, seizure, speech problems, tingling, tremors, weakness, others Musculoskeletal: denies: back pain, gout, joint pain, joint swelling, muscle pain, muscle stiffness, neck pain, others Integumetry: denies: bruises, change in color, change in hair/nails, dryness, laceration, lesions, lumps, rash, wounds, others Allergic/Immunocompromised: denies: Difficulty Healing, Frequent Infections, Hives, Itching, others Hematologic/Lymphatic: denies: anemia, blood clots, easy bleeding, easy bruising, swollen glands, others Endocrine: denies: excessive hunger, excessive sweating, excessive thirst, excessive urination, flushing, intolerance to cold, intolerance to heat, unexplained weight gain, unexplained weight loss, others Psychiatric: denies: anxiety, bipolar disorder, depression, hopeless, panic disorder, schizophrenia, sleepless, suicidal, others All Other Systems: Reviewed and Negative Physical Exam General Appearance: Moderate Distress, Obese HEENT: Normal ENT Inspection, Pharynx Normal, TMs Normal Neck: Full Range of Motion, Non-Tender, Normal, Normal Inspection Respiratory: Chest Non-Tender, Lungs Clear, No Accessory Muscle Use, No Respiratory Distress, Normal Breath Sounds Cardiovascular: Bradycardia, No Edema, No JVD, No Murmur, No Gallop Breast Exam: Deferred Gastrointestinal: No Organomegaly, Non Tender, No Pulsatile Mass, Normal Bowel Sounds, Soft Genitalia: Deferred Pelvic: Deferred Rectal: Deferred Extremities: No calf tenderness, Normal capillary refill, No pedal edema, Other (Fistula to the left upper extremity) Musculoskeletal : Apperance: Normal Neurologic: Alert, software specialist II-XII nml as Tested, Motor Weakness, No Sensory Deficits Cerebellar Function: Unable to Test Reflexes: Normal Skin: Dry, Normal Color, Warm Lymphatic: No Adenopathy Was a procedure done? Was a procedure done?: No EKG EKG : Pulse Rate (adult): 47 Neche: Normal Cardiac Rhythm: SB ST: Nonsp (AV dissociation) Differential Dx Considerations may include: AV dissociation, complete heart block, generalized weakness, electrolyte imbalance, hyperkalemia X-Ray, Labs, Meds, VS Vital Signs Date Time Temp Pulse Resp B/P (MAP) Pulse Ox O2 Delivery O2 Flow Rate FiO2 01/07/25 13:19 70 01/07/25 12:53 98.5 38 20 170/124 97 98.5 01/07/25 12:23 41 Lab Test 01/07/25 13:49 Range/Units White Blood Count 7.1 4.4-10.8 10^3/uL Red Blood Count 3.43 L 4.0-5.20 10^6/uL Hemoglobin 10.7 L 12.2-16.2 g/dL Hematocrit 32.2 L 36.0-46.0 % Mean Corpuscular Volume 93.9 80.0-100.0 fL Mean Corpuscular Hemoglobin 31.1 28.0-32.0 pg Mean Corpuscular Hemoglobin Concent 33.1 32.0-36.0 g/dL Red Cell Distribution Width 15.3 H 11.8-14.3 % Platelet Count 249 140-450 10^3/uL Mean Platelet Volume 8.8 6.9-10.8 fL Neutrophils (%) (Auto) 60.0 37.0-80.0 % Lymphocytes (%) (Auto) 27.6 10.0-50.0 % Monocytes (%) (Auto) 6.6 0.0-12.0 % Eosinophils (%) (Auto) 4.0 0.0-7.0 % Basophils (%) (Auto) 1.8 0.0-2.0 % Neutrophils # (Auto) 4.3 1.6-8.6 10 ^3/uL Lymphocytes # (Auto) 2.0 0.4-5.4 10 ^3/uL Monocytes # (Auto) 0.5 0-1.3 10 ^3/uL Eosinophils # (Auto) 0.3 0-0.8 10 ^3/uL Basophils # (Auto) 0.1 0-0.2 10 ^3/uL Nucleated Red Blood Cells 0.1 % Sodium Level 136 136-145 mmol/L Potassium Level 6.6 *H 3.5-5.1 mmol/L Chloride Level 98 98-107 mmol/L Carbon Dioxide Level 24 20-31 mmol/L Anion Gap 14 5-15 Blood Urea Nitrogen 82 *H 9-23 mg/dL Creatinine 13.17 *H 0.550-1.02 mg/dL Glomerular Filtration Rate Calc 3 >90 mL/min BUN/Creatinine Ratio 6.2 L 10.0-20.0 Serum Glucose 123 H 74-106 mg/dL Calcium Level 9.7 8.7-10.4 mg/dL Troponin I High Sensitivity 10 </=34 ng/L B-Type Natriuretic Peptide Pending Current Medications Medications (Trade) Dose Ordered Sig/Kasia Route Start Time Stop Time Status Last Admin Glucagon (Glucagen) 2 mg ONCE ONCE IV 01/07/25 13:15 01/07/25 13:16 DC 01/07/25 13:20 The patient's potassium came back at 6.6 The BUN is 82 and the creatinine is 13.17 The CBC is within normal limits. At this time, we did give glucagon initially at 2 mg IV push. The patient remains bradycardic Because of the potassium level we did give the patient's sodium bicarbonate, dextrose, insulin and calcium chloride The patient will be admitted at this time We did send the EKG to Dr. Mills who is the claims administrator on-call. JAIRO Smith came down and evaluated the patient at bedside. We are treating the patient's hyperkalemia and at this time the patient is not requiring a pacemaker The assumption is that the patient will go back to normal sinus rhythm after the hyperkalemia is corrected. Images Reviewed?: Images reviewed and evaluated by me Time of 1ST Reevaluation: 13:20 Reevaluation 1ST: Unchanged Patient Education/Counseling: Diagnosis, Treatment, Prognosis Family Education/Counseling: No Family Present SEPSIS Sepsis Screen Physician Orders Electrocardigram (01/07/25 13:29) Electrocardigram (01/07/25 15:29) Chest Portable (01/07/25 12:30) B-Type Natriuretic Peptide (01/07/25 12:30) Heplock Iv (01/07/25 12:30) Mainframe Consultant (01/07/25 12:30) Blood Pressure (01/07/25 12:30) Pulse Oximetry (01/07/25 12:30) Troponin-I Hs (01/07/25 13:30) Troponin-I Hs (01/07/25 15:30) Sodium Bicarb 50meq/50ml Vial (01/07/25 14:30) Dextrose 50% Syringe (01/07/25 14:30) Calcium Gluc 1,000mg/50ml-Ns (01/07/25 14:30) Insulin R (Human) (Insulin R) (01/07/25 14:30) Vital Signs Date Time Temp Pulse Resp B/P (MAP) Pulse Ox O2 Delivery O2 Flow Rate FiO2 01/07/25 13:19 70 01/07/25 12:53 98.5 38 20 170/124 97 98.5 01/07/25 12:23 41 Laboratory Tests Test 01/07/25 13:49 White Blood Count 7.1 10^3/uL (4.4-10.8) Medications Medications Dose Ordered Sig/Kasia Route Start Time Stop Time Status Last Admin Dose Admin Glucagon 2 mg ONCE ONCE IV 01/07/25 13:15 01/07/25 13:16 DC 01/07/25 13:20 Departure 1 Departure Time of Disposition: 14:29 Impression: Primary Impression: Hyperkalemia Additional Impressions: Symptomatic bradycardia Acute renal failure Qualified Codes: N17.1 - Acute kidney failure with acute cortical necrosis ESRD needing dialysis Disposition: ADMITTED INPATIENT Admit to: [facility] Condition: Fair Critical Care Note Critical Care Time?: Yes (55 min-critical care time only) Stability Stability form required: Yes Unstable for transfer: ICU, CCU, PCU, [facility] (Intensive VS monitoring), ED Physician Assesment (Clinical assesment) Heart Score Heart Score: Heart Score Response (Comments) Value History Moderate Suspicious 1 EKG Normal 0 Age <45 0 Risk Factors >3 or Hx ASHD 2 Troponin Normal limit 0 Total 3 I personally scribed for RUPAL SAMPSON MD ([email or web address]) on 01/07/25 at 12:57. Electronically submitted by Jose Lester ([email or web address]). RUPAL SAMPSON MD Jan 07, 2025 12:57
[2025-01-07 13:15] VITALS: PULSE 47; RESP 15; O2SAT 95
[2025-01-07] MEDS: GLUCAGON EMERG KIT 1mg/1ml IV ONE (13:20)
--- NOTE | 2025-01-07 13:24 | DVHINCON2 ---
Date Seen: Jan 07, 2025 Referring Physician MD Natividad Reason for Consultation Symptomatic bradycardia History of Present Illness This is a pleasant 49-year-old female who presented to the emergency room via EMS with a chief complaint of chest pain since this morning. The patient reports she awoke with substernal chest pressure associated with dizziness, visual disturbances, and shortness of breath. The patient who is ESRD on HD admits to missing a hemodialysis treatment on 01/05/2025, subsequently she attended today and within 15 minutes into treatment when she was found to be bradycardic with medical staff calling 911. Upon arrival to the emergency room she underwent multiple 12 lead electrocardiograms revealing profound bradycardia with associated heightened T-waves. Home medications includes metoprolol tartrate 100 mg p.o. b.i.d. and clonidine HCL 0.2 mg p.o. every evening. Significant medical history includes hypertension, dyslipidemia, end-stage renal disease on hemodialysis, thyroid disease, [id number] diabetes mellitus, and morbid obesity. Past Medical History Past medical history reviewed. No other significant than mentioned above. Past Surgical History Dialysis access Bilateral tubal ligation Cholecystectomy C-sections x3 D&C Family History: FH: HTN (hypertension) G8 MOTHER, G8 FATHER FH: diabetes mellitus G8 MOTHER, G8 FATHER FH: heart failure G8 MOTHER, Family History Family history reviewed. Social History Denies the use of illicit drugs, alcohol, or tobacco use. Allergies: Coded Allergies: Codeine (Unverified Allergy, Unknown, 10/03/14) Home Meds Active Scripts Hydrocodone-Acetaminophen (Hydrocodone Bitartrate/AC 5-325 mg) 1 Tab Tab, 1 TAB PO Q6HP PRN, #20 TAB Prov:PEDRO ASHER MD 10/31/24 Gabapentin (Once-Daily) (Gabapentin) 300 Mg Tab, 300 MG PO Q6HP PRN, #30 TAB Prov:PEDRO ASHER MD 10/31/24 Aspirin (ASPIRIN/ENTERIC) 81 Mg Tab, 81 MG PO DAILY, #90 TAB Prov:PRANAY DUQUE MD 01/18/23 Reported Medications Atorvastatin Calcium (ATORVASTATIN CALCIUM) 20 Mg Tab, 1 TAB PO DAILY 11/21/24 Levothyroxine Sodium (Levothyroxine Sodium) 150 Mcg Tab, 1 TAB PO DAILY 11/21/24 Hydralazine Hcl (Hydralazine Hcl) 100 Mg Tab, 1 TAB PO TID 11/21/24 Amlodipine Besylate (Amlodipine Besylate) 10 Mg Tab, 1 TAB PO DAILY 11/21/24 Sodium Zirconium Cyclosilicate (Lokelma) 10 Gm Quintin, PO 11/21/24 B-Complex W/ C & Folic Acid (Damari-Sarbjit Rx) Tab, 1 TAB PO DAILY 11/21/24 Duloxetine HCl (Duloxetine HCl) 20 Mg Cap, 1 CAP PO DAILY 11/21/24 Furosemide (Furosemide) 40 Mg Tab, 1 TAB PO BID 11/21/24 Metoprolol Succinate (Metoprolol Succinate Er) 100 Mg Tab 11/21/24 Ergocalciferol (Vitamin D) 50,000 Unit Cap, PO 11/21/24 Semaglutide (Ozempic) 8 Mg/3 Ml Inj 11/21/24 Ergocalciferol (VITAMIN D 32750 UNIT) 50,000 [place] Cp, 95120 UNIT PO QWEEKLY, CAP 03/21/24 B-Complex W/ C & Folic Acid (Damari-Sarbjit) Tab, 1 TAB PO DAILY, TAB 03/21/24 Clonidine Hydrochloride (Clonidine Hcl) 0.1 Mg Tab, 1 TAB PO BID, #30 TAB 2 Refills 12/12/22 Ferric Citrate (Auryxia) 210 Mg Tab, 3 TAB PO TID 12/12/22 Home Meds Home medications reviewed. Review of Systems Constitutional: No symptom reported Ears, Nose, & Throat: No symptom reported Eyes: No symptom reported Neurological: Dizziness, visual disturbances Pulmonary/Respiratory: SOB Cardiovascular: Chest pain Gastrointestinal: No symptom reported Genitourinary: No symptom reported Musculoskeletal: No symptom reported Skin: No symptom reported Psychiatric: No symptom reported Endocrine: No symptom reported Hemotologic/Lymphatic: No symptom reported Vital Signs Vital Signs Date Time Temp Pulse Resp B/P (MAP) Pulse Ox O2 Delivery O2 Flow Rate FiO2 01/07/25 12:53 98.5 38 20 170/124 97 98.5 Physical Exam General Appearance: Cooperative. Well developed. Morbidly obese. In no acute distress Head Exam: Normal inspection Neck Exam: Normal inspection. Non-tender. Normal alignment Pulmonary/Respiratory: Chest non-tender. Diminished bilateral breath sounds Cardiovascular/Chest: AV dissociation, junctional tachycardia, accident T- waves. No murmurs. No JVD. Peripheral Pulses: 2+ Radial (R). 2+ Radial (L). 2+ Pedal (R). 2+ Pedal (L) Abdominal Exam: Normal bowel sounds. Soft. Ankle Exam: Negative ankle edema Lower extremities: Negative lower extremity edema Neuro/Mental Status: A&O x4. Coherent Thoughts/Psych: Normal thought pattern. Appropriate mood and affect. Good judgement and insight Appearance: In no acute distress Skin Exam: Normal inspection. Normal color. Warm. Dry Assessment Profound bradycardia with AV dissociation Rule out acute hyperkalemia/beta-jean paul induced bradycardia ESRD on HD with missed treatments Hypertension Dyslipidemia Thyroid disease Anemia in chronic disease Obesity Plan/Recommendation (Dr. Mills) * Twelve lead electrocardiograms x2 revealed atrioventricular dissociation with heightened p-waves * Transthoracic echocardiogram from 03/20/2024 revealed LVEF 60% with moderate concentric LVH. Grade 2 diastolic dysfunction. Moderately dilated left atrial chamber size Plan: Highly suspected for hyperkalemia induced bradycardia in association with metoprolol/clonidine use. Blood work pending at this time. Continue with glucagon IV and hyperkalemia treatment as deemed necessary. Avoid AV miriam blocking agents. No invasive cardiac work-up indicated at this time. Consider transcutaneous pacing with worsening bradycardia and notify accordingly. We will continue to monitor closely. Thank you for allowing us to participate in this patient's care. Please call if you have any questions or concerns. Critical care time: 45 minutes. This medical document was created using an electronic medical record system with voice recognition software and computerized dictation system. Although this document has been carefully reviewed, there might still be some phonetic and typographical errors. Occasional wrong-word or ``sound-alike substitutions may have occurred due to the inherent limitations of voice recognition software. These areas are purely typographical due to imperfections of the software programs and do not reflect any compromise in the patient's medical care. Please read the chart carefully and recognize, using context, where these substitutions have occurred. Plan discussed with: Patient, Other NYHA Physical activity limitations: NA Date of Service: Jan 07, 2025 Billing Provider: BABATUNDE REEVES Cardiology Common Codes: 63841-[id number] CARE 30-74 MIN BABATUNDE REEVES Jan 07, 2025 13:24
--- NOTE | 2025-01-07 13:25 | DVH ---
EXAM: XY CHEST PORTABLE Indication: cp Technique: Single frontal view of the chest was obtained Comparison: CT CHEST WITHOUT CONTRAST on DOS: 11/27/24, XY CHEST XRAY 1 VIEW on DOS: 11/22/24, XY CHEST XRAY 1 VIEW on DOS: 11/20/24, US ECHO 2D MODE CARDIAC DOP on DOS: 03/19/24, XY CHEST XRAY 1 VIEW on DOS: 03/19/24 FINDINGS: Lines and Tubes: None Lungs: No focal consolidation. Pleura: Small left pleural effusion. No pneumothorax. Cardiomediastinal contours: Cardiomegaly. Bones: No acute osseous abnormality. IMPRESSION: Cardiomegaly with small pleural effusion.
[2025-01-07 14:05] LABS: Hematocrit 32.2 % (36.0-46.0); Hemoglobin 10.7 g/dL (12.2-16.2); Mean Corpuscular Hemoglobin 31.1 pg (28.0-32.0); Mean Corpuscular Volume 93.9 fL (80.0-100.0); Nucleated Red Blood Cells % 0.1 %
[2025-01-07 14:10] LABS: Chloride 98 mmol/L (98-107); Sodium 136 mmol/L (136-145)
[2025-01-07 14:11] LABS: Anion Gap 14 (5-15); Calcium 9.7 mg/dL (8.7-10.4); Carbon Dioxide 24 mmol/L (20-31)
[2025-01-07 14:16] LABS: BUN/Creatinine Ratio 6.2 (10.0-20.0)
[2025-01-07 14:18] LABS: Blood Urea Nitrogen 82 mg/dL (9-23); Glucose 123 mg/dL (74-106); Potassium 6.6 mmol/L (3.5-5.1)
[2025-01-07] MEDS: CALCIUM GLUC 1,000mg/50ml-NS 50 ML IV ONE ×2 (15:41→22:00)
[2025-01-07] MEDS: DEXTROSE (50%) 50ML SYRG IV ONE ×2 (16:10→22:00)
[2025-01-07] MEDS: InsuLIN REG 1unit/0.01ml Soln (100units/ml) IV ONE ×2 (16:31→22:00)
[2025-01-07] MEDS: SODIUM BICARB 8.4% 50Meq/50ml SYR Vial IV ONE ×2 (16:38→22:00)
--- NOTE | 2025-01-07 17:48 | ECG ---
[facility] Test Date: 2025-01-07 Test Time: 15:23:38 Pat Name: SALENA FLORES Department: [facility] ED Patient ID: [id number] Room: 0272T Gender: F Pot Maker: ANGEL : 1975 Requested By: RUPAL SAMPSON Order Number: [id number] Reading MD: Gaurav Mills Measurements Intervals [place] Rate: 67 P: 90 NH: 160 QRS: 139 QRSD: 93 T: 63 QT: 466 QTc: 492 Interpretive Statements Sinus rhythm Multiple premature complexes, vent & supraven Left posterior fascicular block Low voltage, precordial leads Abnormal R-wave progression, late transition Baseline wander in lead(s) V4,V6 Electronically Signed On 01-12-2025 10:51:01 PST by Gaurav Mills Please click the below link to view image of tracing.
[2025-01-07 19:35] VITALS: PULSE 72; RESP 12; O2SAT 95
[2025-01-07] MEDS ORDERED: ACETAMINOPHEN 325 MG TAB PO PRN (19:45)
[2025-01-07] MEDS ORDERED: ONDANSETRON HCL 4 MG/2 ML VIAL IV PRN (19:45)
[2025-01-07] MEDS ORDERED: DEXTROSE (50%) 50ML SYRG IV PRN (19:45)
[2025-01-07] MEDS ORDERED: NITROGLYCERIN 0.4 MG SL TAB SL PRN (20:00)
[2025-01-07] MEDS ORDERED: MORPHINE SULFATE INJ 2 MG/ml SYRG IV PRN (20:00)
[2025-01-07] MEDS: FUROSEMIDE 20 MG/2 ML VIAL IV ONE (22:00)
[2025-01-07] MEDS: ACCU-CHEK COMFORT CURVE STRIP VI SCH (22:00)
[2025-01-07] MEDS: ATORVASTATIN 20 MG TAB PO SCH (22:00)
[2025-01-07] MEDS: SODIUM ZIRCONIUM CYCL 10 GM PAK PO ONE (22:00)
[2025-01-07] MEDS: InsuLIN REG 1unit/0.01ml Soln (100units/ml) SC SCH (22:00)
--- NOTE | 2025-01-07 22:02 | DVHHP2 ---
History of Present Illness Reason for Visit: Chest pain History of Present Illness 49-year-old female presents for evaluation of chest pain. Patient developed chest pain today in the morning then went to have her dialysis and during the treatment it was noted her heart rate dropping to the 40s therefore treatment was canceled and patient transferred via EMS. Currently she denies chest pain. Her potassium was noted to be elevated on arrival. Past Medical History End-stage renal disease, dyslipidemia, hypertension, thyroid, diabetes mellitus Past Surgical History D&C, tubal ligation, cholecystectomy, , av fistula Family History Diabetes mellitus, heart disease Smoke: Quit ALCOHOL: none Drugs: Marijuana Lives: with Family Review of Systems Review of Systems Review of systems are currently negative otherwise addressed in HPI. Allergies: Coded Allergies: Codeine (Unverified Allergy, Unknown, 10/03/14) Medications Current Medications Medications Dose Ordered Sig/Kasia Route Start Time Stop Time Status Last Admin Dose Admin Amlodipine Besylate 10 mg DAILY PO 01/08/25 10:00 Aspirin 81 mg DAILY PO 01/08/25 10:00 Atorvastatin Calcium 20 mg HS PO 01/07/25 22:00 Clonidine HCl 0.1 mg BID PO 01/07/25 22:00 Furosemide 40 mg BIDD PO 01/08/25 06:00 Levothyroxine Sodium 150 mcg QAM@0600 PO 01/08/25 06:00 Hydralazine HCl 50 mg Q8HR PO 01/07/25 22:00 Diagnostic Test (Pha) 1 strip ACHS 01/07/25 22:00 Insulin Human Regular ACHS SC 01/07/25 22:00 Dextrose 50 ml UD PRN IV 01/07/25 19:45 Ondansetron HCl 4 mg Q4HP PRN IV 01/07/25 19:45 Acetaminophen 650 mg Q6HP PRN PO 01/07/25 19:45 Nitroglycerin 0.4 mg Q5MINP PRN SL 01/07/25 20:00 Morphine Sulfate 2 mg Q30M PRN IV 01/07/25 20:00 Exam Vital Signs Vital Signs Date Time Temp Pulse Resp B/P (MAP) Pulse Ox O2 Delivery O2 Flow Rate FiO2 01/07/25 19:35 72 12 95 Nasal Cannula* 2 28 01/07/25 19:35 97.8 155/76 (102) 97.8 Exam Gen: 49-year-old female in mild distress. Skin: Warm, dry, normal color and texture, no rash. HEENT: Normocephalic atraumatic, mucous membranes moist and pink. Neck: Cervical and supraclavicular nodes normal without enlargement, trachea is midline, thyroid gland is normal without masses. Pulmonary: Clear to auscultation and percussion bilaterally. Cardiac: Regular rate and rhythm. No murmur Abdomen: Soft, nontender, nondistended, bowel sounds present all 4 quadrants, no guarding, no rigidity, no organomegaly. Extremities: No cyanosis, clubbing, no edema Neuro: Cranial nerves II through XII grossly intact, normal affect and speech, no focal motor deficits. Labs/Xrays ORDERING PHYSICIAN: RUPAL SAMPSON MD PROCEDURE(s): CXRP - CHEST PORTABLE REASON: cp ORDER NUMBER(s): [id number], ACCESSION NUMBER(s): [id number] EXAM: XY CHEST PORTABLE Indication: cp Technique: Single frontal view of the chest was obtained Comparison: CT CHEST WITHOUT CONTRAST on DOS: 11/27/24, XY CHEST XRAY 1 VIEW on DOS: 11/22/24, XY CHEST XRAY 1 VIEW on DOS: 11/20/24, US ECHO 2D MODE CARDIAC DOP on DOS: 03/19/24, XY CHEST XRAY 1 VIEW on DOS: 03/19/24 FINDINGS: Lines and Tubes: None Lungs: No focal consolidation. Pleura: Small left pleural effusion. No pneumothorax. Cardiomediastinal contours: Cardiomegaly. Bones: No acute osseous abnormality. IMPRESSION: Cardiomegaly with small pleural effusion. Labs Test 01/07/25 20:02 01/07/25 17:28 01/07/25 13:49 Range/Units Potassium Level 6.1 *H 3.5-5.1 mmol/L Troponin I High Sensitivity 11 </=34 ng/L White Blood Count 7.1 4.4-10.8 10^3/uL Red Blood Count 3.43 L 4.0-5.20 10^6/uL Hemoglobin 10.7 L 12.2-16.2 g/dL Hematocrit 32.2 L 36.0-46.0 % Mean Corpuscular Volume 93.9 80.0-100.0 fL Mean Corpuscular Hemoglobin 31.1 28.0-32.0 pg Mean Corpuscular Hemoglobin Concent 33.1 32.0-36.0 g/dL Red Cell Distribution Width 15.3 H 11.8-14.3 % Platelet Count 249 140-450 10^3/uL Mean Platelet Volume 8.8 6.9-10.8 fL Neutrophils (%) (Auto) 60.0 37.0-80.0 % Lymphocytes (%) (Auto) 27.6 10.0-50.0 % Monocytes (%) (Auto) 6.6 0.0-12.0 % Eosinophils (%) (Auto) 4.0 0.0-7.0 % Basophils (%) (Auto) 1.8 0.0-2.0 % Neutrophils # (Auto) 4.3 1.6-8.6 10 ^3/uL Lymphocytes # (Auto) 2.0 0.4-5.4 10 ^3/uL Monocytes # (Auto) 0.5 0-1.3 10 ^3/uL Eosinophils # (Auto) 0.3 0-0.8 10 ^3/uL Basophils # (Auto) 0.1 0-0.2 10 ^3/uL Nucleated Red Blood Cells 0.1 % Sodium Level 136 136-145 mmol/L Chloride Level 98 98-107 mmol/L Carbon Dioxide Level 24 20-31 mmol/L Anion Gap 14 5-15 Blood Urea Nitrogen 82 *H 9-23 mg/dL Creatinine 13.17 *H 0.550-1.02 mg/dL Glomerular Filtration Rate Calc 3 >90 mL/min BUN/Creatinine Ratio 6.2 L 10.0-20.0 Serum Glucose 123 H 74-106 mg/dL Calcium Level 9.7 8.7-10.4 mg/dL B-Type Natriuretic Peptide 443.31 0-100 pg/mL SEPSIS Sepsis Screen Date sepsis recognized/suspect: Jan 07, 2025 Time Sepsis recognized/suspect: 1951 Recent Procedure: No On Antibiotic Therapy: No Respiratory Rate >20: No Heart Rate >90: No Temp<36 C (96.8 F) or >38.3 C: No SBP <90 or MAP <65 mmHG: No New Acute Mental Status Change: No Is the patient on CPAP, BIPAP,: No Physician Orders *Dr. Lashell Barger -Umberto Pacheco (01/07/25 16:03) Amlodipine Tablet (Norvasc Tablet) (01/08/25 10:00) Aspirin Tablet (01/08/25 10:00) Atorvastatin (Lipitor) (01/07/25 22:00) Clonidine Hcl Tablet (Catapres Tablet) (01/07/25 22:00) Furosemide Tablet (Lasix Tablet) (01/08/25 06:00) Levothyroxine Tablet (Synthroid Tablet) (01/08/25 06:00) Hydralazine Hcl Tablet (Apresoline Table (01/07/25 22:00) Consistent Carb(Ccho)Diabetes (01/08/25 Breakfast) Glucose Blood (Accu-Chek Comfort Curve T (01/07/25 22:00) Insulin R (Human) (Insulin R) (01/07/25 22:00) Dextrose 50% Syringe (01/07/25 19:45) Ondansetron Hcl (Zofran) (01/07/25 19:45) Complete Blood Count (01/08/25 04:00) Comprehensive Metabolic Panel (01/08/25 04:00) Condition: Fair (01/07/25 19:44) Acetaminophen Tablet (Tylenol Tablet) (01/07/25 19:45) Bedrest With Bathroom Privileg (01/07/25 19:44) Admit (01/07/25 19:59) Nitroglycerin Sublingual (Ntrostat Subli (01/07/25 20:00) Morphine Sulfate Injection (01/07/25 20:00) Stat Ekg For Chest Pain (01/07/25 19:59) Notify Md Of Changes From Base (01/07/25 19:59) 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 (01/07/25 19:59) Emergency Dysrhythmia Protocol (01/07/25 19:59) Rhythm Strips Once Every Shift (01/07/25 19:59) Oxygen By Nasal Cannula (01/07/25 19:59) Hydralazine Injection (Apresoline Inject (01/07/25 22:00) Dextrose 50% Syringe (01/07/25 22:00) Insulin R (Human) (Insulin R) (01/07/25 22:00) Calcium Ivpb (01/07/25 22:00) Sodium Bicarb 50meq/50ml Vial (01/07/25 22:00) Sodium Zirconium Cyclosilicate (Lokelma) (01/07/25 22:00) Furosemide Injection (Lasix Injection) (01/07/25 22:00) Vital Signs Date Time Temp Pulse Resp B/P (MAP) Pulse Ox O2 Delivery O2 Flow Rate FiO2 01/07/25 19:35 72 12 95 Nasal Cannula* 2 28 01/07/25 19:35 97.8 72 12 155/76 (102) 95 97.8 01/07/25 17:30 98.6 67 11 143/57 (85) 98 98.6 01/07/25 15:30 38 11 122/46 (71) 100 01/07/25 15:23 67 01/07/25 14:30 47 Laboratory Tests Test 01/07/25 13:49 White Blood Count 7.1 10^3/uL (4.4-10.8) Medications Medications Dose Ordered Sig/Kasia Route Start Time Stop Time Status Last Admin Dose Admin Calcium Gluconate/ Sodium Chloride 50 ml @ 100 mls/hr ONCE ONCE IV 01/07/25 14:30 01/07/25 14:59 DC 01/07/25 15:41 100 MLS/HR Dextrose 50 ml ONCE ONCE IV 01/07/25 14:30 01/07/25 14:31 DC 01/07/25 16:10 50 ML Glucagon 2 mg ONCE ONCE IV 01/07/25 13:15 01/07/25 13:16 DC 01/07/25 13:20 2 MG Insulin Human Regular 5 units ONCE ONCE IV 01/07/25 14:30 01/07/25 14:31 DC 01/07/25 16:31 5 UNITS Sodium Bicarbonate 50 ml ONCE ONCE IV 01/07/25 14:30 01/07/25 14:31 DC 01/07/25 16:38 50 ML Assessment/Plan Assessment/Plan Assessment Symptomatic bradycardia Hypokalemia End-stage renal disease, dialysis dependent Diabetes mellitus Hypertension Plan Admit the patient to telemetry to the hospitalist Cardiology consultation Nephrology consult Resume home medications Continue treatment per orders. Plan discussed with: Patient My Orders Orders - NO CAPELLAN Procedure Category Date Status Time Amlodipine Tablet PHA 01/08/25 In Process (Norvasc Tablet) 10:00 Aspirin Tablet PHA 01/08/25 In Process 10:00 Atorvastatin (Lipitor) PHA 01/07/25 In Process 22:00 Clonidine Hcl Tablet PHA 01/07/25 In Process (Catapres Tablet) 22:00 Furosemide Tablet PHA 01/08/25 In Process (Lasix Tablet) 06:00 Levothyroxine Tablet PHA 01/08/25 In Process (Synthroid Tablet) 06:00 Hydralazine Hcl PHA 01/07/25 In Process Tablet (Apresoline 22:00 Consistent DIET 01/08/25 Transmitted Carb(Ccho)Diabetes Breakfast Glucose Blood PHA 01/07/25 In Process (Accu-Chek Comfort 22:00 Insulin R (Human) PHA 01/07/25 In Process (Insulin R) 22:00 Dextrose 50% Syringe PHA 01/07/25 In Process 19:45 Ondansetron Hcl PHA 01/07/25 In Process (Zofran) 19:45 Complete Blood Count LAB 01/08/25 Verified 04:00 Comprehensive LAB 01/08/25 Verified Metabolic Panel 04:00 Condition: Fair JAKI 01/07/25 In Process 19:44 Acetaminophen Tablet PHA 01/07/25 In Process (Tylenol Tablet) 19:45 Bedrest With Bathroom JAKI 01/07/25 In Process Privileg 19:44 Admit ADMIT 01/07/25 Transmitted 19:59 Nitroglycerin [facility] 01/07/25 In Process Sublingual (Ntrostat 20:00 Morphine Sulfate PHA 01/07/25 In Process Injection 20:00 Stat Ekg For Chest JAKI 01/07/25 In Process Pain 19:59 Notify Of Changes [facility] 01/07/25 In Process From Base 19:59 Wood And Hardware Outfitter For [facility] 01/07/25 In Process 24 Hours 19:59 Emergency Dysrhythmia [facility] 01/07/25 In Process Protocol 19:59 Rhythm Strips Once [facility] 01/07/25 In Process Every Shift 19:59 Oxygen By Nasal RT 01/07/25 Transmitted Cannula 19:59 Hydralazine Injection [facility] 01/07/25 Verified (Apresoline Inject 22:00 Dextrose 50% Syringe PHA 01/07/25 Verified 22:00 Insulin R (Human) PHA 01/07/25 Verified (Insulin R) 22:00 Calcium Ivpb PHA 01/07/25 Verified 22:00 Sodium Bicarb PHA 01/07/25 Verified 50meq/50ml Vial 22:00 Sodium Zirconium PHA 01/07/25 Verified Cyclosilicate 22:00 Furosemide Injection PHA 01/07/25 Verified (Lasix Injection) 22:00 Date of Service: Jan 07, 2025 Billing Provider: NO CAPELLAN Common Visit Codes: [id number] INP/OBS CARE (HIGH) NO CAPELLAN Jan 07, 2025 22:02
[2025-01-07 22:15] LABS: Triglycerides 100 mg/dL (< 150)
[2025-01-07 22:16] LABS: HDL Cholesterol 45 mg/dL (40-59)
[2025-01-07 22:17] LABS: Cholesterol 95 mg/dL (< 200)
[2025-01-08] VITALS (8 sets, daily range): BP systolic 141–186; BP diastolic 68–100; PULSE 70–81; RESP 19–20; TEMP 97–98.9; O2SAT 93–100
[2025-01-08] MEDS ORDERED: ALBUMIN 25% 100 ML IV PRN (05:15)
[2025-01-08] MEDS: FUROSEMIDE 40 MG TAB PO SCH (06:00)
[2025-01-08] MEDS: LEVOTHYROXINE SODIUM 50 MCG TAB PO SCH (06:00)
[2025-01-08 06:43] LABS: Hematocrit 27.9 % (36.0-46.0); Hemoglobin 9.4 g/dL (12.2-16.2); Mean Corpuscular Hemoglobin 31.7 pg (28.0-32.0); Mean Corpuscular Volume 94.0 fL (80.0-100.0); Nucleated Red Blood Cells % 0.0 %
[2025-01-08 07:00] LABS: Alanine Aminotransferase 31 U/L (7-40); Albumin 3.5 g/dL (3.2-4.8); Alkaline Phosphatase 79 U/L (46-116); Anion Gap 15 (5-15); BUN/Creatinine Ratio 6.2 (10.0-20.0); Calcium 9.5 mg/dL (8.7-10.4); Carbon Dioxide 25 mmol/L (20-31); Chloride 100 mmol/L (98-107); Potassium 4.6 mmol/L (3.5-5.1); Sodium 140 mmol/L (136-145); Total Protein 6.4 g/dL (5.7-8.2)
[2025-01-08 07:13] LABS: Bilirubin, Total < 0.2 mg/dL (0.2-1.0); Glucose 136 mg/dL (74-106)
[2025-01-08] MEDS: SODIUM CHL 0.9% 1000 ML BAG XX ONE (07:15)
[2025-01-08 07:17] LABS: Blood Urea Nitrogen 81 mg/dL (9-23)
--- NOTE | 2025-01-08 09:54 | DVHPN2 ---
Consult Progress Note Date Seen: Jan 08, 2025 Subjective Review of Systems: CVS:Normal, RESPIRATORY:Normal, NEURO:Normal Other Systems: Denies any cardiac symptoms or visual disturbances/dizziness Objective vital signs Vital Sign Date Time Temp Pulse Resp B/P (MAP) Pulse Ox O2 Delivery O2 Flow Rate FiO2 01/08/25 06:00 113/79 01/08/25 05:00 98.1 74 19 93 98.1 01/08/25 00:47 Room Air* 0 21 Total Intake and Output 01/07/25 01/07/25 01/08/25 15:00 23:00 07:00 Intake Total 0 ml Balance 0 ml medications Current Medications Medications Dose Ordered Sig/Kasia Route Start Time Stop Time Status Last Admin Dose Admin Amlodipine Besylate 10 mg DAILY PO 01/08/25 10:00 Aspirin 81 mg DAILY PO 01/08/25 10:00 Atorvastatin Calcium 20 mg HS PO 01/07/25 22:00 01/07/25 22:00 20 MG Clonidine HCl 0.1 mg BID PO 01/07/25 22:00 01/07/25 22:00 0.1 MG Furosemide 40 mg BIDD PO 01/08/25 06:00 Levothyroxine Sodium 150 mcg QAM@0600 PO 01/08/25 06:00 Hydralazine HCl 50 mg Q8HR PO 01/07/25 22:00 01/07/25 22:00 50 MG Diagnostic Test (Pha) 1 strip ACHS 01/07/25 22:00 01/07/25 22:00 1 STRIP Insulin Human Regular ACHS SC 01/07/25 22:00 Dextrose 50 ml UD PRN IV 01/07/25 19:45 Ondansetron HCl 4 mg Q4HP PRN IV 01/07/25 19:45 Acetaminophen 650 mg Q6HP PRN PO 01/07/25 19:45 Nitroglycerin 0.4 mg Q5MINP PRN SL 01/07/25 20:00 Morphine Sulfate 2 mg Q30M PRN IV 01/07/25 20:00 Hydralazine HCl 10 mg Q6HP PRN IV 01/07/25 22:00 Albumin Human 100 ml @ 100 mls/hr PRN PRN IV 01/08/25 05:15 Examination: GENERAL:Abnormal (Morbidly obese), LUNGS:Normal, CVS:Normal (NSR with no further bradycardic events overnight), NEURO:Normal laboratory and microbiology Laboratory Tests 01/08/25 05:03 Test 01/08/25 05:03 Range/Units Serum Glucose 136 H 74-106 mg/dL Problem List/Assessment/Plan Problem List/Assessment/Plan Acute hyperkalemia/beta-jean paul induced bradycardia Profound bradycardia with AV dissociation secondary to above ESRD on HD with missed treatments Hypertension Dyslipidemia Thyroid disease Anemia in chronic disease Obesity Plan/Recommendation (Dr. Mills) * Twelve lead electrocardiograms x2 revealed atrioventricular dissociation with heightened p-waves * Transthoracic echocardiogram from 03/20/2024 revealed LVEF 60% with moderate concentric LVH. Grade 2 diastolic dysfunction. Moderately dilated left atrial chamber size Plan: The patient with acute hyperkalemia underwent medical protocol along with glucagon administration and hemodialysis treatment. Potassium levels are within normal limits. cafeteria monitor reviewed with no further bradycardic events or AV dissociation. Strongly counseled on medical compliance with HD treatments. There is no further cardiac work-up indicated at this time. Kindly call if in need of further recommendations. Signing off. Thank you for allowing us to participate in this patient's care. This medical document was created using an electronic medical record system with voice recognition software and computerized dictation system. Although this document has been carefully reviewed, there might still be some phonetic and typographical errors. Occasional wrong-word or ``sound-alike substitutions may have occurred due to the inherent limitations of voice recognition software. These areas are purely typographical due to imperfections of the software programs and do not reflect any compromise in the patient's medical care. Please read the chart carefully and recognize, using context, where these substitutions have occurred. Plan discussed with: Patient, Other Date of Service: Jan 08, 2025 Billing Provider: BABATUNDE REEVES Cardiology Common Codes: [id number] HOSP CARE(High BABATUNDE REEVES Jan 08, 2025 09:54
--- NOTE | 2025-01-08 11:45 | DVHPN2 ---
Reviewed: Care Plan, H&P, Labs, Medications, Previous Orders, Radiology Changes from previous H/P or p: No Changes Objective Vitals Vital Signs Date Time Temp Pulse Resp B/P (MAP) Pulse Ox O2 Delivery O2 Flow Rate FiO2 01/08/25 10:20 149/89 01/08/25 09:00 98.0 77 20 99 98.0 01/08/25 00:47 Room Air* 0 21 Intake/Output Intake and Output 01/08/25 07:00 Intake Total 0 ml Balance 0 ml Intake Oral 0 ml # Voids 2 # Bowel Movements 2 Medications Current Medications Medications Dose Ordered Sig/Kasia Route Start Time Stop Time Status Last Admin Dose Admin Amlodipine Besylate 10 mg DAILY PO 01/08/25 10:00 01/08/25 10:20 10 MG Aspirin 81 mg DAILY PO 01/08/25 10:00 01/08/25 10:22 81 MG Atorvastatin Calcium 20 mg HS PO 01/07/25 22:00 01/07/25 22:00 20 MG Clonidine HCl 0.1 mg BID PO 01/07/25 22:00 01/08/25 10:19 0.1 MG Furosemide 40 mg BIDD PO 01/08/25 06:00 Levothyroxine Sodium 150 mcg QAM@0600 PO 01/08/25 06:00 Hydralazine HCl 50 mg Q8HR PO 01/07/25 22:00 01/07/25 22:00 50 MG Diagnostic Test (Pha) 1 strip ACHS 01/07/25 22:00 01/07/25 22:00 1 STRIP Insulin Human Regular ACHS SC 01/07/25 22:00 Dextrose 50 ml UD PRN IV 01/07/25 19:45 Ondansetron HCl 4 mg Q4HP PRN IV 01/07/25 19:45 Acetaminophen 650 mg Q6HP PRN PO 01/07/25 19:45 Nitroglycerin 0.4 mg Q5MINP PRN SL 01/07/25 20:00 Morphine Sulfate 2 mg Q30M PRN IV 01/07/25 20:00 Hydralazine HCl 10 mg Q6HP PRN IV 01/07/25 22:00 Albumin Human 100 ml @ 100 mls/hr PRN PRN IV 01/08/25 05:15 Laboratory Results Laboratory Tests 01/08/25 05:03 Chemistry Test 01/07/25 13:49 01/08/25 05:03 Calcium Level 9.7 mg/dL (8.7-10.4) 9.5 mg/dL (8.7-10.4) Albumin 3.5 g/dL (3.2-4.8) Total Protein 6.4 g/dL (5.7-8.2) Lipid panel Test 01/07/25 17:28 Cholesterol Level 95 mg/dL (< 200) HDL Cholesterol 45 mg/dL (40-59) Triglycerides Level 100 mg/dL (< 150) Cardiac Markers Test 01/07/25 13:49 B-Type Natriuretic Peptide 443.31 pg/mL (0-100) LFT Test 01/08/25 05:03 Alanine Aminotransferase (ALT) 31 U/L (7-40) Alkaline Phosphatase 79 U/L (46-116) Aspartate Amino Transferase (AST) 21 U/L (13-40) Total Bilirubin < 0.2 mg/dL (0.2-1.0) L HgA1c, TSH Test 01/07/25 17:28 Thyroid Stimulating Hormone (TSH) 2.28 uIU/mL (0.55-4.78) Labs and/or images reviewed: Labs reviewed by me, Image(s) reviewed by me Assessment/Plan Assessment/Plan acute hypoxemic respiratory failure, likely due to ESRD volume overload new oxygen requirement, chronic hypoxemic respiratory failure due to above. AV graft fistula site infection ESRD on HD Hypokalemia Anemia chronic disease Diabetes , type 2, with renal failure Hypertension nebs 9 hypothyroid Dyslipidemia Vitamin-D deficiency History of gastric sleeve 2021 Noncompliance Plan discussed with: Patient PRANAY DUQUE MD Jan 08, 2025 11:45
--- NOTE | 2025-01-08 11:58 | DVHPN2 ---
Reviewed: Care Plan, H&P, Labs, Medications, Previous Orders, Radiology Changes from previous H/P or p: No Changes Objective Vitals Vital Signs Date Time Temp Pulse Resp B/P (MAP) Pulse Ox O2 Delivery O2 Flow Rate FiO2 01/08/25 10:20 149/89 01/08/25 09:00 98.0 77 20 99 98.0 01/08/25 00:47 Room Air* 0 21 Intake/Output Intake and Output 01/08/25 07:00 Intake Total 0 ml Balance 0 ml Intake Oral 0 ml # Voids 2 # Bowel Movements 2 Medications Current Medications Medications Dose Ordered Sig/Kasia Route Start Time Stop Time Status Last Admin Dose Admin Amlodipine Besylate 10 mg DAILY PO 01/08/25 10:00 01/08/25 10:20 10 MG Aspirin 81 mg DAILY PO 01/08/25 10:00 01/08/25 10:22 81 MG Atorvastatin Calcium 20 mg HS PO 01/07/25 22:00 01/07/25 22:00 20 MG Clonidine HCl 0.1 mg BID PO 01/07/25 22:00 01/08/25 10:19 0.1 MG Furosemide 40 mg BIDD PO 01/08/25 06:00 Levothyroxine Sodium 150 mcg QAM@0600 PO 01/08/25 06:00 Hydralazine HCl 50 mg Q8HR PO 01/07/25 22:00 01/07/25 22:00 50 MG Diagnostic Test (Pha) 1 strip ACHS 01/07/25 22:00 01/07/25 22:00 1 STRIP Insulin Human Regular ACHS SC 01/07/25 22:00 Dextrose 50 ml UD PRN IV 01/07/25 19:45 Ondansetron HCl 4 mg Q4HP PRN IV 01/07/25 19:45 Acetaminophen 650 mg Q6HP PRN PO 01/07/25 19:45 Nitroglycerin 0.4 mg Q5MINP PRN SL 01/07/25 20:00 Morphine Sulfate 2 mg Q30M PRN IV 01/07/25 20:00 Hydralazine HCl 10 mg Q6HP PRN IV 01/07/25 22:00 Albumin Human 100 ml @ 100 mls/hr PRN PRN IV 01/08/25 05:15 Laboratory Results Laboratory Tests 01/08/25 05:03 Chemistry Test 01/07/25 13:49 01/08/25 05:03 Calcium Level 9.7 mg/dL (8.7-10.4) 9.5 mg/dL (8.7-10.4) Albumin 3.5 g/dL (3.2-4.8) Total Protein 6.4 g/dL (5.7-8.2) Lipid panel Test 01/07/25 17:28 Cholesterol Level 95 mg/dL (< 200) HDL Cholesterol 45 mg/dL (40-59) Triglycerides Level 100 mg/dL (< 150) Cardiac Markers Test 01/07/25 13:49 B-Type Natriuretic Peptide 443.31 pg/mL (0-100) LFT Test 01/08/25 05:03 Alanine Aminotransferase (ALT) 31 U/L (7-40) Alkaline Phosphatase 79 U/L (46-116) Aspartate Amino Transferase (AST) 21 U/L (13-40) Total Bilirubin < 0.2 mg/dL (0.2-1.0) L HgA1c, TSH Test 01/07/25 17:28 Thyroid Stimulating Hormone (TSH) 2.28 uIU/mL (0.55-4.78) Labs and/or images reviewed: Labs reviewed by me, Image(s) reviewed by me Assessment/Plan Assessment/Plan Acute hyperkalemia/beta-jean paul induced bradycardia, cardiology consult appreciated Profound bradycardia with AV dissociation secondary to above , ejection fraction 60 % ESRD on HD with missed treatments Hypertension Dyslipidemia Thyroid disease Anemia in chronic disease Obesity Medication noncompliance Anemia of chronic disease Type 2 diabetes History of gastric sleeve surgery 2021 Time Spent 70 minutes Advanced care planning time 20 minutes Patient is full code DEBORA Barnett at the bedside Plan discussed with: Patient Date of Service: Jan 08, 2025 Billing Provider: PRANAY DUQUE MD Common Visit Codes: [id number] CARE 30-74 MIN PRANAY DUQUE MD Jan 08, 2025 11:58
[2025-01-08] MEDS ORDERED: GABAPENTIN 300 MG CAP PO SCH (12:00)
[2025-01-08] MEDS: hydrALAZINE HCL 20 MG/ML VL IV PRN (12:25)
--- NOTE | 2025-01-08 15:08 | ECG ---
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
[2025-01-08] MEDS ORDERED: GABA-1250 PO (15:22)
[2025-01-08] MEDS: LOPERAMIDE HCL 2 MG CAP/TAB PO PRN (15:30)
[2025-01-08] MEDS: GABAPENTIN 300 MG CAP PO SCH (15:31)
[2025-01-08] MEDS ORDERED: TRAM50TA2 PO (15:32)
--- NOTE | 2025-01-08 18:16 | DVHINCON2 ---
Date of service: Jan 08, 2025 Referring Physician Anuj Oconnor NP Reason for Consultation End-stage kidney disease, hyperkalemia History of Present Illness This is a 49-year-old female with history of end-stage kidney disease secondary to diabetic nephropathy presenting to the emergency room because of chest discomfort and bradycardia. As per the history obtained from the patient she had missed her dialysis on Sunday. Her last dialysis was on Sunday. She woke up on Sunday morning with chest discomfort. Presented to the dialysis center where she was noted to be bradycardic with a heart rate in the 40s. Hence referred to the emergency room. Initial evaluation showed that her potassium was elevated at 6.6. Hence Nephrology was consulted. Medical management of hyperkalemia was done. Nephrology consulted for the same. Past Medical History Past Medical History End-stage renal disease, dyslipidemia, hypertension, thyroid, diabetes mellitus Past Surgical History Past Surgical History D&C, tubal ligation, cholecystectomy, , av fistula Family History: FH: HTN (hypertension) G8 MOTHER, G8 FATHER FH: diabetes mellitus G8 MOTHER, G8 FATHER FH: heart failure G8 MOTHER, Family History Family History Diabetes mellitus, heart disease Social History Smoke: Quit ALCOHOL: none Drugs: Marijuana Lives: with Family Allergies: Coded Allergies: Codeine (Unverified Allergy, Unknown, 10/03/14) Home Meds Active Scripts Hydrocodone-Acetaminophen (Hydrocodone Bitartrate/AC 5-325 mg) 1 Tab Tab, 1 TAB PO Q6HP PRN, #20 TAB Prov:PEDRO ASHER MD 10/31/24 Reported Medications Tramadol Hcl (Tramadol Hcl) 50 Mg Tab, 50 MG PO Q8HPRN PRN for PAIN SCALE 1 THRU 6, MG 01/08/25 Gabapentin (Gabapentin) 300 Mg Cap, 300 MG PO TID for 30 Days, MG 01/08/25 Atorvastatin Calcium (ATORVASTATIN CALCIUM) 20 Mg Tab, 1 TAB PO DAILY 11/21/24 Levothyroxine Sodium (Levothyroxine Sodium) 150 Mcg Tab, 1 TAB PO DAILY 11/21/24 Hydralazine Hcl (Hydralazine Hcl) 100 Mg Tab, 1 TAB PO TID 11/21/24 Amlodipine Besylate (Amlodipine Besylate) 10 Mg Tab, 1 TAB PO DAILY 11/21/24 Sodium Zirconium Cyclosilicate (Lokelma) 10 Gm Quintin, PO 11/21/24 Duloxetine HCl (Duloxetine HCl) 20 Mg Cap, 1 CAP PO DAILY 11/21/24 Furosemide (Furosemide) 40 Mg Tab, 1 TAB PO BID 11/21/24 Metoprolol Succinate (Metoprolol Succinate Er) 100 Mg Tab 11/21/24 Ergocalciferol (Vitamin D) 50,000 Unit Cap, PO 11/21/24 Semaglutide (Ozempic) 8 Mg/3 Ml Inj 11/21/24 Ergocalciferol (VITAMIN D 83691 UNIT) 50,000 [place], [address] UNIT PO QWEEKLY, CAP 03/21/24 Clonidine Hydrochloride (Clonidine Hcl) 0.1 Mg Tab, 1 TAB PO BID, #30 TAB 2 Refills 12/12/22 Ferric Citrate (Auryxia) 210 Mg Tab, 3 TAB PO TID 12/12/22 Current Medications Current Medications Medications (Trade) Dose Ordered Sig/Kasia Route PRN Reason Start Time Stop Time Status Last Admin Amlodipine Besylate (Norvasc Tablet) 10 mg DAILY PO 01/08/25 10:00 01/08/25 10:20 Aspirin 81 mg DAILY PO 01/08/25 10:00 01/08/25 10:22 Atorvastatin Calcium (Lipitor) 20 mg HS PO 01/07/25 22:00 01/07/25 22:00 Clonidine HCl (Catapres Tablet) 0.1 mg BID PO 01/07/25 22:00 01/08/25 10:19 Furosemide (Lasix Tablet) 40 mg BIDD PO 01/08/25 06:00 01/08/25 17:42 Levothyroxine Sodium (Synthroid Tablet) 150 mcg QAM@0600 PO 01/08/25 06:00 Hydralazine HCl (Apresoline Tablet) 50 mg Q8HR PO 01/07/25 22:00 01/08/25 14:00 Diagnostic Test (Pha) (Accu-Chek Comfort Curve T) 1 strip ACHS 01/07/25 22:00 01/08/25 17:16 Insulin Human Regular (InsuLIN R) ACHS SC 01/07/25 22:00 Dextrose 50 ml UD PRN IV Blood Sugar LESS THAN 60 01/07/25 19:45 Ondansetron HCl (Zofran) 4 mg Q4HP PRN IV NAUSEA / VOMITING 01/07/25 19:45 Acetaminophen (Tylenol Tablet) 650 mg Q6HP PRN PO PAIN SCALE 1-3 OR TEMP>100.4 01/07/25 19:45 Nitroglycerin (Ntrostat Sublingual) 0.4 mg Q5MINP PRN SL FOR CHEST PAIN 01/07/25 20:00 Morphine Sulfate 2 mg Q30M PRN IV FOR CHEST PAIN 01/07/25 20:00 Hydralazine HCl (Apresoline Injection) 10 mg Q6HP PRN IV SBP>150 01/07/25 22:00 01/08/25 12:25 Albumin Human 100 ml @ 100 mls/hr PRN PRN IV fpr B/P support during hd 01/08/25 05:15 Gabapentin (Neurontin Capsule) 300 mg DAILY PO 01/08/25 12:00 01/08/25 15:21 DC Loperamide HCl (Imodium Capsule) 2 mg Q4H PRN PO FOR DIARRHEA 01/08/25 12:00 01/08/25 15:30 Gabapentin (Neurontin Capsule) 300 mg TID PO 01/08/25 15:30 01/08/25 15:31 Review of Systems Twelve point review of systems negative except as stated in the HPI. 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 Extremities: No edema Labs/Diagnostic Data Labs Test 01/08/25 17:09 01/08/25 05:03 01/07/25 17:28 01/07/25 13:49 Range/Units POC Glucose 101 70-106 mg/dl White Blood Count 6.1 4.4-10.8 10^3/uL Red Blood Count 2.97 L 4.0-5.20 10^6/uL Hemoglobin 9.4 L 12.2-16.2 g/dL Hematocrit 27.9 #L 36.0-46.0 % Mean Corpuscular Volume 94.0 80.0-100.0 fL Mean Corpuscular Hemoglobin 31.7 28.0-32.0 pg Mean Corpuscular Hemoglobin Concent 33.7 32.0-36.0 g/dL Red Cell Distribution Width 14.9 H 11.8-14.3 % Platelet Count 214 140-450 10^3/uL Mean Platelet Volume 8.8 6.9-10.8 fL Neutrophils (%) (Auto) 67.7 37.0-80.0 % Lymphocytes (%) (Auto) 21.8 10.0-50.0 % Monocytes (%) (Auto) 5.1 0.0-12.0 % Eosinophils (%) (Auto) 4.0 0.0-7.0 % Basophils (%) (Auto) 1.4 0.0-2.0 % Neutrophils # (Auto) 4.1 1.6-8.6 10 ^3/uL Lymphocytes # (Auto) 1.3 0.4-5.4 10 ^3/uL Monocytes # (Auto) 0.3 0-1.3 10 ^3/uL Eosinophils # (Auto) 0.2 0-0.8 10 ^3/uL Basophils # (Auto) 0.1 0-0.2 10 ^3/uL Nucleated Red Blood Cells 0.0 % Sodium Level 140 136-145 mmol/L Potassium Level 4.6 3.5-5.1 mmol/L Chloride Level 100 98-107 mmol/L Carbon Dioxide Level 25 20-31 mmol/L Anion Gap 15 5-15 Blood Urea Nitrogen 81 *H 9-23 mg/dL Creatinine 13.09 *H 0.550-1.02 mg/dL Glomerular Filtration Rate Calc 3 >90 mL/min BUN/Creatinine Ratio 6.2 L 10.0-20.0 Serum Glucose 136 H 74-106 mg/dL Calcium Level 9.5 8.7-10.4 mg/dL Total Bilirubin < 0.2 L 0.2-1.0 mg/dL Aspartate Amino Transferase (AST) 21 13-40 U/L Alanine Aminotransferase (ALT) 31 7-40 U/L Alkaline Phosphatase 79 46-116 U/L Total Protein 6.4 5.7-8.2 g/dL Albumin 3.5 3.2-4.8 g/dL Troponin I High Sensitivity 11 </=34 ng/L Triglycerides Level 100 < 150 mg/dL Cholesterol Level 95 < 200 mg/dL LDL Cholesterol 27 < 100 mg/dL HDL Cholesterol 45 40-59 mg/dL Thyroid Stimulating Hormone (TSH) 2.28 0.55-4.78 uIU/mL B-Type Natriuretic Peptide 443.31 0-100 pg/mL Microbiology Date/Time Source Procedure Growth Status 01/08/25 01:50 Nose MRSA Screen - Final Complete Assessment End-stage kidney disease on hemodialysis Hyperkalemia Type 2 diabetes Hypertension Hyperlipidemia Obesity Plan/Recommendation Patient underwent dialysis today. She is cleared from renal standpoint for discharge. She has been advised to follow up at [facility] for further dialysis. Plan discussed with: Patient YARELI FERNANDEZ MD Jan 08, 2025 18:16
[2025-01-09 01:00] VITALS: BP 144/85; PULSE 78; RESP 20; TEMP 97.7; O2SAT 92
[2025-01-09 04:59] VITALS: BP 164/88; PULSE 80; RESP 20; TEMP 97.3; O2SAT 95
[2025-01-09 07:16] LABS: Hematocrit 32.6 % (36.0-46.0); Hemoglobin 11.0 g/dL (12.2-16.2); Mean Corpuscular Hemoglobin 32.1 pg (28.0-32.0); Mean Corpuscular Volume 95.2 fL (80.0-100.0); Nucleated Red Blood Cells % 0.1 %
[2025-01-09 07:31] LABS: Alanine Aminotransferase 27 U/L (7-40); Alkaline Phosphatase 83 U/L (46-116); Anion Gap 15 (5-15); BUN/Creatinine Ratio 4.6 (10.0-20.0); Calcium 9.9 mg/dL (8.7-10.4); Carbon Dioxide 26 mmol/L (20-31); Chloride 98 mmol/L (98-107); Glucose 83 mg/dL (74-106); Sodium 139 mmol/L (136-145); Total Protein 7.1 g/dL (5.7-8.2)
[2025-01-09 07:32] LABS: Albumin 4.0 g/dL (3.2-4.8)
[2025-01-09 07:35] LABS: Bilirubin, Total 0.2 mg/dL (0.2-1.0); Blood Urea Nitrogen 51 mg/dL (9-23); Potassium 5.1 mmol/L (3.5-5.1)
[2025-01-09 08:00] VITALS: PULSE 77; RESP 18; O2SAT 93
[2025-01-09 09:00] VITALS: BP 155/78; PULSE 72; RESP 18; TEMP 97.8; O2SAT 93
--- NOTE | 2025-01-09 09:46 | DVHPN2 ---
Progress Note - Dictate Date Seen: Jan 09, 2025 Medical Necessity Reason Pt with a Central, PICC or Fol: No Subjective no acute issues overnight vital signs Vital Sign Date Time Temp Pulse Resp B/P (MAP) Pulse Ox O2 Delivery O2 Flow Rate FiO2 01/09/25 06:00 164/88 01/09/25 04:59 97.3 80 20 95 97.3 01/08/25 20:00 Nasal Cannula* 1 24 Total Intake and Output 01/08/25 01/08/25 01/09/25 15:00 23:00 07:00 Intake Total 800 ml 1170 ml Balance 800 ml 1170 ml medications Current Medications Medications Dose Ordered Sig/Kasia Route Start Time Stop Time Status Last Admin Dose Admin Amlodipine Besylate 10 mg DAILY PO 01/08/25 10:00 01/08/25 10:20 10 MG Aspirin 81 mg DAILY PO 01/08/25 10:00 01/08/25 10:22 81 MG Atorvastatin Calcium 20 mg HS PO 01/07/25 22:00 01/08/25 21:39 20 MG Clonidine HCl 0.1 mg BID PO 01/07/25 22:00 01/08/25 21:39 0.1 MG Furosemide 40 mg BIDD PO 01/08/25 06:00 01/09/25 06:00 40 MG Levothyroxine Sodium 150 mcg QAM@0600 PO 01/08/25 06:00 01/09/25 06:00 150 MCG Hydralazine HCl 50 mg Q8HR PO 01/07/25 22:00 01/09/25 06:00 50 MG Diagnostic Test (Pha) 1 strip ACHS 01/07/25 22:00 01/09/25 06:16 1 STRIP Insulin Human Regular ACHS SC 01/07/25 22:00 01/08/25 21:34 4 UNITS Dextrose 50 ml UD PRN IV 01/07/25 19:45 Ondansetron HCl 4 mg Q4HP PRN IV 01/07/25 19:45 Acetaminophen 650 mg Q6HP PRN PO 01/07/25 19:45 Nitroglycerin 0.4 mg Q5MINP PRN SL 01/07/25 20:00 Morphine Sulfate 2 mg Q30M PRN IV 01/07/25 20:00 Hydralazine HCl 10 mg Q6HP PRN IV 01/07/25 22:00 01/08/25 12:25 10 MG Albumin Human 100 ml @ 100 mls/hr PRN PRN IV 01/08/25 05:15 Loperamide HCl 2 mg Q4H PRN PO 01/08/25 12:00 01/09/25 05:59 2 MG Gabapentin 300 mg TID PO 01/08/25 15:30 01/09/25 05:59 300 MG objective Awake alert oriented x3 HEENT: Normocephalic, no JVD Lungs: Bilateral good air entry CVS: S1, S2 regular rate rhythm Abdomen: Soft, bowel sounds present 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 Next HD on Sat Lokelma x 1 dose Plan discussed with: Patient YARELI FERNANDEZ MD Jan 09, 2025 09:46
[2025-01-09 10:54] LABS: Hepatitis B Surface Antigen Negative (Negative)
--- NOTE | 2025-01-09 11:20 | DVHPN2 ---
Reviewed: Care Plan, H&P, Labs, Medications, Previous Orders, Radiology Changes from previous H/P or p: No Changes Objective Vitals Vital Signs Date Time Temp Pulse Resp B/P (MAP) Pulse Ox O2 Delivery O2 Flow Rate FiO2 01/09/25 10:11 155/78 01/09/25 09:00 97.8 72 18 93 97.8 01/09/25 08:00 Room Air* 0 21 Intake/Output Intake and Output 01/09/25 07:00 Intake Total 1970 ml Balance 1970 ml Intake Oral 1970 ml Medications Current Medications Medications Dose Ordered Sig/Kasia Route Start Time Stop Time Status Last Admin Dose Admin Amlodipine Besylate 10 mg DAILY PO 01/08/25 10:00 01/09/25 10:10 10 MG Aspirin 81 mg DAILY PO 01/08/25 10:00 01/09/25 10:11 81 MG Atorvastatin Calcium 20 mg HS PO 01/07/25 22:00 01/08/25 21:39 20 MG Clonidine HCl 0.1 mg BID PO 01/07/25 22:00 01/09/25 10:11 0.1 MG Furosemide 40 mg BIDD PO 01/08/25 06:00 01/09/25 06:00 40 MG Levothyroxine Sodium 150 mcg QAM@0600 PO 01/08/25 06:00 01/09/25 06:00 150 MCG Hydralazine HCl 50 mg Q8HR PO 01/07/25 22:00 01/09/25 06:00 50 MG Diagnostic Test (Pha) 1 strip ACHS 01/07/25 22:00 01/09/25 06:16 1 STRIP Insulin Human Regular ACHS SC 01/07/25 22:00 01/08/25 21:34 4 UNITS Dextrose 50 ml UD PRN IV 01/07/25 19:45 Ondansetron HCl 4 mg Q4HP PRN IV 01/07/25 19:45 Acetaminophen 650 mg Q6HP PRN PO 01/07/25 19:45 Nitroglycerin 0.4 mg Q5MINP PRN SL 01/07/25 20:00 Morphine Sulfate 2 mg Q30M PRN IV 01/07/25 20:00 Hydralazine HCl 10 mg Q6HP PRN IV 01/07/25 22:00 01/08/25 12:25 10 MG Albumin Human 100 ml @ 100 mls/hr PRN PRN IV 01/08/25 05:15 Loperamide HCl 2 mg Q4H PRN PO 01/08/25 12:00 01/09/25 05:59 2 MG Gabapentin 300 mg TID PO 01/08/25 15:30 01/09/25 05:59 300 MG Laboratory Results Laboratory Tests 01/09/25 05:28 Chemistry Test 01/09/25 05:28 Albumin 4.0 g/dL (3.2-4.8) Calcium Level 9.9 mg/dL (8.7-10.4) Total Protein 7.1 g/dL (5.7-8.2) LFT Test 01/09/25 05:28 Alanine Aminotransferase (ALT) 27 U/L (7-40) Alkaline Phosphatase 83 U/L (46-116) Aspartate Amino Transferase (AST) 19 U/L (13-40) Total Bilirubin 0.2 mg/dL (0.2-1.0) Microbiology Microbiology Date/Time Source Procedure Growth Status 01/08/25 01:50 Nose MRSA Screen - Final Complete Labs and/or images reviewed: Labs reviewed by me, Image(s) reviewed by me Assessment/Plan Assessment/Plan Acute hyperkalemia/beta-jean paul induced bradycardia, cardiology consult appreciated Profound bradycardia with AV dissociation secondary to above , ejection fraction 60 % ESRD on HD with missed treatments Hypertension Dyslipidemia Thyroid disease Anemia in chronic disease Obesity Medication noncompliance Anemia of chronic disease Type 2 diabetes History of gastric sleeve surgery 2021 Time Spent 50 minutes Advanced care planning time 20 minutes Patient is full code RN at the bedside Patient feels better and wants to go home Cleared for discharge by nephrology Plan discussed with: Patient My Orders Orders - PRANAY DUQUE MD Procedure Category Date Status Time Complete Blood Count LAB 01/10/25 Verified 05:00 Complete Blood Count LAB 01/11/25 Verified 05:00 Complete Blood Count LAB 01/12/25 Verified 05:00 Comprehensive LAB 01/10/25 Verified Metabolic Panel 05:00 Comprehensive LAB 01/11/25 Verified Metabolic Panel 05:00 Comprehensive LAB 01/12/25 Verified Metabolic Panel 05:00 Loperamide Capsule PHA 01/08/25 In Process (Imodium Capsule) 12:00 Gabapentin Capsule PHA 01/08/25 In Process (Neurontin Capsule) 15:30 Date of Service: Jan 09, 2025 Billing Provider: PRANAY DUQUE MD Common Visit Codes: [id number] INP/OBS CARE(HIGH) PRANAY DUQUE MD Jan 09, 2025 11:20
[2025-01-09 11:23] LABS: Hepatitis C Antibody Negative (Negative)
--- NOTE | 2025-01-09 11:29 | DVHDS2 ---
Discharge Summary Date of Admission Jan 07, 2025 at 19:59 Date of Discharge: Jan 09, 2025 Admitting Diagnosis Chest pain Wounds: none Labs/Diagnostic Data: Laboratory Results Test 01/09/25 06:15 01/09/25 05:28 01/08/25 05:03 01/07/25 17:28 POC Glucose 101 mg/dl (70-106) White Blood Count 6.2 10^3/uL (4.4-10.8) Red Blood Count 3.43 10^6/uL (4.0-5.20) Hemoglobin 11.0 g/dL (12.2-16.2) Hematocrit 32.6 % (36.0-46.0) Mean Corpuscular Volume 95.2 fL (80.0-100.0) Mean Corpuscular Hemoglobin 32.1 pg (28.0-32.0) Mean Corpuscular Hemoglobin Concent 33.7 g/dL (32.0-36.0) Red Cell Distribution Width 15.6 % (11.8-14.3) Platelet Count 235 10^3/uL (140-450) Mean Platelet Volume 8.6 fL (6.9-10.8) Neutrophils (%) (Auto) 54.9 % (37.0-80.0) Lymphocytes (%) (Auto) 30.4 % (10.0-50.0) Monocytes (%) (Auto) 8.1 % (0.0-12.0) Eosinophils (%) (Auto) 5.4 % (0.0-7.0) Basophils (%) (Auto) 1.2 % (0.0-2.0) Neutrophils # (Auto) 3.4 10 ^3/uL (1.6-8.6) Lymphocytes # (Auto) 1.9 10 ^3/uL (0.4-5.4) Monocytes # (Auto) 0.5 10 ^3/uL (0-1.3) Eosinophils # (Auto) 0.3 10 ^3/uL (0-0.8) Basophils # (Auto) 0.1 10 ^3/uL (0-0.2) Nucleated Red Blood Cells 0.1 % Sodium Level 139 mmol/L (136-145) Potassium Level 5.1 mmol/L (3.5-5.1) Chloride Level 98 mmol/L (98-107) Carbon Dioxide Level 26 mmol/L (20-31) Anion Gap 15 (5-15) Blood Urea Nitrogen 51 mg/dL (9-23) Creatinine 10.98 mg/dL (0.550-1.02) Glomerular Filtration Rate Calc 4 mL/min (>90) BUN/Creatinine Ratio 4.6 (10.0-20.0) Serum Glucose 83 mg/dL (74-106) Calcium Level 9.9 mg/dL (8.7-10.4) Total Bilirubin 0.2 mg/dL (0.2-1.0) Aspartate Amino Transferase (AST) 19 U/L (13-40) Alanine Aminotransferase (ALT) 27 U/L (7-40) Alkaline Phosphatase 83 U/L (46-116) Total Protein 7.1 g/dL (5.7-8.2) Albumin 4.0 g/dL (3.2-4.8) Hepatitis A IgM Antibody Negative Hepatitis B Surface Antigen Negative (Negative) Hepatitis B Core IgM Antibody Negative (Negative) Hepatitis C Antibody Negative (Negative) Troponin I High Sensitivity 11 ng/L (</=34) Triglycerides Level 100 mg/dL (< 150) Cholesterol Level 95 mg/dL (< 200) LDL Cholesterol 27 mg/dL (< 100) HDL Cholesterol 45 mg/dL (40-59) Thyroid Stimulating Hormone (TSH) 2.28 uIU/mL (0.55-4.78) Test 01/07/25 13:49 B-Type Natriuretic Peptide 443.31 pg/mL (0-100) Other Laboratory Tests 01/09/25 05:28 Brief Hx & Hospital Course: 89-year-old female with a ESRD on hemodialysis hypertension hypercholesterolemia hypothyroidism anemia chronic disease Mr. Dialysis and came to ER for chest pain patient has had high acute hyperkalemia and beta jean paul induced bradycardia cardiology consult was obtained echo 60 percent ejection fraction. No further cardiac workup patient troponin is negative. Patient has received hemodialysis by Dr. Sutherland cleared for discharge patient feels better with stable vital signs and wants to go home today DEBORA Gibson at bedside Patient Was educated not to miss any dialysis sessions. Consults/Reason for consult Cardiology Nephrology Operations or Procedures Hemodialysis Condition at Discharge: Fair Final Diagnosis/Problems List Acute hyperkalemia/beta-jean paul induced bradycardia, cardiology consult appreciated Profound bradycardia with AV dissociation secondary to above , ejection fraction 60 % ESRD on HD with missed treatments Hypertension Dyslipidemia Thyroid disease Anemia in chronic disease Obesity Medication noncompliance Anemia of chronic disease Type 2 diabetes History of gastric sleeve surgery 2021 Discharge Disposition: Home Discharge Instruct/Medications Diet: Renal Activity: Light activity Follow Up/Referral: Follow up with the primary Dr and saw operator for dialysis Resume all previous home medications Do not miss any dialysis sessions Medications: none Reviewed all home medications Scheduled Amlodipine Besylate (Amlodipine Besylate), 1 TAB PO DAILY, (Reported) Atorvastatin Calcium (Atorvastatin Calcium), 1 TAB PO DAILY, (Reported) Clonidine Hydrochloride (Clonidine Hcl), 1 TAB PO BID, (Reported) Duloxetine HCl (Duloxetine HCl), 1 CAP PO DAILY, (Reported) Ergocalciferol (Vitamin D 50446 Unit), 50,000 UNIT PO QWEEKLY, (Reported) Ferric Citrate (Auryxia), 3 TAB PO TID, (Reported) Furosemide (Furosemide), 1 TAB PO BID, (Reported) Gabapentin (Gabapentin), 300 MG PO TID, (Reported) Hydralazine Hcl (Hydralazine Hcl), 1 TAB PO TID, (Reported) Levothyroxine Sodium (Levothyroxine Sodium), 1 TAB PO DAILY, (Reported) Scheduled PRN Hydrocodone-Acetaminophen (Hydrocodone Bitartrate/AC 5-325 mg), 1 TAB PO Q6HP PRN Tramadol Hcl (Tramadol Hcl), 50 MG PO Q8HPRN PRN for PAIN SCALE 1 THRU 6, (Reported) Miscellaneous Medications Ergocalciferol (Vitamin D), PO, (Reported) Metoprolol Succinate (Metoprolol Succinate Er), (Reported) Semaglutide (Ozempic), (Reported) Sodium Zirconium Cyclosilicate (Lokelma), PO, (Reported) 36 (Time taken for discharge summary 36 minutes) Discharge Statement: "Patient was advised to return to the ER or call 911 if any headaches, dizziness, shortness of breath, chest pain, abdominal pain, bleeding, fevers, or worsening of medical condition. Patient was counseled about treatment plan, medications, possible side effects, patientverbalized understanding. All questions were answered to the best of my ability. This discharge took greater then 30 minutes in planning, reviewing documentation, counseling the patient, and discussing with other team members." ASSESSMENT ASSESSMENT Hospital Course Improved Assessment Acute hyperkalemia/beta-jean paul induced bradycardia, cardiology consult appreciated Profound bradycardia with AV dissociation secondary to above , ejection fraction 60 % ESRD on HD with missed treatments Hypertension Dyslipidemia Thyroid disease Anemia in chronic disease Obesity Medication noncompliance Anemia of chronic disease Type 2 diabetes History of gastric sleeve surgery 2021 Date of Service: Jan 09, 2025 Billing Provider: PRANAY DUQUE MD Common Visit Codes: [id number] DISCH DAY >30min PRANAY DUQUE MD Jan 09, 2025 11:29
[2025-01-09] MEDS: SODIUM ZIRCONIUM CYCL 10 GM PAK PO ONE (11:51)
[2025-01-09 12:18] VITALS: BP 155/78; PULSE 72; RESP 18; TEMP 97.8; O2SAT 93
[2025-01-09 13:00] VITALS: BP 166/88; PULSE 79; RESP 18; TEMP 97.7; O2SAT 97
== END 2025-01-09 13:21 | disposition home or self-care (01) | DRG 640 ==
LOC: EDUNIT# 12:23 → ER 12:23 → EDBD 12:23 → OVERFLOW 19:59 → TELE-WESTW 23:41
PROVIDERS: ADMIT Family Medicine; ATTEND Family Medicine
PROC: 5A1D70Z Performance of Urinary Filtration, Intermittent, Less than 6 Hours Per Day (ICD-10-PCS; principal; 2025-01-08)
DX: E87.5 Hyperkalemia (principal); J96.21 Acute and chronic respiratory failure with hypoxia; N18.6 End stage renal disease; I12.0 Hypertensive chronic kidney disease with stage 5 chronic kidney disease or end stage renal disease; I45.89 Other specified conduction disorders; Z99.2 Dependence on renal dialysis; D63.1 Anemia in chronic kidney disease; E11.22 Type 2 diabetes mellitus with diabetic chronic kidney disease; E66.01 Morbid (severe) obesity due to excess calories; E03.9 Hypothyroidism, unspecified; Z68.41 Body mass index [BMI] 40.0-44.9, adult; R00.1 Bradycardia, unspecified; E87.6 Hypokalemia; E55.9 Vitamin D deficiency, unspecified; T46.1X5A Adverse effect of calcium-channel blockers, initial encounter; E78.00 Pure hypercholesterolemia, unspecified; Z79.84 Long term (current) use of oral hypoglycemic drugs; Z90.49 Acquired absence of other specified parts of digestive tract; Z79.82 Long term (current) use of aspirin; Z87.891 Personal history of nicotine dependence; Z98.891 History of uterine scar from previous surgery; Z83.3 Family history of diabetes mellitus; Z82.49 Family history of ischemic heart disease and other diseases of the circulatory system; Z98.51 Tubal ligation status; Z98.84 Bariatric surgery status; Z91.148 Patient's other noncompliance with medication regimen for other reason; Y92.89 Other specified places as the place of occurrence of the external cause
CPT/HCPCS: 36415; 71045; 80048; 80053; 80061; 80074; 82962; 83880; 84132; 84443; 84484; 85025; 87081; 90935; 93005; 96365; 96375; 99291; G0378; J1815